=== PATIENT | male | born 1965 | race Caucasian/White ===

== ENCOUNTER 2020-01-29 10:53 | Inpatient (IN) ==
[2020-01-29] MEDS ORDERED: ACETAMINOPHEN 500 MG TAB PO STA (11:14)
[2020-01-29] MEDS ORDERED: SODIUM CHLORIDE 0.9% 1000ML 1,000 ML IV SCH (11:15)
--- NOTE | 2020-01-29 12:04 | XRay Report ---
XR chest 1V portable CLINICAL HISTORY: SEPSIS COMPARISON STUDY: 12/09/2019 FINDINGS: The heart remains enlarged. There is a left-sided PICC catheter. The tip terminates near th e atriocaval junction.[There are persistent bilateral pulmonary airspace opacities, most pronounced w ithin the right upper lung zone, right medial lung base, left perihilar region. The right upper lung zone lesion appears cavitary measuring 6 cm. This appears slightly larger than on the prior study. Th ere are no large pleural effusions. IMPRESSION: 1. Persistent bilateral pulmonary airspace opacities 2. Slight increase in the size of a 6 cm right upper lung zone cavitary lesion 3. Interval placement of a left-sided PICC catheter ACT 112: Negative or not required by law. Electronically signed by: Leroy Faust M.D. 01/29/2020 12:03 PM
[2020-01-29 12:34] LABS: Basophils # (auto) 0.01 K/uL (0-0.2); Basophils % (auto) 0.2 %; Eosinophils # (auto) 0.02 K/uL (0-0.5); Eosinophils % (auto) 0.3 %; Hematocrit (blood only) 27.5 % (42-52); Immature Granulocytes # (auto) 0.05 K/uL (0.00-0.02); Immature Granulocytes % (auto) 0.9 %; Lymphocytes # (auto) 0.16 K/uL (1.2-3.4); Lymphocytes % (auto) 2.8 %; Mean Corpuscular Hemoglobin 28.9 pg (25-34); Mean Corpuscular Hgb Conc 32.7 g/dL (32-36); Mean Corpuscular Volume 88.4 fL (80-100); Mean Platelet Volume 8.3 fL (7.4-10.4); Monocytes # (auto) 0.26 K/uL (0.11-0.59); Monocytes % (auto) 4.5 %; Neutrophils # (auto) 5.29 K/uL (1.4-6.5); Neutrophils % (auto) 91.3 %; Platelet Count 190 K/uL (130-400); RDW Coefficient of Variation 16.9 % (11.5-14.5); RDW Standard Deviation 53.9 fL (36.4-46.3); Red Blood Count 3.11 M/uL (4.7-6.1); White Blood Count 5.79 K/uL (4.8-10.8)
[2020-01-29 12:44] LABS: INR 1.2 (0.9-1.1); Partial Thromboplastin Ratio 1.1; Partial Thromboplastin Time 30.6 Seconds (21.0-31.0); Prothrombin Time 12.6 Seconds (9.0-12.0)
[2020-01-29 12:54] LABS: Alanine Aminotransferase 13 U/L (12-78); Albumin Level 2.3 gm/dl (3.4-5.0); Aspartate Aminotransferase 13 U/L (15-37); BUN Creatinine Ratio 24.8 (10-20); Blood Urea Nitrogen 16 mg/dl (7-18); Calcium 8.4 mg/dl (8.5-10.1); Carbon Dioxide 28 mmol/L (21-32); Chloride 100 mmol/L (98-107); Est GFR (African American) 130.4; Est GFR (Non-African American) 112.5; Glucose 104 mg/dl (70-99); Magnesium 1.8 mg/dl (1.8-2.4); Potassium 4.1 mmol/L (3.5-5.1); Sodium 136 mmol/L (136-145)
[2020-01-29 12:59] LABS: Albumin Globulin Ratio 0.5 (0.9-2); Alkaline Phosphatase 74 U/L (45-117); Bilirubin,Total 0.3 mg/dl (0.2-1); Globulin 4.6 gm/dl (2.5-4.0); Total Protein 6.9 gm/dl (6.4-8.2); Troponin I < 0.015 ng/ml (0-0.045)
[2020-01-29] MEDS ORDERED: CEFEPIME 2,000 MG/20 ML VIAL IV STA (13:45)
--- NOTE | 2020-01-29 14:39 | History & Physical Report ---
Date of Service January 29, 2020 Assessment & Plan (1) Fever: Recurrent fevers for a long time, though given his starting chemotherapy, will treat empirically for now. CXR on 01/28 showed increased size of cavitary lesion. Procalcitonin was 0.5. Pulmonary process seems most likely culprit, t dejuan whether it is new bacterial pneumonia, worsening aspergillosis, or simply advancing squamous cell is unclear. - Blood culture from PICC line done in oncology office (timed at 11:00am) - Peripheral blood cultures done in ED (timed 12:16pm) - Urinalysis pending - CT chest pending - MRSA swab ordered - Empiric vanc/cefepime/azithromycin (2) Aspergillosis: Diagnosed in 08/2019 on bronch. Was on voriconazole until ~12/28/2019, then switched to micafungin for presumed treatment failure. - Micafungin is non-formulary, so discussed it with pharmacy, and he will be started on caspofungin. Reviewing data; it's not entirely clear to me that this is equivalent, but will start for now and ask pulmonary. - Consulted pulmonary (3) Squamous cell carcinoma of lung: Follows with Dr. Kulkarni. Treated on 01/25/2020 with carboplatin/paclitaxel. - Discussed with Dr. Kulkarni who agrees with plan. - Monitor counts (4) COPD with emphysema: Reports some mild shortness of breath at present, but no wheezing and essentially at his baseline. - Continue home umeclidinium inhaler - DuoNebs PRN (5) Anxiety: Slightly anxious affect on interview. - Continue home sertraline (6) DVT prophylaxis: Lovenox 40 mg SQ daily History of Present Illness Primary Care Provider: Walter Roberts 54yo M w/ hx of squamous cell cancer of the right-upper lung who presents with fevers. He was originally diagnosed in 08/2019. He underwent bronch at that time which showed the cancer as well as pulmonary aspergillosis. He reports that he has had fevers for about a year. They will come and go at times. He chalks it up to the aspergillus infection in his lungs. He reports that the last episode began about 3 days ago. He reports he gets a fever and feels chills then sweats. This one began last night and continued through the day. He reports that he has had some nausea since he started chemo, but no emesis today. He has a chronic cough which is stable at its baseline. Otherwise ROS is negative. Allergies Allergy/AdvReac Type Severity Reaction Status Date / Time No Known Allergies Allergy Verified 01/29/20 13:00 Home Medications Home Medications Medication Instructions Recorded Confirmed Type omeprazole 20 mg capsule,delayed 20 mg PO DAILY 07/30/19 01/29/20 History release albuterol sulfate 90 mcg/actuation 2 puff INH Q6H PRN #18 gm 09/21/19 01/29/20 Rx aerosol inhaler ipratropium 0.5 mg-albuterol 3 mg 3 ml INH Q8H PRN #180 ml 09/21/19 01/29/20 Rx (2.5 mg base)/3 mL nebulization soln nebulizers #1 ea 09/21/19 01/25/20 Rx umeclidinium 62.5 mcg-vilanterol 1 puffs INH DAILY #60 ea 10/12/19 01/29/20 Rx 25 mcg/actuation powdr for inhalation sertraline [Zoloft] 50 mg PO HS 12/08/19 01/29/20 History dexamethasone 4 mg PO UD 01/29/20 01/29/20 History oxycodone 20 mg PO Q4H PRN 01/29/20 01/29/20 History polyethylene glycol 3350 [Miralax] 17 g PO DAILY PRN 01/29/20 01/29/20 History prochlorperazine maleate 10 mg PO Q6H PRN 01/29/20 01/29/20 History Past Med/Surg History Medical History Anxiety Arthritis Aspergillus pneumonia s/p treatment, following closely with pulmonary Chronic obstructive pulmonary disease COPD with emphysema Eye disease Best disease- genetic condition affecting vision GERD (gastroesophageal reflux disease) Macular degeneration Restless leg syndrome Scoliosis Seasonal allergies SOB (shortness of breath) on exertion Squamous cell carcinoma lung Surgical History History of bronchoscopy History of colonoscopy History of esophagogastroduodenoscopy (EGD) History of tonsillectomy History of tooth extraction Hx of vasectomy Family History Mother Macular degeneration Lung disease Father , 60yo Myocardial infarction Pancreatitis Sister No problems noted. Sister No problems noted. Son No problems noted. Son No problems noted. Daughter No problems noted. 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 Feels Safe at Home: Yes Diet Comment: Near keto diet caffeine: Yes (1 cup/day) during the past year weight has: decreased > 10 lbs Assistive Devices: Denture - Lower, Glasses and Nebulizer Review of Systems Review of Systems: All systems reviewed & are unremarkable except as noted in HPI & below Physical Exam Constitutional: WD/WN, vitals as above + acute distress and + cachectic Eyes: EOM intact bilaterally; no conjunctival abnormality ENMT: external ear and nose normal, oropharynx normal Neck: trachea midline, no thyromegaly normal visual inspection Respiratory: normal respiratory effort, lungs clear to auscultation no respiratory distress Cardiovascular: Rate/Rhythm: regular rhythm and + tachycardic Heart Sounds: normal S1 and normal S2 Vessels: no JVD Extremities: no edema Gastrointestinal (Abdomen): Inspection/Auscultation: abdomen normal to inspection; abdomen not distended Musculoskeletal: no cyanosis or clubbing, extremities motor strength 5/5 Skin: no rashes, warm and dry Neurologic: moves all extremities and awake Psychiatric: Orientation: alert, oriented to person and cooperative Results & Data Results & Data ([facility]) Vital Signs (Past 12 Hours) Vital Signs Temp Pulse Resp BP Pulse Ox 01/29/20 13:19 37.8 C H 01/29/20 12:32 97 H 19 90 01/29/20 12:21 84 18 93 01/29/20 12:00 83 17 101/59 L 94 01/29/20 11:01 38.8 C H 90 20 114/67 95 Code Status & VTE Plan VTE Prophylaxis Plan VTE Prophylaxis will be ordered: Yes PG Care Time/CCT Total # of Minutes Spent Total Time Spent with Patient: Total time spent is greater than 50% in coordination of care (as documented) at patient's floor/unit and/or counseling patient: Coding Level of Care Code 86348 Initial Inpt Care Lvl 3 Diagnoses Fever R50.9 Aspergillosis B44.9 Squamous cell carcinoma of lung C34.90 COPD with emphysema J43.9 Anxiety F41.9 DVT prophylaxis Z29.9
[2020-01-29] MEDS ORDERED: PROCHLORPERAZINE MALEATE 10 MG TAB PO PRN (16:25)
[2020-01-29] MEDS ORDERED: ALBUT/IPRATROP 3MG/0.5MG NEB 3 ML VIAL INH PRN (16:25)
[2020-01-29] MEDS ORDERED: VANCOMYCIN CONSULT ACTIVE PRN (16:25)
[2020-01-29] MEDS ORDERED: PATIENT'S HEIGHT AND/OR WEIGHT NEEDED SCH (16:30)
[2020-01-29] MEDS ORDERED: AZITHROMYCIN 250 MG TAB PO ONE (16:45)
[2020-01-29] MEDS ORDERED: CASPOFUNGIN 70 MG in SODIUM CHLORIDE 0.9% 250 ML IV ONE (17:00)
[2020-01-29] MEDS ORDERED: VANCOMYCIN HCL 1,500 MG in SODIUM CHLORIDE 0.9% 500 ML IV SCH (17:30)
[2020-01-29] MEDS: oxyCODONE HCL IR 5 MG TAB (IMMEDIATE RELEASE) PO PRN ×2 (17:53→23:30)
[2020-01-29] MEDS: ENOXAPARIN INJ 40 MG/0.4 ML SYR SQ SCH (18:12)
--- NOTE | 2020-01-29 18:20 | Electrocardiogram Report ---
Test Reason : Blood Pressure : / mmHG Vent. Rate : 084 BPM Atrial Rate : 084 BPM P-R Int : 110 ms QRS Dur : 076 ms QT Int : 360 ms P-R-T Axes : 048 001 026 degrees QTc Int : 425 ms Sinus rhythm No previous ECGs available Confirmed by Niraj Bernal ([id number]) on 01/29/2020 6:19:45 PM Referred By: Confirmed By:Andrea Bernal
[2020-01-29 18:21] LABS: Appearance Urine Clear (Clear); Bacteria Urine Automated Negative (Negative); Bilirubin Urine Negative (Negative); Blood Urine Negative (Negative); Cast Urine Automated 0 /lpf (0-5); Color Urine Dark Yellow; Epithelial Cell Urine Auto 0-5 /lpf (0-5); Glucose Urine UA Negative (Negative); Ketones Urine Trace (Negative); Leukocyte Esterase Urine Negative (Negative); Nitrite Urine Negative (Negative); Protein Urine Trace (Negative); RBC Urine Automated 0-4 /hpf (0-4); Specific Gravity Urine 1.033 (1.000-1.030); Urobilinogen Urine Negative (Negative); pH Urine 5.5 (4.5-7.5)
--- NOTE | 2020-01-29 19:17 | Emergency Department Note ---
History of Present Illness General Chief complaint: Fever Stated complaint: FEVER Time Seen by Provider: 01/29/20 11:09 History of Present Illness Provider complaint: Fever Onset (ago): day(s) 1 Maximum Pain Intensity: 5 Associated symptoms: + cough, + fever/chills, + nausea/vomiting and + shortness of breath 54-year-old male presents emergency department for fever. Patient does have a history of lung cancer and is on chemotherapy and radiation therapy. Patient also has a history of aspergillosis. Patient reports loss of taste and smell. He also reports cough. He also reports nausea. He also reports diarrhea. He also reports shortness of breath. Home Medications Home Medications Medication Instructions Recorded Confirmed Type omeprazole 20 mg capsule,delayed 20 mg PO DAILY 07/30/19 01/29/20 History release albuterol sulfate 90 mcg/actuation 2 puff INH Q6H PRN #18 gm 09/21/19 01/29/20 Rx aerosol inhaler ipratropium 0.5 mg-albuterol 3 mg 3 ml INH Q8H PRN #180 ml 09/21/19 01/29/20 Rx (2.5 mg base)/3 mL nebulization soln nebulizers #1 ea 09/21/19 01/25/20 Rx umeclidinium 62.5 mcg-vilanterol 1 puffs INH DAILY #60 ea 10/12/19 01/29/20 Rx 25 mcg/actuation powdr for inhalation sertraline [Zoloft] 50 mg PO HS 12/08/19 01/29/20 History dexamethasone 4 mg PO UD 01/29/20 01/29/20 History oxycodone 20 mg PO Q4H PRN 01/29/20 01/29/20 History polyethylene glycol 3350 [Miralax] 17 g PO DAILY PRN 01/29/20 01/29/20 History prochlorperazine maleate 10 mg PO Q6H PRN 01/29/20 01/29/20 History Allergies Allergy/AdvReac Type Severity Reaction Status Date / Time No Known Allergies Allergy Verified 01/29/20 13:00 Past Med/Surg History Medical History Anxiety Arthritis Aspergillus pneumonia s/p treatment, following closely with pulmonary Chronic obstructive pulmonary disease COPD with emphysema Eye disease Best disease- genetic condition affecting vision GERD (gastroesophageal reflux disease) Macular degeneration Restless leg syndrome Scoliosis Seasonal allergies SOB (shortness of breath) on exertion Squamous cell carcinoma lung Surgical History History of bronchoscopy History of colonoscopy History of esophagogastroduodenoscopy (EGD) History of tonsillectomy History of tooth extraction Hx of vasectomy Family History Mother Macular degeneration Lung disease Father , 60yo Myocardial infarction Pancreatitis Sister No problems noted. Sister No problems noted. Son No problems noted. Son No problems noted. Daughter No problems noted. 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 -[employer] Feels Safe at Home: Yes Diet Comment: Near keto diet caffeine: Yes (1 cup/day) during the past year weight has: decreased > 10 lbs Assistive Devices: Denture - Upper and Glasses Review of Systems A total of 10 systems reviewed and were otherwise negative Physical Exam Vital Signs Vital Signs - 24 hr 01/29/20 11:01 01/29/20 11:10 01/29/20 12:00 Temperature 38.8 C H Temperature Source Oral Pulse Rate 90 83 Pulse Rate from SpO2 Sensor 85 Respiratory Rate 20 17 Blood Pressure 114/67 101/59 L Blood Pressure Mean 82 68 Pulse Oximetry 95 94 Oxygen Delivery Method Room Air Room Air Room Air Sepsis Recent Fever Within 48 Hours Yes Sepsis New/Unexplained Change in Mental Status No Sepsis Action Taken by Nursing No Action Required 01/29/20 12:21 01/29/20 12:32 01/29/20 12:54 Temperature Temperature Source Pulse Rate 84 97 H 85 Pulse Rate from SpO2 Sensor 84 101 H 89 Respiratory Rate 18 19 23 Blood Pressure 119/72 Blood Pressure Mean 39 101 Pulse Oximetry 93 90 94 Oxygen Delivery Method Room Air Room Air Room Air Sepsis Recent Fever Within 48 Hours Sepsis New/Unexplained Change in Mental Status Sepsis Action Taken by Nursing 01/29/20 13:19 01/29/20 13:30 01/29/20 14:00 Temperature 37.8 C H Temperature Source Oral Pulse Rate 94 H 89 80 Pulse Rate from SpO2 Sensor 92 H 87 81 Respiratory Rate 19 20 16 Blood Pressure 116/64 109/68 102/69 Blood Pressure Mean 73 76 77 Pulse Oximetry 94 94 94 Oxygen Delivery Method Room Air Room Air Room Air Sepsis Recent Fever Within 48 Hours Sepsis New/Unexplained Change in Mental Status Sepsis Action Taken by Nursing Physical Exam GENERAL: He is oriented to person, place, and time. He appears well-developed and well-nourished. He does not appear distressed. HENT: Exam performed. - Head: Normocephalic and atraumatic. - Right Ear: External ear normal. No mastoid tenderness. - Left Ear: External ear normal. No mastoid tenderness. - Mouth/Throat: The oropharynx is clear and moist. No trismus in the jaw. No dental abscesses or uvula swelling. No oropharyngeal exudate or tonsillar abscesses. EYES: Conjunctivae and EOM are normal. Pupils are equal, round, and reactive to light. Right eye exhibits no discharge. Left eye exhibits no discharge. No scleral icterus. NECK: Normal range of motion. Neck supple. No JVD present. No spinous process tenderness present. No carotid bruit present. No rigidity. No tracheal deviation and normal range of motion present. No Brudzinski's sign and no Kernig's sign noted. CV: Normal rate, regular rhythm, normal heart sounds and intact distal pulses. There is no peripheral edema. Palpable radial pulses bue. PULM/CHEST: Effort normal and breath sounds normal. No respiratory distress. No stridor. He has no wheezes. He has no rales. - Chest Wall: He exhibits no tenderness. ABD: The abdomen is soft. Bowel sounds are normal. He has no distension. No mass is present. There is no tenderness. There is no rebound, no guarding, no Gonzalez's sign and no tenderness at McBurney's point. Rovsig negative. MUSC/SKEL: Normal range of motion. There is no peripheral edema, tenderness or deformity. LYMPH: No cervical adenopathy. NEURO: He is alert and oriented to person, place, and time. He has normal strength. No cranial nerve deficit or sensory deficit. Coordination and gait normal. GCS eye subscore is 4. GCS verbal subscore is 5. GCS motor subscore is 6. Cerebellar tests wnl. SKIN: Skin is warm and dry. He is not diaphoretic. PSYCH: He has a normal mood and affect. Behavior is normal. Judgment and thought content normal. Course Course 1109: The patient was evaluated in room B4. A complete history and physical exam was performed. Patient was seen in full airborne precautions. Cardiac monitoring: An order was placed for continuous cardiac monitoring. The monitor shows a rate of 80 with NS rhythm 1350: Vital signs stable. Labs at baseline. Imaging shows persistent pulmonary airspace opacities and slight increase in size of the lung cavitary lesion. Covid swab negative and urinalysis negative. I did discuss the findings with the patient's oncologist Dr. Kulkarni. Dr. Kulkarni states he sent the patient to the emergency department today. He states he recommends starting the patient on gram-negative coverage. Cefepime was ordered for the patient IV piggyback in the emergency department. He also recommends continuing the patient's antifungal treatment for aspergillosis and to admit to the hospitalist service. Discussed with Dr. Adam [facility] hospitalist who agreed to admit the patient. Administered Medications Enoxaparin Sodium (Enoxaparin Inj 40 Mg/0.4 Ml Syr) 40 mg SQ Q24H [facility] Stop: 02/28/20 17:59 Last Admin: 01/29/20 18:12 Dose: 40 mg Documented by: [id number] Vancomycin HCl 1,500 mg/ (Sodium Chloride) 530 mls @ 200 mls/hr IV TODAY@1730 PAMELA Stop: 01/29/20 20:08 Last Admin: 01/29/20 18:12 Dose: 200 mls/hr Documented by: [id number] Oxycodone HCl (Oxycodone Hcl Ir 5 Mg Tab (Immediate Release)) 20 mg PO Q4H PRN PRN Reason: Pain Stop: 02/12/20 16:24 Last Admin: 01/29/20 17:53 Dose: 20 mg Documented by: [id number] Discontinued Medications Acetaminophen (Acetaminophen 500 Mg Tab) 1,000 mg PO NOW STA Stop: 01/29/20 11:15 Last Admin: 01/29/20 11:32 Dose: 1,000 mg Documented by: [id number] Azithromycin (Azithromycin 250 Mg Tab) 500 mg PO NOW ONE Stop: 01/29/20 16:46 Last Admin: 01/29/20 18:13 Dose: 500 mg Documented by: [id number] Sodium Chloride (Nss 1000ml) 1,000 mls @ 125 mls/hr IV .Q8H PAMELA Stop: 02/28/20 11:14 Last Admin: 01/29/20 11:37 Dose: 125 mls/hr Documented by: [id number] Cefepime HCl (Maxipime) 2,000 mg in 20 mls @ 5 mls/min IV NOW STA; Protocol Stop: 01/29/20 13:48 Last Admin: 01/29/20 14:39 Dose: 5 mls/min Documented by: [id number] Caspofungin 70 mg/ Sodium (Chloride) 260 mls @ 250 mls/hr IV NOW ONE Stop: 01/29/20 18:02 Last Infusion: 01/29/20 18:52 Dose: 0 mls/hr Documented by: [id number] Admin: 01/29/20 17:41 Dose: 250 mls/hr Documented by: [id number] Miscellaneous (Patient's Height And/Or Weight Needed) 1 ea N/A Q1H PAMELA Stop: 02/28/20 16:29 Last Admin: 01/29/20 18:53 Dose: 1 ea Documented by: [id number] Medical Decision Making Laboratory Data Result diagrams: 01/29/20 12:16 01/29/20 12:16 Lab Results 01/29/20 01/29/20 01/29/20 Range/Units 11:35 11:35 12:16 WBC 5.79 (4.8-10.8) K/uL RBC 3.11 L (4.7-6.1) M/uL Hgb 9.0 L (14.0-18.0) g/dL Hct 27.5 L (42-52) % MCV 88.4 (80-100) fL MCH 28.9 (25-34) pg MCHC 32.7 (32-36) g/dL RDW Std Deviation 53.9 H (36.4-46.3) fL RDW Coeff of [place] 16.9 H (11.5-14.5) % Plt Count 190 (130-400) K/uL MPV 8.3 (7.4-10.4) fL Immature Gran % (Auto) 0.9 % Neut % (Auto) 91.3 % Lymph % (Auto) 2.8 % [place] % (Auto) 4.5 % Eos % (Auto) 0.3 % Baso % (Auto) 0.2 % Neut # (Auto) 5.29 (1.4-6.5) K/uL Lymph # (Auto) 0.16 L (1.2-3.4) K/uL [place] # (Auto) 0.26 (0.11-0.59) K/uL Eos # (Auto) 0.02 (0-0.5) K/uL Baso # (Auto) 0.01 (0-0.2) K/uL Immature Gran # (Auto) 0.05 H (0.00-0.02) K/uL PT (9.0-12.0) Seconds INR (0.9-1.1) APTT (21.0-31.0) Seconds PTT Ratio Sodium (136-145) mmol/L Potassium (3.5-5.1) mmol/L Chloride (98-107) mmol/L Carbon Dioxide (21-32) mmol/L Anion Gap (3-11) BUN (7-18) mg/dl Creatinine (0.6-1.4) mg/dl Est Cr Clr Drug Dosing Est GFR ( Amer) Est GFR (Non-Af Amer) BUN/Creatinine Ratio (10-20) Glucose (70-99) mg/dl Lactate (0.4-2.0) mmol/L Calcium (8.5-10.1) mg/dl Magnesium (1.8-2.4) mg/dl Total Bilirubin (0.2-1) mg/dl AST (15-37) U/L ALT (12-78) U/L Alkaline Phosphatase (45-117) U/L Troponin I (0-0.045) ng/ml Total Protein (6.4-8.2) gm/dl Albumin (3.4-5.0) gm/dl Globulin (2.5-4.0) gm/dl Albumin/Globulin Ratio (0.9-2) Procalcitonin (0-0.5) ng/ml COVID-19 Eval Order Covid19 Done at [facility] COVID-19 PCR NEGATIVE (Negative) 01/29/20 01/29/20 01/29/20 Range/Units 12:16 12:16 12:16 WBC (4.8-10.8) K/uL RBC (4.7-6.1) M/uL Hgb (14.0-18.0) g/dL Hct (42-52) % MCV (80-100) fL MCH (25-34) pg MCHC (32-36) g/dL RDW Std Deviation (36.4-46.3) fL RDW Coeff of [place] (11.5-14.5) % Plt Count (130-400) K/uL MPV (7.4-10.4) fL Immature Gran % (Auto) % Neut % (Auto) % Lymph % (Auto) % [place] % (Auto) % Eos % (Auto) % Baso % (Auto) % Neut # (Auto) (1.4-6.5) K/uL Lymph # (Auto) (1.2-3.4) K/uL [place] # (Auto) (0.11-0.59) K/uL Eos # (Auto) (0-0.5) K/uL Baso # (Auto) (0-0.2) K/uL Immature Gran # (Auto) (0.00-0.02) K/uL PT 12.6 H (9.0-12.0) Seconds INR 1.2 H (0.9-1.1) APTT 30.6 (21.0-31.0) Seconds PTT Ratio 1.1 Sodium 136 (136-145) mmol/L Potassium 4.1 (3.5-5.1) mmol/L Chloride 100 (98-107) mmol/L Carbon Dioxide 28 (21-32) mmol/L Anion Gap 8.0 (3-11) BUN 16 (7-18) mg/dl Creatinine 0.63 (0.6-1.4) mg/dl Est Cr Clr Drug Dosing Not Reportable Est GFR ( Amer) 130.4 Est GFR (Non-Af Amer) 112.5 BUN/Creatinine Ratio 24.8 H (10-20) Glucose 104 H (70-99) mg/dl Lactate 0.7 (0.4-2.0) mmol/L Calcium 8.4 L (8.5-10.1) mg/dl Magnesium 1.8 (1.8-2.4) mg/dl Total Bilirubin 0.3 (0.2-1) mg/dl AST 13 L (15-37) U/L ALT 13 (12-78) U/L Alkaline Phosphatase 74 (45-117) U/L Troponin I < 0.015 (0-0.045) ng/ml Total Protein 6.9 (6.4-8.2) gm/dl Albumin 2.3 L (3.4-5.0) gm/dl Globulin 4.6 H (2.5-4.0) gm/dl Albumin/Globulin Ratio 0.5 L (0.9-2) Procalcitonin (0-0.5) ng/ml COVID-19 Eval Order COVID-19 PCR (Negative) 01/29/20 Range/Units 12:16 WBC (4.8-10.8) K/uL RBC (4.7-6.1) M/uL Hgb (14.0-18.0) g/dL Hct (42-52) % MCV (80-100) fL MCH (25-34) pg MCHC (32-36) g/dL RDW Std Deviation (36.4-46.3) fL RDW Coeff of [place] (11.5-14.5) % Plt Count (130-400) K/uL MPV (7.4-10.4) fL Immature Gran % (Auto) % Neut % (Auto) % Lymph % (Auto) % [place] % (Auto) % Eos % (Auto) % Baso % (Auto) % Neut # (Auto) (1.4-6.5) K/uL Lymph # (Auto) (1.2-3.4) K/uL [place] # (Auto) (0.11-0.59) K/uL Eos # (Auto) (0-0.5) K/uL Baso # (Auto) (0-0.2) K/uL Immature Gran # (Auto) (0.00-0.02) K/uL PT (9.0-12.0) Seconds INR (0.9-1.1) APTT (21.0-31.0) Seconds PTT Ratio Sodium (136-145) mmol/L Potassium (3.5-5.1) mmol/L Chloride (98-107) mmol/L Carbon Dioxide (21-32) mmol/L Anion Gap (3-11) BUN (7-18) mg/dl Creatinine (0.6-1.4) mg/dl Est Cr Clr Drug Dosing Est GFR ( Amer) Est GFR (Non-Af Amer) BUN/Creatinine Ratio (10-20) Glucose (70-99) mg/dl Lactate (0.4-2.0) mmol/L Calcium (8.5-10.1) mg/dl Magnesium (1.8-2.4) mg/dl Total Bilirubin (0.2-1) mg/dl AST (15-37) U/L ALT (12-78) U/L Alkaline Phosphatase (45-117) U/L Troponin I (0-0.045) ng/ml Total Protein (6.4-8.2) gm/dl Albumin (3.4-5.0) gm/dl Globulin (2.5-4.0) gm/dl Albumin/Globulin Ratio (0.9-2) Procalcitonin 0.50 (0-0.5) ng/ml COVID-19 Eval Order COVID-19 PCR (Negative) Imaging Data Radiologist's Impression: XR chest 1V portable CLINICAL HISTORY: SEPSIS COMPARISON STUDY: 12/09/2019 FINDINGS: The heart remains enlarged. There is a left-sided PICC catheter. The tip terminates near the atriocaval junction.[There are persistent bilateral pulmonary airspace opacities, most pronounced within the right upper lung zone, right medial lung base, left perihilar region. The right upper lung zone lesion appears cavitary measuring 6 cm. This appears slightly larger than on the prior study. There are no large pleural effusions. IMPRESSION: 1. Persistent bilateral pulmonary airspace opacities 2. Slight increase in the size of a 6 cm right upper lung zone cavitary lesion 3. Interval placement of a left-sided PICC catheter ACT 112: Negative or not required by law. Electronically signed by: Leroy Faust M.D. 01/29/2020 12:03 PM Dictated: 01/29/20 1200Transcribed: 01/29/20 1200 ECG Data Indication: + SOB/dyspnea Rate (beats per minute): 84 Rhythm: + normal sinus ECG Intervals/blocks: + Normal OH and + Normal QT-c ECG ST segments: + Normal ST segments Additional Comments: QRS interval 76. No delta waves. [facility] Narrative 1109: The patient was evaluated in room B4. A complete history and physical exam was performed. Patient was seen in full airborne precautions. Cardiac monitoring: An order was placed for continuous cardiac monitoring. The monitor shows a rate of 80 with NS rhythm 1350: Vital signs stable. Labs at baseline. Imaging shows persistent pulmonary airspace opacities and slight increase in size of the lung cavitary lesion. Covid swab negative and urinalysis negative. I did discuss the findings with the patient's oncologist Dr. Kulkarni. Dr. Kulkarni states he sent the patient to the emergency department today. He states he recommends starting the patient on gram-negative coverage. Cefepime was ordered for the patient IV piggyback in the emergency department. He also recommends continuing the patient's antifungal treatment for aspergillosis and to admit to the hospitalist service. Discussed with Dr. Adam [facility] hospitalist who agreed to admit the patient. Impression & Plan Aspergillosis, Squamous cell carcinoma of lung Discharge Plan Visit Data Chief Complaint: Fever Stated Complaint: FEVER ED Provider: zUiel Lopez Discharge Problem: Aspergillosis, Squamous cell carcinoma of lung Patient Disposition: Still a Patient Discharge Instructions Interventions: ED Discharge Assessment Last Done: 01/29/20 16:08 Discharge Problem: Squamous cell carcinoma of lung Qualifiers: Laterality: unspecified laterality Qualified Code(s): C34.90 - Malignant neoplasm of unspecified part of unspecified bronchus or lung
--- NOTE | 2020-01-29 20:07 | CT Scan Report ---
CT OF THE CHEST WITHOUT IV CONTRAST CLINICAL HISTORY: Concern for infection. Squamous cell carcinoma of the lung. COMPARISON STUDY: Chest CT October 26, 2019. PET/CT December 02, 2019. Chest radiograph January 28. Treatment planning CT January 05, 2020. CT DOSE: 291.13 mGy.cm TECHNIQUE: Axial images of the chest were obtained without IV contrast. Images were reviewed in the axial, sagittal, and coronal planes. IV contrast was not administered for this examination. Automat ed exposure control was utilized for the study. A dose lowering technique was utilized adhering to t he principles of ALARA. FINDINGS: A left sided PICC is in place. Evaluation for thoracic lymphadenopathy is significantly co mpromised given lack of IV contrast. Note is again made of a cavitary right upper lobe mass. This mas s measures 7.1 x 6.1 cm which is similar to treatment planning CT of January 05, 2020. However, the t hickness of the wall has slightly decreased. This lesion contains a 3.8 x 2.2 cm soft tissue density which is similar to prior treatment planning CT. Posterior erosion of the right first, second and thi rd ribs is noted with a pathologic fracture of the right third rib. Multifocal left lung opacities hernandez ve improved since exam of January 05, 2020. Right lower lobe multifocal airspace opacities have progr essed. Right upper lobe airspace opacity is also increased. There are severe emphysema. No pneumothor ax is present. There are trace bilateral pleural effusions. Size the heart is normal. There is no per icardial effusion. Moderate coronary artery calcification is noted. Old left-sided rib fractures are noted. IMPRESSION: 1. Increase in multifocal right lung airspace opacities since treatment planning CT of January 04. This favors an infectious process however treatment related lung disease could appear similar. In terval improvement in multifocal left lung airspace opacity since prior exam. 2. No significant change in size of the 7.1 x 6.1 cm cavitary right upper lobe mass which represents the primary malignancy. Wall thickness of this lesion has slightly decreased since prior exam. 3. Severe emphysema. 4. Trace right pleural effusion. 5. Suboptimal evaluation for thoracic lymphadenopathy on this unenhanced exam. ACT 112: Negative or not required by law. Electronically signed by: Macario Hannon M.D. 01/29/2020 8:05 PM
[2020-01-29] MEDS ORDERED: COUGH DROP (SUGAR FREE) LOZ 24 LOZ/1 BOX BUCCAL STA (20:15)
[2020-01-29] MEDS: DOCUSATE SODIUM 100 MG CAP PO PRN (20:47)
[2020-01-29] MEDS: MELATONIN 3 MG TAB PO PRN (20:47)
[2020-01-29] MEDS: BENZONATATE 100 MG CAPSULE PO PRN (20:47)
[2020-01-29] MEDS: SERTRALINE HCL 50 MG TABLET PO SCH (20:47)
[2020-01-29] MEDS: fentaNYL 12 MCG/HR TDSY TD SCH (23:28)
[2020-01-29] MEDS: SODIUM CHLORIDE 0.9% 1000ML 1,000 ML IV SCH (23:28)
[2020-01-29] MEDS: CEFEPIME 2,000 MG in SYRINGE 0 ML IV SCH (23:29)
[2020-01-30] MEDS: CHECK fentaNYL PATCH PLACEMENT SCH ×3 (00:19→15:38)
[2020-01-30] MEDS: VANCOMYCIN HCL 1,000 MG in SODIUM CHLORIDE 0.9% 250 ML IV SCH ×2 (01:54→09:30)
[2020-01-30] MEDS: oxyCODONE HCL IR 5 MG TAB (IMMEDIATE RELEASE) PO PRN ×5 (04:11→21:23)
[2020-01-30] MEDS: CEFEPIME 2,000 MG in SYRINGE 0 ML IV SCH ×3 (06:47→22:37)
[2020-01-30] MEDS: ONDANSETRON INJ 2 MG/ML 2 ML VIAL IV PRN ×2 (06:52→12:48)
[2020-01-30 07:56] LABS: Basophils # (auto) 0.02 K/uL (0-0.2); Basophils % (auto) 0.4 %; Eosinophils # (auto) 0.05 K/uL (0-0.5); Eosinophils % (auto) 0.9 %; Hematocrit (blood only) 27.6 % (42-52); Hemoglobin 8.9 g/dL (14.0-18.0); Immature Granulocytes # (auto) 0.06 K/uL (0.00-0.02); Immature Granulocytes % (auto) 1.1 %; Lymphocytes # (auto) 0.27 K/uL (1.2-3.4); Mean Corpuscular Hemoglobin 28.8 pg (25-34); Mean Corpuscular Hgb Conc 32.2 g/dL (32-36); Mean Corpuscular Volume 89.3 fL (80-100); Mean Platelet Volume 8.6 fL (7.4-10.4); Monocytes # (auto) 0.41 K/uL (0.11-0.59); Monocytes % (auto) 7.6 %; Neutrophils # (auto) 4.57 K/uL (1.4-6.5); Platelet Count 202 K/uL (130-400); RDW Coefficient of Variation 17.1 % (11.5-14.5); RDW Standard Deviation 55.4 fL (36.4-46.3); Red Blood Count 3.09 M/uL (4.7-6.1); White Blood Count 5.38 K/uL (4.8-10.8)
[2020-01-30] MEDS: PANTOprazole 40 MG TAB PO SCH (07:56)
[2020-01-30] MEDS: UMECLIDINIUM/VILANTEROL 62.5/25MCG 7 PUFFS/INHALER INH SCH (08:18)
--- NOTE | 2020-01-30 08:28 | Hospitalist Progress Note ---
Date of Service January 30, 2020 Assessment & Plan (1) Fever: Patient is a fever while being treated with chemotherapy and radiation therapy for squamous cell carcinoma also concurrently being treated for an aspergillosis cavitary lung lesion Patient is cultured he is on antibiotics and continues on antifungal treatment. Blood culture showed gram-negative bacilli, is on cefepime to provide pseudomonas coverage (2) Aspergillosis: Diagnosed in 08/2019 on bronch. Was on voriconazole until ~12/28/2019, then switched to micafungin for presumed treatment failure. - Micafungin is non-formulary, so discussed it with pharmacy, and he will be started on caspofungin. Reviewing data; it's not entirely clear to me that this is equivalent, but will start for now and ask pulmonary. - Consulted pulmonary CT chest 01/29/20 IMPRESSION: 1. Increase in multifocal right lung airspace opacities since treatment planning CT of January 05, 2020. This favors an infectious process however treatment related lung disease could appear similar. Interval improvement in multifocal left lung airspace opacity since prior exam. 2. No significant change in size of the 7.1 x 6.1 cm cavitary right upper lobe mass which represents the primary malignancy. Wall thickness of this lesion has slightly decreased since prior exam. 3. Severe emphysema. 4. Trace right pleural effusion. 5. Suboptimal evaluation for thoracic lymphadenopathy on this unenhanced exam. (3) Squamous cell carcinoma of lung: Follows with Dr. Kulkarni. Treated on 01/25/2020 with carboplatin/paclitaxel. - Discussed with Dr. Kulkarni who agrees with plan. - Monitor counts (4) COPD with emphysema: Reports some mild shortness of breath at present, but no wheezing and essentially at his baseline. - Continue home umeclidinium inhaler - DuoNebs PRN (5) Anxiety: Slightly anxious affect on interview. - Continue home sertraline (6) DVT prophylaxis: Lovenox 40 mg SQ daily Admission and Anticipated Discharge Date Admission Date: January 29, 2020 Subjective This patient is feels that much significantly worse. He was seen by pulmonary critical care with recommendations to discontinue vancomycin remains on cefepime and azithromycin plus caspofungin for his known aspergillosis infection. He is receiving chemotherapy as an outpatient with his next scheduled treatment due on the and receiving radiation therapy which will be scheduled to be through next week Review of Systems Review of Systems: Mild distress and fatigue no headache, blurry or double vision no speech or swallowing issues no chest pain, pressure or palpitations Baseline shortness of breath breathlessness and nonproductive coughing with occasional scant expiratory wheezes no abdominal pain, nausea or vomiting, diarrhea or constipation no dysuria, hematuria or frequency no focal joint pain or swelling no back pain, CVA tenderness or radicular pain no bruising, bleeding or rashes no focal signs of weakness or numbness or altered sensation no complaints of anxiety or depression. Physical Exam Physical Exam: The patient appeared chronically ill he appears older than his stated age Vital signs as documented. Continues with fevers here Head exam is normocephalic atraumatic no scleral icterus Neck is without JVD, thyromegaly, or carotid bruits. Lungs are coarse rhonchi in all lung kovacs Cardiac exam, Rhythm is regular.. No murmurs, rubs or gallops. Abdominal exam reveals normal bowel sounds, soft non tender, no masses Extremities are nonedematous and both pedal pulses are present Neurologic exam is alert and oriented, no focal loss of strength or sensation Skin is without bruises or rashes Psychologically is without concerns for anxiety or depression. Results & Data Results & Data ([facility]) Vital Signs (Past 12 Hours) Vital Signs Temp Pulse Resp BP Pulse Ox 01/30/20 08:17 99.7 F H 63 18 133/78 95 01/29/20 23:47 99.1 F 01/29/20 23:44 100.4 F H 76 16 114/64 93 PG Care Time/CCT Total # of Minutes Spent Total Time Spent with Patient: Total time spent is greater than 50% in coordination of care (as documented) at patient's floor/unit and/or counseling patient: Coding Level of Care Code 98010 Subseq Hosp Care Lvl 3 Diagnoses Fever R50.9 Aspergillosis B44.9 Squamous cell carcinoma of lung C34.90 Laterality: unspecified laterality COPD with emphysema J43.9 Anxiety F41.9 DVT prophylaxis Z29.9 (1) Squamous cell carcinoma of lung Laterality: unspecified laterality Qualified Code(s): C34.90 - Malignant neoplasm of unspecified part of unspecified bronchus or lung
[2020-01-30 08:29] LABS: BUN Creatinine Ratio 19.5 (10-20); Calcium 8.3 mg/dl (8.5-10.1); Creatinine Clr Calc Pharmacy 125.7 ml/min; Est GFR (Non-African American) 115.6; Magnesium 1.7 mg/dl (1.8-2.4); Potassium 3.8 mmol/L (3.5-5.1)
[2020-01-30 08:30] LABS: Phosphorus 2.5 mg/dl (2.5-4.9)
[2020-01-30] MEDS: SODIUM CHLORIDE 0.9% 1000ML 1,000 ML IV SCH ×2 (09:32→21:36)
--- NOTE | 2020-01-30 12:15 | Pulmonary Consultation ---
Date of Consultation January 30, 2020 Assessment & Plan (1) COPD with emphysema: CT chest 01/29/2020 personally reviewed: Right upper lobe cavitary lesion with endocavitary lesion. The left upper lobe consolidative process has improved. But there is new consolidative process appreciated in the right lower lobe. --Right lower lobe pneumonia Patient does have history of aspergillus fumigatus in the bron x2 and is being treated as Invasive aspergillosis as outpatient He has been on voriconazole in the past Currently on micafungin as an outpatient Patient follows up with Dr. Lopez Would continue with caspofungin in the hospital. Nasal MRSA is negative. COVID-19 negative, procalcitonin 0.5 AG QTC is 425. Continue with cefepime. Vancomycin I think could be discontinued. Continue with the azithromycin for 5 days for atypical coverage Mucinex and flutter valve to help patient bring up the phlegm. --Squamous cell carcinoma of the lung Patient has been started on chemotherapy and radiation therapy carboplatin/paclitaxel. --COPD with emphysema Not in exacerbation Continue with inhalers Plan: Can DC vancomycin given nasal MRSA is negative Continue with cefepime and azithromycin. Mucinex and flutter valve added to the regimen. Follow-up sputum culture Please note the above document was generated using voice recognition software. It may contain grammatical, syntax or spelling errors.Any formal questions or concerns about the content, text or information contained within the body of this dictation should be directly addressed to the provider for clarification. (2) Malignant neoplasm of right upper lobe of lung: (3) Abnormal finding on lung imaging: History of Present Illness Attending Physician: Chris Conde MD History of Present Illness 54-year-old with no significant past medical history except for active smoking and is following up with pulmonary for right upper lobe cavitary lesion which was found to be squamous cell carcinoma Patient was last seen by me 10/19/2019 Patient had bronchoscopy on 09/09/2019 which was positive for squamous cell cancer of the lung. Patient underwent EBUS with TBNA station 4R, 10 R, 7, 4L which were all negative for malignancy. Patient also had cytology brush in the lingular portion of the left upper lobe which was negative for malignancy Patient had MRI of the brain done on 09/18/2019 which was negative for any metastasis. Patient also had CBC with differential which did not show any eosinophilia. Gold QuantiFERON which was negative, Covid-19 PCR which was also negative Patient also had Gallactomannan positive in the BAL. Patient has been following with Dr Kulkarni, Dr Rascon and Dr Lopez. He was recently started on chemo and had 1 session of radiation done as well. Since the last couple of days he has been spiking fever. Coughing up phlegm no hemoptysis. Patient has on and off fever for very long time. He was seen by Dr. Kulkarni who said because this should be ruled out with Covid. And he was admitted to the hospital. Denies any recent travel history. No dysuria, no diarrhea. Social history: Greater than 65-vbsw-desr active smoker, has cut down to half a pack a day, used to be heavy drinker but quit 8 years ago, does occasional marijuana. 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 Pets: None Allergies Allergy/AdvReac Type Severity Reaction Status Date / Time No Known Allergies Allergy Verified 01/29/20 13:00 Home Medications Home Medications Medication Instructions Recorded Confirmed Type omeprazole 20 mg capsule,delayed 20 mg PO DAILY 07/30/19 01/29/20 History release albuterol sulfate 90 mcg/actuation 2 puff INH Q6H PRN #18 gm 09/21/19 01/29/20 Rx aerosol inhaler ipratropium 0.5 mg-albuterol 3 mg 3 ml INH Q8H PRN #180 ml 09/21/19 01/29/20 Rx (2.5 mg base)/3 mL nebulization soln nebulizers #1 ea 09/21/19 01/25/20 Rx umeclidinium 62.5 mcg-vilanterol 1 puffs INH DAILY #60 ea 10/12/19 01/29/20 Rx 25 mcg/actuation powdr for inhalation sertraline [Zoloft] 50 mg PO HS 12/08/19 01/29/20 History dexamethasone 4 mg PO UD 01/29/20 01/29/20 History fentanyl 1 patch TRANSDERMAL Q72H 01/29/20 01/29/20 History oxycodone 20 mg PO Q4H PRN 01/29/20 01/29/20 History polyethylene glycol 3350 [Miralax] 17 g PO DAILY PRN 01/29/20 01/29/20 History prochlorperazine maleate 10 mg PO Q6H PRN 01/29/20 01/29/20 History Patient History Medical History Anxiety Arthritis Aspergillus pneumonia s/p treatment, following closely with pulmonary Chronic obstructive pulmonary disease COPD with emphysema Eye disease Best disease- genetic condition affecting vision GERD (gastroesophageal reflux disease) Macular degeneration Restless leg syndrome Scoliosis Seasonal allergies SOB (shortness of breath) on exertion Squamous cell carcinoma lung Surgical History History of bronchoscopy History of colonoscopy History of esophagogastroduodenoscopy (EGD) History of tonsillectomy History of tooth extraction Hx of vasectomy Family History Mother Macular degeneration Lung disease Father , 60yo Myocardial infarction Pancreatitis Sister No problems noted. Sister No problems noted. Son No problems noted. Son No problems noted. Daughter No problems noted. 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 Feels Safe at Home: Yes Diet Comment: Near keto diet caffeine: Yes (1 cup/day) during the past year weight has: decreased > 10 lbs Assistive Devices: Denture - Upper and Glasses Review of Systems Review of Systems: All systems reviewed & are unremarkable except as noted in HPI & below Physical Exam Physical Exam: Constitutional: No acute distress HEENT: EOMI, PERRLA Respiratory system: Decreased air entry bilaterally, positive crackles right low er lobe, no wheeze, no rhonchi CVS: S1-S2 positive, no murmurs or gallops Abdomen: Soft, nontender, nondistended, positive bowel sounds x4 Extremities: +2 pulses bilaterally radialis/ dorsalis pedis, no cyanosis, no edema Neuro: Awake alert oriented x3 Psych: Normal mood and affect G/U: No Kaur Skin: no rashes, warm and dry Lymphatic: no cervical or axillary lymphadenopathy Results & Data Results & Data ([facility]) Vital Signs (Past 12 Hours) Vital Signs Temp Pulse Resp BP Pulse Ox 01/30/20 08:17 37.6 C H 63 18 133/78 95 01/30/20 07:23 01/30/20 07:23 PG Care Time/CCT Total # of Minutes Spent Total Time Spent with Patient: Total time spent is greater than 50% in coordination of care (as documented) at patient's floor/unit and/or counseling patient: Coding Level of Care Code 55822 Initial Inpt Care Lvl 3 Diagnoses COPD with emphysema J43.9 Malignant neoplasm of right upper lobe of lung C34.11 Abnormal finding on lung imaging R91.8
[2020-01-30 13:48] LABS: Influenza A virus by PCR Negative (Negative); Influenza B virus by PCR Negative (Negative)
[2020-01-30] MEDS: CASPOFUNGIN 50 MG in SODIUM CHLORIDE 0.9% 250 ML IV SCH (15:38)
[2020-01-30] MEDS: DOCUSATE SODIUM 100 MG CAP PO PRN (15:38)
[2020-01-30] MEDS: AZITHROMYCIN 250 MG TAB PO SCH (15:38)
[2020-01-30] MEDS: ENOXAPARIN INJ 40 MG/0.4 ML SYR SQ SCH (17:11)
[2020-01-30] MEDS: BENZONATATE 100 MG CAPSULE PO PRN (18:27)
[2020-01-30] MEDS: guaiFENesin 600 MG TABCR PO SCH (20:10)
[2020-01-30] MEDS: SERTRALINE HCL 50 MG TABLET PO SCH (20:11)
[2020-01-31] MEDS: CHECK fentaNYL PATCH PLACEMENT SCH ×4 (01:11→23:20)
[2020-01-31] MEDS: oxyCODONE HCL IR 5 MG TAB (IMMEDIATE RELEASE) PO PRN ×6 (02:09→22:21)
[2020-01-31] MEDS: ONDANSETRON INJ 2 MG/ML 2 ML VIAL IV PRN ×2 (06:07→15:35)
[2020-01-31] MEDS: BENZONATATE 100 MG CAPSULE PO PRN ×2 (06:07→22:21)
[2020-01-31] MEDS: SODIUM CHLORIDE 0.9% 1000ML 1,000 ML IV SCH ×3 (07:01→22:12)
[2020-01-31] MEDS: CEFEPIME 2,000 MG in SYRINGE 0 ML IV SCH ×3 (07:10→22:06)
[2020-01-31] MEDS: guaiFENesin 600 MG TABCR PO SCH ×2 (07:11→20:26)
[2020-01-31] MEDS: UMECLIDINIUM/VILANTEROL 62.5/25MCG 7 PUFFS/INHALER INH SCH (07:11)
[2020-01-31] MEDS: PANTOprazole 40 MG TAB PO SCH (07:11)
--- NOTE | 2020-01-31 09:00 | Hospitalist Progress Note ---
Date of Service January 31, 2020 Assessment & Plan (1) Fever: Patient is a fever while being treated with chemotherapy and radiation therapy for squamous cell carcinoma also concurrently being treated for an aspergillosis cavitary lung lesion Patient is cultured he is on antibiotics and continues on antifungal treatment. Blood culture from 10 AM January 28 on 1 collection showed gram-negative bacilli, is on cefepime to provide pseudomonas coverage (2) Aspergillosis: Diagnosed in 08/2019 on bronch. Was on voriconazole until ~12/28/2019, then switched to micafungin for presumed treatment failure. - Micafungin is non-formulary, so discussed it with pharmacy, and he will be started on caspofungin. Reviewing data; it's not entirely clear to me that this is equivalent, but will start for now and ask pulmonary. - Consulted pulmonary CT chest 01/29/20 IMPRESSION: 1. Increase in multifocal right lung airspace opacities since treatment planning CT of January 05, 2020. This favors an infectious process however treatment related lung disease could appear similar. Interval improvement in multifocal left lung airspace opacity since prior exam. 2. No significant change in size of the 7.1 x 6.1 cm cavitary right upper lobe mass which represents the primary malignancy. Wall thickness of this lesion has slightly decreased since prior exam. 3. Severe emphysema. 4. Trace right pleural effusion. 5. Suboptimal evaluation for thoracic lymphadenopathy on this unenhanced exam. (3) Squamous cell carcinoma of lung: Follows with Dr. Kulkarni. Treated on 01/25/2020 with carboplatin/paclitaxel. - Discussed with Dr. Kulkarni who states we will postpone chemotherapy scheduled for the until after his bacteremia is treated - Monitor counts (4) COPD with emphysema: Reports some mild shortness of breath at present, but no wheezing and essentially at his baseline. - Continue home umeclidinium inhaler - DuoNebs PRN (5) Anxiety: Slightly anxious affect on interview. - Continue home sertraline (6) DVT prophylaxis: Lovenox 40 mg SQ daily Admission and Anticipated Discharge Date Admission Date: January 29, 2020 Subjective This patient is feels that much significantly worse. He was seen by pulmonary critical care with recommendations to discontinue vancomycin remains on cefepime and azithromycin plus caspofungin for his known aspergillosis infection. He is receiving chemotherapy as an outpatient with his next scheduled treatment due on the and receiving radiation therapy which will be scheduled to be through next week. There is a blood culture positive for gram-negative bacteremia prior to his admission from 28 January at 10 AM. I spoke with Dr. Kulkarni who says the patient will not have systemic chemotherapy due to the bacteremia. Patient may continue with radiation therapy. And will course be followed by pulmonary for his aspergillosis lung infection Review of Systems Review of Systems: Mild distress and fatigue no headache, blurry or double vision no speech or swallowing issues no chest pain, pressure or palpitations Baseline shortness of breath breathlessness and nonproductive coughing with occasional scant expiratory wheezes no abdominal pain, nausea or vomiting, diarrhea or constipation no dysuria, hematuria or frequency no focal joint pain or swelling no back pain, CVA tenderness or radicular pain no bruising, bleeding or rashes no focal signs of weakness or numbness or altered sensation no complaints of anxiety or depression. Physical Exam Physical Exam: The patient appeared chronically ill he appears older than his stated age Vital signs as documented. Continues with fevers here Head exam is normocephalic atraumatic no scleral icterus Neck is without JVD, thyromegaly, or carotid bruits. Lungs are coarse rhonchi in all lung kovacs Cardiac exam, Rhythm is regular.. No murmurs, rubs or gallops. Abdominal exam reveals normal bowel sounds, soft non tender, no masses Extremities are nonedematous and both pedal pulses are present Neurologic exam is alert and oriented, no focal loss of strength or sensation Skin is without bruises or rashes Psychologically is without concerns for anxiety or depression. Results & Data Results & Data ([facility]) Vital Signs (Past 12 Hours) Vital Signs Temp Pulse Resp BP Pulse Ox 01/31/20 07:07 98.2 F 61 16 133/77 95 01/30/20 22:42 99.0 F 71 16 112/58 L 92 PG Care Time/CCT Total # of Minutes Spent Total Time Spent with Patient: Total time spent is greater than 50% in coordination of care (as documented) at patient's floor/unit and/or counseling patient: Coding Level of Care Code 47127 Subseq Hosp Care Lvl 3 Diagnoses Fever R50.9 Aspergillosis B44.9 Squamous cell carcinoma of lung C34.90 Laterality: unspecified laterality COPD with emphysema J43.9 Anxiety F41.9 DVT prophylaxis Z29.9 (1) Squamous cell carcinoma of lung Laterality: unspecified laterality Qualified Code(s): C34.90 - Malignant [place] plasm of unspecified part of unspecified bronchus or lung
[2020-01-31] MEDS: ACETAMINOPHEN 325 MG TAB PO PRN ×2 (12:48→17:30)
--- NOTE | 2020-01-31 13:03 | Pulmonology Progress Note ---
Date of Service January 31, 2020 Assessment & Plan (1) COPD with emphysema: CT chest 01/29/2020 personally reviewed: Right upper lobe cavitary lesion with endocavitary lesion. The left upper lobe consolidative process has improved. But there is new consolidative process appreciated in the right lower lobe. --Right lower lobe pneumonia Patient does have history of aspergillus fumigatus in the [facility] x2 and is being treated as Invasive aspergillosis as outpatient He has been on voriconazole in the past and has been stopped as per ID rec ommendation since started on Micafungin Currently on micafungin as an outpatient Patient follows up with Dr. Lopez Would continue with caspofungin in the hospital. Nasal MRSA is negative. COVID-19 negative, procalcitonin 0.5 AG QTC is 425. Continue with cefepime. Continue with the azithromycin for 5 days for atypical coverage Mucinex and flutter valve to help patient bring up the phlegm. --Squamous cell carcinoma of the lung Patient has been started on chemotherapy and radiation therapy carboplatin/paclitaxel. --COPD with emphysema Not in exacerbation Continue with inhalers Plan: Continue with antibiotic and antifungal Mucinex and flutter valve added to the regimen. Follow-up sputum culture Please note the above document was generated using voice recognition software. It may contain grammatical, syntax or spelling errors.Any formal questions or concerns about the content, text or information contained within the body of this dictation should be directly addressed to the provider for clarification. (2) Malignant neoplasm of right upper lobe of lung: (3) Abnormal finding on lung imaging: Admission and Anticipated Discharge Date Admission Date: January 29, 2020 Subjective Patient seen and examined at bedside. No acute distress, no adverse events overnight. He states he feels better compared to coming to the hospital. Still bringing up phlegm. Denies any chest pain, no headache, no vomiting. Fair appetite. Does complain of mild nausea. Review of Systems Review of Systems: All systems reviewed & are unremarkable except as noted in Subjective Physical Exam Physical Exam: Constitutional: No acute distress HEENT: EOMI, PERRLA Respiratory system: Decreased air entry bilaterally, positive crackles right lower lobe, no wheeze, no rhonchi CVS: S1-S2 positive, no murmurs or gallops Abdomen: Soft, nontender, nondistended, positive bowel sounds x4 Extremities: +2 pulses bilaterally radialis/ dorsalis pedis, no cyanosis, no edema Neuro: Awake alert oriented x3 Psych: Normal mood and affect G/U: No Kaur Skin: no rashes, warm and dry Lymphatic: no cervical or axillary lymphadenopathy Results & Data Results & Data ([facility]) Vital Signs (Past 12 Hours) Vital Signs Temp Pulse Resp BP Pulse Ox 01/31/20 07:07 36.8 C 61 16 133/77 95 01/30/20 07:23 01/30/20 07:23 PG Care Time/CCT Total # of Minutes Spent Total Time Spent with Patient: Total time spent is greater than 50% in coordination of care (as documented) at patient's floor/unit and/or counseling patient: Coding Level of Care Code 84696 Subseq Hosp Care Lvl 3 Diagnoses COPD with emphysema J43.9 Malignant neoplasm of right upper lobe of lung C34.11 Abnormal finding on lung imaging R91.8
[2020-01-31] MEDS: CASPOFUNGIN 50 MG in SODIUM CHLORIDE 0.9% 250 ML IV SCH (14:16)
[2020-01-31] MEDS: AZITHROMYCIN 250 MG TAB PO SCH (14:33)
[2020-01-31] MEDS: ENOXAPARIN INJ 40 MG/0.4 ML SYR SQ SCH (17:25)
[2020-01-31] MEDS: DOCUSATE SODIUM 100 MG CAP PO PRN (17:31)
[2020-01-31] MEDS: SERTRALINE HCL 50 MG TABLET PO SCH (20:26)
[2020-02-01] MEDS: oxyCODONE HCL IR 5 MG TAB (IMMEDIATE RELEASE) PO PRN ×5 (03:14→19:39)
[2020-02-01] MEDS: ONDANSETRON INJ 2 MG/ML 2 ML VIAL IV PRN (05:51)
[2020-02-01] MEDS: ACETAMINOPHEN 325 MG TAB PO PRN ×4 (05:51→18:33)
[2020-02-01] MEDS: DOCUSATE SODIUM 100 MG CAP PO PRN (05:51)
[2020-02-01] MEDS: CEFEPIME 2,000 MG in SYRINGE 0 ML IV SCH ×3 (07:16→22:10)
[2020-02-01] MEDS: CHECK fentaNYL PATCH PLACEMENT SCH ×2 (07:16→15:22)
[2020-02-01] MEDS: guaiFENesin 600 MG TABCR PO SCH ×2 (07:17→21:30)
[2020-02-01] MEDS: PANTOprazole 40 MG TAB PO SCH (07:17)
[2020-02-01] MEDS: UMECLIDINIUM/VILANTEROL 62.5/25MCG 7 PUFFS/INHALER INH SCH (07:17)
--- NOTE | 2020-02-01 07:31 | XRay Report ---
XR chest 1V portable CLINICAL HISTORY: Sepsis. Abnormal chest x-ray. COMPARISON STUDY: 01/29/2020 FINDINGS: A left-sided PICC catheter is again visualized. The heart is borderline enlarged. There are persistent bilateral pulmonary airspace opacities most pronounced within the right upper lung zone. There is a 6 cm right upper lobe cavitary lesion. Airspace opacities are also present within the left midlung zone and right medial lung base.[ IMPRESSION: 1. No significant change from the prior study 2. Persistent bilateral pulmonary airspace opacities including a 6 cm right upper lung zone cavitary lesion ACT 112: Negative or not required by law. Electronically signed by: Leroy Faust M.D. 02/01/2020 7:30 AM
[2020-02-01] MEDS: SODIUM CHLORIDE 0.9% 1000ML 1,000 ML IV SCH ×2 (09:50→21:29)
[2020-02-01 10:47] LABS: Hematocrit (blood only) 26.5 % (42-52); Hemoglobin 8.6 g/dL (14.0-18.0); Mean Corpuscular Hemoglobin 28.9 pg (25-34); Mean Corpuscular Hgb Conc 32.5 g/dL (32-36); Mean Corpuscular Volume 88.9 fL (80-100); Mean Platelet Volume 8.2 fL (7.4-10.4); Platelet Count 188 K/uL (130-400); RDW Coefficient of Variation 17.1 % (11.5-14.5); Red Blood Count 2.98 M/uL (4.7-6.1)
[2020-02-01 11:08] LABS: Calcium 8.2 mg/dl (8.5-10.1); Creatinine Clr Calc Pharmacy 157.8 ml/min; Est GFR (African American) 147.1; Est GFR (Non-African American) 126.9; Magnesium 1.7 mg/dl (1.8-2.4); Potassium 4.1 mmol/L (3.5-5.1)
[2020-02-01 11:11] LABS: Albumin Globulin Ratio 0.4 (0.9-2); Bilirubin,Total 0.3 mg/dl (0.2-1); Globulin 4.6 gm/dl (2.5-4.0); Total Protein 6.6 gm/dl (6.4-8.2)
--- NOTE | 2020-02-01 13:17 | Hospitalist Progress Note ---
Date of Service February 01, 2020 Assessment & Plan (1) Aspergillosis: Diagnosed in 08/2019 on bronch. Was on voriconazole until ~12/28/2019, then switched to micafungin for presumed treatment failure. CT chest 01/29/20 showed increase in multifocal right lung airspace opacities since treatment planning CT of January 05, 2020. Interval improvement in multifocal left lung airspace opacity since prior exam. No significant change in size of the 7.1 x 6.1 cm cavitary right upper lobe mass which represents the primary malignancy. Wall thickness of this lesion has slightly decreased since prior exam. - Micafungin is non-formulary - changed to caspofungin inpatient - Consulted pulmonary - they recommend continuing with azithromycin for 5 days and cefepime, caspo while inpatient (2) Gram-negative bacteremia: In one bottle, awaiting speciation and then sensitivities. Continue cefepime for now. Patient has PICC line if IV abx are necessary at discharge (3) Squamous cell carcinoma of lung: Follows with Dr. Kulkarni. Treated on 01/25/2020 with carboplatin/paclitaxel. - Discussed with Dr. Kulkarni - postpone chemo until after his bacteremia is treated - Monitor counts (4) COPD with emphysema: Reports some mild shortness of breath at present, but no wheezing and essentially at his baseline. - Continue home umeclidinium inhaler - DuoNebs PRN (5) Anxiety: - Continue home sertraline (6) DVT prophylaxis: Lovenox 40 mg SQ daily Admission and Anticipated Discharge Date Admission Date: January 29, 2020 Subjective Mr. Lam is feeling much better today than yesterday. He is hoping to go home soon. Some cough, no sob. ROS Constitutional: no chills, aches, sweats or fever Respiratory: see HPI Cardiac: no chest pain, palpitations, edema, orthopnea or lightheadedness GI: no abdominal pain, nausea, vomiting, diarrhea or constipation : no dysuria or hesitancy Extremities: no joint pain or weakness Skin: no rash All other systems reviewed and negative Physical Exam Physical Exam: General: no distress Eyes: normal inspection, PERLL Respiratory: chest non tender, clear to auscultation, normal breath sounds, no respiratory distress, no accessory muscle use Cardiac: regular rate and rhythm, no rub or gallop, no murmur, no edema, no jvd GI/: active bowel sounds, no abd pain or tenderness, soft, non distended Extremities: normal range of motion, normal strength, non tender Neuro/Psych: alert and oriented x 3, normal mood and affect Skin: normal color, dry Results & Data Results & Data ([facility]) Vital Signs (Past 12 Hours) Vital Signs Temp Pulse Resp BP Pulse Ox 02/01/20 06:55 37.2 C 64 20 124/70 94 PG Care Time/CCT Total # of Minutes Spent Total Time Spent with Patient: Total time spent is greater than 50% in coordination of care (as documented) at patient's floor/unit and/or counseling patient: Coding Level of Care Code 41940 Subseq Hosp Care Lvl 2 Diagnoses Aspergillosis B44.9 Gram-negative bacteremia R78.81 Squamous cell carcinoma of lung C34.90 Laterality: unspecified laterality COPD with emphysema J43.9 Anxiety F41.9 DVT prophylaxis Z29.9 (1) Squamous cell carcinoma of lung Laterality: unspecified laterality Qualified Code(s): C34.90 - Malignant neoplasm of unspecified part of unspecified bronchus or lung
[2020-02-01] MEDS: POLYETHYLENE (MIRALAX) 17 GM PACK PO PRN (13:55)
[2020-02-01] MEDS: AZITHROMYCIN 250 MG TAB PO SCH (14:19)
[2020-02-01] MEDS: MAGNESIUM OXIDE 400 MG TAB PO SCH (14:19)
[2020-02-01] MEDS: CASPOFUNGIN 50 MG in SODIUM CHLORIDE 0.9% 250 ML IV SCH (14:20)
--- NOTE | 2020-02-01 15:53 | Pulmonology Progress Note ---
Date of Service February 01, 2020 Assessment & Plan (1) COPD with emphysema: CT chest 01/29/2020 personally reviewed: Right upper lobe cavitary lesion with endocavitary lesion. The left upper lobe consolidative process has improved. But there is new consolidative process appreciated in the right lower lobe. --Right lower lobe pneumonia Patient does have history of aspergillus fumigatus in the [facility] x2 and is being treated as Invasive aspergillosis as outpatient He has been on voriconazole in the past and has been stopped as per ID recommendation since started on Micafungin AG QTC is 425. Continue with cefepime. Continue with the azithromycin for 5 days for atypical coverage Mucinex and flutter valve to help patient bring up the phlegm. --Squamous cell carcinoma of the lung Patient has been started on chemotherapy and radiation therapy carboplatin/paclitaxel. --COPD with emphysema Not in exacerbation Continue with inhalers Plan: He is growing gram-negative rods from his blood culture. It would probably be worthwhile to obtain a follow-up blood culture to make sure there is clearance. He is also growing gram-negative rods from the sputum culture. Agree with continuing cefepime. Would recommend consultation with infectious disease. He is currently on micafungin for history of aspergillosis. ID may be beneficial with regards to his aspergillosis as well. He does have some mild swelling of his left arm compared to his right. Would consider getting a left upper extremity ultrasound to evaluate for DVT or infected thrombus. He does not have any pain in his left arm. Pulses are intact. With regards to the fleeting infiltrates noted on his CT chest, it is hard to say how much of this is chronic infection and/or pulmonary toxicity/pneumonitis from radiation. I am reluctant to start him on prednisone at this time given his chronic fungal infection. Certainly, if he has significant decompensation, we will have to consider the use of prednisone. I personally discussed the case with the hospitalist nurse practitioner, Sandie Garvin. Please note the above document was generated using voice recognition software. It may contain grammatical, syntax or spelling errors.Any formal questions or concerns about the content, text or information contained within the body of this dictation should be directly addressed to the provider for clarification. (2) Malignant neoplasm of right upper lobe of lung: (3) Abnormal finding on lung imaging: (4) Gram-negative bacteremia: (5) Invasive aspergillosis: (6) Cavitary lung disease: Admission and Anticipated Discharge Date Admission Date: January 29, 2020 Subjective Patient feels better today. His cough has improved. His energy level is improved as well. He notes a good appetite and likes to eat cookies. He is concerned about eating things that contain sugar has he does not want to "feed the cancer". He notes that he is frustrated with everything that is going on and he seems to be taking a step backwards in general. Review of Systems Review of Systems: All systems reviewed & are unremarkable except as noted in HPI & below Physical Exam 2 Physical Exam: Constitutional: No acute distress HEENT: EOMI, PERRLA Respiratory system: Decreased air entry bilaterally, positive crackles right lower lobe, no wheeze, no rhonchi CVS: S1-S2 positive, no murmurs or gallops Abdomen: Soft, nontender, nondistended, positive bowel sounds x4 Extremities: +2 pulses bilaterally radialis/ dorsalis pedis, no cyanosis, no edema Neuro: Awake alert oriented x3 Psych: Normal mood and affect G/U: No Kaur Musculoskeletal: Left arm looks a bit swollen as compared to the right Skin: no rashes, warm and dry Lymphatic: no cervical or axillary lymphadenopathy Results & Data Results & Data ([facility]) Vital Signs (Past 12 Hours) Vital Signs Temp Pulse Resp BP Pulse Ox 02/01/20 15:12 98.8 F 64 16 133/77 94 02/01/20 06:55 99.0 F 64 20 124/70 94 I reviewed the vital signs, labs and imaging PG Care Time/CCT Total # of Minutes Spent Total Time Spent with Patient: Total time spent is greater than 50% in coordination of care (as documented) at patient's floor/unit and/or counseling patient: Coding Level of Care Code 18026 Subseq Hosp Care Lvl 3 Diagnoses COPD with emphysema J43.9 Malignant neoplasm of right upper lobe of lung C34.11 Abnormal finding on lung imaging R91.8 Gram-negative bacteremia R78.81 Invasive aspergillosis B44.9 Cavitary lung disease J98.4
[2020-02-01] MEDS: ENOXAPARIN INJ 40 MG/0.4 ML SYR SQ SCH ×2 (18:30→21:32)
--- NOTE | 2020-02-01 19:47 | Ultrasound Report ---
ULTRASOUND LEFT UPPER EXTREMITY VENOUS CLINICAL HISTORY: Upper extremity pain and swelling. COMPARISON STUDY: No priors. TECHNIQUE: Real-time, grayscale, and color Doppler sonography of the deep veins of the left upper ext remity is performed. Compression and augmentation were utilized. FINDINGS: Occlusive deep venous thrombosis is seen within the left subclavian vein and the left axill rick vein around the PICC line. There is superficial venous thrombus identified around the PICC line w ithin the basilic vein. The left internal jugular is patent and normally compressible. The majority o f the left brachial vein is not visualized. The cephalic vein is clear as imaged. The visualized radi al and ulnar veins are patent. IMPRESSION: 1. Occlusive deep venous thrombosis is seen within the left subclavian and axillary veins around the PICC line. 2. Superficial venous thrombus is seen within the basilic vein around the PICC line. ACT 112: Negative or not required by law. Electronically signed by: Ethan Larkin M.D. 02/01/2020 7:46 PM
[2020-02-01] MEDS ORDERED: ENOXAPARIN INJ 30 MG/0.3 ML SYR SQ ONE (21:00)
[2020-02-01] MEDS: ENOXAPARIN INJ 60 MG/0.6 ML SYR SQ SCH (21:29)
[2020-02-01] MEDS: SERTRALINE HCL 50 MG TABLET PO SCH (21:30)
[2020-02-01] MEDS: fentaNYL 12 MCG/HR TDSY TD SCH (21:36)
[2020-02-01] MEDS ORDERED: COUGH DROP (SUGAR FREE) LOZ 24 LOZ/1 BOX BUCCAL PRN (22:09)
[2020-02-01] MEDS ORDERED: Nursing to Pharmacy Communication SCH (22:15)
[2020-02-02] MEDS: CHECK fentaNYL PATCH PLACEMENT SCH ×5 (00:36→23:13)
[2020-02-02] MEDS: BENZONATATE 100 MG CAPSULE PO PRN ×2 (01:26→23:19)
[2020-02-02] MEDS: DOCUSATE SODIUM 100 MG CAP PO PRN ×3 (01:26→23:19)
[2020-02-02] MEDS: oxyCODONE HCL IR 5 MG TAB (IMMEDIATE RELEASE) PO PRN ×6 (01:26→21:50)
[2020-02-02] MEDS: ACETAMINOPHEN 325 MG TAB PO PRN ×4 (03:11→23:18)
--- NOTE | 2020-02-02 06:09 | Communication Note ---
Date of Service: February 02, 2020 LUE US shows occlusive deep venous thrombosis within the left subclavian and axillary veins around the PICC line, superficial venous thrombus is seen within the basilic vein around the PICC line. Line remains patent NSS disconnected, alternative IV sites obtained 1mpk BID Lovenox initiated. PICC removal deferred overnight, discussed with attending provider and will followup with primary team at signout.
[2020-02-02] MEDS: CEFEPIME 2,000 MG in SYRINGE 0 ML IV SCH ×2 (06:27→14:33)
[2020-02-02] MEDS: PANTOprazole 40 MG TAB PO SCH (07:49)
[2020-02-02] MEDS ORDERED: ENOXAPARIN INJ 60 MG/0.6 ML SYR SQ SCH (08:00)
[2020-02-02] MEDS ORDERED: Nursing to Pharmacy Communication SCH (08:15)
[2020-02-02] MEDS: SODIUM CHLORIDE 0.9% 1000ML 1,000 ML IV SCH (08:26)
--- NOTE | 2020-02-02 08:51 | Radiation Oncology Progress Nt ---
Date of Service February 02, 2020 Assessment & Plan (1) Squamous cell carcinoma of lung: We have spoken with the primary team. We will continue radiation therapy as an inpatient. Please call us with any further questions or concerns. Admission and Anticipated Discharge Date Admission Date: January 29, 2020 (1) Squamous cell carcinoma of lung Laterality: unspecified laterality Qualified Code(s): C34.90 - Malignant neoplasm of unspecified part of unspecified bronchus or lung
[2020-02-02] MEDS: ENOXAPARIN INJ 60 MG/0.6 ML SYR SQ SCH ×2 (08:58→20:02)
[2020-02-02] MEDS: POLYETHYLENE (MIRALAX) 17 GM PACK PO PRN (08:58)
[2020-02-02] MEDS: UMECLIDINIUM/VILANTEROL 62.5/25MCG 7 PUFFS/INHALER INH SCH (08:58)
[2020-02-02] MEDS: guaiFENesin 600 MG TABCR PO SCH ×2 (08:59→20:02)
[2020-02-02] MEDS: MAGNESIUM OXIDE 400 MG TAB PO SCH (08:59)
--- NOTE | 2020-02-02 09:27 | Pulmonology Progress Note ---
Date of Service February 02, 2020 Assessment & Plan (1) COPD with emphysema: He is growing Alcaligenes faecalis from the PICC line which appears to be pansensitive. He is currently on cefepime. He is also growing gram-negative kimberly from the sputum. I requested that we consult infectious disease for their input. He may need the PICC line removed. Follow-up culture should be obtained for clearance. I requested that he underwent a left upper extremity ultrasound yesterday to evaluate for clot given the swelling in his arm. He does in fact have an occlusive deep venous thrombosis within his left subclavian and axillary veins around the PICC line. Superficial venous thrombosis seen within the basilic vein around the PICC line. Given that he has a DVT and now a bloodstream infection at the site of the PICC line, I would be in favor of removing the catheter and giving him a PICC line holiday. Again, I will defer to infectious disease. Continue anticoagulation as you are doing. He is set to undergo radiation therapy today. His CT chest does have new fleeting infiltrates which may be related to pulmonary toxicity/radiation pneumonitis and/or infection. Continue cefepime and antifungal therapy. Infectious disease consult would be beneficial. No need for prednisone at this time. I personally discussed the case with the hospitalist nurse practitioner, Sandie Garvin. Please note the above document was generated using voice recognition software. It may contain grammatical, syntax or spelling errors.Any formal questions or concerns about the content, text or information contained within the body of this dictation should be directly addressed to the provider for clarification. (2) Malignant neoplasm of right upper lobe of lung: (3) Abnormal finding on lung imaging: (4) Gram-negative bacteremia: (5) Invasive aspergillosis: (6) Cavitary lung disease: Admission and Anticipated Discharge Date Admission Date: January 29, 2020 Subjective Patient is sitting up in a chair and also ambulating around the room without any difficulty. He denies any shortness of breath today. No chest pain. No fevers or chills. He did have a left upper extremity ultrasound yesterday which demonstrated extensive DVT. Review of Systems Review of Systems: All systems reviewed & are unremarkable except as noted in HPI & below Physical Exam Physical Exam: Constitutional: No acute distress HEENT: EOMI, PERRLA Respiratory system: Crackles in the right upper lobe. Otherwise clear. CVS: S1-S2 positive, no murmurs or gallops Abdomen: Soft, nontender, nondistended, positive bowel sounds x4 Extremities: +2 pulses bilaterally radialis/ dorsalis pedis, no cyanosis, no edema Neuro: Awake alert oriented x3 Psych: Normal mood and affect G/U: No Kaur Musculoskeletal: Left arm looks a bit swollen as compared to the right Skin: no rashes, warm and dry Lymphatic: no cervical or axillary lymphadenopathy Results & Data Results & Data ([facility]) Vital Signs (Past 12 Hours) Vital Signs Temp Pulse Resp BP Pulse Ox 02/02/20 07:34 98.4 F 65 18 146/83 H 95 02/01/20 23:15 98.4 F 70 18 111/67 94 I reviewed vital signs labs and imaging PG Care Time/CCT Total # of Minutes Spent Total Time Spent with Patient: Total time spent is greater than 50% in coordination of care (as documented) at patient's floor/unit and/or counseling patient: Coding Level of Care Code 07676 Subseq Hosp Care Lvl 3 Diagnoses COPD with emphysema J43.9 Malignant neoplasm of right upper lobe of lung C34.11 Abnormal finding on lung imaging R91.8 Gram-negative bacteremia R78.81 Invasive aspergillosis B44.9 Cavitary lung disease J98.4
[2020-02-02] MEDS: ONDANSETRON INJ 2 MG/ML 2 ML VIAL IV PRN ×2 (10:36→23:19)
[2020-02-02 11:42] LABS: Basophils # (auto) 0.02 K/uL (0-0.2); Basophils % (auto) 0.3 %; Eosinophils # (auto) 0.03 K/uL (0-0.5); Eosinophils % (auto) 0.5 %; Hematocrit (blood only) 26.9 % (42-52); Hemoglobin 8.7 g/dL (14.0-18.0); Immature Granulocytes # (auto) 0.05 K/uL (0.00-0.02); Immature Granulocytes % (auto) 0.8 %; Lymphocytes # (auto) 0.28 K/uL (1.2-3.4); Lymphocytes % (auto) 4.4 %; Mean Corpuscular Hemoglobin 28.8 pg (25-34); Mean Corpuscular Hgb Conc 32.3 g/dL (32-36); Mean Corpuscular Volume 89.1 fL (80-100); Mean Platelet Volume 8.3 fL (7.4-10.4); Monocytes % (auto) 7.9 %; Neutrophils # (auto) 5.43 K/uL (1.4-6.5); Neutrophils % (auto) 86.1 %; Platelet Count 212 K/uL (130-400); RDW Coefficient of Variation 17.4 % (11.5-14.5); Red Blood Count 3.02 M/uL (4.7-6.1); White Blood Count 6.31 K/uL (4.8-10.8)
[2020-02-02 12:07] LABS: BUN Creatinine Ratio 17.4 (10-20); Calcium 8.7 mg/dl (8.5-10.1); Creatinine Clr Calc Pharmacy 130.1 ml/min; Est GFR (African American) 135.9; Est GFR (Non-African American) 117.2; Potassium 3.7 mmol/L (3.5-5.1)
[2020-02-02] MEDS: AZITHROMYCIN 250 MG TAB PO SCH (14:33)
[2020-02-02] MEDS: fentaNYL 25 MCG/HR TDSY TD SCH ×2 (14:33→15:58)
[2020-02-02] MEDS: CASPOFUNGIN 50 MG in SODIUM CHLORIDE 0.9% 250 ML IV SCH (15:56)
--- NOTE | 2020-02-02 17:51 | Hospitalist Progress Note ---
Date of Service February 02, 2020 Assessment & Plan (1) Aspergillosis: Diagnosed in 08/2019 on bronch. Was on voriconazole until ~12/28/2019, then switched to micafungin for presumed treatment failure. CT chest 01/29/20 showed increase in multifocal right lung airspace opacities since treatment planning CT of January 05, 2020. Interval improvement in multifocal left lung airspace opacity since prior exam. No significant change in size of the 7.1 x 6.1 cm cavitary right upper lobe mass which represents the primary malignancy. Wall thickness of this lesion has slightly decreased since prior exam. - Consulted pulmonary - will discontinue azithromycin as it has been five days Consulted ID - recommends returning to voriconazole 200 mg bid with levels drawn to monitor. Discontinue caspofungin Voriconazole is a CYP inhibitor - may cause increase in opioid levels so will place patient on continuous pulse ox for now as transdermal fentanyl was increased earlier today. Will also order daily ekgs for the next few days to monitor for QT prolonging with combination of voriconazole and cipro. Monitor liver function (2) Gram-negative bacteremia: Alcaligenes faecalis in one bottle. Discontinue cefepime and start cipro 500 mg bid for 14 days per ID rec and sensitivities Remove PICC as this is potential source. Repeat BC pending (3) Squamous cell carcinoma of lung: Follows with Dr. Kulkarni. Treated on 01/25/2020 with carboplatin/paclitaxel. - Discussed with Dr. Kulkarni - postpone chemo until after his bacteremia is treated - Monitor counts - radiation oncology received today (4) COPD with emphysema: Reports some mild shortness of breath at present, but no wheezing and essentially at his baseline. - Continue home umeclidinium inhaler - DuoNebs PRN (5) Anxiety: - Continue home sertraline (6) DVT (deep venous thrombosis): On US: Occlusive deep venous thrombosis is seen within the left subclavian and axillary veins around the PICC line. Superficial venous thrombus is seen within the basilic vein around the PICC line. DC PICC, avoid further picc placement Initiated on full dose enoxaparin Admission and Anticipated Discharge Date Admission Date: January 29, 2020 Subjective Mr. Lam is having increased pain in his right shoulder/chest at the site of his chronic pain. Reports that Dr. Kulkarni had increased him to two patches of 12 mcg fentanyl per day but he is only getting one here. ROS Constitutional: no chills, aches, sweats or fever Respiratory: see HPI Cardiac: no chest pain, palpitations, edema, orthopnea or lightheadedness GI: no abdominal pain, nausea, vomiting, diarrhea or constipation : no dysuria or hesitancy Extremities: no joint pain or weakness Skin: no rash All other systems reviewed and negative Physical Exam Physical Exam: General: no distress Eyes: normal inspection, PERLL Respiratory: chest non tender, clear to auscultation, normal breath sounds, no respiratory distress, no accessory muscle use Cardiac: regular rate and rhythm, no rub or gallop, no murmur, no edema, no jvd GI/: active bowel sounds, no abd pain or tenderness, soft, non distended Extremities: normal range of motion, normal strength, non tender Neuro/Psych: alert and oriented x 3, normal mood and affect Skin: normal color, dry Results & Data Results & Data ([facility]) Vital Signs (Past 12 Hours) Vital Signs Temp Pulse Resp BP Pulse Ox 02/02/20 16:22 36.7 C 65 18 127/68 96 02/02/20 07:34 36.9 C 65 18 146/83 H 95 PG Care Time/CCT Total # of Minutes Spent Total Time Spent with Patient: Total time spent is greater than 50% in coordination of care (as documented) at patient's floor/unit and/or counseling patient: Coding Level of Care Code 32174 Subseq Hosp Care Lvl 3 Diagnoses Aspergillosis B44.9 Gram-negative bacteremia R78.81 Squamous cell carcinoma of lung C34.90 Laterality: unspecified laterality COPD with emphysema J43.9 Anxiety F41.9 DVT (deep venous thrombosis) I82.409 (1) Squamous cell carcinoma of lung Laterality: unspecified laterality Qualified Code(s): C34.90 - Malignant neoplasm of unspecified part of unspecified bronchus or lung
[2020-02-02] MEDS: CIPROFLOXACIN 500 MG TAB PO SCH (20:00)
[2020-02-02] MEDS: SERTRALINE HCL 50 MG TABLET PO SCH (20:01)
[2020-02-03] MEDS: MELATONIN 3 MG TAB PO PRN (00:23)
[2020-02-03] MEDS: ONDANSETRON 4 MG OD TAB PO PRN ×2 (00:23→07:31)
[2020-02-03] MEDS: oxyCODONE HCL IR 5 MG TAB (IMMEDIATE RELEASE) PO PRN ×3 (01:53→12:18)
[2020-02-03] MEDS: ACETAMINOPHEN 325 MG TAB PO PRN (04:51)
[2020-02-03] MEDS: PANTOprazole 40 MG TAB PO SCH (04:53)
[2020-02-03] MEDS: DOCUSATE SODIUM 100 MG CAP PO PRN (04:55)
[2020-02-03 06:10] LABS: Basophils # (auto) 0.03 K/uL (0-0.2); Basophils % (auto) 0.6 %; Eosinophils # (auto) 0.06 K/uL (0-0.5); Eosinophils % (auto) 1.2 %; Hematocrit (blood only) 27.3 % (42-52); Hemoglobin 8.8 g/dL (14.0-18.0); Immature Granulocytes # (auto) 0.04 K/uL (0.00-0.02); Immature Granulocytes % (auto) 0.8 %; Lymphocytes # (auto) 0.36 K/uL (1.2-3.4); Lymphocytes % (auto) 7.2 %; Mean Corpuscular Hemoglobin 28.9 pg (25-34); Mean Corpuscular Hgb Conc 32.2 g/dL (32-36); Mean Corpuscular Volume 89.5 fL (80-100); Mean Platelet Volume 8.3 fL (7.4-10.4); Monocytes # (auto) 0.63 K/uL (0.11-0.59); Monocytes % (auto) 12.6 %; Neutrophils # (auto) 3.89 K/uL (1.4-6.5); Neutrophils % (auto) 77.6 %; Platelet Count 214 K/uL (130-400); RDW Coefficient of Variation 17.6 % (11.5-14.5); RDW Standard Deviation 57.3 fL (36.4-46.3); Red Blood Count 3.05 M/uL (4.7-6.1); White Blood Count 5.01 K/uL (4.8-10.8)
[2020-02-03 06:29] LABS: Albumin Level 2.1 gm/dl (3.4-5.0); BUN Creatinine Ratio 17.3 (10-20); Calcium 8.9 mg/dl (8.5-10.1); Creatinine Clr Calc Pharmacy 121.6 ml/min; Est GFR (African American) 132.1; Potassium 4.4 mmol/L (3.5-5.1)
[2020-02-03 06:33] LABS: Albumin Globulin Ratio 0.4 (0.9-2); Bilirubin,Total 0.2 mg/dl (0.2-1); Globulin 4.8 gm/dl (2.5-4.0); Total Protein 6.9 gm/dl (6.4-8.2)
[2020-02-03 07:00] VITALS: BP 130/78; TEMP 98.4; O2SAT 99
[2020-02-03] MEDS: CHECK fentaNYL PATCH PLACEMENT SCH (07:32)
[2020-02-03] MEDS: UMECLIDINIUM/VILANTEROL 62.5/25MCG 7 PUFFS/INHALER INH SCH (07:32)
[2020-02-03] MEDS: ENOXAPARIN INJ 60 MG/0.6 ML SYR SQ SCH (07:33)
[2020-02-03] MEDS: MAGNESIUM OXIDE 400 MG TAB PO SCH (07:33)
[2020-02-03] MEDS: guaiFENesin 600 MG TABCR PO SCH (07:33)
[2020-02-03] MEDS: CIPROFLOXACIN 500 MG TAB PO SCH (07:33)
[2020-02-03] MEDS ORDERED: levoFLOXacin 750 MG TAB PO ONE (13:00)
[2020-02-03] MEDS ORDERED: LOVENOX TEACHING KIT ONE (13:04)
[2020-02-03 13:06] VITALS: PULSE 71
--- NOTE | 2020-02-03 13:32 | Discharge Summary ---
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 He was originally diagnosed in 08/2019. He underwent bronch at that time which showed the cancer as well as pulmonary aspergillosis. He reports that he has had fevers for about a year. They will come and go at times. He chalks it up to the aspergillus infection in his lungs. He reports that the last episode began about 3 days ago. He reports he gets a fever and feels chills then sweats. This one began last night and continued through the day. He reports that he has had some nausea since he started chemo, but no emesis today. He has a chronic cough which is stable at its baseline. Otherwise ROS is negative. Principal Diagnosis Bacteremia, aspergillosis Discharge Exam Constitutional WD/WN, vitals as above Respiratory normal respiratory effort, lungs clear to auscultation Cardiovascular RRR, no murmur, no edema Gastrointestinal (Abdomen) normal bowel sounds, soft, nontender, no hepatosplenomegaly Musculoskeletal no cyanosis or clubbing, extremities motor strength 5/5 Skin no rashes, warm and dry Neurologic moves all extremities and awake Psychiatric A+Ox3, euthymic affect Discharge Data Allergies Allergy/AdvReac Type Severity Reaction Status Date / Time No Known Allergies Allergy Verified 01/29/20 13:00 Consultations 01/29/20 13:48 ED Decision to Admit Stat 01/29/20 16:25 Consult Pulmonology Routine 01/31/20 16:06 Consult Radiation Oncology Routine 02/01/20 15:56 Consult Infectious Diseases Routine Ordered Studies 01/29/20 16:25 CT chest wo con Routine 02/01/20 17:55 US venous doppler UE LT Routine Hospital Course (1) Aspergillosis: Diagnosed in 08/2019 on bronch. Was on voriconazole until ~12/28/2019, then switched to micafungin for presumed treatment failure. CT chest 01/29/20 showed increase in multifocal right lung airspace opacities since treatment planning CT of January 05, 2020. Interval improvement in multifocal left lung airspace opacity since prior exam. No significant change in size of the 7.1 x 6.1 cm cavitary right upper lobe mass which represents the primary malignancy. Wall thickness of this lesion has slightly decreased since prior exam. Received 5 days of azithromycin and 5 days of cefepime - Consulted pulmonary Consulted ID - recommends returning to voriconazole 200 mg bid with levels drawn to monitor. Discontinue caspofungin Voriconazole is a CYP inhibitor - may cause increase in opioid levels so patient placed on continuous pulse ox overnight and did well, no increased somnolence or confusion. EKG today was without QT prolongation. Recommend repeat EKG and liver function panel in a week. (2) Gram-negative bacteremia: Alcaligenes faecalis in one bottle, now with the same in sputum except that sputum is resistant to cefepime and blood culture is not. Discussed the new sputum finding today with ID. Recommend changing patient to oral levafloxacin from cipro for the two week treatment. Repeat blood culture ngtd after 24 hours Removed PICC as this is potential source. (3) Squamous cell carcinoma of lung: Follows with Dr. Kulkarni. Treated on 01/25/2020 with carboplatin/paclitaxel. - Discussed with Dr. Kulkarni - postpone chemo until after his bacteremia is treated - Monitor counts - radiation oncology received today (4) COPD with emphysema: Essentially at his baseline. - Continue home umeclidinium inhaler - DuoNebs PRN (5) Anxiety: - Continue home sertraline (6) DVT (deep venous thrombosis): On US: Occlusive deep venous thrombosis is seen within the left subclavian and axillary veins around the PICC line. Superficial venous thrombus is seen within the basilic vein around the PICC line. Nursing to give Lovenox teaching DC PICC, avoid further PICC placement Initiated on full dose enoxaparin 60 mg bid. Will need to follow with Dr. Kulkarni for duration of treatment, at least 3 months. Total Time Total Time Spent Total Time Spent (In Minutes): greater than 30 minutes Discharge Plan Discharge Items Patient Disposition: Home - Home Health Services Reason For Visit: CONCERN FOR PNEUMONIA VS OTHER INFECTION Discharge Diagnosis: Pneumonia, bacteremia Activity: Resume your previous activity Activity Comment: gradually as tolerated Non-emergency contact: Primary Care Provider Call non-emergency contact if: you have any medication questions Follow-up/Referrals: Walter Kulkarni DO [Physician] - 02/08/20 9:10 am (Follow up two weeks BLOOD DRAW 02/05/20 @ 1:45 [facility] Walter Roberts [Primary Care Provider] - 02/05/20 3:00 pm (follow up one week ) John Prater DO [Physician] - 02/10/20 10:30 am (Follow up 1 week) Diet: Regular Addtl Attending Provider Instructions: (1) Aspergillosis: You will continue with voriconazole. Please follow up with Dr. Prater in one week and have her draw a voriconazole blood level. Please see your primary care provider in a week. A rare interaction between voriconazole and levofloxacin is something called QT prolongation which can cause dysrhythmia in your heart. Your EKG today did not show any QT prolongation. You will need to have your primary care provider check an EKG again in a week. Please also have your primary care provider or infectious disease draw your liver function in a week. (2) Gram-negative bacteremia: You will need to complete 14 days total of levofloxacin for this infection. (3) Squamous cell carcinoma of lung: You will postpone chemo until after the bacteremia is treated Please follow up with Dr. Kulkarni and radiation oncology Your 25 mcg fentanyl patch was administered 02/01. (6) DVT (deep venous thrombosis): You should void further PICC line placement You will need to continue enoxaparin twice a day for at least 3 months but possibly longer, please discuss with Dr. Kulkarni to determine length of treatment Your fentanyl patch prescription is at the [place] pharmacy, the rest will be at [facility] in [place] Pending Studies at Discharge: No Stand-Alone Forms: My [facility], Opioid Pain Management, Smoking Cessation Medications and DC Order Prescriptions: New magnesium oxide 400 mg (241.3 mg magnesium) Tablet 400 mg PO QAM Qty: 30 RF: 0 docusate sodium 100 mg Capsule 100 mg PO BID Qty: 60 RF: 0 fentanyl 25 mcg/hr Patch 72 Hour 25 mcg transdermal Q3D@1430 Qty: 1 RF: 0 enoxaparin 60 mg/0.6 mL Syringe 60 mg subcut Q12H Qty: 60 RF: 2 voriconazole [Vfend] 200 mg Tablet 200 mg PO BID@0600,1800 Qty: 28 RF: 1 levofloxacin 750 mg tablet 750 mg PO DAILY 14 Days Qty: 14 RF: 0 Continued Anoro Ellipta 62.5-25 mcg/actuation blister with device 1 puffs INH DAILY Qty: 60 RF: 5 omeprazole 20 mg capsule,delayed release(DR/EC) 20 mg PO DAILY RF: 0 albuterol sulfate 90 mcg/actuation HFA aerosol inhaler 2 puff INH Q6H PRN (Reason: Shortness Of Breath Or Wheezing) Qty: 18 RF: 3 (DME) Aeroneb Go Nebulizer Misc See Rx Instructions .ROUTE .MEDSUPPLY Qty: 1 RF: 0 ipratropium-albuterol 0.5 mg-3 mg(2.5 mg base)/3 mL solution for nebulization 3 ml INH Q8H PRN (Reason: shortness of breath or wheezing) Qty: 180 RF: 3 sertraline [Zoloft] 50 mg Tablet 50 mg PO HS RF: 0 prochlorperazine maleate 10 mg tablet 10 mg PO Q6H PRN (Reason: Nausea) RF: 0 dexamethasone 4 mg tablet 4 mg PO UD RF: 0 oxycodone 20 mg tablet 20 mg PO Q4H PRN (Reason: Pain) RF: 0 polyethylene glycol 3350 [Miralax] 17 gram/dose Powder 17 g PO DAILY PRN (Reason: Constipation) RF: 0 Discontinued fentanyl 12 mcg/hr patch 72 hour 1 patch transdermal Q72H RF: 0 Discharge Orders: Discharge Order (Routine); Ordered 02/03/20 Ordered By: Sandie Conner/Other Patient Handouts: What Is Pneumonia?, DVT Dc, Enoxaparin injection Admission Data Admit Date/Time: 01/29/20 14:11 Attending Provider: Cortez Perez Admit Provider: Chay Adam Primary Care Provider: Walter Roberts Other Providers: Chay Adam ; Leroy Horne ; Cesar Carney ; Jaret Jaime ; Tiesha Leigh ; Wilder Hurd I. ; Aleksander Kraus II ; Irais Flores ; Rodrick Grady Other Interventions: Discharge Summary Assessment (RN) Last Done: 02/03/20 13:05 Supervising Physician Co-Signing Physician Notes Patient reviewed and I agree with the discharge summary by Sandie DINERO. I have reviewed the chart including labs, imaging and plans for discharge. patient doing better, ready to go home - Aspergillosis: complete course of Variconazole follow up for EKG in a week to follow QT interval - Gram negative bacteremia: PICC as potential source, line was pulled, complete course of levaquin - Lung cancer: follow up with Dr. Kulkarni and radiation therapy Coding Level of Care Code D/C Day Management >30 mins Diagnoses Aspergillosis B44.9 Gram-negative bacteremia R78.81 Squamous cell carcinoma of lung C34.90 Laterality: unspecified laterality COPD with emphysema J43.9 Anxiety F41.9 DVT (deep venous thrombosis) I82.409
[2020-02-03] MEDS: BENZONATATE 100 MG CAPSULE PO PRN (13:44)
[2020-02-03] MEDS ORDERED: VORICONAZOLE 200 MG TABLET PO SCH (18:00)
--- NOTE | 2020-02-04 10:21 | Electrocardiogram Report ---
Test Reason : Blood Pressure : / mmHG Vent. Rate : 073 BPM Atrial Rate : 073 BPM P-R Int : 114 ms QRS Dur : 082 ms QT Int : 414 ms P-R-T Axes : 058 043 057 degrees QTc Int : 456 ms Normal sinus rhythm Normal ECG When compared with ECG of 29-JAN-2020 11:38, No significant change was found Confirmed by Sanjeev Keith ([id number]) on 02/04/2020 10:21:35 AM Referred By: Walter Kulkarni Confirmed By:Sanjeev Keith
--- NOTE | 2020-02-17 13:29 | Coding Query ---
CODING QUERY To promote full compliance with coding requirements relating to patient care, provider participation is requested in all cases of configuration management architect uncertainty. Please assist us with the question(s) below: Coding Question(s): The Aspergillosis is documented by Pulmonary on Progress Notes as Invasive Aspergillosis and documentation on the ID Consultation regarding Pulmonary Aspergillosis is, "Of note, there is growth of aspergillus in the lung, but there is no evidence of allergic reaction and there is no documented invasion on biopsy. It is hard to argue that there is invasive infection here, with negative path and light growth. Persistence of superficial growth is not very diagnostic". Please clarify below, in your clinical opinion, regarding Aspergillosis. ( ) Likely Aspergillosis of lung Invasive (x ) Likely Aspergillosis of lung, Not Invasive - Unspecified ( ) Aspergillosis of the lung, Other: Please Specify Physician's Response(s): Thank you Melani Russell Principal Diagnosis: "that condition established after study, to be chiefly responsible for occasioning the admission of the patient to the hospital for care." Co-Existing Principal Diagnosis: "when two or more diagnoses equally meet the criteria for principal diagnosis as determined by the circumstances of admission, diagnostic work up, and/or therapy provided, and the Alphabetic Index, Tabular List, or another coding guideline does not provide sequencing direction, any one of the diagnoses may be sequenced first." "When the physician has documented what appears to be a current diagnosis in the body of the record, but has not included the diagnosis in the final diagnostic statement, the physician should be asked whether the diagnosis should be added." (Source [facility]oding [facility] 2 QTR90. p3-4) FLAVIO
--- NOTE | 2020-02-17 13:32 | Coding Query ---
PRESENT ON ADMISSION QUERY To promote full compliance with coding requirements relating to pateint care, physician participation is requested in all cases of racing secretary uncertainty. Please assist us with the question(s) below: Please place an X within the parenthesis (x). The following diagnosis listed in this patient's medical record require physician assistance to determine if they were present on admission (POA) or not. Please advise for each diagnosis whether it was present on admission, not present on admission, or if it was clinically undetermined. 1. DVT Left side veins around the PICC Line (documentation begins on 02/02/20). (x ) Present On Admission ( ) Not Present On Admission ( ) Clinically Undetermined Thank you Melani Russell *Definition of the present on admission (POA)-Present on admission is defined as present at the time the order for inpatient admission occurs. Conditions that develop during an outpatient encounter prior to a written order for inpatient admission (including emergency department, observation, or outpatient surgery) are considered present on admission. FLAVIO
== END 2020-02-03 14:39 | disposition home health service (06) | DRG 868 ==
LOC: ED 10:53 → 3W 14:11 → SUATTDRO 14:11 → 3W 16:08

== ENCOUNTER 2020-02-10 10:08 | Inpatient (IN) ==
[2020-02-10] MEDS ORDERED: levoFLOXacin/D5W 750 MG/150 ML BAG IV STA (11:42)
[2020-02-10] MEDS ORDERED: SODIUM CHLORIDE 0.9% 1000ML 1,000 ML IV SCH (11:45)
--- NOTE | 2020-02-10 11:59 | XRay Report ---
XR chest 1V portable CLINICAL HISTORY: Shortness of breath., So carcinoma of the lung. COMPARISON STUDY: Chest CT January 29, 2020. Chest radiograph February 01, 2020. FINDINGS: There is emphysema. Cavitary right upper lobe mass is again noted. Bilateral airspace persi st. Left PICC has been removed. There is no pneumothorax or pleural effusion. Old bilateral rib fract ures are noted. Cardiomediastinal silhouette is stable IMPRESSION: No significant change in appearance of the chest. Cavitary right upper lobe mass and mul tifocal bilateral airspace opacities which favor an infectious process. ACT 112: Negative or not required by law. Electronically signed by: Macario Hannon M.D. 02/10/2020 11:58 AM
[2020-02-10 12:24] LABS: Hematocrit (blood only) 27.5 % (42-52); Hemoglobin 8.8 g/dL (14.0-18.0); Immature Granulocytes # (auto) 0.04 K/uL (0.00-0.02); Immature Granulocytes % (auto) 0.4 %; Lymphocytes # (auto) 0.52 K/uL (1.2-3.4); Lymphocytes % (auto) 5.8 %; Mean Corpuscular Hemoglobin 28.5 pg (25-34); Mean Platelet Volume 8.6 fL (7.4-10.4); Monocytes # (auto) 0.25 K/uL (0.11-0.59); Monocytes % (auto) 2.8 %; Neutrophils # (auto) 8.15 K/uL (1.4-6.5); Platelet Count 184 K/uL (130-400); RDW Coefficient of Variation 18.2 % (11.5-14.5); RDW Standard Deviation 58.7 fL (36.4-46.3); Red Blood Count 3.09 M/uL (4.7-6.1); White Blood Count 8.96 K/uL (4.8-10.8)
[2020-02-10 12:35] LABS: INR 1.2 (0.9-1.1); Partial Thromboplastin Time 28.8 Seconds (21.0-31.0); Prothrombin Time 12.4 Seconds (9.0-12.0)
[2020-02-10 12:48] LABS: Alanine Aminotransferase 15 U/L (12-78); Albumin Level 2.3 gm/dl (3.4-5.0); Aspartate Aminotransferase 9 U/L (15-37); BUN Creatinine Ratio 31.9 (10-20); Blood Urea Nitrogen 15 mg/dl (7-18); Calcium 8.5 mg/dl (8.5-10.1); Carbon Dioxide 30 mmol/L (21-32); Chloride 103 mmol/L (98-107); Creatinine Clr Calc Pharmacy 175.9 ml/min; Est GFR (African American) 147.1; Est GFR (Non-African American) 126.9; Glucose 98 mg/dl (70-99); Magnesium 2.1 mg/dl (1.8-2.4); Potassium 3.4 mmol/L (3.5-5.1); Sodium 137 mmol/L (136-145)
[2020-02-10 12:53] LABS: Albumin Globulin Ratio 0.5 (0.9-2); Alkaline Phosphatase 95 U/L (45-117); Bilirubin,Total 0.3 mg/dl (0.2-1); Total Protein 7.3 gm/dl (6.4-8.2); Troponin I < 0.015 ng/ml (0-0.045)
[2020-02-10] MEDS ORDERED: ONDANSETRON INJ 2 MG/ML 2 ML VIAL IV STA ×2 (13:21→14:57)
[2020-02-10] MEDS ORDERED: PROCHLORPERAZINE 2 ML IV ONE (13:37)
--- NOTE | 2020-02-10 13:43 | Emergency Department Note ---
History of Present Illness General Chief complaint: Illness Stated complaint: CONFUSION, FEVER, CHILLS, WEAKNESS Time Seen by Provider: 02/10/20 10:41 Source: patient Mode of arrival: ambulatory Limitations: no limitations History of Present Illness Provider complaint: Nausea Maximum Pain Intensity: 0 This is a 54-year-old male who presents to the ED with a chief complaint of nausea and a little confusion. He may have had a fever. He has had the symptoms for days. The patient was discharged a week ago from here after having pneumonia. He states that he had chemotherapy yesterday. He states that he has been nauseated all day and having some vomiting. He began vomiting in the [facility] department. He has a history of squamous cell carcinoma of the lung. He also has history of aspergillosis pneumonia. He has been treated for this during his last admission. Home Medications Medication Instructions Recorded Confirmed Type omeprazole 20 mg capsule,delayed 20 mg PO DAILY 07/30/19 02/10/20 History release albuterol sulfate 90 mcg/actuation 2 puff INH Q6H PRN #18 gm 09/21/19 02/10/20 Rx aerosol inhaler ipratropium 0.5 mg-albuterol 3 mg 3 ml INH Q8H PRN #180 ml 09/21/19 02/10/20 Rx (2.5 mg base)/3 mL nebulization soln nebulizers #1 ea 09/21/19 01/25/20 Rx umeclidinium 62.5 mcg-vilanterol 1 puffs INH DAILY #60 ea 10/12/19 02/10/20 Rx 25 mcg/actuation powdr for inhalation sertraline [Zoloft] 50 mg PO HS 12/08/19 02/10/20 History dexamethasone 4 mg PO UD 01/29/20 02/10/20 History oxycodone 20 mg PO Q4H PRN 01/29/20 02/10/20 History polyethylene glycol 3350 [Miralax] 17 g PO DAILY PRN 01/29/20 02/10/20 History prochlorperazine maleate 10 mg PO Q6H PRN 01/29/20 02/10/20 History docusate sodium 100 mg PO BID #60 cap 02/03/20 02/10/20 Rx enoxaparin 60 mg SUBCUT Q12H #60 ml 02/03/20 02/10/20 Rx fentanyl 25 mcg TRANSDERMAL Q3D@1430 #1 ea 02/03/20 02/10/20 Rx levofloxacin 750 mg PO DAILY 14 Days #14 tab 02/03/20 02/10/20 Rx magnesium oxide 400 mg PO QAM #30 tab 02/03/20 02/10/20 Rx voriconazole [Vfend] 200 mg PO BID@0600,1800 #28 tab 02/03/20 02/10/20 Rx Allergies Allergy/AdvReac Type Severity Reaction Status Date / Time No Known Allergies Allergy Verified 02/10/20 12:57 Past Med/Surg History Medical History Anxiety Arthritis Aspergillus pneumonia s/p treatment, following closely with pulmonary Cavitary lung disease Chronic obstructive pulmonary disease COPD with emphysema Eye disease Best disease- genetic condition affecting vision GERD (gastroesophageal reflux disease) Invasive aspergillosis Macular degeneration Restless leg syndrome Scoliosis Seasonal allergies SOB (shortness of breath) on exertion Squamous cell carcinoma lung Surgical History History of bronchoscopy History of colonoscopy History of esophagogastroduodenoscopy (EGD) History of tonsillectomy History of tooth extraction Hx of vasectomy Family History Mother Macular degeneration Lung disease Father , 60yo Myocardial infarction Pancreatitis Sister No problems noted. Sister No problems noted. Son No problems noted. Son No problems noted. Daughter No problems noted. Other No significant family history Social History Smoking Status: Former smoker Tobacco Type: Smokeless Tobacco (Dip or Chew) Cigarettes Per Day: 30-40 cig/day x 40 yrs;; Second Hand Exposure: No; Hx Alcohol Use: No Hx Substance Use: Yes (prescription by MD) Last Used Substance Other:: LAST USED MARIJAUAN 3 MONTHS AGO Preferred Language: [place] Communication Ability: Effective Visual Impairment: No Limitations Hearing Ability: Normal Director Engineering Required: No Beliefs That Will Affect Care: None marital status: Current Living Situation: Family current occupational status: employed 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 Feels Safe at Home: Yes Diet Comment: Near keto diet caffeine: Yes (1 cup/day) during the past year weight has: decreased > 10 lbs Assistive Devices: None Review of Systems A total of 10 systems reviewed and were otherwise negative Physical Exam Vital Signs Vital Signs - 24 hr 02/10/20 10:13 02/10/20 12:09 02/10/20 12:12 Temperature 36.9 C Temperature Source Oral Pulse Rate 96 H 70 Pulse Rate [Apical] 60 Pulse Rate from SpO2 Sensor Respiratory Rate 20 20 16 Respiratory Effort / Characteristics Non-Labored Spontaneous Respiratory Depth Normal Respiratory Pattern Regular Blood Pressure 122/72 Blood Pressure [Right Arm] 161/85 H Blood Pressure Mean 88 Blood Pressure Mean [Right Arm] 110 Pulse Oximetry 97 100 Oxygen Delivery Method Room Air Room Air Sepsis Recent Fever Within 48 Hours No Sepsis New/Unexplained Change in Mental Status N/A Sepsis Action Taken by Nursing No Action Required 02/10/20 12:30 02/10/20 12:44 02/10/20 13:17 Temperature Temperature Source Pulse Rate 65 Pulse Rate [Apical] Pulse Rate from SpO2 Sensor 60 Respiratory Rate 27 H Respiratory Effort / Characteristics Respiratory Depth Respiratory Pattern Blood Pressure 161/85 H Blood Pressure [Right Arm] Blood Pressure Mean 107 Blood Pressure Mean [Right Arm] Pulse Oximetry 100 Oxygen Delivery Method Room Air Sepsis Recent Fever Within 48 Hours Sepsis New/Unexplained Change in Mental Status Sepsis Action Taken by Nursing 02/10/20 13:18 02/10/20 13:30 02/10/20 13:31 Temperature Temperature Source Pulse Rate 60 77 68 Pulse Rate [Apical] Pulse Rate from SpO2 Sensor 60 70 68 Respiratory Rate 28 H 23 Respiratory Effort / Characteristics Respiratory Depth Respiratory Pattern Blood Pressure 172/89 H Blood Pressure [Right Arm] Blood Pressure Mean 118 Blood Pressure Mean [Right Arm] Pulse Oximetry 100 100 100 Oxygen Delivery Method Sepsis Recent Fever Within 48 Hours Sepsis New/Unexplained Change in Mental Status Sepsis Action Taken by Nursing 02/10/20 14:00 02/10/20 14:01 Temperature Temperature Source Pulse Rate 57 L 59 L Pulse Rate [Apical] Pulse Rate from SpO2 Sensor Respiratory Rate 23 25 H Respiratory Effort / Characteristics Respiratory Depth Respiratory Pattern Blood Pressure 173/90 H Blood Pressure [Right Arm] Blood Pressure Mean 113 Blood Pressure Mean [Right Arm] Pulse Oximetry Oxygen Delivery Method Sepsis Recent Fever Within 48 Hours Sepsis New/Unexplained Change in Mental Status Sepsis Action Taken by Nursing CONSTITUTIONAL/VITAL SIGNS: Reviewed / noted above. GENERAL: Non-toxic in appearance. INTEGUMENTARY: Warm, dry, and [place]. HEAD: Normocephalic. EYES: without scleral icterus or trauma. ENT/OROPHARYNX: clear and moist. LYMPHADENOPATHY/NECK: Is supple without lymphadenopathy or meningismus. RESPIRATORY: Lungs clear and equal. CARDIOVASCULAR: Regular rate and rhythm. GI/ABDOMEN: Soft and nontender. No organomegaly or pulsatile mass. No rebound or guarding. Normal bowel sounds. EXTREMITIES: Warm and well perfused. BACK: No CVA tenderness. NEUROLOGICAL: Intact without focal deficits. PSYCHIATRIC: normal affect. MUSCULOSKELETAL: Normally developed with good muscle tone. TRIAGE NURSING DOCUMENTATION REVIEWED. Course Administered Medications Discontinued Medications Sodium Chloride (Nss 1000ml) 1,000 mls @ 999 mls/hr IV .Q1H1M PAMELA Stop: 02/10/20 12:45 Last Infusion: 02/10/20 13:58 Dose: 0 mls/hr Documented by: [id number] Admin: 02/10/20 12:43 Dose: 999 mls/hr Documented by: [id number] Levofloxacin/Dextrose (Levaquin/D5w) 750 mg in 150 mls @ 100 mls/hr IV NOW STA Stop: 02/10/20 13:11 Last Infusion: 02/10/20 14:21 Dose: 0 mls/hr Documented by: [id number] Admin: 02/10/20 12:43 Dose: 100 mls/hr Documented by: [id number] Prochlorperazine (Compazine) 2 mls @ 1 mls/min IV ONE ONE Stop: 02/10/20 13:38 Last Admin: 02/10/20 13:45 Dose: 1 mls/min Documented by: [id number] Ondansetron HCl (Ondansetron Inj 2 Mg/Ml 2 Ml Vial) 4 mg IV NOW STA Stop: 02/10/20 13:22 Last Admin: 02/10/20 13:29 Dose: 4 mg Documented by: [id number] Medical Decision Making Differential Diagnosis Differential considered: pancreatitis, hepatitis, acute cholecystitis, AAA, UTI, pyelonephritis, kidney stones, appendicitis, diverticulitis, shingles, bowel obstruction, mesenteric ischemia, intussusception,hernia, testicular torsion,, post chemo nausea vomiting. Medical Records Attestation: I reviewed the patient's medical records. Home Medications Current Medication List: was personally reviewed by me Laboratory Data Attestation: I reviewed the patient's lab results. Result diagrams: 02/10/20 12:11 02/10/20 12:11 Lab Results 02/10/20 02/10/20 02/10/20 Range/Units 12:11 12:11 12:11 WBC 8.96 (4.8-10.8) K/uL RBC 3.09 L (4.7-6.1) M/uL Hgb 8.8 L (14.0-18.0) g/dL Hct 27.5 L (42-52) % MCV 89.0 (80-100) fL MCH 28.5 (25-34) pg MCHC 32.0 (32-36) g/dL RDW Std Deviation 58.7 H (36.4-46.3) fL RDW Coeff of [place] 18.2 H (11.5-14.5) % Plt Count 184 (130-400) K/uL MPV 8.6 (7.4-10.4) fL Immature Gran % (Auto) 0.4 % Neut % (Auto) 91.0 % Lymph % (Auto) 5.8 % [place] % (Auto) 2.8 % Eos % (Auto) 0.0 % Baso % (Auto) 0.0 % Neut # (Auto) 8.15 H (1.4-6.5) K/uL Lymph # (Auto) 0.52 L (1.2-3.4) K/uL [place] # (Auto) 0.25 (0.11-0.59) K/uL Eos # (Auto) 0.00 (0-0.5) K/uL Baso # (Auto) 0.00 (0-0.2) K/uL Immature Gran # (Auto) 0.04 H (0.00-0.02) K/uL PT 12.4 H (9.0-12.0) Seconds INR 1.2 H (0.9-1.1) APTT 28.8 (21.0-31.0) Seconds PTT Ratio 1.0 Sodium 137 (136-145) mmol/L Potassium 3.4 L (3.5-5.1) mmol/L Chloride 103 (98-107) mmol/L Carbon Dioxide 30 (21-32) mmol/L Anion Gap 4.0 (3-11) BUN 15 (7-18) mg/dl Creatinine 0.47 L (0.6-1.4) mg/dl Est Cr Clr Drug Dosing 175.9 ml/min Est GFR ( Amer) 147.1 Est GFR (Non-Af Amer) 126.9 BUN/Creatinine Ratio 31.9 H (10-20) Glucose 98 (70-99) mg/dl Lactate (0.4-2.0) mmol/L Calcium 8.5 (8.5-10.1) mg/dl Magnesium 2.1 (1.8-2.4) mg/dl Total Bilirubin 0.3 (0.2-1) mg/dl AST 9 L (15-37) U/L ALT 15 (12-78) U/L Alkaline Phosphatase 95 (45-117) U/L Troponin I < 0.015 (0-0.045) ng/ml Total Protein 7.3 (6.4-8.2) gm/dl Albumin 2.3 L (3.4-5.0) gm/dl Globulin 5.0 H (2.5-4.0) gm/dl Albumin/Globulin Ratio 0.5 L (0.9-2) COVID-19 Eval Order SARS-CoV-2, RNA, NAAT (NEGATIVE) 02/10/20 02/10/20 02/10/20 Range/Units 12:35 Unknown Unknown WBC (4.8-10.8) K/uL RBC (4.7-6.1) M/uL Hgb (14.0-18.0) g/dL Hct (42-52) % MCV (80-100) fL MCH (25-34) pg MCHC (32-36) g/dL RDW Std Deviation (36.4-46.3) fL RDW Coeff of [place] (11.5-14.5) % Plt Count (130-400) K/uL MPV (7.4-10.4) fL Immature Gran % (Auto) % Neut % (Auto) % Lymph % (Auto) % [place] % (Auto) % Eos % (Auto) % Baso % (Auto) % Neut # (Auto) (1.4-6.5) K/uL Lymph # (Auto) (1.2-3.4) K/uL [place] # (Auto) (0.11-0.59) K/uL Eos # (Auto) (0-0.5) K/uL Baso # (Auto) (0-0.2) K/uL Immature Gran # (Auto) (0.00-0.02) K/uL PT (9.0-12.0) Seconds INR (0.9-1.1) APTT (21.0-31.0) Seconds PTT Ratio Sodium (136-145) mmol/L Potassium (3.5-5.1) mmol/L Chloride (98-107) mmol/L Carbon Dioxide (21-32) mmol/L Anion Gap (3-11) BUN (7-18) mg/dl Creatinine (0.6-1.4) mg/dl Est Cr Clr Drug Dosing ml/min Est GFR ( Amer) Est GFR (Non-Af Amer) BUN/Creatinine Ratio (10-20) Glucose (70-99) mg/dl Lactate 1.7 (0.4-2.0) mmol/L Calcium (8.5-10.1) mg/dl Magnesium (1.8-2.4) mg/dl Total Bilirubin (0.2-1) mg/dl AST (15-37) U/L ALT (12-78) U/L Alkaline Phosphatase (45-117) U/L Troponin I (0-0.045) ng/ml Total Protein (6.4-8.2) gm/dl Albumin (3.4-5.0) gm/dl Globulin (2.5-4.0) gm/dl Albumin/Globulin Ratio (0.9-2) COVID-19 Eval Order Covid19 [facility] SARS-CoV-2, RNA, NAAT NEGATIVE (NEGATIVE) Imaging Data My Impression: XR chest 1V portable CLINICAL HISTORY: Shortness of breath., So carcinoma of the lung. COMPARISON STUDY: Chest CT January 29, 2020. Chest radiograph February 01, 2020. FINDINGS: There is emphysema. Cavitary right upper lobe mass is again noted. Bilateral airspace persist. Left PICC has been removed. There is no pneumothorax or pleural effusion. Old bilateral rib fractures are noted. Cardiomediastinal silhouette is stable IMPRESSION: No significant change in appearance of the chest. Cavitary right upper lobe mass and multifocal bilateral airspace opacities which favor an infectious process. Radiologist's Impression: ECG Data Attestation: I personally reviewed and interpreted this ECG as follows: Indication: + weakness Rate (beats per minute): 60 Rhythm: + normal sinus ECG Intervals/blocks: + Normal QT-c ECG ST segments: no ST elevation ECG Findings: no PVCs MDM Narrative This is a 54-year-old male who presents to the ED with a chief complaint of nausea most of the day today. He is also had some associated vomiting. He states that he had chemotherapy 2 days ago. He also reports getting radiation therapy daily. He has chemotherapy for his squamous cell carcinoma of the lung. The patient did have vomiting during his ED stay. He was not having any abdominal tenderness on exam. The patient's hemoglobin was 8.8. This is near baseline. Complete metabolic panel was unremarkable. Troponin is negative. Lactic acid level is normal. Covid test was negative. Chest x-ray was without significant change from the previous x-ray. There is a cavitary right upper lobe mass noted again as detailed above. The patient appears to have intractable vomiting. He states that his vomiting seems to occur when he closes his eyes. He has been treated with IV Zofran, IV Compazine as well as IV Phenergan. He is gotten some IV fluids. He will be seen by the hospitalist for further evaluation and care. The patient was treated with IV Zofran, IV Compazine, IV fluids and IV Levaquin. The Levaquin was prescribed empirically with the possibility of possible pneumonia. Impression & Plan Moderate nausea and vomiting Discharge Plan Visit Data Chief Complaint: Illness Stated Complaint: CONFUSION, FEVER, CHILLS, WEAKNESS ED Provider: Mandeep Pelayo Discharge Problem: Moderate nausea and vomiting Patient Disposition: Being Evaluated by Hospitalist Forms Stand Alone Forms: My [facility] [employer] Prescriptions Prescriptions: No Action Anoro Ellipta 62.5-25 mcg/actuation blister with device 1 puffs INH DAILY Qty: 60 RF: 5 omeprazole 20 mg capsule,delayed release(DR/EC) 20 mg PO DAILY RF: 0 albuterol sulfate 90 mcg/actuation HFA aerosol inhaler 2 puff INH Q6H PRN (Reason: Shortness Of Breath Or Wheezing) Qty: 18 RF: 3 (DME) Aeroneb Go Nebulizer Misc See Rx Instructions .ROUTE .MEDSUPPLY Qty: 1 RF: 0 ipratropium-albuterol 0.5 mg-3 mg(2.5 mg base)/3 mL solution for nebulization 3 ml INH Q8H PRN (Reason: shortness of breath or wheezing) Qty: 180 RF: 3 sertraline [Zoloft] 50 mg Tablet 50 mg PO HS RF: 0 prochlorperazine maleate 10 mg tablet 10 mg PO Q6H PRN (Reason: Nausea) RF: 0 dexamethasone 4 mg tablet 4 mg PO UD RF: 0 oxycodone 20 mg tablet 20 mg PO Q4H PRN (Reason: Pain) RF: 0 polyethylene glycol 3350 [Miralax] 17 gram/dose Powder 17 g PO DAILY PRN (Reason: Constipation) RF: 0 magnesium oxide 400 mg (241.3 mg magnesium) Tablet 400 mg PO QAM Qty: 30 RF: 0 docusate sodium 100 mg Capsule 100 mg PO BID Qty: 60 RF: 0 fentanyl 25 mcg/hr Patch 72 Hour 25 mcg transdermal Q3D@1430 Qty: 1 RF: 0 enoxaparin 60 mg/0.6 mL Syringe 60 mg subcut Q12H Qty: 60 RF: 2 voriconazole [Vfend] 200 mg Tablet 200 mg PO BID@0600,1800 Qty: 28 RF: 1 levofloxacin 750 mg tablet 750 mg PO DAILY 14 Days Qty: 14 RF: 0 Referrals Referrals: Walter Roberts [Primary Care Provider] -
[2020-02-10] MEDS ORDERED: PROMETHAZINE 25 MG/51 ML BAG IV STA (14:27)
[2020-02-10] MEDS ORDERED: LORazepam 1 MG/2 ML VIAL IV STA (14:57)
[2020-02-10] MEDS ORDERED: LORazepam 2 MG/4 ML VIAL IV PRN (15:16)
[2020-02-10] MEDS ORDERED: SODIUM CHLORIDE 0.9% IV ONE (15:30)
[2020-02-10] MEDS ORDERED: VORICONAZOLE IV ONE (15:30)
--- NOTE | 2020-02-10 15:37 | Electrocardiogram Report ---
Test Reason : Blood Pressure : / mmHG Vent. Rate : 061 BPM Atrial Rate : 061 BPM P-R Int : 106 ms QRS Dur : 086 ms QT Int : 438 ms P-R-T Axes : 063 031 038 degrees QTc Int : 440 ms Sinus rhythm with short IA Otherwise normal ECG When compared with ECG of 03-FEB-2020 10:37, No significant change was found Confirmed by Jaguar Narayanan ([id number]) on 02/10/2020 3:36:25 PM Referred By: REFERRED SELF Confirmed By:Jaguar Narayanan
--- NOTE | 2020-02-10 16:55 | History & Physical Report ---
Date of Service February 10, 2020 Assessment & Plan (1) Invasive aspergillosis: Change voriconazole from 200 mg p.o. twice daily to adjusted dose IV Present on Admission?: Yes (2) Cavitary lung disease: Secondary to underlying lung cancer, been receiving radiation therapy daily and chemo approximately weekly Present on Admission?: Yes (3) DVT (deep venous thrombosis): Continue Lovenox 60 mg subcu every 12 hours Present on Admission?: Yes (4) Moderate nausea and vomiting: Patient received Zofran IV, Phenergan IV with little relief, but then did get significant relief with lorazepam IV. Likely secondary to chemotherapy Present on Admission?: Yes (5) Gram-negative bacteremia: Change levofloxacin from p.o. 750 mg IV daily This infection was PICC line associated, and PICC line is continue to be removed Present on Admission?: Yes (6) COPD with emphysema: DuoNebs as needed Present on Admission?: Yes History of Present Illness Chief Complaint: The patient presents to the emergency department with confusion, fever, chills, generalized weakness and severe nausea with vertigo Primary Care Provider: Walter Roberts The patient is a 54-year-old male with a past medical history including DVT, cavitary lung disease, invasive aspergillosis, gram-negative bacteremia, fever, anxiety, COPD with emphysema, malignant neoplasm of right upper lobe of lung, mediastinal lymphadenopathy, squamous cell carcinoma of lung. He was most recently admitted to [facility] from 01/28-02/02 where he was treated for Aspergillus pneumonia and gram-negative bacteremia. He was discharged on voriconazole and levofloxacin. He reports he had a chemotherapy yesterday, and since that time has felt nauseous all day long with some vomiting. Allergies Allergy/AdvReac Type Severity Reaction Status Date / Time No Known Allergies Allergy Verified 02/10/20 12:57 Home Medications Medication Instructions Recorded Confirmed Type omeprazole 20 mg capsule,delayed 20 mg PO DAILY 07/30/19 02/10/20 History release albuterol sulfate 90 mcg/actuation 2 puff INH Q6H PRN #18 gm 09/21/19 02/10/20 Rx aerosol inhaler ipratropium 0.5 mg-albuterol 3 mg 3 ml INH Q8H PRN #180 ml 09/21/19 02/10/20 Rx (2.5 mg base)/3 mL nebulization soln nebulizers #1 ea 09/21/19 01/25/20 Rx umeclidinium 62.5 mcg-vilanterol 1 puffs INH DAILY #60 ea 10/12/19 02/10/20 Rx 25 mcg/actuation powdr for inhalation sertraline [Zoloft] 50 mg PO HS 12/08/19 02/10/20 History dexamethasone 4 mg PO UD 01/29/20 02/10/20 History oxycodone 20 mg PO Q4H PRN 01/29/20 02/10/20 History polyethylene glycol 3350 [Miralax] 17 g PO DAILY PRN 01/29/20 02/10/20 History prochlorperazine maleate 10 mg PO Q6H PRN 01/29/20 02/10/20 History docusate sodium 100 mg PO BID #60 cap 02/03/20 02/10/20 Rx enoxaparin 60 mg SUBCUT Q12H #60 ml 02/03/20 02/10/20 Rx fentanyl 25 mcg TRANSDERMAL Q3D@1430 #1 ea 02/03/20 02/10/20 Rx levofloxacin 750 mg PO DAILY 14 Days #14 tab 02/03/20 02/10/20 Rx magnesium oxide 400 mg PO QAM #30 tab 02/03/20 02/10/20 Rx voriconazole [Vfend] 200 mg PO BID@0600,1800 #28 tab 02/03/20 02/10/20 Rx Past Med/Surg History Medical History Anxiety Arthritis Aspergillus pneumonia s/p treatment, following closely with pulmonary Cavitary lung disease Chronic obstructive pulmonary disease COPD with emphysema Eye disease Best disease- genetic condition affecting vision GERD (gastroesophageal reflux disease) Invasive aspergillosis Macular degeneration Restless leg syndrome Scoliosis Seasonal allergies SOB (shortness of breath) on exertion Squamous cell carcinoma lung Surgical History History of bronchoscopy History of colonoscopy History of esophagogastroduodenoscopy (EGD) History of tonsillectomy History of tooth extraction Hx of vasectomy Family History Mother Macular degeneration Lung disease Father , 60yo Myocardial infarction Pancreatitis Sister No problems noted. Sister No problems noted. Son No problems noted. Son No problems noted. Daughter No problems noted. Other No significant family history Social History Smoking Status: Former smoker Tobacco Type: Smokeless Tobacco (Dip or Chew) Cigarettes Per Day: 30-40 cig/day x 40 yrs;; Second Hand Exposure: No; Do You Dip or Chew Tobacco: Yes; Tobacco Cessation Education Requested by Patient: No Hx Alcohol Use: No Hx Substance Use: No Preferred Language: Romansh Communication Ability: Effective Visual Impairment: No Limitations Hearing Ability: Normal Embroidery Designer Required: No Beliefs That Will Affect Care: None marital status: Current Living Situation: Family current occupational status: employed 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 -[employer] Other Information That Helps Us Care for You: No Feels Safe at Home: Yes Safety Concerns: Feels Safe At This Time Diet Comment: Near keto diet caffeine: Yes (1 cup/day) during the past year weight has: decreased > 10 lbs Assistive Devices: Denture - Lower and Glasses Review of Systems Review of Systems: The patient denies palpitations, lower extremity swelling, sore throat, chills, sweats, diarrhea , constipation, abdominal pain, pelvic pain, blood in urine or stool, dysuria, urinary frequency or urgency, memory loss, loss of consciousness, rash, abnormal bruising or bleeding, imbalance, focal or generalized weakness, numbness or tingling in arms or legs, generalized arthralgias or myalgias, back or neck pain, or night sweats. The review of systems is otherwise negative other than for that already noted above, and at least 10 systems have been reviewed. Physical Exam Physical Exam: The patient is awake, alert and oriented 3, normocephalic and atraumatic, lying in bed and in moderate distress secondary to active vomiting HEENT--PERRL, EOMI, mucous membranes and oropharynx dry. Neck--supple. No JVD. No bruits. Thyroid normal, trachea midline, no adenopathy. Heart--normal S1 and S2. No murmurs, rubs or gallops. Lungs--clear bilaterally, no respiratory distress, no accessory muscle use. Abdomen--normal bowel sounds and soft. Nontender. Nondistended. Extremities--no cyanosis or clubbing. No edema. Dermatologic--normal skin turgor, normal color, no abnormal lymph nodes, no rash. Neurologic--cranial nerves II through XII grossly intact. Rheumatologic--normal range of motion. Psychiatric--normal affect. Results & Data Results & Data ([facility]) Vital Signs (Past 12 Hours) Vital Signs Temp Pulse Pulse Resp BP BP Pulse Ox 02/10/20 14:02 59 L 22 02/10/20 14:01 59 L 25 H 173/90 H 02/10/20 14:00 57 L 59 L 22 173/90 H 100 02/10/20 13:31 68 100 02/10/20 13:30 77 23 172/89 H 100 02/10/20 13:18 60 28 H 100 02/10/20 13:17 161/85 H 100 02/10/20 12:30 65 27 H 02/10/20 12:12 70 16 02/10/20 12:09 60 20 161/85 H 100 02/10/20 10:13 98.4 F 96 H 20 122/72 97 Laboratory Results Laboratory Results WBC 8.96 K/uL (4.8-10.8) 02/10/20 12:11 RBC 3.09 M/uL (4.7-6.1) L 02/10/20 12:11 Hgb 8.8 g/dL (14.0-18.0) L 02/10/20 12:11 Hct 27.5 % (42-52) L 02/10/20 12:11 MCV 89.0 fL (80-100) 02/10/20 12:11 MCH 28.5 pg (25-34) 02/10/20 12:11 MCHC 32.0 g/dL (32-36) 02/10/20 12:11 RDW Std Deviation 58.7 fL (36.4-46.3) H 02/10/20 12:11 RDW Coeff of [place] 18.2 % (11.5-14.5) H 02/10/20 12:11 Plt Count 184 K/uL (130-400) 02/10/20 12:11 MPV 8.6 fL (7.4-10.4) 02/10/20 12:11 Immature Gran % (Auto) 0.4 % 02/10/20 12:11 Neut % (Auto) 91.0 % 02/10/20 12:11 Lymph % (Auto) 5.8 % 02/10/20 12:11 [place] % (Auto) 2.8 % 02/10/20 12:11 Eos % (Auto) 0.0 % 02/10/20 12:11 Baso % (Auto) 0.0 % 02/10/20 12:11 Neut # (Auto) 8.15 K/uL (1.4-6.5) H 02/10/20 12:11 Lymph # (Auto) 0.52 K/uL (1.2-3.4) L 02/10/20 12:11 [place] # (Auto) 0.25 K/uL (0.11-0.59) 02/10/20 12:11 Eos # (Auto) 0.00 K/uL (0-0.5) 02/10/20 12:11 Baso # (Auto) 0.00 K/uL (0-0.2) 02/10/20 12:11 Immature Gran # (Auto) 0.04 K/uL (0.00-0.02) H 02/10/20 12:11 PT 12.4 Seconds (9.0-12.0) H 02/10/20 12:11 INR 1.2 (0.9-1.1) H 02/10/20 12:11 APTT 28.8 Seconds (21.0-31.0) 02/10/20 12:11 PTT Ratio 1.0 02/10/20 12:11 Sodium 137 mmol/L (136-145) 02/10/20 12:11 Potassium 3.4 mmol/L (3.5-5.1) L 02/10/20 12:11 Chloride 103 mmol/L (98-107) 02/10/20 12:11 Carbon Dioxide 30 mmol/L (21-32) 02/10/20 12:11 Anion Gap 4.0 (3-11) 02/10/20 12:11 BUN 15 mg/dl (7-18) 02/10/20 12:11 Creatinine 0.47 mg/dl (0.6-1.4) L 02/10/20 12:11 Est Cr Clr Drug Dosing 175.9 ml/min 02/10/20 12:11 Est GFR ( Amer) 147.1 02/10/20 12:11 Est GFR (Non-Af Amer) 126.9 02/10/20 12:11 BUN/Creatinine Ratio 31.9 (10-20) H 02/10/20 12:11 Glucose 98 mg/dl (70-99) 02/10/20 12:11 Lactate 1.7 mmol/L (0.4-2.0) 02/10/20 12:35 Calcium 8.5 mg/dl (8.5-10.1) 02/10/20 12:11 Magnesium 2.1 mg/dl (1.8-2.4) 02/10/20 12:11 Total Bilirubin 0.3 mg/dl (0.2-1) 02/10/20 12:11 AST 9 U/L (15-37) L 02/10/20 12:11 ALT 15 U/L (12-78) 02/10/20 12:11 Alkaline Phosphatase 95 U/L (45-117) 02/10/20 12:11 Troponin I < 0.015 ng/ml (0-0.045) 02/10/20 12:11 Total Protein 7.3 gm/dl (6.4-8.2) 02/10/20 12:11 Albumin 2.3 gm/dl (3.4-5.0) L 02/10/20 12:11 Globulin 5.0 gm/dl (2.5-4.0) H 02/10/20 12:11 Albumin/Globulin Ratio 0.5 (0.9-2) L 02/10/20 12:11 Lipase 42 U/L (73-393) L 02/10/20 12:11 COVID-19 Eval Order Covid19 [facility]Now [facility] 02/10/20 Unknown Influ A Molecular Assay Negative (Negative) 02/10/20 Unknown Influ B Molecular Assay Negative (Negative) 02/10/20 Unknown SARS-CoV-2, RNA, NAAT NEGATIVE (NEGATIVE) 02/10/20 Unknown Diagnostic Findings [facility], [id number] XRay Report Patient: KRISTIN URRUTIA Date: 02/10/20MR#: [id number]: [id number] [facility]:[id number]: Date: 1965City Zip: [place] [id number]: 54Location: EDSex: MRoom/Bed:Att Phy:Diagnosis: CONFUSION, FEVER, CHILLS, WEAKNESSPri Phy: Walter Roberts-CService Date: 02/10/20Fam Phy:Interpreting Phy: Macario Hannon MDAdmit Phy: Ordering Phy: Alvaro Bailon MD cc: ~ XR chest 1V portable CLINICAL HISTORY: Shortness of breath., So carcinoma of the lung. COMPARISON STUDY: Chest CT January 29, 2020. Chest radiograph February 01, 2020. FINDINGS: There is emphysema. Cavitary right upper lobe mass is again noted. Bilateral airspace persist. Left PICC has been removed. There is no pneumothorax or pleural effusion. Old bilateral rib fractures are noted. Cardiomediastinal silhouette is stable IMPRESSION: No significant change in appearance of the chest. Cavitary right upper lobe mass and multifocal bilateral airspace opacities which favor an infectious process. ACT 112: Negative or not required by law. Electronically signed by: Macario Hannon M.D. 02/10/2020 11:58 AM Dictated: 02/10/20 1155Transcribed: 02/10/20 1155 Code Status & VTE Plan Code Status Full code VTE Prophylaxis Plan VTE Prophylaxis will be ordered: Yes PG Care Time/CCT Total # of Minutes Spent Total Time Spent with Patient: Total time spent is greater than 50% in coordination of care (as documented) at patient's floor/unit and/or counseling patient: Coding Level of Care Code 04152 Initial Inpt Care Lvl 3 Diagnoses Invasive aspergillosis B44.9 Cavitary lung disease J98.4 DVT (deep venous thrombosis) I82.409 Moderate nausea and vomiting R11.2 Gram-negative bacteremia R78.81 COPD with emphysema J43.9
[2020-02-10 17:12] LABS: Influenza A virus by PCR Negative (Negative); Influenza B virus by PCR Negative (Negative)
[2020-02-10] MEDS ORDERED: dexAMETHasone 4 MG TAB PO SCH (18:25)
[2020-02-10] MEDS ORDERED: ONDANSETRON INJ 2 MG/ML 2 ML VIAL IV PRN (18:25)
[2020-02-10] MEDS ORDERED: ALBUT/IPRATROP 3MG/0.5MG NEB 3 ML VIAL INH PRN (18:25)
[2020-02-10] MEDS ORDERED: diphenhydrAMINE 50 MG/ML VIAL IV PRN (18:25)
[2020-02-10] MEDS: NSS + 20MEQ KCL 20 MEQ/1,000 ML BAG IV SCH (19:59)
[2020-02-10] MEDS: CHECK fentaNYL PATCH PLACEMENT SCH (21:14)
[2020-02-10] MEDS: ENOXAPARIN INJ 60 MG/0.6 ML SYR SQ SCH (21:27)
[2020-02-10] MEDS ORDERED: fentaNYL 25 MCG/HR TDSY TD SCH (21:30)
[2020-02-11] MEDS: CHECK fentaNYL PATCH PLACEMENT SCH ×4 (00:01→23:33)
[2020-02-11] MEDS: SODIUM CHLORIDE 0.9% IV SCH ×2 (03:32→16:44)
[2020-02-11] MEDS: VORICONAZOLE IV SCH ×2 (03:32→16:44)
[2020-02-11] MEDS: NSS + 20MEQ KCL 20 MEQ/1,000 ML BAG IV SCH ×2 (05:38→20:00)
[2020-02-11 06:21] LABS: Appearance Urine Clear (Clear); Bacteria Urine Automated Negative (Negative); Bilirubin Urine Negative (Negative); Blood Urine Negative (Negative); Color Urine Yellow; Epithelial Cell Urine Auto >30 /lpf (0-5); Glucose Urine UA Negative (Negative); Ketones Urine Negative (Negative); Leukocyte Esterase Urine Negative (Negative); Nitrite Urine Negative (Negative); Protein Urine Trace (Negative); RBC Urine Automated 0-4 /hpf (0-4); Specific Gravity Urine 1.025 (1.000-1.030); Urobilinogen Urine Negative (Negative)
[2020-02-11 07:33] LABS: Basophils # (auto) 0.01 K/uL (0-0.2); Basophils % (auto) 0.1 %; Immature Granulocytes # (auto) 0.03 K/uL (0.00-0.02); Immature Granulocytes % (auto) 0.4 %; Lymphocytes # (auto) 0.32 K/uL (1.2-3.4); Mean Corpuscular Hemoglobin 28.6 pg (25-34); Mean Corpuscular Hgb Conc 32.1 g/dL (32-36); Mean Corpuscular Volume 88.9 fL (80-100); Monocytes # (auto) 0.47 K/uL (0.11-0.59); Monocytes % (auto) 5.8 %; Neutrophils # (auto) 7.23 K/uL (1.4-6.5); Neutrophils % (auto) 89.7 %; Platelet Count 196 K/uL (130-400); RDW Coefficient of Variation 18.4 % (11.5-14.5); RDW Standard Deviation 59.4 fL (36.4-46.3); Red Blood Count 3.15 M/uL (4.7-6.1); White Blood Count 8.06 K/uL (4.8-10.8)
[2020-02-11 07:41] LABS: INR 1.2 (0.9-1.1); Partial Thromboplastin Ratio 1.1; Partial Thromboplastin Time 29.3 Seconds (21.0-31.0); Prothrombin Time 12.4 Seconds (9.0-12.0)
[2020-02-11 08:03] LABS: Albumin Level 2.1 gm/dl (3.4-5.0); BUN Creatinine Ratio 27.9 (10-20); Calcium 8.7 mg/dl (8.5-10.1); Creatinine Clr Calc Pharmacy 155.7 ml/min; Est GFR (African American) 149.7; Est GFR (Non-African American) 129.2; Magnesium 1.8 mg/dl (1.8-2.4); Potassium 3.7 mmol/L (3.5-5.1)
[2020-02-11 08:06] LABS: Albumin Globulin Ratio 0.5 (0.9-2); Bilirubin,Total 0.3 mg/dl (0.2-1); Globulin 4.7 gm/dl (2.5-4.0); Total Protein 6.8 gm/dl (6.4-8.2)
[2020-02-11] MEDS: ENOXAPARIN INJ 60 MG/0.6 ML SYR SQ SCH ×2 (08:07→20:05)
--- NOTE | 2020-02-11 09:03 | Consultation Report ---
DATE OF CONSULTATION: 02/11/2020 REASON FOR CONSULTATION: Intractable nausea and vomiting, a 54-year-old gentleman, in the midst of chemoradiation for nonsmall cell lung cancer. HISTORY OF PRESENT ILLNESS: The patient is a pleasant 54-year-old gentleman, looks much older than his stated age, admitted to [facility] on 02/10/2020 with intractable nausea and vomiting. This gentleman was recently admitted to [facility] from 01/29/2020 through 02/03/2020, treated for chronic aspergillosis pneumonia and gram-negative bacteremia. He was subsequently discharged on voriconazole and levofloxacin. More recently the patient was diagnosed with locally advanced non-small cell lung cancer and embarked on chemoradiation utilizing carboplatin and paclitaxel as radiosensitizers. He has also had considerable chronic pain issues and compliance has been an issue with the patient since the start of initiation of opioids. That said, his last dose of chemotherapy was administered on 01/25/2020 and the last two weekly doses have been held because of poor tolerance. For pain, he is now on a Fentanyl patch 25 mcg topically q. 72 hours and was utilizing oxycodone 20 mg every 4-6 hours; however, was getting premature calls for refills on the oxycodone and suspect he was taking much higher doses than prescribed. He has been counseled on several occasions in this regard. He relates after receiving radiation on the day of admission, he had been nauseated with some vomiting. Clearly, I do not think his nausea is chemotherapy related and suspect again he may be overusing his opioids, which certainly can lead to nausea and vomiting. He looks well at bedside today. We will discuss further with managing hospitalist. PAST MEDICAL HISTORY: Aspergillosis pneumonia currently managed by the Pulmonary service. A nonsmall cell lung cancer, COPD with emphysema, macular degeneration, restless legs syndrome, chronic pain syndrome, osteoarthritis, anxiety. PAST SURGICAL HISTORY: Status post vasectomy, tooth extraction, tonsillectomy, EGD, colonoscopy and bronchoscopy. MEDICATIONS: Omeprazole 20 mg p.o. daily, albuterol inhaler 2 puffs p.o. q. 6 hours p.r.n., ipratropium/albuterol 3 mL via nebulizer q. 8 hours p.r.n., sertraline 50 mg p.o. at bedtime, dexamethasone 4 mg p.o. UD, oxycodone 20 mg p.o. q. 4 hours p.r.n., polyethylene glycol 17 grams p.o. p.r.n., Compazine 10 mg p.o. q. 6 hours p.r.n., docusate sodium 100 mg p.o. b.i.d., enoxaparin 60 mg subQ q.12 hours, fentanyl 25 mcg q. 72 hours, levofloxacin 750 mg p.o. daily, magnesium oxide 400 mg p.o. daily, voriconazole 200 mg p.o. b.i.d. FAMILY HISTORY: Mother suffered from pulmonary disease, macular degeneration. Father from myocardial infarction, pancreatitis. Siblings have no significant medical problems. SOCIAL HISTORY: The patient lives with his spouse. 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 He chews tobacco. He had a [id number] smoking history. Negative for alcohol or substance abuse. REVIEW OF SYSTEMS: GENERAL: Mainly intractable nausea and vomiting. No fevers, chills or sweats. He seems to be maintaining his weight. HEENT: Denies headaches, lightheadedness or dizziness. No visual or hearing deficits. No sinus symptoms, sore throat or dysphagia. LYMPH: No history of lymphoproliferative disease. CARDIAC: No angina or palpitations. PULMONARY: As per HPI. GASTROINTESTINAL: Positive for nausea and vomiting. No abdominal pain, no diarrhea or constipation. GENITOURINARY: No hematuria, dysuria, urinary incontinence. PSYCHIATRIC: Positive for anxiety. ENDOCRINE: Negative for diabetes or thyroid disease. NEUROLOGIC: Negative for seizure, stroke, or migraine headache. MUSCULOSKELETAL: Chronic musculoskeletal pain mostly involving his chest wall. HEMATOLOGIC: Positive for anemia. PHYSICAL EXAMINATION: GENERAL: Very pleasant 54-year-old, again appears much older than his stated age in no acute distress. VITAL SIGNS: Temperature 36.5, pulse 62, respiratory rate 16, blood pressure 138/72. SKIN: Warm, dry, noncyanotic without petechia, rash or ecchymosis. HEENT: Head is atraumatic, normocephalic. Eyes: PERRLA, EOMI. Sclerae nonicteric. NECK: Supple without JVD or thyromegaly. HEART: Regular rate and rhythm. LUNGS: Clear to auscultation bilaterally. ABDOMEN: Soft, nontender, nondistended, without palpable hepatosplenomegaly. EXTREMITIES: No clubbing, cyanosis or edema. NEUROLOGICAL: Grossly intact. LABORATORY DATA: WBC count 8060, hemoglobin 9, platelet count 196,000. RADIOGRAPHIC DATA: Chest x-ray done on admission, no significant change in appearance of the chest cavitary right upper lobe mass and multi bilateral airspace opacities, which favor an infectious process (aspergillosis). IMPRESSION: 1. Invasive aspergillosis. 2. Intractable nausea and vomiting. 3. Locally advanced non-small cell lung cancer. 4. Deep venous thrombosis. 5. Gram-negative bacteria. 6. Chronic obstructive pulmonary disease. PLAN: In summary, the patient is a very pleasant, quite interesting 54-year-old gentleman currently under my care with locally advanced non-small cell lung cancer (squamous cell). He recently started combined chemoradiation utilizing paclitaxel and carboplatin, which was last administered on 01/25/2020. Apparently, he told the admitting physician, he had just received chemotherapy, which clearly by Rudy is not true. This gentleman has been on copious opioids and compliance was certainly an issue early on and I was receiving premature refill request by the patient. He was counseled by our chemotherapy nurses on more than 1 occasion regarding the use of these drugs. Therefore, I would conclude that nausea is not chemotherapy related, perhaps a component from radiation itself, but he has not been exposed to chemotherapy since early January and relatively small dose I will add. Obviously, he has had a history of bacteremia and continues to kenny with pulmonary aspergillosis. Reculturing is not unreasonable, but clearly I do not believe his current illness is related to his active cancer treatment. We will discuss further directly with the hospitalist. We will continue to follow the patient periodically during his stay. Thank you very much for allowing me to participate in his care.
[2020-02-11] MEDS ORDERED: levoFLOXacin/D5W 750 MG/150 ML BAG IV SCH (12:00)
[2020-02-11] MEDS ORDERED: oxyCODONE HCL IR 5 MG TAB (IMMEDIATE RELEASE) PO PRN (14:16)
[2020-02-11] MEDS: oxyCODONE HCL IR 5 MG TAB (IMMEDIATE RELEASE) PO PRN ×2 (19:37→23:30)
[2020-02-11] MEDS ORDERED: MELATONIN 3 MG TAB PO PRN (20:24)
--- NOTE | 2020-02-11 23:15 | Hospitalist Progress Note ---
Date of Service February 11, 2020 Assessment & Plan (1) Invasive aspergillosis: Change voriconazole from 200 mg p.o. twice daily to adjusted dose IV (2) Cavitary lung disease: Secondary to underlying lung cancer, been receiving radiation therapy sandra y and chemo approximately weekly (3) DVT (deep venous thrombosis): Continue Lovenox 60 mg subcu every 12 hours (4) Moderate nausea and vomiting: Patient received Zofran IV, Phenergan IV with little relief, but then did get significant relief with lorazepam IV. Likely secondary to opiates. advanced diet. (5) Gram-negative bacteremia: Change levofloxacin from p.o. 750 mg IV daily This infection was PICC line associated, and PICC line is continue to be removed (6) COPD with emphysema: DuoNebs as needed (7) Opiate abuse, continuous: will consult pain medicine. concern that patient may abuse patches. will await input from pain management. Admission and Anticipated Discharge Date Admission Date: February 10, 2020 Subjective Patient reports he is doing well. He states he does not tolerate fentanyl and becomes confused. He reports Dr. Kulkarni tried to tansition him from oxycodone to fentanyl but that he did not tolerate this. His reports that he has been abusing his narcotics, and she states she would feel more comfortable if she manages and administers his pain medicine once he is discharged. Review of Systems Review of Systems: All systems reviewed & are unremarkable except as noted in HPI & below Physical Exam Physical Exam: The patient is awake, alert and oriented 3, normocephalic and atraumatic, lying in bed and in moderate distress secondary to active vomiting HEENT--PERRL, EOMI, mucous membranes and oropharynx dry. Neck--supple. No JVD. No bruits. Thyroid normal, trachea midline, no adenopathy. Heart--normal S1 and S2. No murmurs, rubs or gallops. Lungs--clear bilaterally, no respiratory distress, no accessory muscle use. Abdomen--normal bowel sounds and soft. Nontender. Nondistended. Extremities--no cyanosis or clubbing. No edema. Dermatologic--normal skin turgor, normal color, no abnormal lymph nodes, no rash. Neurologic--cranial nerves II through XII grossly intact. Rheumatologic--normal range of motion. Psychiatric--normal affect. Results & Data Results & Data ([facility]) Vital Signs (Past 12 Hours) Vital Signs Temp Pulse Resp BP Pulse Ox 02/11/20 23:05 37.2 C 65 22 138/79 98 02/11/20 16:03 36.3 C L 58 L 20 147/80 H 100 PG Care Time/CCT Total # of Minutes Spent Total Time Spent with Patient: Total time spent is greater than 50% in coordination of care (as documented) at patient's floor/unit and/or counseling patient: Coding Level of Care Code 34607 Subseq Hosp Care Lvl 3 Diagnoses Invasive aspergillosis B44.9 Cavitary lung disease J98.4 DVT (deep venous thrombosis) I82.409 Moderate nausea and vomiting R11.2 Gram-negative bacteremia R78.81 COPD with emphysema J43.9 Opiate abuse, continuous F11.10 Time Spent (min) 35
[2020-02-11] MEDS ORDERED: COUGH DROP (SUGAR FREE) LOZ 24 LOZ/1 BOX BUCCAL PRN (23:24)
[2020-02-11] MEDS ORDERED: ACETAMINOPHEN 325 MG TAB PO PRN (23:25)
[2020-02-11] MEDS ORDERED: COUGH DROP (SUGAR FREE) LOZ 24 LOZ/1 BOX BUCCAL ONE (23:26)
[2020-02-12] MEDS: NSS + 20MEQ KCL 20 MEQ/1,000 ML BAG IV SCH ×2 (00:01→04:26)
[2020-02-12] MEDS: oxyCODONE HCL IR 5 MG TAB (IMMEDIATE RELEASE) PO PRN ×3 (03:42→12:52)
[2020-02-12] MEDS: SODIUM CHLORIDE 0.9% IV SCH (04:26)
[2020-02-12] MEDS: VORICONAZOLE IV SCH (04:26)
[2020-02-12 07:21] VITALS: BP 131/71; PULSE 66; TEMP 99.5; O2SAT 93
[2020-02-12 07:30] LABS: Basophils # (auto) 0.01 K/uL (0-0.2); Basophils % (auto) 0.1 %; Eosinophils # (auto) 0.05 K/uL (0-0.5); Eosinophils % (auto) 0.7 %; Hematocrit (blood only) 27.5 % (42-52); Hemoglobin 8.9 g/dL (14.0-18.0); Immature Granulocytes # (auto) 0.05 K/uL (0.00-0.02); Immature Granulocytes % (auto) 0.7 %; Lymphocytes # (auto) 0.44 K/uL (1.2-3.4); Lymphocytes % (auto) 6.2 %; Mean Corpuscular Hemoglobin 28.4 pg (25-34); Mean Corpuscular Hgb Conc 32.4 g/dL (32-36); Mean Corpuscular Volume 87.9 fL (80-100); Mean Platelet Volume 8.9 fL (7.4-10.4); Monocytes % (auto) 7.1 %; Neutrophils # (auto) 6.01 K/uL (1.4-6.5); Neutrophils % (auto) 85.2 %; Platelet Count 168 K/uL (130-400); RDW Coefficient of Variation 18.4 % (11.5-14.5); Red Blood Count 3.13 M/uL (4.7-6.1); White Blood Count 7.06 K/uL (4.8-10.8)
[2020-02-12 07:44] LABS: INR 1.2 (0.9-1.1); Partial Thromboplastin Ratio 1.1; Partial Thromboplastin Time 31.6 Seconds (21.0-31.0); Prothrombin Time 12.4 Seconds (9.0-12.0)
[2020-02-12 08:02] LABS: Albumin Level 1.8 gm/dl (3.4-5.0); BUN Creatinine Ratio 19.6 (10-20); Calcium 8.3 mg/dl (8.5-10.1); Creatinine Clr Calc Pharmacy 134.8 ml/min; Est GFR (African American) 141.1; Est GFR (Non-African American) 121.7; Magnesium 1.7 mg/dl (1.8-2.4)
[2020-02-12 08:04] LABS: Albumin Globulin Ratio 0.4 (0.9-2); Bilirubin,Total 0.2 mg/dl (0.2-1); Globulin 4.5 gm/dl (2.5-4.0); Total Protein 6.3 gm/dl (6.4-8.2)
[2020-02-12] MEDS: CHECK fentaNYL PATCH PLACEMENT SCH (08:21)
[2020-02-12] MEDS: ENOXAPARIN INJ 60 MG/0.6 ML SYR SQ SCH (08:22)
--- NOTE | 2020-02-12 09:07 | Pain Management Consultation ---
Date of Consultation February 12, 2020 Assessment & Plan (1) Opiate abuse, continuous: (2) Cavitary lung disease: (3) Invasive aspergillosis: (4) Malignant neoplasm of right upper lobe of lung: * Discontinue Fentanyl patches. * Continue Oxycodone 20mg x 4 hours PRN pain. * His will be in charge of the patient's opioids. Patient does admit to taking more than prescribed in hopes that it may help further diminish his pain. He understands that he is not allowed to take more than prescribed and is agreeable to his taking care of the medications. He will remain consistent with refill dates, pharmacy, and prescriber. * I would recommend discharge with a prescription for Narcan in case of accidental opioid overdose. History of Present Illness Attending Physician: Alejo Peters History of Present Illness Mr. Lam is a 54 year old male with a significant history of non-small cell lung cancer of the right upper lobe, invasive aspergillosis, and COPD. He has been seeing Dr. Kulkarni and receiving chemotherapy and radiation treatments. His pain i s located along the right axilla, scapula, and anterior chest. He describes an aching and intermittent sharp pain. The pain is aggravated with right arm flexion. No radiation of pain. He has been working with Dr. Bautista on pain control. He has not found Fentanyl patches to be effective. Oxycodone 20mg x 4 hours has been providing moderate pain relief. When taking Fentanyl patches and oral Oxycodone together he started to develop lethargy and some confusion. He has admittedly taken the oral Oxycodone more than he is prescribed and has asked for early refills. Case discussed with Dr. Pebbles Whittington Pain Assessment Full Body Front + Back: 1. 2. Allergies Allergy/AdvReac Type Severity Reaction Status Date / Time No Known Allergies Allergy Verified 02/10/20 12:57 Home Medications Medication Instructions Recorded Confirmed Type omeprazole 20 mg capsule,delayed 20 mg PO DAILY 07/30/19 02/10/20 History release albuterol sulfate 90 mcg/actuation 2 puff INH Q6H PRN #18 gm 09/21/19 02/10/20 Rx aerosol inhaler ipratropium 0.5 mg-albuterol 3 mg 3 ml INH Q8H PRN #180 ml 09/21/19 02/10/20 Rx (2.5 mg base)/3 mL nebulization soln nebulizers #1 ea 09/21/19 01/25/20 Rx umeclidinium 62.5 mcg-vilanterol 1 puffs INH DAILY #60 ea 10/12/19 02/10/20 Rx 25 mcg/actuation powdr for inhalation sertraline [Zoloft] 50 mg PO HS 12/08/19 02/10/20 History dexamethasone 4 mg PO UD 01/29/20 02/10/20 History polyethylene glycol 3350 [Miralax] 17 g PO DAILY PRN 01/29/20 02/10/20 History prochlorperazine maleate 10 mg PO Q6H PRN 01/29/20 02/10/20 History docusate sodium 100 mg PO BID #60 cap 02/03/20 02/10/20 Rx enoxaparin 60 mg SUBCUT Q12H #60 ml 02/03/20 02/10/20 Rx levofloxacin 750 mg PO DAILY 14 Days #14 tab 02/03/20 02/10/20 Rx magnesium oxide 400 mg PO QAM #30 tab 02/03/20 02/10/20 Rx voriconazole [Vfend] 200 mg PO BID@0600,1800 #28 tab 02/03/20 02/10/20 Rx naloxone [Narcan] 1 spray INTRANASAL Q3M PRN #2 ea 02/12/20 Rx oxycodone 20 mg PO Q4H PRN #50 tab 02/12/20 Rx Patient History Medical History Anxiety Arthritis Aspergillus pneumonia s/p treatment, following closely with pulmonary Cavitary lung disease Chronic obstructive pulmonary disease COPD with emphysema Eye disease Best disease- genetic condition affecting vision GERD (gastroesophageal reflux disease) Invasive aspergillosis Macular degeneration Restless leg syndrome Scoliosis Seasonal allergies SOB (shortness of breath) on exertion Squamous cell carcinoma lung Surgical History History of bronchoscopy History of colonoscopy History of esophagogastroduodenoscopy (EGD) History of tonsillectomy History of tooth extraction Hx of vasectomy Family History Mother Macular degeneration Lung disease Father , 60yo Myocardial infarction Pancreatitis Sister No problems noted. Sister No problems noted. Son No problems noted. Son No problems noted. Daughter No problems noted. 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 Does not appear in acute distress. HEAD/FACE: Normocephalic and atraumatic. EYES: No drainage or conjunctival injection. NECK: Full ROM without apparent pain. No swelling or masses noted. Mild tenderness of the right axillary musculature. RESPIRATORY: Patient with unlabored breathing. No signs of respiratory distress. CHEST/AXILLA: Chest movement symmetrical. No deformities noted. BACK: Moves without difficulty SKIN: [place], warm and dry. No rash noted. MS/EXTREMITY: There is full ROM and strength of the right shoulder. NEURO: Alert and appears oriented. Speech is fluent. Cranial Nerves are grossly intact. PSYCH: Alert, pleasant, affect is calm
[2020-02-12] MEDS ORDERED: BACLOFEN 10 MG TAB PO SCH (09:30)
[2020-02-12] MEDS ORDERED: MAGNESIUM OXIDE 400 MG TAB PO SCH (12:30)
[2020-02-13] MEDS ORDERED: fentaNYL 25 MCG/HR TDSY TD SCH (14:30)
--- NOTE | 2020-02-21 22:48 | Discharge Summary ---
Date of Service February 12, 2020 Admission HPI Per Admitting Provider The patient is a 54-year-old male with a past medical history including DVT, cavitary lung disease, invasive aspergillosis, gram-negative bacteremia, fever, anxiety, COPD with emphysema, malignant neoplasm of right upper lobe of lung, mediastinal lymphadenopathy, squamous cell carcinoma of lung. He was most recently admitted to [facility] from 01/28-02/02 where he was treated for Aspergillus pneumonia and gram-negative bacteremia. He was discharged on voriconazole and levofloxacin. He reports he had a chemotherapy yesterday, and since that time has felt nauseous all day long with some vomiting. Principal Diagnosis nausea secondary to narcotics Discharge Exam The patient is awake, alert and oriented 3, normocephalic and atraumatic, lying in bed and in moderate distress secondary to active vomiting HEENT--PERRL, EOMI, mucous membranes and oropharynx dry. Neck--supple. No JVD. No bruits. Thyroid normal, trachea midline, no adenopathy. Heart--normal S1 and S2. No murmurs, rubs or gallops. Lungs--clear bilaterally, no respiratory distress, no accessory muscle use. Abdomen--normal bowel sounds and soft. Nontender. Nondistended. Extremities--no cyanosis or clubbing. No edema. Dermatologic--normal skin turgor, normal color, no abnormal lymph nodes, no rash. Neurologic--cranial nerves II through XII grossly intact. Rheumatologic--normal range of motion. Psychiatric--normal affect. Discharge Data Allergies Allergy/AdvReac Type Severity Reaction Status Date / Time No Known Allergies Allergy Verified 02/10/20 12:57 Consultations 02/10/20 14:39 ED Decision to Admit Stat 02/10/20 18:25 Consult Case Management - Discharge Planning Routine Consult Hematology Routine 02/11/20 17:10 Consult Pain Management Routine Hospital Course (1) Invasive aspergillosis: Change voriconazole from 200 mg p.o. twice daily to adjusted dose IV. Resumed PO at discharge. (2) Cavitary lung disease: Secondary to underlying lung cancer, been receiving radiation therapy daily and chemo approximately weekly (3) DVT (deep venous thrombosis): Continue Lovenox 60 mg subcu every 12 hours (4) Moderate nausea and vomiting: Patient received Zofran IV, Phenergan IV with little relief, but then did get significant relief with lorazepam IV. Likely secondary to opiates. advanced diet. after consulting pain management, will have manage his pain medicine. (5) Gram-negative bacteremia: Change levofloxacin from p.o. 750 mg IV daily This infection was PICC line associated, and PICC line is continue to be removed (6) COPD with emphysema: DuoNebs as needed (7) Opiate abuse, continuous: will consult pain medicine. concern that patient may abuse patches. Total Time Total Time Spent Total Time Spent (In Minutes): 32 Total Time Includes: Examination of the Patient, Discharge Planning and Medication Reconciliation Discharge Plan Discharge Items Patient Disposition: Home - Home Health Services Reason For Visit: INTRACTBLE NAUSEA AND VOMITING Discharge Diagnosis: intractable nausea and vomiting Activity: Resume your previous activity Non-emergency contact: Primary Care Provider Call non-emergency contact if: you have any medication questions Follow-up/Referrals: Walter Roberts [Primary Care Provider] - 02/25/20 1:00 pm Diet: Regular Addtl Attending Provider Instructions: It appears you were taking too much pain medicine. We strongly recommend to let your help control these medications while you are home. Nausea was likely secondary to your pain medicine. Pending Studies at Discharge: No Stand-Alone Forms: My [facility] [employer], Smoking Cessation Medications and DC Order Prescriptions: New Narcan 4 mg/actuation spray,non-aerosol 1 spray intranasal Q3M PRN (Reason: opioid overdose) Qty: 2 RF: 0 baclofen 10 mg tablet 10 mg PO BID Qty: 60 RF: 0 Continued Anoro Ellipta 62.5-25 mcg/actuation blister with device 1 puffs INH DAILY Qty: 60 RF: 5 omeprazole 20 mg capsule,delayed release(DR/EC) 20 mg PO DAILY RF: 0 (DME) Aeroneb Go Nebulizer Misc See Rx Instructions .ROUTE .MEDSUPPLY Qty: 1 RF: 0 ipratropium-albuterol 0.5 mg-3 mg(2.5 mg base)/3 mL solution for nebulization 3 ml INH Q8H PRN (Reason: shortness of breath or wheezing) Qty: 180 RF: 3 sertraline [Zoloft] 50 mg Tablet 50 mg PO HS RF: 0 prochlorperazine maleate 10 mg tablet 10 mg PO Q6H PRN (Reason: Nausea) RF: 0 dexamethasone 4 mg tablet 4 mg PO UD RF: 0 polyethylene glycol 3350 [Miralax] 17 gram/dose Powder 17 g PO DAILY PRN (Reason: Constipation) RF: 0 magnesium oxide 400 mg (241.3 mg magnesium) Tablet 400 mg PO QAM Qty: 30 RF: 0 docusate sodium 100 mg Capsule 100 mg PO BID Qty: 60 RF: 0 enoxaparin 60 mg/0.6 mL Syringe 60 mg subcut Q12H Qty: 60 RF: 2 voriconazole [Vfend] 200 mg Tablet 200 mg PO BID@0600,1800 Qty: 28 RF: 1 oxycodone 20 mg tablet 20 mg PO Q4H PRN (Reason: Pain) Qty: 50 RF: 0 Discontinued fentanyl 25 mcg/hr Patch 72 Hour 25 mcg transdermal Q3D@1430 Qty: 1 RF: 0 No Action albuterol sulfate 90 mcg/actuation HFA aerosol inhaler 2 puff INH Q6H PRN (Reason: Shortness Of Breath Or Wheezing) Qty: 18 RF: 3 Discharge Orders: Discharge Order (Routine); Ordered 02/12/20 Ordered By: Alejo Conner/Other Patient Handouts: Taking Opioid Medicines, Opioid Use Risks, Naloxone Nasal [place] Steps, Naloxone nasal spray Admission Data Admit Date/Time: 02/10/20 15:14 Attending Provider: Alejo Peters Admit Provider: Aguilar Trpip Primary Care Provider: Walter Roberts Other Providers: Aguilar Tripp ; Walter Kulkarni V. ; John Duong Other Interventions: Discharge Summary Assessment (RN) Last Done: 02/12/20 12:05 Coding Level of Care Code D/C Day Management >30 mins Diagnoses Invasive aspergillosis B44.9 Cavitary lung disease J98.4 DVT (deep venous thrombosis) I82.409 Moderate nausea and vomiting R11.2 Gram-negative bacteremia R78.81 COPD with emphysema J43.9 Opiate abuse, continuous F11.10
== END 2020-02-12 14:57 | disposition home health service (06) | DRG 392 ==
LOC: ED 10:08 → SUATTDRO 15:14 → 2W 15:14 → 3W 02-11 07:07

== ENCOUNTER 2020-03-05 15:27 | Inpatient (IN) ==
[2020-03-05] MEDS ORDERED: SODIUM CHLORIDE 0.9% 500 ML IV SCH (15:45)
[2020-03-05] MEDS ORDERED: ONDANSETRON INJ 2 MG/ML 2 ML VIAL IV STA (15:59)
[2020-03-05] MEDS ORDERED: HYDROmorphone INJ 0.5 MG/0.5 ML SYR IV PRN (15:59)
[2020-03-05] MEDS: SODIUM CHLORIDE 0.9% 1000ML 1,000 ML IV SCH ×2 (16:18→20:42)
[2020-03-05 16:23] LABS: Basophils # (auto) 0.02 K/uL (0-0.2); Basophils % (auto) 0.3 %; Hematocrit (blood only) 31.3 % (42-52); Hemoglobin 10.6 g/dL (14.0-18.0); Immature Granulocytes # (auto) 0.07 K/uL (0.00-0.02); Immature Granulocytes % (auto) 1.1 %; Lymphocytes # (auto) 0.46 K/uL (1.2-3.4); Lymphocytes % (auto) 7.1 %; Mean Corpuscular Hemoglobin 29.9 pg (25-34); Mean Corpuscular Hgb Conc 33.9 g/dL (32-36); Mean Corpuscular Volume 88.2 fL (80-100); Mean Platelet Volume 8.6 fL (7.4-10.4); Monocytes # (auto) 0.16 K/uL (0.11-0.59); Monocytes % (auto) 2.5 %; Neutrophils # (auto) 5.78 K/uL (1.4-6.5); Platelet Count 276 K/uL (130-400); RDW Coefficient of Variation 16.3 % (11.5-14.5); RDW Standard Deviation 52.9 fL (36.4-46.3); Red Blood Count 3.55 M/uL (4.7-6.1); White Blood Count 6.49 K/uL (4.8-10.8)
--- NOTE | 2020-03-05 16:32 | XRay Report ---
SINGLE VIEW CHEST CLINICAL HISTORY: Generalized weakness. FINDINGS: An AP, portable, upright chest radiograph is compared to study dated 02/10/2020 and correla lisa with chest CT dated 01/29/2020. The cardiomediastinal silhouette is unremarkable. Fibrotic change with debris-containing cavitation is again seen at the right apex. Chronic fibrotic changes again not ed in the left midlung. There is no evidence of superimposed airspace consolidation. Mild elevation o f the right hemidiaphragm is unchanged. No large pleural effusion is identified. No pneumothorax is s een. There are healed left-sided rib fractures. IMPRESSION: 1. Chronic fibrotic change throughout both lungs with cavitation and debris at the right apex is brian lar to recent prior examination. 2. No new foci of superimposed airspace consolidation are identified and there is no large pleural ef fusion. ACT 112: Negative or not required by law. Electronically signed by: Ethan Larkin M.D. 03/05/2020 4:31 PM
[2020-03-05 16:41] LABS: Alanine Aminotransferase 13 U/L (12-78); Albumin Level 2.1 gm/dl (3.4-5.0); Aspartate Aminotransferase 13 U/L (15-37); BUN Creatinine Ratio 15.1 (10-20); Blood Urea Nitrogen 9 mg/dl (7-18); Calcium 8.3 mg/dl (8.5-10.1); Carbon Dioxide 29 mmol/L (21-32); Chloride 91 mmol/L (98-107); Creatinine Clr Calc Pharmacy 116.2 ml/min; Est GFR (Non-African American) 114.8; Glucose 111 mg/dl (70-99); Magnesium 1.8 mg/dl (1.8-2.4); Potassium 3.4 mmol/L (3.5-5.1); Sodium 126 mmol/L (136-145)
[2020-03-05] MEDS ORDERED: SODIUM CHLORIDE 0.9% 1000ML 1,000 ML IV ONE (16:48)
[2020-03-05] MEDS ORDERED: VANCOMYCIN CONSULT ACTIVE PRN (16:49)
[2020-03-05] MEDS ORDERED: CEFEPIME 2,000 MG/20 ML VIAL IV STA (16:49)
[2020-03-05 16:52] LABS: Albumin Globulin Ratio 0.4 (0.9-2); Alkaline Phosphatase 93 U/L (45-117); Bilirubin,Total 0.5 mg/dl (0.2-1); Globulin 5.1 gm/dl (2.5-4.0); Total Protein 7.2 gm/dl (6.4-8.2); Troponin I < 0.015 ng/ml (0-0.045)
[2020-03-05] MEDS: VANCOMYCIN HCL 1,250 MG in SODIUM CHLORIDE 0.9% 500 ML IV ONE ×3 (16:52→20:23)
--- NOTE | 2020-03-05 17:00 | Emergency Department Note ---
Impression & Plan Acute hyponatremia, SOB (shortness of breath), Squamous cell carcinoma of lung, Cavitary lung disease, Acidosis, lactic ED Provider Note INFORMANT: Patient ED PROVIDER(S): Miguel Gomes MD CHIEF COMPLAINT: Shortness of breath PLAN: Disposition: Admitted Condition: Good MEDICAL DECISION MAKING: Patient presented with shortness of breath and productive cough. He was tested for Covid and this was negative. Blood work was obtained and his CBC was unremarkable however his chemistry panel revealed new hyponatremia. The patient also had a lactic acidosis. He was also noted to be mildly hypothermic. Given his recent chemotherapy and his symptoms this is concerning for an infectious issue. He was given broad-spectrum antibiotics. The patient had a chest x-ray performed and he still has the cavitary lesion in the right upper lung. The patient had complained of pain in his right upper extremity which she states is from his cancer. He was given Dilaudid for this. His nausea was treated with Zofran. He was hydrated. The patient had a consultation placed with the [facility]. Dr. Logan. Patient was evaluated in the ER and admitted. Triage Nursing notes reviewed and agree them. Additional history obtained from patient's Vital Signs: reviewed and remarkable for no significant abnormalities Differential diagnosis: Reactive airway disease, pneumonia, pneumothorax, COPD, CHF, infections, cardiac ischemia, pulmonary embolism, musculoskeletal, gastrointestinal, as well as other pathologies. Diagnostics interpreted by me: ECG: Twelve-lead ECG reveals sinus rhythm with a short FL at 74 bpm. There is a prolonged QT interval. Normal axis and QRS. No ST elevation or depression. No PACs or PVCs. Cardiac Monitoring: Cardiac monitoring ordered by me: The patient was placed on continuous cardiac monitoring and observed. It revealed a normal sinus rhythm at 80 beats per minute without ectopy or evidence of dysrhythmia. Imaging studies: Chest x-ray reveals a right upper lobe cavitary lesion similar to prior. I refer to the EMR for further details. Consultation(s): Dr. Logan, [facility] HPI: The patient is a 54 year old male who presents to the Emergency Room with complaints of shortness of breath. This started a few days ago and is worsened. The patient also notes the following associated symptoms, productive cough, nausea and vomiting, diarrhea, fever. Patient also notes chronic right arm pain. He states this is from his cancer. His cancer is located in the apex of the right lung. The patient has found no relieving factors. Current pain is rated as 6-8/10. Patient received chemotherapy and radiation this week pt denies LOC, headache, chills, diaphoresis, visual changes, neck pain, chest pain, abdominal pain, back pain, melena, hematochezia, urinary symptoms, numbness, weakness, lymphadenopathy, rash, or other complaints. ROS: See above HPI for pertinent positives & negatives. A total of 10 systems reviewed and were otherwise negative. PAST MEDICAL HISTORY:See Below, lung lung cancer PAST SURGICAL HISTORY:See Below, FAMILY HISTORY:See Below SOCIAL HISTORY:See Below, HOME MEDICATIONS:See Below ALLERGIES:See Below VITALS:See Below PHYSICAL EXAMINATION: GENERAL: Awake, alert, uncomfortable-appearing, in no distress HENT: Normocephalic, atraumatic. Oropharynx unremarkable. EYES: Normal conjunctiva. Sclera non-icteric. NECK: Inspection normal. Non-tender. Supple. No nuchal rigidity. FROM. No masses. RESPIRATORY: Scattered rhonchi in the right upper kovacs. No wheezes. No rales. Increased respiratory effort. Heavy wet cough present. CARDIAC: Normal rate. Normal rhythm. No murmurs. No rubs. Extremities warm and well perfused. Pulses equal. No JVD. GI: Soft, non-distended. No tenderness to palpation. No rebound or guarding. No masses. RECTAL: Deferred. MUSCULOSKELETAL: Atraumatic. Chest examination reveals no tenderness. The back is symmetrical on inspection without obvious abnormality. There is no CVA tenderness to palpation. No joint edema. LOWER EXTREMITIES: Calves are equal size bilaterally and non-tender. No edema. No discoloration. NEURO: Normal sensorium. No sensory or motor deficits noted. SKIN: No rash or jaundice noted. iMguel Gomes MD Past Med/Surg History Medical History Anxiety Arthritis Aspergillus pneumonia s/p treatment, following closely with pulmonary Cavitary lung disease Chronic obstructive pulmonary disease COPD with emphysema Eye disease Best disease- genetic condition affecting vision GERD (gastroesophageal reflux disease) Invasive aspergillosis Macular degeneration Restless leg syndrome Scoliosis Seasonal allergies SOB (shortness of breath) on exertion Squamous cell carcinoma lung Surgical History History of bronchoscopy History of colonoscopy History of esophagogastroduodenoscopy (EGD) History of tonsillectomy History of tooth extraction Hx of vasectomy Family History Mother Macular degeneration Lung disease Father , 60yo Myocardial infarction Pancreatitis Sister No problems noted. Sister No problems noted. Son No problems noted. Son No problems noted. Daughter No problems noted. 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 -[employer] Other Information That Helps Us Care for You: No Feels Safe at Home: Yes Safety Concerns: Feels Safe At This Time Diet Comment: Near keto diet caffeine: Yes (1 cup/day) during the past year weight has: decreased > 10 lbs Assistive Devices: Denture - Upper and Glasses Allergies Allergies Allergy/AdvReac Type Severity Reaction Status Date / Time No Known Allergies Allergy Verified 02/29/20 09:25 Home Meds Home Medications Medication Instructions Recorded Confirmed omeprazole 20 mg capsule,delayed 20 mg PO DAILY 07/30/19 03/05/20 release sertraline [Zoloft] 50 mg PO HS 12/08/19 03/05/20 polyethylene glycol 3350 [Miralax] 17 g PO DAILY PRN 01/29/20 03/05/20 prochlorperazine maleate 10 mg PO Q6H PRN 01/29/20 03/05/20 enoxaparin 60 mg/0.6 mL 60 mg SUBCUT Q12H ml 02/29/20 03/05/20 subcutaneous syringe Anoro Ellipta 1 inh INH DAILY 03/05/20 03/05/20 ipratropium-albuterol 3 ml INH Q8H PRN 03/05/20 03/05/20 naloxone [Narcan] 1 spray INTRANASAL Q3M PRN 03/05/20 03/05/20 ondansetron HCl 8 mg PO Q8H PRN 03/05/20 03/05/20 Previous Rx's Medication Instructions Recorded docusate sodium 100 mg PO BID #60 cap 02/03/20 magnesium oxide 400 mg PO QAM #30 tab 02/03/20 voriconazole [Vfend] 200 mg PO BID@0600,1800 #28 tab 02/03/20 baclofen 10 mg PO BID #60 tab 02/12/20 oxycodone 20 mg PO Q4H PRN #50 tab 02/12/20 albuterol sulfate 90 mcg/actuation 2 puff INH Q6H PRN #18 gm 02/16/20 aerosol inhaler Results & Data (ED) Vital Signs Vital Signs - 24 hr 03/05/20 15:28 03/05/20 16:00 03/05/20 16:02 Temperature 35.6 C L Temperature Source Oral Pulse Rate 71 75 70 Pulse Rate from SpO2 Sensor 69 70 Respiratory Rate 20 27 H 29 H Respiratory Effort / Characteristics Non-Labored Respiratory Depth Normal Blood Pressure 150/88 H 166/99 H Blood Pressure Mean 108 108 Pulse Oximetry 98 100 100 Oxygen Delivery Method Room Air Sepsis Recent Fever Within 48 Hours No Sepsis New/Unexplained Change in Mental Status No Sepsis Action Taken by Nursing No Action Required 03/05/20 16:30 03/05/20 16:31 03/05/20 17:00 Temperature Temperature Source Pulse Rate 67 66 63 Pulse Rate from SpO2 Sensor 67 66 63 Respiratory Rate 32 H 32 H 29 H Respiratory Effort / Characteristics Respiratory Depth Blood Pressure 145/94 H 148/86 H Blood Pressure Mean 107 104 Pulse Oximetry 100 100 98 Oxygen Delivery Method Sepsis Recent Fever Within 48 Hours Sepsis New/Unexplained Change in Mental Status Sepsis Action Taken by Nursing 03/05/20 17:01 03/05/20 17:30 03/05/20 17:31 Temperature Temperature Source Pulse Rate 63 64 76 Pulse Rate from SpO2 Sensor 63 63 69 Respiratory Rate 26 H 24 25 H Respiratory Effort / Characteristics Respiratory Depth Blood Pressure 147/97 H Blood Pressure Mean 117 Pulse Oximetry 100 100 100 Oxygen Delivery Method Sepsis Recent Fever Within 48 Hours Sepsis New/Unexplained Change in Mental Status Sepsis Action Taken by Nursing Laboratory Data Result diagrams: 03/05/20 16:08 03/05/20 16:08 Lab Results 03/05/20 03/05/20 03/05/20 Range/Units 16:08 16:08 16:08 WBC 6.49 (4.8-10.8) K/uL RBC 3.55 L (4.7-6.1) M/uL Hgb 10.6 L (14.0-18.0) g/dL Hct 31.3 L (42-52) % MCV 88.2 (80-100) fL MCH 29.9 (25-34) pg MCHC 33.9 (32-36) g/dL RDW Std Deviation 52.9 H (36.4-46.3) fL RDW Coeff of [place] 16.3 H (11.5-14.5) % Plt Count 276 (130-400) K/uL MPV 8.6 (7.4-10.4) fL Immature Gran % (Auto) 1.1 % Neut % (Auto) 89.0 % Lymph % (Auto) 7.1 % [place] % (Auto) 2.5 % Eos % (Auto) 0.0 % Baso % (Auto) 0.3 % Neut # (Auto) 5.78 (1.4-6.5) K/uL Lymph # (Auto) 0.46 L (1.2-3.4) K/uL [place] # (Auto) 0.16 (0.11-0.59) K/uL Eos # (Auto) 0.00 (0-0.5) K/uL Baso # (Auto) 0.02 (0-0.2) K/uL Immature Gran # (Auto) 0.07 H (0.00-0.02) K/uL Sodium 126 L (136-145) mmol/L Potassium 3.4 L (3.5-5.1) mmol/L Chloride 91 L (98-107) mmol/L Carbon Dioxide 29 (21-32) mmol/L Anion Gap 6.0 (3-11) BUN 9 (7-18) mg/dl Creatinine 0.60 (0.6-1.4) mg/dl Est Cr Clr Drug Dosing 116.2 ml/min Est GFR ( Amer) 133.0 Est GFR (Non-Af Amer) 114.8 BUN/Creatinine Ratio 15.1 (10-20) Glucose 111 H (70-99) mg/dl Lactate 3.0 H* (0.4-2.0) mmol/L Calcium 8.3 L (8.5-10.1) mg/dl Magnesium 1.8 (1.8-2.4) mg/dl Total Bilirubin 0.5 (0.2-1) mg/dl AST 13 L (15-37) U/L ALT 13 (12-78) U/L Alkaline Phosphatase 93 (45-117) U/L Troponin I < 0.015 (0-0.045) ng/ml Total Protein 7.2 (6.4-8.2) gm/dl Albumin 2.1 L (3.4-5.0) gm/dl Globulin 5.1 H (2.5-4.0) gm/dl Albumin/Globulin Ratio 0.4 L (0.9-2) Procalcitonin (0-0.5) ng/ml TSH 1.590 (0.300-4.500) uIu/ml 03/05/20 Range/Units 16:10 WBC (4.8-10.8) K/uL RBC (4.7-6.1) M/uL Hgb (14.0-18.0) g/dL Hct (42-52) % MCV (80-100) fL MCH (25-34) pg MCHC (32-36) g/dL RDW Std Deviation (36.4-46.3) fL RDW Coeff of [place] (11.5-14.5) % Plt Count (130-400) K/uL MPV (7.4-10.4) fL Immature Gran % (Auto) % Neut % (Auto) % Lymph % (Auto) % [place] % (Auto) % Eos % (Auto) % Baso % (Auto) % Neut # (Auto) (1.4-6.5) K/uL Lymph # (Auto) (1.2-3.4) K/uL [place] # (Auto) (0.11-0.59) K/uL Eos # (Auto) (0-0.5) K/uL Baso # (Auto) (0-0.2) K/uL Immature Gran # (Auto) (0.00-0.02) K/uL Sodium (136-145) mmol/L Potassium (3.5-5.1) mmol/L Chloride (98-107) mmol/L Carbon Dioxide (21-32) mmol/L Anion Gap (3-11) BUN (7-18) mg/dl Creatinine (0.6-1.4) mg/dl Est Cr Clr Drug Dosing ml/min Est GFR ( Amer) Est GFR (Non-Af Amer) BUN/Creatinine Ratio (10-20) Glucose (70-99) mg/dl Lactate (0.4-2.0) mmol/L Calcium (8.5-10.1) mg/dl Magnesium (1.8-2.4) mg/dl Total Bilirubin (0.2-1) mg/dl AST (15-37) U/L ALT (12-78) U/L Alkaline Phosphatase (45-117) U/L Troponin I (0-0.045) ng/ml Total Protein (6.4-8.2) gm/dl Albumin (3.4-5.0) gm/dl Globulin (2.5-4.0) gm/dl Albumin/Globulin Ratio (0.9-2) Procalcitonin 0.06 (0-0.5) ng/ml TSH (0.300-4.500) uIu/ml Administered Medications Albuterol (Albut/Ipratrop 3mg/0.5mg Neb 3 Ml Vial) 3 ml NEB QIDR PAMELA Stop: 04/04/20 20:00 Last Admin: 03/05/20 20:48 Dose: 3 ml Documented by: [id number] Baclofen (Baclofen 10 Mg Tab) 10 mg PO BID PAMELA Stop: 04/04/20 20:59 Last Admin: 03/05/20 21:09 Dose: 10 mg Documented by: [id number] Docusate Sodium (Docusate Sodium 100 Mg Cap) 100 mg PO BID PAMELA Stop: 04/04/20 20:59 Last Admin: 03/05/20 21:09 Dose: 100 mg Documented by: [id number] Enoxaparin Sodium (Enoxaparin Inj 60 Mg/0.6 Ml Syr) 60 mg SQ BID PAMELA Stop: 04/04/20 20:59 Last Admin: 03/05/20 21:10 Dose: 60 mg Documented by: [id number] Hydromorphone HCl (Hydromorphone Inj 0.5 Mg/0.5 Ml Syr) 0.5 mg IV Q4H PRN PRN Reason: Pain Stop: 03/19/20 15:58 Last Admin: 03/05/20 20:32 Dose: 0.5 mg Documented by: [id number] Sodium Chloride (Nss 1000ml) 1,000 mls @ 125 mls/hr IV .Q8H PAMELA Stop: 03/05/20 23:44 Last Admin: 03/05/20 20:42 Dose: 125 mls/hr Documented by: [id number] Doxycycline Hyclate 100 mg/ (Dextrose) 110 mls @ 50 mls/hr IV Q12H PAMELA Stop: 03/07/20 21:59 Last Admin: 03/05/20 22:06 Dose: 50 mls/hr Documented by: [id number] Sertraline HCl (Sertraline Hcl 50 Mg Tablet) 50 mg PO HS PAMELA Stop: 04/04/20 20:59 Last Admin: 03/05/20 21:09 Dose: 50 mg Documented by: [id number] Voriconazole (Voriconazole 200 Mg Tablet) 200 mg PO BID@0600,1800 PAMELA Stop: 04/04/20 20:59 Last Admin: 03/05/20 21:09 Dose: 200 mg Documented by: [id number] Discontinued Medications Hydromorphone HCl (Hydromorphone Inj 0.5 Mg/0.5 Ml Syr) 0.5 mg IV Q15M PRN PRN Reason: Pain Stop: 03/19/20 15:58 Last Admin: 03/05/20 16:19 Dose: 0.5 mg Documented by: [id number] Sodium Chloride (Nss) 500 mls @ 999 mls/hr IV .Q31M PAMELA Stop: 03/05/20 16:15 Last Infusion: 03/05/20 16:50 Dose: 0 mls/hr Documented by: [id number] Admin: 03/05/20 16:18 Dose: 999 mls/hr Documented by: [id number] Sodium Chloride (Nss 1000ml) 1,000 mls @ 999 mls/hr IV .Q1H1M ONE Stop: 03/05/20 17:48 Last Infusion: 03/05/20 18:04 Dose: 0 mls/hr Documented by: [id number] Admin: 03/05/20 17:00 Dose: 999 mls/hr Documented by: [id number] Cefepime HCl (Maxipime) 2,000 mg in 20 mls @ 5 mls/min IV NOW STA; Protocol Stop: 03/05/20 16:52 Last Admin: 03/05/20 17:24 Dose: 5 mls/min Documented by: [id number] Vancomycin HCl 1,250 mg/ (Sodium Chloride) 525 mls @ 200 mls/hr IV NOW ONE Stop: 03/05/20 19:26 Last Admin: 03/05/20 20:23 Dose: Not Given Documented by: [id number] Vancomycin HCl 1,250 mg/ (Sodium Chloride) 275 mls @ 125 mls/hr IV NOW ONE Stop: 03/05/20 20:56 Last Infusion: 03/05/20 21:39 Dose: 0 mls/hr Documented by: [id number] Admin: 03/05/20 18:49 Dose: 125 mls/hr Documented by: [id number] Ondansetron HCl (Ondansetron Inj 2 Mg/Ml 2 Ml Vial) 4 mg IV NOW STA Stop: 03/05/20 16:00 Last Admin: 03/05/20 16:18 Dose: 4 mg Documented by: [id number] Discharge Plan Visit Data Chief Complaint: Vomiting Stated Complaint: VOMITING ED Provider: Miguel Gomes Discharge Problem: Acute hyponatremia, SOB (shortness of breath), Squamous cell carcinoma of lung, Cavitary lung disease, Acidosis, lactic Patient Disposition: Admitted As Inpatient
--- NOTE | 2020-03-05 17:32 | History & Physical Report ---
Date of Service March 05, 2020 Assessment & Plan (1) Hypothermia: Suspected infective etiology PNA (increased productive cough) vs. UTI (UA pending), consider CT A/P if no definitive infective etiology found Prior PICC line infection with Alcaligenes faecalis although cleared this on most recent blood culture and PICC line removed it was resistant to cefepime therefore will change antibiotics to Zosyn. Empirically treat with broad spectrum antibiotics - based on prior cultures will switch cefepime to Zosyn with Vancomycin and doxycycline for atypical PNA coverage Will defer antifungal IV treatment at current time based on prior ID notes unlikely invasive aspergillosis Follow up blood, urine, stool cultures Consider pulmonology +/- ID consults (2) Nausea and vomiting: ?Secondary to infective etiology vs. chemotherapy Ondansetron IV PRN 1st line Compazine 5mg IV PRN 2nd line Clear liquid diet (3) Acidosis, lactic: IV fluids as above, repeat lactic acid pending (4) Hyponatremia: Hypovolemic hyponatremia Should improve with IV NSS (5) Diarrhea: C. diff and stool culture pending (6) Cavitary lung disease: High risk of pneumonia despite negative procalcitonin (7) Aspergillosis: Unlikely to be invasive as per prior ID note. Continue PO variconazole 200mg PO BID (8) Squamous cell carcinoma of lung: Finished first round of chemotherapy (5 days previously) and radiation (3 days ago) (9) Deep vein thrombosis: Diagnosed on prior admission secondary to PICC line. Avoid further PICC lines. Continue outpatient treatment with Lovenox 60mg SQ BID Admission and Anticipated Discharge Date Admission Date: 03/05/2020 History of Present Illness Chief Complaint: Shortness of breath, cough, diarrhea, nausea and vomiting Primary Care Provider: Walter Roberts Esdras Lam is a 54-year-old male with squamous cell carcinoma right upper lobe cavitary lesion who presents to the ER with cough, shortness of breath, diarrhea, nausea, vomiting and low-grade fevers. Last chemotherapy was on 5 days ago, last radiation 3 days ago. Difficult to ascertain his acute versus chronic symptoms. He has a chronic cough and chest pain which he reports is no worse than usual. He does note chills but is unable to tell me how long these been going on for. He reports having a fever of over 100 F today. He is short of breath but cannot tell me whether this is acute or chronic. He reports having yellow diarrhea but unknown duration. He denies any loss of taste or smell but has a very poor appetite and has not been eating or drinking. On previous hospitalization he was taking excess opiates however he is unable to tell me when the last time he took a pain medication was. Discussed with his . She reports 2 days of worsening symptoms most notably confusion. He has actually been getting less opaites as he hasn't been asking for any. Yesterday he began vomiting and she called home nursing agency but they never called back. Called his PCP office and recommended coming to the ER if his vomiting continued to today. His temperature today was low with associated chills, continued vomiting and his usual cough has been more productive of yellow phlegm. Last chemotherarpy was 5 days ago but she reports he doesn't usually have this reaction to chemotherapy and his anti-nausea medication just wasn't working for him. In the ER vital signs and history concerning for infective etiology therefore was started on broad spectrum antibiotics with vancomycin and cefepime. Chest x- ray concerning for chronic fibrotic change with right apex cavitation, however similar to previous chest x-ray 1 month previously and procalcitonin negative. SARS-COV-2 PCR negative. He was referred to medicine for admission and ongoing management. Allergies Allergy/AdvReac Type Severity Reaction Status Date / Time No Known Allergies Allergy Verified 02/29/20 09:25 Home Medications Medication Instructions Recorded Confirmed Type omeprazole 20 mg capsule,delayed 20 mg PO DAILY 07/30/19 03/05/20 History release sertraline [Zoloft] 50 mg PO HS 12/08/19 03/05/20 History polyethylene glycol 3350 [Miralax] 17 g PO DAILY PRN 01/29/20 03/05/20 History prochlorperazine maleate 10 mg PO Q6H PRN 01/29/20 03/05/20 History docusate sodium 100 mg PO BID #60 cap 02/03/20 03/05/20 Rx magnesium oxide 400 mg PO QAM #30 tab 02/03/20 03/05/20 Rx voriconazole [Vfend] 200 mg PO BID@0600,1800 #28 tab 02/03/20 03/05/20 Rx baclofen 10 mg PO BID #60 tab 02/12/20 03/05/20 Rx oxycodone 20 mg PO Q4H PRN #50 tab 02/12/20 03/05/20 Rx albuterol sulfate 90 mcg/actuation 2 puff INH Q6H PRN #18 gm 02/16/20 03/05/20 Rx aerosol inhaler enoxaparin 60 mg/0.6 mL 60 mg SUBCUT Q12H ml 02/29/20 03/05/20 History subcutaneous syringe Anoro Ellipta 1 inh INH DAILY 03/05/20 03/05/20 History ipratropium-albuterol 3 ml INH Q8H PRN 03/05/20 03/05/20 History naloxone [Narcan] 1 spray INTRANASAL Q3M PRN 03/05/20 03/05/20 History ondansetron HCl 8 mg PO Q8H PRN 03/05/20 03/05/20 History Past Med/Surg History Medical History Anxiety Arthritis Aspergillus pneumonia s/p treatment, following closely with pulmonary Cavitary lung disease Chronic obstructive pulmonary disease COPD with emphysema Eye disease Best disease- genetic condition affecting vision GERD (gastroesophageal reflux disease) Invasive aspergillosis Macular degeneration Restless leg syndrome Scoliosis Seasonal allergies SOB (shortness of breath) on exertion Squamous cell carcinoma lung Surgical History History of bronchoscopy History of colonoscopy History of esophagogastroduodenoscopy (EGD) History of tonsillectomy History of tooth extraction Hx of vasectomy Family History Mother Macular degeneration Lung disease Father , 60yo Myocardial infarction Pancreatitis Sister No problems noted. Sister No problems noted. Son No problems noted. Son No problems noted. Daughter No problems noted. 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 Other Information That Helps Us Care for You: No Feels Safe at Home: Yes Safety Concerns: Feels Safe At This Time Diet Comment: Near keto diet caffeine: Yes (1 cup/day) during the past year weight has: decreased > 10 lbs Assistive Devices: Denture - Upper and Glasses Review of Systems Review of Systems: All systems reviewed & are unremarkable except as noted in HPI & below Constitutional: + chills, + body aches, + fatigue and + weakness Gastrointestinal: no abdominal pain and no heartburn Physical Exam Constitutional: well developed, + ill appearing and + frail appearing; + not well nourished and no acute distress Eyes: PERRL, conjunctivae normal, anicteric sclerae ENMT: Ears: no external ear abnormality Nose: no external nose abnormality Mouth: + dry oral mucous membranes Respiratory: normal respiratory effort; no respiratory distress Auscultation: + rales (Throughtout right lung loudest at apex); no wheezes Cardiovascular: Rate/Rhythm: regular rate and regular rhythm Heart Sounds: no murmur Extremities: normal capillary refill and + pedal edema (Trace ankle equal bilaterally); no calf tenderness Gastrointestinal (Abdomen): normal bowel sounds, soft, nontender, no hepatosplenomegaly Musculoskeletal: no cyanosis or clubbing, extremities motor strength 5/5 Skin: no rashes, warm and dry (No areas of cellulitis) Neurologic: moves all extremities and awake; no focal motor deficits (no lateralizing deficit) and not confused Psychiatric: Orientation: alert, oriented to person and oriented to place; + not oriented to time Genitourinary: no CVA tenderness Results & Data Results & Data ([facility]) Vital Signs (Past 12 Hours) Vital Signs Temp Pulse Resp BP Pulse Ox 03/05/20 15:28 35.6 C L 71 20 150/88 H 98 Diagnostic Findings SINGLE VIEW CHEST IMPRESSION: 1. Chronic fibrotic change throughout both lungs with cavitation and debris at the right apex is similar to recent prior examination. 2. No new foci of superimposed airspace consolidation are identified and there is no large pleural effusion. Medications Administered ER medications given: Ondansetron 4 mg IV Dilaudid 0.5 mg IV Cefepime 2 g IV NSS 1L bolus ECG Indication: SOB/dyspnea Rate (beats per minute): 74 Rhythm: normal sinus Comparison ECG Date: from (February 10, 2020) Change: no significant change Code Status & VTE Plan Code Status Full as discussed with the patient VTE Prophylaxis Plan VTE Prophylaxis will be ordered: Yes PG Care Time/CCT Total # of Minutes Spent Total Time Spent with Patient: Total time spent is greater than 50% in coordination of care (as documented) at patient's floor/unit and/or counseling patient: Coding Level of Care Code 26402 Initial Inpt Care Lvl 3 Diagnoses Hypothermia T68.XXXA Nausea and vomiting R11.2 Acidosis, lactic E87.2 Hyponatremia E87.1 Diarrhea R19.7 Cavitary lung disease J98.4 Aspergillosis B44.9 Squamous cell carcinoma of lung C34.90 Deep vein thrombosis I82.409
[2020-03-05] MEDS ORDERED: VANCOMYCIN HCL 1,250 MG in SODIUM CHLORIDE 0.9% 250 ML IV ONE (18:45)
[2020-03-05] MEDS ORDERED: ALUMINUM/MAGNESIUM SUSP 30 ML UDC PO PRN (20:01)
[2020-03-05] MEDS ORDERED: PROCHLORPERAZINE 5 MG in SYRINGE 4 ML IV PRN (20:01)
[2020-03-05] MEDS ORDERED: ONDANSETRON INJ 2 MG/ML 2 ML VIAL IV PRN (20:01)
[2020-03-05] MEDS ORDERED: ACETAMINOPHEN 325 MG TAB PO PRN (20:01)
[2020-03-05] MEDS ORDERED: POLYETHYLENE (MIRALAX) 17 GM PACK PO PRN (20:01)
--- NOTE | 2020-03-05 20:16 | Pharmacy Report ---
Pharmacy Abx Dose Short Note - Date of Service March 05, 2020 - Assessment & Plan Assessment 54 year old M receiving vancomycin for empiric treatment Day # 1 of antimicrobial therapy. Plan Vancomycin Patient meets criteria for vancomycin AUC dosing nomogram AUC/ARYA is the preferred PK/PD target for vancomycin * Target AUC/ARYA = 400-600 * AUC guided dosing is effective and associated with decreased risk of nephrotoxicity Pharmacy will continue to follow and will adjust dose/frequency as necessary. Thank you.
[2020-03-05] MEDS: HYDROmorphone INJ 0.5 MG/0.5 ML SYR IV PRN (20:32)
[2020-03-05] MEDS: ALBUT/IPRATROP 3MG/0.5MG NEB 3 ML VIAL NEB SCH (20:48)
[2020-03-05] MEDS: SERTRALINE HCL 50 MG TABLET PO SCH (21:09)
[2020-03-05] MEDS: DOCUSATE SODIUM 100 MG CAP PO SCH (21:09)
[2020-03-05] MEDS: VORICONAZOLE 200 MG TABLET PO SCH (21:09)
[2020-03-05] MEDS: BACLOFEN 10 MG TAB PO SCH (21:09)
[2020-03-05] MEDS: ENOXAPARIN INJ 60 MG/0.6 ML SYR SQ SCH (21:10)
[2020-03-05] MEDS: DOXYCYCLINE HYCLATE 100 MG in DEXTROSE 5% 100 ML IV SCH (22:06)
[2020-03-05 22:25] LABS: Appearance Urine Clear (Clear); Bilirubin Urine Negative (Negative); Blood Urine Negative (Negative); Color Urine Yellow; Glucose Urine UA Negative (Negative); Ketones Urine Negative (Negative); Leukocyte Esterase Urine Negative (Negative); Nitrite Urine Negative (Negative); Protein Urine Negative (Negative); Specific Gravity Urine 1.018 (1.000-1.030); Urobilinogen Urine Negative (Negative); pH Urine 7.5 (4.5-7.5)
[2020-03-05] MEDS: oxyCODONE HCL IR 5 MG TAB (IMMEDIATE RELEASE) PO PRN (22:43)
[2020-03-06] MEDS: HYDROmorphone INJ 0.5 MG/0.5 ML SYR IV PRN ×6 (00:35→22:08)
[2020-03-06] MEDS: VANCOMYCIN HCL 1,000 MG in SODIUM CHLORIDE 0.9% 250 ML IV SCH ×2 (01:38→09:50)
[2020-03-06] MEDS ORDERED: PIPERACILL/TAZOBAC CONSULT ACTIVE PRN (01:39)
[2020-03-06] MEDS ORDERED: PIPERACILLIN/TAZOBACTAM 3.375 GM in DEXTROSE 5% 100 ML IV ONE (02:00)
[2020-03-06] MEDS: NSS + 20MEQ KCL 20 MEQ/1,000 ML BAG IV SCH ×3 (02:08→22:05)
[2020-03-06 02:57] LABS: Basophils # (auto) 0.01 K/uL (0-0.2); Basophils % (auto) 0.2 %; Hematocrit (blood only) 25.5 % (42-52); Hemoglobin 8.6 g/dL (14.0-18.0); Immature Granulocytes # (auto) 0.04 K/uL (0.00-0.02); Lymphocytes % (auto) 9.9 %; Mean Corpuscular Hemoglobin 29.8 pg (25-34); Mean Corpuscular Hgb Conc 33.7 g/dL (32-36); Mean Corpuscular Volume 88.2 fL (80-100); Mean Platelet Volume 8.7 fL (7.4-10.4); Monocytes # (auto) 0.03 K/uL (0.11-0.59); Monocytes % (auto) 0.7 %; Neutrophils # (auto) 3.58 K/uL (1.4-6.5); Neutrophils % (auto) 88.2 %; Platelet Count 227 K/uL (130-400); RDW Coefficient of Variation 16.9 % (11.5-14.5); RDW Standard Deviation 54.7 fL (36.4-46.3); Red Blood Count 2.89 M/uL (4.7-6.1); White Blood Count 4.06 K/uL (4.8-10.8)
[2020-03-06 03:30] LABS: Alanine Aminotransferase 11 U/L (12-78); Albumin Level 1.7 gm/dl (3.4-5.0); Aspartate Aminotransferase 13 U/L (15-37); BUN Creatinine Ratio 17.6 (10-20); Blood Urea Nitrogen 7 mg/dl (7-18); Calcium 7.7 mg/dl (8.5-10.1); Carbon Dioxide 24 mmol/L (21-32); Chloride 100 mmol/L (98-107); Creatinine Clr Calc Pharmacy 173.9 ml/min; Est GFR (African American) > 150.0; Est GFR (Non-African American) 134.2; Glucose 91 mg/dl (70-99); Magnesium 1.6 mg/dl (1.8-2.4); Potassium 3.6 mmol/L (3.5-5.1); Sodium 131 mmol/L (136-145)
[2020-03-06] MEDS: oxyCODONE HCL IR 5 MG TAB (IMMEDIATE RELEASE) PO PRN ×5 (03:31→20:38)
[2020-03-06 03:35] LABS: Albumin Globulin Ratio 0.4 (0.9-2); Alkaline Phosphatase 74 U/L (45-117); Bilirubin,Total 0.4 mg/dl (0.2-1); Globulin 4.3 gm/dl (2.5-4.0)
[2020-03-06] MEDS: PIPERACILLIN/TAZOBACTAM 3.375 GM in DEXTROSE 5% 100 ML IV SCH ×2 (06:09→12:20)
[2020-03-06] MEDS: VORICONAZOLE 200 MG TABLET PO SCH ×2 (06:09→17:41)
[2020-03-06] MEDS: ALBUT/IPRATROP 3MG/0.5MG NEB 3 ML VIAL NEB SCH ×4 (07:16→20:17)
[2020-03-06] MEDS: DOCUSATE SODIUM 100 MG CAP PO SCH ×2 (08:31→20:39)
[2020-03-06] MEDS: MAGNESIUM OXIDE 400 MG TAB PO SCH (08:32)
[2020-03-06] MEDS: BACLOFEN 10 MG TAB PO SCH ×2 (08:32→20:39)
[2020-03-06] MEDS: ENOXAPARIN INJ 60 MG/0.6 ML SYR SQ SCH ×2 (08:32→20:39)
[2020-03-06] MEDS: PANTOprazole 40 MG TAB PO SCH (08:33)
[2020-03-06] MEDS: UMECLIDINIUM/VILANTEROL 62.5/25MCG 7 PUFFS/INHALER INH SCH (08:33)
[2020-03-06] MEDS ORDERED: COUGH DROP (SUGAR FREE) LOZ 24 LOZ/1 BOX BUCCAL ONE (08:45)
[2020-03-06] MEDS: DOXYCYCLINE HYCLATE 100 MG in DEXTROSE 5% 100 ML IV SCH (09:59)
--- NOTE | 2020-03-06 10:15 | Hospitalist Progress Note ---
Date of Service March 06, 2020 Assessment & Plan (1) Squamous cell carcinoma of lun yo M with hx Squamous cell carcinoma of R lung completing treatment with chemotherapy and radiation, DVT in L upper extremity, COPD with emphysema, Aspergillosis, Chronic hyponatremia, anxiety who was admitted to the hospital for concern of infection causing lactic acidosis and nausea + vomiting. Dehydration - secondary to nausea + vomiting due to receiving final chemotherapy treatment - symptomatically improved with fluid resuscitation - brief lactic acidosis which cleared with fluids (3 ->2) Concern for Infection - afebrile, WBC stable low, procal 0.06, blood cultures negative at 24h - sputum culture growing moderate gram positive cocci and bacilli, many polys; likely normal mario - will de-escalate zosyn, vanc, doxycyline that was initiated in ED at this time - watching overnight to monitor symptom progression given tenuous nature of cancer patients and inability to mount full immune response - close follow up and indications to return if infectious symptoms return DVT of LUE - therapeutic lovenox at 60 m g BID Cavitary lesion of Right lung/hx invasive aspergillosis - continue voriconazole from home regimen DVT ppx: therapeutic lovenox 60 mg BID FEN/GI ppx: NS +K @ 100ml/hr, PPI daily 40 mg Code status: full code dispo: home tomorrow pending continued improvement overnight and afebrile status (2) Malignant neoplasm of right upper lobe of lung: (3) Deep vein thrombosis: (4) Chronic hyponatremia: (5) Diarrhea: (6) Nausea and vomiting: (7) Acidosis, lactic: (8) COPD with emphysema: (9) Cavitary lung disease: Admission and Anticipated Discharge Date Admission Date: March 05, 2020 Supervising Physician Co-Signing Physician Notes I personally examined the patient and verified all marsh points of history and exam, discussed case, and agree with decision making with Dr Sotomayor. feeling better. no new cough or sob. no f/c/s today. eating well and no vomiting/diarrhea since yesterday. no rashes. no urinary sx. vitals noted nad heent nc at mmm lungs faint upper lobe adventitious sounds (scattered rale like) R sided no wheeze good effort abd soft nd nt (+) bs no guarding/rebound no masses or organomegaly ext no c/c/e skin no rashes no pallor or icterus neuro no focal deficits malaise/fever at home/low temp in ER/nausea/vomiting/diarrhea - suspect all related to chemo and overall deconditioning/malnutrition (acutely severe protein calorie given albumin and ~20lb weight loss in last 3 months) - but after further review nothing appearing c/w acute infection. stop abx (continue voriconazole for lung infection) and follow into tomorrow. if still feeling well and nothing has evolved on serial exams off abx - safe for home. ask contract accountant for input on malnutrition. otherwise as above, on anticoagulation for prior dvt Subjective 54 yo M with hx recently diagnosed with Squamous Cell Carcinoma in RUL of lung in august 2019. Has finished chemotherapy treatments as of 5 days ago at last chemo appt. Last radiation treatment 3 days ago, still has 2 to go. Brought to ED due to worsening vomiting, diarrhea, generalized weakness and decreased appetite. Noted fever max of 100.5 F at home. This morning feeling much better after hydration and medications. No nausea,vomiting, no bowel movement today. Notes that appetite has returned. Cough is chronic and has not changed from usual. No fever/chills/sweats today. Review of Systems Constitutional: no fever, no chills, no body aches and no fatigue Respiratory: + cough; no dyspnea Cardiovascular: no chest pain, no dyspnea and no edema Gastrointestinal: no abdominal pain, no nausea, no vomiting, no constipation and no diarrhea/loose stools Physical Exam Constitutional: + thin and cooperative; no acute distress Neck: normal visual inspection Respiratory: normal respiratory effort and able to speak in complete sentences; no respiratory distress, no labored breathing, no retractions, no cough and no audible wheezes Auscultation: lungs clear to auscultation bilaterally; no crackles, no rales, no rhonchi and no wheezes Cardiovascular: Rate/Rhythm: regular rate and regular rhythm Heart Sounds: normal S1 and normal S2; no gallop, no murmur and no cardiac rub Vessels: posterior tibial pulses present Extremities: no pedal edema and no edema Gastrointestinal (Abdomen): Inspection/Auscultation: abdomen normal to inspection and normal bowel sounds; abdomen not distended Percussion/Palpation: abdomen soft; abdomen nontender, no guarding, abdomen not rigid and no abdominal mass Musculoskeletal: thin extremities with global muscle loss Results & Data Results & Data ([facility]) Vital Signs (Past 12 Hours) Vital Signs Temp Pulse Pulse Resp BP Pulse Ox 03/06/20 08:15 36.8 C 61 18 111/49 L 96 03/06/20 07:18 60 18 96 03/06/20 00:41 67 03/05/20 22:58 36.8 C 67 18 116/65 99 Laboratory Results WBC 4.06 K/uL (4.8-10.8) L 03/06/20 02:26 RBC 2.89 M/uL (4.7-6.1) L 03/06/20 02:26 Hgb 8.6 g/dL (14.0-18.0) L 03/06/20 02:26 Hct 25.5 % (42-52) L 03/06/20 02:26 MCV 88.2 fL (80-100) 03/06/20 02:26 MCH 29.8 pg (25-34) 03/06/20 02:26 MCHC 33.7 g/dL (32-36) 03/06/20 02:26 RDW Std Deviation 54.7 fL (36.4-46.3) H 03/06/20 02:26 RDW Coeff of [place] 16.9 % (11.5-14.5) H 03/06/20 02:26 Plt Count 227 K/uL (130-400) 03/06/20 02:26 MPV 8.7 fL (7.4-10.4) 03/06/20 02:26 Immature Gran % (Auto) 1.0 % 03/06/20 02:26 Neut % (Auto) 88.2 % 03/06/20 02:26 Lymph % (Auto) 9.9 % 03/06/20 02:26 [place] % (Auto) 0.7 % 03/06/20 02:26 Eos % (Auto) 0.0 % 03/06/20 02:26 Baso % (Auto) 0.2 % 03/06/20 02:26 Neut # (Auto) 3.58 K/uL (1.4-6.5) 03/06/20 02:26 Lymph # (Auto) 0.40 K/uL (1.2-3.4) L 03/06/20 02:26 [place] # (Auto) 0.03 K/uL (0.11-0.59) L 03/06/20 02:26 Eos # (Auto) 0.00 K/uL (0-0.5) 03/06/20 02:26 Baso # (Auto) 0.01 K/uL (0-0.2) 03/06/20 02:26 Immature Gran # (Auto) 0.04 K/uL (0.00-0.02) H 03/06/20 02:26 Sodium 131 mmol/L (136-145) L 03/06/20 02:26 Potassium 3.6 mmol/L (3.5-5.1) 03/06/20 02:26 Chloride 100 mmol/L (98-107) 03/06/20 02:26 Carbon Dioxide 24 mmol/L (21-32) 03/06/20 02:26 Anion Gap 7.0 (3-11) 03/06/20 02:26 BUN 7 mg/dl (7-18) 03/06/20 02:26 Creatinine 0.41 mg/dl (0.6-1.4) L 03/06/20 02:26 Est Cr Clr Drug Dosing 173.9 ml/min 03/06/20 02:26 Est GFR ( Amer) > 150.0 03/06/20 02:26 Est GFR (Non-Af Amer) 134.2 03/06/20 02:26 BUN/Creatinine Ratio 17.6 (10-20) 03/06/20 02:26 Glucose 91 mg/dl (70-99) 03/06/20 02:26 Lactate 2.0 mmol/L (0.4-2.0) 03/06/20 11:22 Calcium 7.7 mg/dl (8.5-10.1) L 03/06/20 02:26 Magnesium 1.6 mg/dl (1.8-2.4) L 03/06/20 02:26 Total Bilirubin 0.4 mg/dl (0.2-1) 03/06/20 02:26 AST 13 U/L (15-37) L 03/06/20 02:26 ALT 11 U/L (12-78) L 03/06/20 02:26 Alkaline Phosphatase 74 U/L (45-117) 03/06/20 02:26 Troponin I < 0.015 ng/ml (0-0.045) 03/05/20 16:08 Total Protein 6.0 gm/dl (6.4-8.2) L 03/06/20 02:26 Albumin 1.7 gm/dl (3.4-5.0) L 03/06/20 02:26 Globulin 4.3 gm/dl (2.5-4.0) H 03/06/20 02:26 Albumin/Globulin Ratio 0.4 (0.9-2) L 03/06/20 02:26 Procalcitonin 0.06 ng/ml (0-0.5) 03/05/20 16:10 TSH 1.590 uIu/ml (0.300-4.500) 03/05/20 16:08 Urine Color Yellow 03/05/20 22:09 Urine Appearance Clear (Clear) 03/05/20 22:09 Urine pH 7.5 (4.5-7.5) 03/05/20 22:09 Ur Specific [place] 1.018 (1.000-1.030) 03/05/20 22:09 Urine Protein Negative (Negative) 03/05/20 22:09 Urine Glucose (UA) Negative (Negative) 03/05/20 22:09 Urine Ketones Negative (Negative) 03/05/20 22:09 Urine Blood Negative (Negative) 03/05/20 22:09 Urine Nitrite Negative (Negative) 03/05/20 22:09 Urine Bilirubin Negative (Negative) 03/05/20 22:09 Urine Urobilinogen Negative (Negative) 03/05/20 22:09 Ur Leukocyte Esterase Negative (Negative) 03/05/20 22:09 Nasal Screen MRSA (PCR) Negative (Negative) 03/05/20 Unknown COVID-19 Eval Order Covid19 IDNow [facility] 03/05/20 Unknown SARS-CoV-2, RNA, NAAT NEGATIVE (NEGATIVE) 03/05/20 Unknown Resident Activity Tracking Resident Involvement: Resident Care Provided Care Provided: Adult Hospital Medicine (1) Deep vein thrombosis DVT location: upper extremity Laterality: left (2) Squamous cell carcinoma of lung Laterality: right Qualified Code(s): C34.91 - Malignant neoplasm of unspecified part of right bronchus or lung (3) Nausea and vomiting Vomiting type: unspecified
--- NOTE | 2020-03-06 17:58 | Billing Data ---
Date of Service March 06, 2020 Coding Level of Care Code 72579 Subseq Hosp Care Lvl 3
[2020-03-06] MEDS: SERTRALINE HCL 50 MG TABLET PO SCH (20:39)
[2020-03-07] MEDS: VORICONAZOLE 200 MG TABLET PO SCH (05:59)
--- NOTE | 2020-03-07 06:30 | Electrocardiogram Report ---
Test Reason : Blood Pressure : / mmHG Vent. Rate : 074 BPM Atrial Rate : 074 BPM P-R Int : 098 ms QRS Dur : 084 ms QT Int : 442 ms P-R-T Axes : 065 016 038 degrees QTc Int : 490 ms Sinus rhythm with short IA Prolonged QT Abnormal ECG When compared with ECG of 10-FEB-2020 11:57, QT has lengthened Confirmed by Sanjeev Keith ([id number]) on 03/07/2020 6:30:23 AM Referred By: REFERRED SELF Confirmed By:Sanjeev Keith
[2020-03-07] MEDS: HYDROmorphone INJ 0.5 MG/0.5 ML SYR IV PRN ×2 (06:42→11:18)
--- NOTE | 2020-03-07 06:54 | Hospitalist Progress Note ---
Date of Service March 07, 2020 Assessment & Plan Admission and Anticipated Discharge Date Admission Date: March 05, 2020 Results & Data Results & Data ([facility]) Vital Signs (Past 12 Hours) Vital Signs Temp Pulse Pulse Resp BP Pulse Ox 03/07/20 04:00 36.7 C 73 18 149/74 H 92 03/06/20 23:39 36.7 C 77 18 123/66 97 03/06/20 22:54 78 03/06/20 20:22 82 20 100 03/06/20 19:24 36.9 C 70 19 141/69 H 98
[2020-03-07 07:44] LABS: Basophils # (auto) 0.03 K/uL (0-0.2); Basophils % (auto) 0.7 %; Eosinophils # (auto) 0.01 K/uL (0-0.5); Eosinophils % (auto) 0.2 %; Hematocrit (blood only) 28.4 % (42-52); Hemoglobin 9.2 g/dL (14.0-18.0); Immature Granulocytes # (auto) 0.04 K/uL (0.00-0.02); Immature Granulocytes % (auto) 0.9 %; Lymphocytes % (auto) 4.5 %; Mean Corpuscular Hemoglobin 29.4 pg (25-34); Mean Corpuscular Hgb Conc 32.4 g/dL (32-36); Mean Corpuscular Volume 90.7 fL (80-100); Mean Platelet Volume 8.6 fL (7.4-10.4); Monocytes # (auto) 0.38 K/uL (0.11-0.59); Monocytes % (auto) 8.5 %; Neutrophils # (auto) 3.83 K/uL (1.4-6.5); Neutrophils % (auto) 85.2 %; Platelet Count 206 K/uL (130-400); RDW Coefficient of Variation 17.1 % (11.5-14.5); RDW Standard Deviation 56.4 fL (36.4-46.3); Red Blood Count 3.13 M/uL (4.7-6.1); White Blood Count 4.49 K/uL (4.8-10.8)
[2020-03-07] MEDS: ALBUT/IPRATROP 3MG/0.5MG NEB 3 ML VIAL NEB SCH ×3 (07:46→15:44)
[2020-03-07] MEDS: UMECLIDINIUM/VILANTEROL 62.5/25MCG 7 PUFFS/INHALER INH SCH (08:01)
[2020-03-07] MEDS: MAGNESIUM OXIDE 400 MG TAB PO SCH (08:02)
[2020-03-07] MEDS: PANTOprazole 40 MG TAB PO SCH (08:02)
[2020-03-07] MEDS: ENOXAPARIN INJ 60 MG/0.6 ML SYR SQ SCH (08:02)
[2020-03-07] MEDS: DOCUSATE SODIUM 100 MG CAP PO SCH (08:02)
[2020-03-07] MEDS: BACLOFEN 10 MG TAB PO SCH (08:03)
[2020-03-07] MEDS: oxyCODONE HCL IR 5 MG TAB (IMMEDIATE RELEASE) PO PRN ×2 (08:07→13:24)
[2020-03-07] MEDS: NSS + 20MEQ KCL 20 MEQ/1,000 ML BAG IV SCH (08:09)
[2020-03-07 08:17] LABS: Calcium 8.4 mg/dl (8.5-10.1); Creatinine Clr Calc Pharmacy 147.5 ml/min; Est GFR (African American) 145.8; Est GFR (Non-African American) 125.8; Potassium 3.9 mmol/L (3.5-5.1)
[2020-03-07] MEDS ORDERED: NICOTINE 21 MG/24 HR TDSY TD SCH (09:30)
[2020-03-07 11:10] VITALS: BP 113/66; TEMP 98.1
[2020-03-07 11:29] VITALS: O2SAT 96
--- NOTE | 2020-03-07 14:16 | Discharge Summary ---
Date of Service March 07, 2020 Admission HPI Per Admitting Provider Esdras Lam is a 54-year-old male with squamous cell carcinoma right upper lobe cavitary lesion who presents to the ER with cough, shortness of breath, diarrhea, nausea, vomiting and low-grade fevers. Last chemotherapy was on 5 days ago, last radiation 3 days ago. Difficult to ascertain his acute versus chronic symptoms. He has a chronic cough and chest pain which he reports is no worse than usual. He does note chills but is unable to tell me how long these been going on for. He reports having a fever of over 100 F today. He is short of breath but cannot tell me whether this is acute or chronic. He reports having yellow diarrhea but unknown duration. He denies any loss of taste or smell but has a very poor appetite and has not been eating or drinking. On previous hospitalization he was taking excess opiates however he is unable to tell me when the last time he took a pain medication was. Discussed with his . She reports 2 days of worsening symptoms most notably confusion. He has actually been getting less opaites as he hasn't been asking for any. Yesterday he began vomiting and she called home nursing agency but they never called back. Called his PCP office and recommended coming to the ER if his vomiting continued to today. His temperature today was low with associated chills, continued vomiting and his usual cough has been more productive of yellow phlegm. Last chemotherarpy was 5 days ago but she reports he doesn't usually have this reaction to chemotherapy and his anti-nausea medication just wasn't working for him. In the ER vital signs and history concerning for infective etiology therefore was started on broad spectrum antibiotics with vancomycin and cefepime. Chest x- ray concerning for chronic fibrotic change with right apex cavitation, however similar to previous chest x-ray 1 month previously and procalcitonin negative. SARS-COV-2 PCR negative. He was referred to medicine for admission and ongoing management. Admission Exam Per Admitting Provider Constitutional: well developed, + ill appearing and + frail appearing; + not well nourished and no acute distress Eyes: PERRL, conjunctivae normal, anicteric sclerae ENMT: Ears: no external ear abnormality Nose: no external nose abnormality Mouth: + dry oral mucous membranes Respiratory: normal respiratory effort; no respiratory distress Auscultation: + rales (Throughtout right lung loudest at apex); no wheezes Cardiovascular: Rate/Rhythm: regular rate and regular rhythm Heart Sounds: no murmur Extremities: normal capillary refill and + pedal edema (Trace ankle equal bilaterally); no calf tenderness Gastrointestinal (Abdomen): normal bowel sounds, soft, nontender, no hepatosplenomegaly Musculoskeletal: no cyanosis or clubbing, extremities motor strength 5/5 Skin: no rashes, warm and dry (No areas of cellulitis) Neurologic: moves all extremities and awake; no focal motor deficits (no lateralizing deficit) and not confused Psychiatric: Orientation: alert, oriented to person and oriented to place; + not oriented to time Genitourinary: no CVA tenderness Principal Diagnosis Acute Dehydration secondary to nausea and vomiting Discharge Exam Constitutional well developed; no acute distress Eyes PERRL, conjunctivae normal, anicteric sclerae Neck trachea midline, no thyromegaly Respiratory normal respiratory effort and + cough; no respiratory distress Auscultation: + wheezes Cardiovascular Rate/Rhythm: regular rate and regular rhythm Heart Sounds: no murmur Gastrointestinal (Abdomen) normal bowel sounds, soft, nontender, no hepatosplenomegaly Discharge Data Allergies Allergy/AdvReac Type Severity Reaction Status Date / Time No Known Allergies Allergy Verified 03/08/20 10:11 Consultations 03/05/20 17:35 ED Decision to Admit Stat Hospital Course (1) Nausea and vomitin yo M with hx Squamous cell carcinoma of R lung completing treatment with chemotherapy and radiation, DVT in L upper extremity, COPD with emphysema, Aspergillosis, Chronic hyponatremia, anxiety who was admitted to the hospital for concern of infection causing lactic acidosis and nausea + vomiting. Acute Dehydration secondary to Nausea and Vomiting -Likely due to recent chemotherapy treatment -Had brief lactic acidosis of 3 on admission, cleared with IVF -Symptomatically improved with IVF -Patient was given IV PPI's and Zofran while inpatient -Discharged with oral Zofran Concern for Infection - afebrile, WBC stable low, procalcitonin 0.06, blood cultures negative at 48 hours. - sputum culture grew moderate gram positive cocci and bacilli, many polys; likely normal mario - Antibiotics started in the ED, Zosyn, Vancomycin, Doxycycline, discontinued on day 2 of stay - Low suspicion for infection and appropriate for discharge without further antibiotic therapy Cavitary lesion of Right lung/hx invasive aspergillosis - continued voriconazole from home regimen - Recommend attending follow up with Dr. Horne on 03/08/20 Malnutrition -Dietary consult placed due to ~20lb weight loss in 3 months -Recommend continuing to use protein and caloric supplements at home COPD -Continued home Anoro-Ellipta DVT of LUE - Continued therapeutic lovenox at 60 mg BID (2) Squamous cell carcinoma of lung: (3) Malignant neoplasm of right upper lobe of lung: (4) Deep vein thrombosis: (5) Chronic hyponatremia: (6) Diarrhea: (7) Acidosis, lactic: (8) COPD with emphysema: (9) Cavitary lung disease: Total Time Total Time Spent Total Time Spent (In Minutes): see attending attestation Discharge Plan Discharge Items Patient Disposition: Home - Self-Care Reason For Visit: HYPONATREMIA, NAUSEA, VOMITING Discharge Diagnosis: Acute Dehydration secondary to Nausea and Vomiting Activity: Resume your previous activity Non-emergency contact: Primary Care Provider, Oncologist and Real Estate Leasing Manager Call non-emergency contact if: you have any medication questions and your symptoms worsen Follow-up/Referrals: Walter Roberts [Primary Care Provider] - Diet: Regular Addtl Attending Provider Instructions: Mr. Lma, It was our pleasure caring for you at [facility] from 03/05 - 03/07/20 for your acute dehydration secondary to nausea, vomiting, and diarrhea. Please see below for a summary of your care and future instructions. Acute Dehydration secondary to Nausea and Vomiting -We believe that your nausea and vomiting were secondary to your most recent chemotherapy treatment. -You were given IV fluids and medications to help control your nausea. -Your nausea was well controlled and you were able to take in oral intake without nausea and vomiting. -You were also given a prescription for nausea medication, Zofran, to use as needed once discharged. This was sent to your pharmacy. Concern for Infection -On your arrival there were initial concerns that an infection was the underlying cause of your symptoms. -You were given IV antibiotics, all of which were discontinued prior to your discharge. -We do not feel that you require further antibiotics at this time on your discharge. Deep Venous Thrombosis (Left upper extremity) -Please continue your Lovenox 60mg twice a day for your DVT Squamous Cell Carcinoma of Lung -Please continue your follow up with Dr. Horne and Dr. Kulkarni -Continue your home Variconazole -Continue your home pain medications as prescribed Malnutrition -You were evaluated by our Dietitians after you had noted a 20lb weight loss in the past 3 months. -Please continue to increase your protein and caloric intake with shakes and supplements. COPD -Please continue your Anoro-Ellipta as prescribed. If your symptoms worsen or return, please return to the ED for reevaluation. Pending Studies at Discharge: No Stand-Alone Forms: My [facility], Smoking Cessation Medications and DC Order Prescriptions: Continued enoxaparin 60 mg/0.6 mL syringe 60 mg subcut Q12H RF: 0 omeprazole 20 mg capsule,delayed release(DR/EC) 20 mg PO DAILY RF: 0 sertraline [Zoloft] 50 mg Tablet 50 mg PO HS RF: 0 Narcan 4 mg/actuation spray,non-aerosol 1 spray intranasal Q3M PRN (Reason: Opioid Overdose) RF: 0 ondansetron HCl 8 mg tablet 8 mg PO Q8H PRN (Reason: Nausea) 30 Days Qty: 30 RF: 0 prochlorperazine maleate 10 mg tablet 10 mg PO Q6H PRN (Reason: Nausea) RF: 0 polyethylene glycol 3350 [Miralax] 17 gram/dose Powder 17 g PO DAILY PRN (Reason: Constipation) RF: 0 magnesium oxide 400 mg (241.3 mg magnesium) Tablet 400 mg PO QAM Qty: 30 RF: 0 docusate sodium 100 mg Capsule 100 mg PO BID Qty: 60 RF: 0 voriconazole [Vfend] 200 mg Tablet 200 mg PO BID@0600,1800 Qty: 28 RF: 1 oxycodone 20 mg tablet 20 mg PO Q4H PRN (Reason: Pain) Qty: 50 RF: 0 Discontinued baclofen 10 mg tablet 10 mg PO BID Qty: 60 RF: 0 No Action albuterol sulfate 90 mcg/actuation HFA aerosol inhaler 2 puff INH Q6H PRN (Reason: Shortness Of Breath Or Wheezing) Qty: 18 RF: 3 ipratropium-albuterol 0.5 mg-3 mg(2.5 mg base)/3 mL solution for nebulization 3 ml INH Q8H PRN (Reason: Shortness Of Breath Or Wheezing) Qty: 180 RF: 5 Anoro Ellipta 62.5-25 mcg/actuation blister with device 1 inh INH DAILY Qty: 60 RF: 2 Mucinex DM 30-600 mg tablet extended release 12 hr 1 tab PO Q12H PRN (Reason: cough) Qty: 60 RF: 1 Discharge Orders: Discharge Order (Routine); Ordered 03/07/20 Ordered By: Chris Giraldo Admission Data Admit Date/Time: 03/05/20 17:48 Attending Provider: Carolina Vazquez Admit Provider: Bonilla Logan Primary Care Provider: Walter Roberts Other Providers: Bonilla Logan ; Lucrecia Sotomayor ; Jose Troncoso Other Interventions: Discharge Summary Assessment (RN) Last Done: 03/07/20 15:01 Supervising Physician Co-Signing Physician Notes Resident Physician Supervision Note: I independently interviewed and examined the patient and verified the marsh history and physical, reviewed labs and image studies, discussed the case with the resident Dr. Giraldo and agree with the findings and care plan. Resident Activity Tracking Resident Involvement: Resident Care Provided Care Provided: Adult Hospital Medicine
[2020-03-07 16:40] VITALS: PULSE 73
== END 2020-03-07 17:04 | disposition home or self-care (01) | DRG 640 ==
LOC: ED 15:27 → 2N 17:48 → SUATTDRO 17:48 → 2N 19:45

== ENCOUNTER 2020-04-14 12:07 | Inpatient (IN) ==
--- NOTE | 2020-04-14 12:50 | Emergency Department Note ---
Impression & Plan COPD with emphysema, Squamous cell carcinoma of lung, SOB (shortness of breath), Hypoxic ED Provider Note NAME: KRISTIN URRUTIA AGE: 54 SEX: M : 1965 ARRIVES VIA: Walk-In INFORMANT: Patient ED PROVIDER(S): Jose Rahman DO CHIEF COMPLAINT: Shortness of breath HPI: Patient is a 54-year-old male who presents to the ER for shortness of breath. This has been getting worse for the past 3 to 4 weeks. Patient admits to cough and congestion but this has been unchanged. No headache or neck pain. No chest pain but some shortness of breath. He has a history of squamous cell lung cancer. Denies any belly pain, nausea, vomiting or diarrhea. Admits to DVTs but currently taking Lovenox. Pulse ox at home has been dropping into the 80s. ROS: See above HPI for pertinent positives & negatives. A total of 10 systems reviewed and were otherwise negative. PAST MEDICAL HISTORY:See Below PAST SURGICAL HISTORY:See Below FAMILY HISTORY:See Below SOCIAL HISTORY:See Below HOME MEDICATIONS:See Below ALLERGIES:See Below VITALS:See Below PHYSICAL EXAMINATION: GENERAL: Sitting up in bed, alert, well appearing, well nourished, no distress, non-toxic EYE EXAM: normal conjunctiva. OROPHARYNX: no exudate, no erythema, lips, buccal mucosa, and tongue normal and mucous membranes are moist NECK: supple, no nuchal rigidity, no adenopathy, non-tender LUNGS: Clear to auscultation. Normal chest wall mechanics HEART: no murmurs, S1 normal and S2 normal ABDOMEN: abdomen soft, non-tender, normo-active bowel sounds, no masses, no rebound or guarding. UPPER EXTREMITIES: upper extremities are grossly normal. LOWER EXTREMITIES: No pitting edema. Calves are equal bilateral NEURO EXAM: Normal sensorium, cranial nerves II-XII grossly intact, normal speech, no gross weakness of arms, no gross weakness of legs. MEDICAL DECISION MAKING: Patient is a 54-year-old male who presents the ER for hypoxia. Is been getting more short of breath of the past 4 weeks. He has been taking his Lovenox. IV was established blood work was obtained. Labs show no significant leukocytosis and a fairly persistent anemia at 8.1. INR 1.2. BMP with mild hyponatremia at 133. LFTs bilirubin and troponin was unremarkable. Lipase was normal. Covid was negative. Chest x-ray with a worsening infiltrate. Patient was given IV fluids and IV antibiotics. He was updated bedside. He was hypoxic at 85% on 2 L. Remained on 2 L throughout the stay in the ER. Discussed with hospitalist admitted for further work-up. PE was not pursued any further as on Lovenox. EKG was nondiagnostic. Triage Nursing notes reviewed. Limited review of prior medical records performed Vital Signs: reviewed and remarkable for no significant abnormalities Differential diagnosis: Differential diagnoses includes but is not limited to pneumonia, bronchitis, COPD/Asthma exacerbation, pneumothorax, pulmonary embolism, congestive heart failure, acute coronary syndrome ER treatment provided: See below Diagnostics interpreted by me: ECG: Sinus rhythm rate of 76 Normal axis No PVCs QTC 420 Cardiac Monitoring: An order was placed for continuous cardiac monitoring. The monitor shows a rate of 88 with sinus rhythm. Laboratory studies: As stated above and show below. Imaging studies: Portable AP upright 1 view chest shows 2 infiltrates Consultation(s): Discussed with the hospitalist for further evaluation Procedures: none Critical Care: I have personally spent 32 minutes of critical care time in the direct management of this patient. This includes bedside care, interpretation of diagnostic studies, and testing, discussion with consultants, patient, and family members, and other required patient management activities. This 32 minutes is in excess of all separately billable procedures. Past Med/Surg History Medical History Acute hyponatremia Anxiety Arthritis Aspergillus pneumonia s/p treatment, following closely with pulmonary Cavitary lung disease Chronic obstructive pulmonary disease COPD with emphysema Eye disease Best disease- genetic condition affecting vision GERD (gastroesophageal reflux disease) Gram-negative bacteremia Invasive aspergillosis Macular degeneration Moderate nausea and vomiting Opiate abuse, continuous Restless leg syndrome Scoliosis Seasonal allergies SOB (shortness of breath) on exertion Squamous cell carcinoma lung Surgical History History of bronchoscopy History of colonoscopy History of esophagogastroduodenoscopy (EGD) History of tonsillectomy History of tooth extraction Hx of vasectomy Family History Mother Macular degeneration Lung disease Father , 60yo Myocardial infarction Pancreatitis Sister No problems noted. Sister No problems noted. Son No problems noted. Son No problems noted. Daughter No problems noted. 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 -[employer] Feels Safe at Home: Yes Diet Comment: Near keto diet caffeine: Yes (1 cup/day) during the past year weight has: decreased > 10 lbs Assistive Devices: Denture - Upper and Glasses Allergies Allergies Allergy/AdvReac Type Severity Reaction Status Date / Time No Known Allergies Allergy Verified 04/14/20 14:58 Home Meds Home Medications Medication Instructions Recorded Confirmed omeprazole 20 mg capsule,delayed 20 mg PO QAM 07/30/19 04/14/20 release sertraline [Zoloft] 50 mg PO HS 12/08/19 04/14/20 polyethylene glycol 3350 [Miralax] 17 g PO DAILY PRN 01/29/20 04/14/20 prochlorperazine maleate 10 mg PO Q6H PRN 01/29/20 04/14/20 enoxaparin 60 mg/0.6 mL 60 mg SUBCUT Q12H ml 02/29/20 04/14/20 subcutaneous syringe Narcan 1 spray INTRANASAL Q3M PRN 03/05/20 04/14/20 umeclidinium-vilanterol [Anoro 1 inh INH QAM 04/14/20 04/14/20 Ellipta] Previous Rx's Medication Instructions Recorded docusate sodium 100 mg PO BID #60 cap 02/03/20 magnesium oxide 400 mg PO QAM #30 tab 02/03/20 voriconazole [Vfend] 200 mg PO BID@0600,1800 #28 tab 02/03/20 oxycodone 20 mg PO Q4H PRN #50 tab 02/12/20 ondansetron HCl 8 mg PO Q8H PRN 30 Days #30 tab 03/07/20 albuterol sulfate 90 mcg/actuation 2 puff INH Q6H PRN #18 gm 03/08/20 aerosol inhaler ipratropium 0.5 mg-albuterol 3 mg 3 ml INH Q8H PRN #180 ml 03/08/20 (2.5 mg base)/3 mL nebulization soln Results & Data (ED) Vital Signs Vital Signs - 24 hr 04/14/20 12:14 04/14/20 12:42 04/14/20 12:47 Temperature 36.6 C Temperature Source Oral Pulse Rate 88 83 Pulse Rate [Right Finger] Pulse Rate from SpO2 Sensor 83 Respiratory Rate 18 16 Respiratory Effort / Characteristics Respiratory Depth Blood Pressure 107/70 Blood Pressure [Right Arm] Blood Pressure Mean 82 Blood Pressure Mean [Right Arm] Pulse Oximetry 91 95 92 Oxygen Delivery Method Room Air Room Air Oxygen Flow Rate Sepsis Recent Fever Within 48 Hours No Sepsis New/Unexplained Change in Mental Status N/A Sepsis Action Taken by Nursing No Action Required Oxygen Flow Rate - Titration Pulse Oximetry Post Tiitration 04/14/20 13:30 04/14/20 14:00 04/14/20 14:19 Temperature Temperature Source Pulse Rate 80 80 81 Pulse Rate [Right Finger] Pulse Rate from SpO2 Sensor 79 Respiratory Rate 18 21 22 Respiratory Effort / Characteristics Respiratory Depth Blood Pressure Blood Pressure [Right Arm] Blood Pressure Mean Blood Pressure Mean [Right Arm] Pulse Oximetry 90 Oxygen Delivery Method Room Air Oxygen Flow Rate Sepsis Recent Fever Within 48 Hours Sepsis New/Unexplained Change in Mental Status Sepsis Action Taken by Nursing Oxygen Flow Rate - Titration Pulse Oximetry Post Tiitration 04/14/20 14:22 04/14/20 14:30 04/14/20 15:00 Temperature Temperature Source Pulse Rate 83 77 72 Pulse Rate [Right Finger] Pulse Rate from SpO2 Sensor 82 77 71 Respiratory Rate 19 17 24 Respiratory Effort / Characteristics Respiratory Depth Blood Pressure 103/59 L Blood Pressure [Right Arm] Blood Pressure Mean 73 Blood Pressure Mean [Right Arm] Pulse Oximetry 87 L 98 99 Oxygen Delivery Method Room Air Nasal Cannula Nasal Cannula Oxygen Flow Rate 2 2 Sepsis Recent Fever Within 48 Hours Sepsis New/Unexplained Change in Mental Status Sepsis Action Taken by Nursing Oxygen Flow Rate - Titration 2 Pulse Oximetry Post Tiitration 99 04/14/20 15:30 04/14/20 15:39 04/14/20 15:51 Temperature Temperature Source Pulse Rate 68 69 69 Pulse Rate [Right Finger] 72 Pulse Rate from SpO2 Sensor 68 69 69 Respiratory Rate 16 23 22 Respiratory Effort / Characteristics Non-Labored Respiratory Depth Normal Blood Pressure 99/71 L 108/70 Blood Pressure [Right Arm] 108/70 Blood Pressure Mean 80 82 Blood Pressure Mean [Right Arm] 82 Pulse Oximetry 100 99 97 Oxygen Delivery Method Nasal Cannula Nasal Cannula Nasal Cannula Oxygen Flow Rate 2 2 2 Sepsis Recent Fever Within 48 Hours Sepsis New/Unexplained Change in Mental Status Sepsis Action Taken by Nursing Oxygen Flow Rate - Titration Pulse Oximetry Post Tiitration 04/14/20 16:00 04/14/20 16:30 04/14/20 17:00 Temperature Temperature Source Pulse Rate 67 67 72 Pulse Rate [Right Finger] Pulse Rate from SpO2 Sensor 67 68 71 Respiratory Rate 20 22 19 Respiratory Effort / Characteristics Respiratory Depth Blood Pressure 98/68 L 103/68 Blood Pressure [Right Arm] Blood Pressure Mean 78 79 Blood Pressure Mean [Right Arm] Pulse Oximetry 97 97 91 Oxygen Delivery Method Nasal Cannula Nasal Cannula Nasal Cannula Oxygen Flow Rate 2 2 2 Sepsis Recent Fever Within 48 Hours Sepsis New/Unexplained Change in Mental Status Sepsis Action Taken by Nursing Oxygen Flow Rate - Titration Pulse Oximetry Post Tiitration 04/14/20 17:30 Temperature Temperature Source Pulse Rate 72 Pulse Rate [Right Finger] Pulse Rate from SpO2 Sensor 72 Respiratory Rate 15 Respiratory Effort / Characteristics Respiratory Depth Blood Pressure Blood Pressure [Right Arm] Blood Pressure Mean Blood Pressure Mean [Right Arm] Pulse Oximetry 97 Oxygen Delivery Method Nasal Cannula Oxygen Flow Rate 2 Sepsis Recent Fever Within 48 Hours Sepsis New/Unexplained Change in Mental Status Sepsis Action Taken by Nursing Oxygen Flow Rate - Titration Pulse Oximetry Post Tiitration Laboratory Data Result diagrams: 04/14/20 14:30 04/14/20 14:30 Lab Results 04/14/20 04/14/20 04/14/20 Range/Units 14:30 14:30 14:30 WBC 6.87 (4.8-10.8) K/uL RBC 2.57 L (4.7-6.1) M/uL Hgb 8.1 L (14.0-18.0) g/dL Hct 25.2 L (42-52) % MCV 98.1 (80-100) fL MCH 31.5 (25-34) pg MCHC 32.1 (32-36) g/dL RDW Std Deviation 71.4 H (36.4-46.3) fL RDW Coeff of [place] 19.9 H (11.5-14.5) % Plt Count 251 (130-400) K/uL MPV 8.1 (7.4-10.4) fL Immature Gran % (Auto) 0.4 % Neut % (Auto) 86.2 % Lymph % (Auto) 10.5 % [place] % (Auto) 2.3 % Eos % (Auto) 0.3 % Baso % (Auto) 0.3 % Neut # (Auto) 5.92 (1.4-6.5) K/uL Lymph # (Auto) 0.72 L (1.2-3.4) K/uL [place] # (Auto) 0.16 (0.11-0.59) K/uL Eos # (Auto) 0.02 (0-0.5) K/uL Baso # (Auto) 0.02 (0-0.2) K/uL Immature Gran # (Auto) 0.03 H (0.00-0.02) K/uL PT 12.5 H (9.0-12.0) Seconds INR 1.2 H (0.9-1.1) APTT 29.3 (21.0-31.0) Seconds PTT Ratio 1.1 Sodium 133 L (136-145) mmol/L Potassium 4.1 (3.5-5.1) mmol/L Chloride 98 (98-107) mmol/L Carbon Dioxide 31 (21-32) mmol/L Anion Gap 4.0 (3-11) BUN 11 (7-18) mg/dl Creatinine 0.69 (0.6-1.4) mg/dl Est Cr Clr Drug Dosing 103.7 ml/min Est GFR ( Amer) 125.6 Est GFR (Non-Af Amer) 108.4 BUN/Creatinine Ratio 15.6 (10-20) Glucose 86 (70-99) mg/dl Calcium 8.9 (8.5-10.1) mg/dl Total Bilirubin 0.4 (0.2-1) mg/dl AST 9 L (15-37) U/L ALT 15 (12-78) U/L Alkaline Phosphatase 99 (45-117) U/L Troponin I < 0.015 (0-0.045) ng/ml Total Protein 8.1 (6.4-8.2) gm/dl Albumin 2.1 L (3.4-5.0) gm/dl Globulin 6.0 H (2.5-4.0) gm/dl Albumin/Globulin Ratio 0.4 L (0.9-2) Lipase 26 L (73-393) U/L COVID-19 Eval Order SARS-CoV-2, RNA, NAAT (NEGATIVE) 04/14/20 04/14/20 Range/Units 15:50 15:50 WBC (4.8-10.8) K/uL RBC (4.7-6.1) M/uL Hgb (14.0-18.0) g/dL Hct (42-52) % MCV (80-100) fL MCH (25-34) pg MCHC (32-36) g/dL RDW Std Deviation (36.4-46.3) fL RDW Coeff of [place] (11.5-14.5) % Plt Count (130-400) K/uL MPV (7.4-10.4) fL Immature Gran % (Auto) % Neut % (Auto) % Lymph % (Auto) % [place] % (Auto) % Eos % (Auto) % Baso % (Auto) % Neut # (Auto) (1.4-6.5) K/uL Lymph # (Auto) (1.2-3.4) K/uL [place] # (Auto) (0.11-0.59) K/uL Eos # (Auto) (0-0.5) K/uL Baso # (Auto) (0-0.2) K/uL Immature Gran # (Auto) (0.00-0.02) K/uL PT (9.0-12.0) Seconds INR (0.9-1.1) APTT (21.0-31.0) Seconds PTT Ratio Sodium (136-145) mmol/L Potassium (3.5-5.1) mmol/L Chloride (98-107) mmol/L Carbon Dioxide (21-32) mmol/L Anion Gap (3-11) BUN (7-18) mg/dl Creatinine (0.6-1.4) mg/dl Est Cr Clr Drug Dosing ml/min Est GFR ( Amer) Est GFR (Non-Af Amer) BUN/Creatinine Ratio (10-20) Glucose (70-99) mg/dl Calcium (8.5-10.1) mg/dl Total Bilirubin (0.2-1) mg/dl AST (15-37) U/L ALT (12-78) U/L Alkaline Phosphatase (45-117) U/L Troponin I (0-0.045) ng/ml Total Protein (6.4-8.2) gm/dl Albumin (3.4-5.0) gm/dl Globulin (2.5-4.0) gm/dl Albumin/Globulin Ratio (0.9-2) Lipase (73-393) U/L COVID-19 Eval Order Covid19 [facility] at[facility] SARS-CoV-2, RNA, NAAT NEGATIVE (NEGATIVE) Administered Medications Discontinued Medications Azithromycin (Azithromycin 250 Mg Tab) 500 mg PO NOW ONE Stop: 04/14/20 15:31 Last Admin: 04/14/20 15:56 Dose: 500 mg Documented by: [id number] Ceftriaxone Sodium (Rocephin) 1,000 mg in 50 mls @ 100 mls/hr IV NOW STA Stop: 04/14/20 15:59 Last Infusion: 04/14/20 16:25 Dose: 0 mls/hr Documented by: [id number] Admin: 04/14/20 15:53 Dose: 100 mls/hr Documented by: [id number] Oxycodone HCl (Oxycodone Hcl Ir 5 Mg Tab (Immediate Release)) 5 mg PO NOW STA Stop: 04/14/20 17:51 Last Admin: 04/14/20 18:14 Dose: 5 mg Documented by: [id number] Discharge Plan Visit Data Chief Complaint: Shortness of Breath/Dyspnea Stated Complaint: SOB ED Provider: Jose Rahman Discharge Problem: COPD with emphysema, Squamous cell carcinoma of lung, SOB (shortness of breath), Hypoxic Forms Stand Alone Forms: My [facility] Prescriptions Prescriptions: No Action enoxaparin 60 mg/0.6 mL syringe 60 mg subcut Q12H RF: 0 omeprazole 20 mg capsule,delayed release(DR/EC) 20 mg PO QAM RF: 0 albuterol sulfate 90 mcg/actuation HFA aerosol inhaler 2 puff INH Q6H PRN (Reason: Shortness Of Breath Or Wheezing) Qty: 18 RF: 3 ipratropium-albuterol 0.5 mg-3 mg(2.5 mg base)/3 mL solution for nebulization 3 ml INH Q8H PRN (Reason: Shortness Of Breath Or Wheezing) Qty: 180 RF: 5 sertraline [Zoloft] 50 mg Tablet 50 mg PO HS RF: 0 Narcan 4 mg/actuation spray,non-aerosol 1 spray intranasal Q3M PRN (Reason: Opioid Overdose) RF: 0 ondansetron HCl 8 mg tablet 8 mg PO Q8H PRN (Reason: Nausea) 30 Days Qty: 30 RF: 0 prochlorperazine maleate 10 mg tablet 10 mg PO Q6H PRN (Reason: Nausea) RF: 0 polyethylene glycol 3350 [Miralax] 17 gram/dose Powder 17 g PO DAILY PRN (Reason: Constipation) RF: 0 magnesium oxide 400 mg (241.3 mg magnesium) Tablet 400 mg PO QAM Qty: 30 RF: 0 docusate sodium 100 mg Capsule 100 mg PO BID Qty: 60 RF: 0 voriconazole [Vfend] 200 mg Tablet 200 mg PO BID@0600,1800 Qty: 28 RF: 1 oxycodone 20 mg tablet 20 mg PO Q4H PRN (Reason: Pain) Qty: 50 RF: 0 Anoro Ellipta 62.5-25 mcg/actuation blister with device 1 inh INH QAM RF: 0 Discharge Problem: COPD with emphysema Qualifiers: Emphysema type: unspecified Qualified Code(s): J43.9 - Emphysema, unspecified Squamous cell carcinoma of lung Qualifiers: Laterality: unspecified laterality Qualified Code(s): C34.90 - Malignant neoplasm of unspecified part of unspecified bronchus or lung
--- NOTE | 2020-04-14 12:55 | XRay Report ---
XR chest 1V portable CLINICAL HISTORY: Atypical chest pain COMPARISON STUDY: 03/05/2020 FINDINGS: The cardiac and mediastinal contours remain stable. There are chronic fibrotic changes pres ent. There is a suspected right apical cavitary lesion. Since prior study the patient has developed p rogressive left mid lung zone airspace opacity suspicious for a pneumonia.[ IMPRESSION: 1. Persistent right apical cavitary mass 2. Progressive left mid lung zone airspace opacity suspicious for a pneumonia. Clinical and radiograp hic follow-up is recommended ACT 112: Negative or not required by law. Electronically signed by: Leroy Faust M.D. 04/14/2020 12:53 PM
[2020-04-14 14:45] LABS: Basophils # (auto) 0.02 K/uL (0-0.2); Basophils % (auto) 0.3 %; Eosinophils # (auto) 0.02 K/uL (0-0.5); Eosinophils % (auto) 0.3 %; Hematocrit (blood only) 25.2 % (42-52); Hemoglobin 8.1 g/dL (14.0-18.0); Immature Granulocytes # (auto) 0.03 K/uL (0.00-0.02); Immature Granulocytes % (auto) 0.4 %; Lymphocytes # (auto) 0.72 K/uL (1.2-3.4); Lymphocytes % (auto) 10.5 %; Mean Corpuscular Hemoglobin 31.5 pg (25-34); Mean Corpuscular Hgb Conc 32.1 g/dL (32-36); Mean Corpuscular Volume 98.1 fL (80-100); Mean Platelet Volume 8.1 fL (7.4-10.4); Monocytes # (auto) 0.16 K/uL (0.11-0.59); Monocytes % (auto) 2.3 %; Neutrophils # (auto) 5.92 K/uL (1.4-6.5); Neutrophils % (auto) 86.2 %; Platelet Count 251 K/uL (130-400); RDW Coefficient of Variation 19.9 % (11.5-14.5); RDW Standard Deviation 71.4 fL (36.4-46.3); Red Blood Count 2.57 M/uL (4.7-6.1); White Blood Count 6.87 K/uL (4.8-10.8)
[2020-04-14 15:00] LABS: INR 1.2 (0.9-1.1); Partial Thromboplastin Ratio 1.1; Partial Thromboplastin Time 29.3 Seconds (21.0-31.0); Prothrombin Time 12.5 Seconds (9.0-12.0)
[2020-04-14 15:01] LABS: Albumin Level 2.1 gm/dl (3.4-5.0); Aspartate Aminotransferase 9 U/L (15-37); BUN Creatinine Ratio 15.6 (10-20); Blood Urea Nitrogen 11 mg/dl (7-18); Calcium 8.9 mg/dl (8.5-10.1); Carbon Dioxide 31 mmol/L (21-32); Chloride 98 mmol/L (98-107); Creatinine Clr Calc Pharmacy 103.7 ml/min; Est GFR (African American) 125.6; Est GFR (Non-African American) 108.4; Glucose 86 mg/dl (70-99); Lipase 26 U/L (73-393); Potassium 4.1 mmol/L (3.5-5.1); Sodium 133 mmol/L (136-145)
[2020-04-14 15:06] LABS: Alanine Aminotransferase 15 U/L (12-78); Albumin Globulin Ratio 0.4 (0.9-2); Alkaline Phosphatase 99 U/L (45-117); Bilirubin,Total 0.4 mg/dl (0.2-1); Total Protein 8.1 gm/dl (6.4-8.2); Troponin I < 0.015 ng/ml (0-0.045)
[2020-04-14] MEDS ORDERED: AZITHROMYCIN 250 MG TAB PO ONE (15:30)
[2020-04-14] MEDS ORDERED: cefTRIAXone SODIUM 1,000 MG/50 ML BAG IV STA (15:30)
--- NOTE | 2020-04-14 16:47 | History & Physical Report ---
Date of Service April 14, 2020 Assessment & Plan (1) SOB (shortness of breath): Due to the patient's noted shortness of breath and reported hypoxia he will be admitted to the hospital and we will proceed as follows: The concern is that the patient has a pneumonia. My concern would be that he may have a postobstructive pneumonia due to his lung cancer. We will continue antibiotics in the form of Rocephin and Zithromax as initiated in the emergency department We will obtain blood cultures We will obtain a sputum culture We will continue bronchodilator therapy We will place him on guaifenesin We will continue supplemental oxygen. Prior to discharge home it may be beneficial to see if patient qualifies for home oxygen. We will consult his private investigator for additional recommendations As the patient has a history of left upper extremity DVT we will maintain him on his home dose of Lovenox. No additional DVT measures will be needed. I discussed CODE STATUS with this man in the event of worsening respiratory status or cardiopulmonary arrest he wishes to be a level 1 full code (2) Chronic bronchitis: (3) Hypoxic: (4) Bacterial pneumonia: (5) COPD with emphysema: (6) Squamous cell carcinoma of lung: (7) Hyponatremia: (8) Deep vein thrombosis: History of Present Illness Chief Complaint: I am more short of breath and my oxygen levels have been low Primary Care Provider: Walter Roberts This is a 54-year-old male with a history of stage III squamous cell lung cancer. Patient also has a history of pulmonary aspergillosis. Patient notes that due to his lung cancer he received 7 sessions of radiation therapy which concluded in February 2020. He was receiving chemotherapy under the direction of Dr. Kulkarni. It has been approximately 2 months since his most recent chemotherapy session. Patient notes that he is scheduled for a PET scan in early April of this year. Once his PET scan scan is completed his oncologist will make further treatment recommendations. Patient presented to the hospital today as he notes that his pulse ox has been in the 80s for approximate the past 3 days. Patient also notes that he is more short of breath particular with activity and he notes increased fatigue. He has not had any fevers or shakes but he has been experiencing some chills. He has not had any recent weight loss and feels as though he is maintaining a normal appetite. He denies any cough or hemoptysis. He denies any loss of his sensation of taste or smell. He does not report any back, muscle, or abdominal pain. In the emergency department the patient had a chest x-ray that showed a right apical cavitary mass which was appeared similar to previous x-rays. He did have a left mid zone airspace opacity that was suspicious for a progressive pneumonia. An EKG showed normal sinus rhythm without acute ischemic changes. A Covid test was performed which was negative. Labs were performed and a CBC showed a white blood cell count within the normal range along with a platelet count in the normal range. His hemoglobin and hematocrit were 8.1 and 25.2 which was near his baseline. His INR was noted to be 1.2. Sodium was 133 and potassium along with his BUN and creatinine were within the normal range. His calcium was noted to be within the normal range. The treating emergency room physician has administered Rocephin and Zithromax due to concern for pneumonia and we have been asked to see the patient for admission. At the time of my interview the patient was resting comfortably in bed. He noted with the administration of supplemental oxygen his breathing had markedly improved and he was no longer short of breath. It is noteworthy mention that the patient states that he currently is not utilizing home oxygen. In addition the patient notes that he has been abstaining from smoking cigarettes. This man follows with Dr. Raymundo ramos. Records were reviewed and the patient's most recent pulmonary visit was in February 2020. At that time as the patient had received approximately 6 months of antifungal treatment for his pulmonary aspergillosis this therapy was discontinued. Is also noted to mention that the patient did develop a left upper extremity DVT for which she was receiving Lovenox. During the DVT his PICC line has been discontinued. Is also noteworthy to mention that the patient did have a brain MRI in August 2019 that was negative for metastasis. And he also had a quant to Farren gold test which was negative in July 2019. Allergies Allergy/AdvReac Type Severity Reaction Status Date / Time No Known Allergies Allergy Verified 04/14/20 14:58 Home Medications Medication Instructions Recorded Confirmed Type omeprazole 20 mg capsule,delayed 20 mg PO QAM 07/30/19 04/14/20 History release sertraline [Zoloft] 50 mg PO HS 12/08/19 04/14/20 History polyethylene glycol 3350 [Miralax] 17 g PO DAILY PRN 01/29/20 04/14/20 History prochlorperazine maleate 10 mg PO Q6H PRN 01/29/20 04/14/20 History docusate sodium 100 mg PO BID #60 cap 02/03/20 04/14/20 Rx magnesium oxide 400 mg PO QAM #30 tab 02/03/20 04/14/20 Rx voriconazole [Vfend] 200 mg PO BID@0600,1800 #28 tab 02/03/20 04/14/20 Rx oxycodone 20 mg PO Q4H PRN #50 tab 02/12/20 04/14/20 Rx enoxaparin 60 mg/0.6 mL 60 mg SUBCUT Q12H ml 02/29/20 04/14/20 History subcutaneous syringe Narcan 1 spray INTRANASAL Q3M PRN 03/05/20 04/14/20 History ondansetron HCl 8 mg PO Q8H PRN 30 Days #30 tab 03/07/20 04/14/20 Rx albuterol sulfate 90 mcg/actuation 2 puff INH Q6H PRN #18 gm 03/08/20 04/14/20 Rx aerosol inhaler ipratropium 0.5 mg-albuterol 3 mg 3 ml INH Q8H PRN #180 ml 03/08/20 04/14/20 Rx (2.5 mg base)/3 mL nebulization soln umeclidinium-vilanterol [Anoro 1 inh INH QAM 04/14/20 04/14/20 History Ellipta] Past Med/Surg History Medical History Acute hyponatremia Anxiety Arthritis Aspergillus pneumonia s/p treatment, following closely with pulmonary Cavitary lung disease Chronic obstructive pulmonary disease COPD with emphysema Eye disease Best disease- genetic condition affecting vision GERD (gastroesophageal reflux disease) Gram-negative bacteremia Invasive aspergillosis Macular degeneration Moderate nausea and vomiting Opiate abuse, continuous Restless leg syndrome Scoliosis Seasonal allergies SOB (shortness of breath) on exertion Squamous cell carcinoma lung Surgical History History of bronchoscopy History of colonoscopy History of esophagogastroduodenoscopy (EGD) History of tonsillectomy History of tooth extraction Hx of vasectomy Family History Mother Macular degeneration Lung disease Father , 60yo Myocardial infarction Pancreatitis Sister No problems noted. Sister No problems noted. Son No problems noted. Son No problems noted. Daughter No problems noted. Other No significant family history Social History Smoking Status: Former smoker Tobacco Type: Smokeless Tobacco (Dip or Chew) Cigarettes Per Day: 30-40 cigarettes per day for 40 years; Smoking End Date: 07/2019; Second Hand Exposure: No; Do You Dip or Chew Tobacco: Yes; Hx Alcohol Use: No Hx Substance Use: Yes Last Used Substance: Hours (ago) Last Used Substance Other:: 5-6 times daily Substance Use Type Other:: oxycodone Preferred Language: Georgian Communication Ability: Effective Visual Impairment: No Limitations Hearing Ability: Normal Optical Sales Associate Required: No Beliefs That Will Affect Care: None marital status: Current Living Situation: Spouse and Family current occupational status: employed 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 -[employer] Other Information That Helps Us Care for You: No Feels Safe at Home: Yes Safety Concerns: Feels Safe At This Time Diet Comment: Near keto diet caffeine: Yes (1 cup/day) during the past year weight has: decreased > 10 lbs Assistive Devices: Denture - Upper, Glasses and Oxygen - Continuous Review of Systems Constitutional: + chills, + fatigue, + malaise and + weakness; no fever, no sweats and no body aches Eyes: no diplopia Ear, Nose, Mouth, Throat: no ear pain and no tinnitus Respiratory: + dyspnea and + dyspnea on exertion; no cough, no hemoptysis and no pain on inspiration Cardiovascular: no chest pain and no syncope Gastrointestinal: no abdominal pain, no early satiety, no nausea and no vomiting Genitourinary: no dysuria Musculoskeletal: no back pain Integumentary: no rash Neurologic: no localized weakness Physical Exam Constitutional: well developed and well nourished; no acute distress Eyes: no conjunctival abnormality Wears glasses ENMT: Ears: no hearing impairment Mucous membranes are moist Neck: trachea midline Respiratory: normal respiratory effort; no respiratory distress and no labored breathing Bilateral rhonchi noted which are worse on the left. Rhonchi improved with cough. Occasional expiratory wheezing noted right greater than left. No use of accessory muscles to aid in respiration. Cardiovascular: Rate/Rhythm: regular rate and regular rhythm Gastrointestinal (Abdomen): Percussion/Palpation: abdomen soft; abdomen nontender (Palpation did not cause pain) Musculoskeletal: No lower extremity swelling or calf tenderness Skin: no rashes, warm and dry Neurologic: CN's II-XI intact bilaterally and moves all extremities Psychiatric: A+Ox3, euthymic affect Results & Data Results & Data ([facility]) Vital Signs (Past 12 Hours) Vital Signs Temp Pulse Pulse Resp BP BP Pulse Ox 04/14/20 15:51 72 18 108/70 97 04/14/20 14:30 77 17 98 04/14/20 14:22 83 19 103/59 L 87 L 04/14/20 14:19 81 22 90 04/14/20 14:00 80 21 04/14/20 13:30 80 18 04/14/20 12:47 83 16 92 04/14/20 12:42 95 04/14/20 12:14 36.6 C 88 18 107/70 91 Supervising Physician Co-Signing Physician Notes I personally saw and examined the patient. I verified all marsh points and agree with JANET Osei with the following exceptions and/or additions: 54-year-old male with stage III squamous cell lung cancer and history of pulmonary aspergillosis. Progressive shortness of breath over the last month with increasing hypoxia over the last 3 days. Prior DVT related to PICC line in left upper extremity with patient compliant with Lovenox. O/E chronically ill-appearing but nonseptic appearing, appears older than stated age, coarse crackles with reduced air entry throughout left lung, better air entry on right side with fine crackles throughout, no wheezing. Abdomen soft nontender, bowel sounds normal. A/P Postobstructive versus community-acquired pneumonia - discussed high risk recurrence of pneumonia with the patient. Medically complex with squamous cell lung cancer and history of aspergillosis therefore will consult pulmonology for ongoing advice and possible benefit from bronchoscopy. Continue ceftriaxone and azithromycin. Follow-up blood and sputum cultures. Hypoxia -suspect secondary to pneumonia as above rather than progression of his lung cancer. Do not suspect pulmonary embolism due to compliance with Lovenox injections. Likely to need outpatient oxygen prior to discharge. No wheezing to suggest COPD exacerbation, however agree with duo nebs if patient finds this helpful and improved air flow and exchange. PG Care Time/CCT Total # of Minutes Spent Total Time Spent with Patient: Total time spent is greater than 50% in coordination of care (as documented) at patient's floor/unit and/or counseling patient: Coding Level of Care Code 06804 Initial Inpt Care Lvl 3 Diagnoses SOB (shortness of breath) R06.02 Chronic bronchitis J42 Hypoxic R09.02 Bacterial pneumonia J15.9 COPD with emphysema J43.9 Emphysema type: unspecified Squamous cell carcinoma of lung C34.90 Laterality: unspecified laterality Hyponatremia E87.1 Deep vein thrombosis I82.409 DVT location: upper extremity Laterality: left (1) COPD with emphysema Emphysema type: unspecified Qualified Code(s): J43.9 - Emphysema, unspecified (2) Squamous cell carcinoma of lung Laterality: unspecified laterality Qualified Code(s): C34.90 - Malignant neoplasm of unspecified part of unspecified bronchus or lung (3) Deep vein thrombosis DVT location: upper extremity Laterality: left
[2020-04-14] MEDS ORDERED: oxyCODONE HCL IR 5 MG TAB (IMMEDIATE RELEASE) PO STA (17:50)
[2020-04-14] MEDS ORDERED: ENOXAPARIN INJ 60 MG/0.6 ML SYR SQ SCH (20:41)
[2020-04-14] MEDS ORDERED: NALOXONE HCL 0.4 MG/1 ML VIAL/CARP IV PRN (22:00)
[2020-04-14] MEDS: COUGH DROP (SUGAR FREE) LOZ 24 LOZ/1 BOX BUCCAL PRN (22:09)
[2020-04-14] MEDS: ALBUT/IPRATROP 3MG/0.5MG NEB 3 ML VIAL NEB SCH ×2 (22:11→23:03)
[2020-04-14] MEDS: oxyCODONE HCL IR 5 MG TAB (IMMEDIATE RELEASE) PO PRN (22:15)
[2020-04-14] MEDS: ENOXAPARIN INJ 60 MG/0.6 ML SYR SQ SCH (22:16)
[2020-04-14] MEDS: SERTRALINE HCL 50 MG TABLET PO SCH (22:17)
[2020-04-14] MEDS: VORICONAZOLE 200 MG TABLET PO SCH (22:18)
[2020-04-14] MEDS: guaiFENesin 600 MG TABCR PO SCH (22:18)
[2020-04-14] MEDS: DOCUSATE SODIUM 100 MG CAP PO SCH (22:18)
[2020-04-15] MEDS: ALBUT/IPRATROP 3MG/0.5MG NEB 3 ML VIAL NEB SCH ×6 (03:16→23:28)
[2020-04-15] MEDS: oxyCODONE HCL IR 5 MG TAB (IMMEDIATE RELEASE) PO PRN ×4 (03:30→23:18)
--- NOTE | 2020-04-15 06:14 | Electrocardiogram Report ---
Test Reason : Blood Pressure : / mmHG Vent. Rate : 076 BPM Atrial Rate : 076 BPM P-R Int : 106 ms QRS Dur : 082 ms QT Int : 374 ms P-R-T Axes : 059 -02 064 degrees QTc Int : 420 ms Sinus rhythm with short W[place] Cannot rule out Anterior infarct , age undetermined Abnormal ECG When compared with ECG of 05-MAR-2020 15:57, QT has shortened Confirmed by Parvez Valdovinos ([id number]) on 04/15/2020 6:13:35 AM Referred By: ED Confirmed By:Parvez Valdovinos
[2020-04-15] MEDS: VORICONAZOLE 200 MG TABLET PO SCH (06:31)
[2020-04-15 06:55] LABS: Hematocrit (blood only) 23.9 % (42-52); Hemoglobin 7.5 g/dL (14.0-18.0); Mean Corpuscular Hemoglobin 30.9 pg (25-34); Mean Corpuscular Hgb Conc 31.4 g/dL (32-36); Mean Corpuscular Volume 98.4 fL (80-100); Mean Platelet Volume 8.7 fL (7.4-10.4); Platelet Count 259 K/uL (130-400); RDW Coefficient of Variation 19.7 % (11.5-14.5); RDW Standard Deviation 70.5 fL (36.4-46.3); Red Blood Count 2.43 M/uL (4.7-6.1); White Blood Count 5.82 K/uL (4.8-10.8)
[2020-04-15] MEDS: UMECLIDINIUM/VILANTEROL 62.5/25MCG 7 PUFFS/INHALER INH SCH (09:06)
[2020-04-15] MEDS: MAGNESIUM OXIDE 400 MG TAB PO SCH (09:07)
[2020-04-15] MEDS: ENOXAPARIN INJ 60 MG/0.6 ML SYR SQ SCH ×2 (09:07→20:07)
[2020-04-15] MEDS: PANTOprazole 40 MG TAB PO SCH (09:07)
[2020-04-15] MEDS: DOCUSATE SODIUM 100 MG CAP PO SCH ×2 (09:07→20:04)
[2020-04-15] MEDS: guaiFENesin 600 MG TABCR PO SCH ×2 (09:08→20:05)
[2020-04-15] MEDS: POLYETHYLENE (MIRALAX) 17 GM PACK PO PRN (11:47)
--- NOTE | 2020-04-15 13:41 | Pulmonary Consultation ---
Date of Consultation April 15, 2020 Assessment & Plan (1) Bacterial pneumonia: (2) Acute respiratory failure with hypoxia: CT chest 04/15/2020: Right upper cavitary lesion again appreciated with thick cavity and aspergilloma. There is dense consolidative process appreciated especially in the left upper and left lower lobe with air bronchograms. --Acute respiratory failure with hypoxia Likely secondary to multilobar pneumonia Continue with antibiotics O2 supplementation to keep O2 saturation greater than 88-90% Continue with atypical coverage. Pro troponin 0.06, COVID-19 PCR -ve 04/14/2020 Follow-up sputum culture. 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 I am going to discontinue it. Continue with antibiotics. Patient will need prolonged antibiotics because he has had multiple infections in the past. Would recommend at least for 14 days. Follow sputum culture. Continue with guaifenesin, flutter valve as well as incentive spirometry I will add Mucomyst nebulized Patient's hemoglobin is 7.5. This might be also playing a role in patient's shortness of breath. If there is decrease in hemoglobin on tomorrow's labs I think 1 unit of PRBC might be beneficial for the patient. Please note the above document was generated using voice recognition software. It may contain grammatical, syntax or spelling errors.Any formal questions or concerns about the content, text or information contained within the body of this dictation should be directly addressed to the provider for clarification. (3) COPD with emphysema: Emphysema type: unspecified Qualified Code(s): J43.9 - Emphysema, unspecified (4) Cavitary lung disease: History of Present Illness Attending Physician: Cortez Perez DO History of Present Illness 54-year-old with no significant past medical history except for active smoking and is following up with pulmonary for right upper lobe cavitary lesion which w as found to be squamous cell carcinoma Patient was last seen by me in the clinic on 03/08/2020 Patient had bronchoscopy on 09/09/2019 which was positive for squamous cell cancer of the lung. Patient underwent EBUS with TBNA station 4R, 10 R, 7, 4L which were all negative for malignancy. Patient also had cytology brush in the lingular portion of the left upper lobe which was negative for malignancy Patient had MRI of the brain done on 09/18/2019 which was negative for any metastasis. Patient also had CBC with differential which did not show any eosinophilia. Gold QuantiFERON which was negative, Covid-19 PCR which was also negative Patient also had Gallactomannan positive in the BAL. Patient has been off voriconazole since March 08. He states that he has been having coughing episodes since last 3 to 4 days and generalized lethargy. He has night sweats which has been going there for a long time. The phlegm is usually yellow in color. No blood in it. Denies any dysuria. Subjective chills. No fever. Denies any dysuria or diarrhea. No recent travel history. Patient's saturation was in the 80s at home as per him and his . Allergies Allergy/AdvReac Type Severity Reaction Status Date / Time No Known Allergies Allergy Verified 04/14/20 14:58 Home Medications Medication Instructions Recorded Confirmed Type omeprazole 20 mg capsule,delayed 20 mg PO QAM 07/30/19 04/14/20 History release sertraline [Zoloft] 50 mg PO HS 12/08/19 04/14/20 History polyethylene glycol 3350 [Miralax] 17 g PO DAILY PRN 01/29/20 04/14/20 History prochlorperazine maleate 10 mg PO Q6H PRN 01/29/20 04/14/20 History docusate sodium 100 mg PO BID #60 cap 02/03/20 04/14/20 Rx magnesium oxide 400 mg PO QAM #30 tab 02/03/20 04/14/20 Rx voriconazole [Vfend] 200 mg PO BID@0600,1800 #28 tab 02/03/20 04/14/20 Rx oxycodone 20 mg PO Q4H PRN #50 tab 02/12/20 04/14/20 Rx enoxaparin 60 mg/0.6 mL 60 mg SUBCUT Q12H ml 02/29/20 04/14/20 History subcutaneous syringe Narcan 1 spray INTRANASAL Q3M PRN 03/05/20 04/14/20 History ondansetron HCl 8 mg PO Q8H PRN 30 Days #30 tab 03/07/20 04/14/20 Rx albuterol sulfate 90 mcg/actuation 2 puff INH Q6H PRN #18 gm 03/08/20 04/14/20 Rx aerosol inhaler ipratropium 0.5 mg-albuterol 3 mg 3 ml INH Q8H PRN #180 ml 03/08/20 04/14/20 Rx (2.5 mg base)/3 mL nebulization soln umeclidinium-vilanterol [Anoro 1 inh INH QAM 04/14/20 04/14/20 History Ellipta] Patient History Medical History Acute hyponatremia Anxiety Arthritis Aspergillus pneumonia s/p treatment, following closely with pulmonary Cavitary lung disease Chronic obstructive pulmonary disease COPD with emphysema Eye disease Best disease- genetic condition affecting vision GERD (gastroesophageal reflux disease) Gram-negative bacteremia Invasive aspergillosis Macular degeneration Moderate nausea and vomiting Opiate abuse, continuous Restless leg syndrome Scoliosis Seasonal allergies SOB (shortness of breath) on exertion Squamous cell carcinoma lung Surgical History History of bronchoscopy History of colonoscopy History of esophagogastroduodenoscopy (EGD) History of tonsillectomy History of tooth extraction Hx of vasectomy Family History Mother Macular degeneration Lung disease Father , 60yo Myocardial infarction Pancreatitis Sister No problems noted. Sister No problems noted. Son No problems noted. Son No problems noted. Daughter No problems noted. Other No significant family history Social History Smoking Status: Former smoker Tobacco Type: Smokeless Tobacco (Dip or Chew) Cigarettes Per Day: 30-40 cigarettes per day for 40 years; Smoking End Date: 07/2019; Second Hand Exposure: No; Do You Dip or Chew Tobacco: Yes; Hx Alcohol Use: No Hx Substance Use: Yes Last Used Substance: Hours (ago) Last Used Substance Other:: 5-6 times daily Substance Use Type Other:: oxycodone Preferred Language: Portuguese Communication Ability: Effective Visual Impairment: No Limitations Hearing Ability: Normal Geographic Information System Surveyor Required: No Beliefs That Will Affect Care: None marital status: Current Living Situation: Spouse and Family current occupational status: employed 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 -[employer] Other Information That Helps Us Care for You: No Feels Safe at Home: Yes Safety Concerns: Feels Safe At This Time Diet Comment: Near keto diet caffeine: Yes (1 cup/day) during the past year weight has: decreased > 10 lbs Assistive Devices: Denture - Upper, Glasses and Oxygen - Continuous Review of Systems Review of Systems: All systems reviewed & are unremarkable except as noted in HPI & below Physical Exam Physical Exam: Constitutional: No acute distress HEENT: EOMI, PERRLA Respiratory system: Decreased air entry bilaterally, no wheeze, no rhonchi, positive diffuse crackles appreciated bilaterally upper and lower CVS: S1-S2 positive, no murmurs or gallops Abdomen: Soft, nontender, nondistended, positive bowel sounds x4 Extremities: +2 pulses bilaterally radialis/ dorsalis pedis, no cyanosis, no edema Neuro: Awake alert oriented x3 Psych: Normal mood and affect G/U: No Kaur Skin: no rashes, warm and dry Lymphatic: no cervical or axillary lymphadenopathy Results & Data Results & Data ([facility]) Vital Signs (Past 12 Hours) Vital Signs Temp Pulse Resp BP Pulse Ox 04/15/20 11:16 74 20 98 04/15/20 07:56 77 20 90 04/15/20 07:51 36.7 C 80 16 109/58 L 90 04/15/20 03:18 110 H 18 92 04/15/20 06:10 04/14/20 14:30 PG Care Time/CCT Total # of Minutes Spent Total Time Spent with Patient: Total time spent is greater than 50% in coordination of care (as documented) at patient's floor/unit and/or counseling patient: Coding Level of Care Code 41605 Initial Inpt Care Lvl 3 Diagnoses Bacterial pneumonia J15.9 Acute respiratory failure with hypoxia J96.01 COPD with emphysema J43.9 Emphysema type: unspecified Cavitary lung disease J98.4
--- NOTE | 2020-04-15 15:15 | CT Scan Report ---
CT chest diagnostic wo con CLINICAL HISTORY: Abnormal chest CT. Multifocal airspace opacities. COMPARISON STUDY: 01/29/2020, chest x-ray dated 04/14/2020 CT DOSE: 203.88 mGy.cm TECHNIQUE: CT of the thorax was performed from the thoracic inlet to the lung bases. Images are revi ewed in the axial, sagittal, and coronal planes. IV contrast was not administered for this examinatio n. A dose lowering technique was utilized adhering to the principles of ALARA. FINDINGS: Thyroid: Imaged portions of the thyroid gland are normal in appearance. Thoracic aorta: The thoracic aorta is normal in course and caliber, noting standard 3 vessel arch stanley nadeem. Heart: The heart is normal in size and configuration, without pericardial effusion. Lungs and pleural spaces: There is severe pulmonary emphysema. There is a 6 cm right upper lobe cavit rick mass containing a large mural nodule. There is persistent underlying rib destruction. There are p rogressive left lower lobe airspace opacities suspicious for pneumonia. There are new left upper lobe airspace opacities with air bronchograms suspicious for pneumonia. Mediastinum: There is mild mediastinal lymphadenopathy. Fang: There are borderline enlarged hilar nodes Axilla: There is no evidence of pathologic axillary lymphadenopathy Upper abdomen: Partially visualized upper abdominal viscera is within normal limits. Skeletal structures: Bony erosive/destructive changes are visualized adjacent to the cavitary right u pper lobe pulmonary mass IMPRESSION: 1. Persistent 6 cm cavitary right upper lobe pulmonary mass with evidence for underlying rib erosion/ destruction 2. Severe pulmonary emphysema 3. Worsening airspace opacities most pronounced in the left lower lobe and left upper lobe with air b ronchograms. A multifocal pneumonia is suspected. ACT 112: Negative or not required by law. Electronically signed by: Leroy Faust M.D. 04/15/2020 3:13 PM
[2020-04-15] MEDS: AZITHROMYCIN 500 MG in DEXTROSE 5% 250 ML IV SCH (15:30)
--- NOTE | 2020-04-15 16:34 | Hospitalist Progress Note ---
Date of Service April 15, 2020 Assessment & Plan (1) Bacterial pneumonia: (2) Acute respiratory failure with hypoxia: Likely secondary to multilobar pneumonia - CT with RU cavitary lesion again seen with thick cavity and aspergilloma. Dense consolidation left upper and left lower lobe with bronchograms Continue with Rocephin/Zithromax O2 supplementation to keep O2 saturation greater than 88-90% Guaifenisin, flutter valve, IS, mucomyst COVID-19 PCR -ve 04/14/2020 Follow-up sputum culture. Per pulm consult: Patient will need prolonged antibiotics because he has had multiple infections in the past. Recommends at least for 14 days. (3) COPD with emphysema: Continue Anoro (4) Malignant neoplasm of right upper lobe of lung: S/p chemo and radiation Follows up with oncology (5) Aspergillosis: Completed treatment with voriconazole (6) DVT prophylaxis: History of DVT upper extremity around previous PICC Continue enoxaparin 60 mg bid (7) Anemia: No s/s of bleeding. Recheck am, if decreased from today's 7.5 should receive transfusion. Admission and Anticipated Discharge Date Admission Date: April 14, 2020 Subjective Mr. Lam reports that he has a cough and chest pain at times. The chest pain feels like muscle spasm and happens randomly at rest or with exertion. He holds his breath and waits for it to pass. He is a bit short of breath, requiring 3L NC Review of Systems Constitutional: no fever, no chills and no body aches Respiratory: no cough and no dyspnea Cardiovascular: as per Subjective / HPI; no palpitations Gastrointestinal: no abdominal pain, no nausea and no vomiting Genitourinary: no dysuria and no urinary hesitancy Musculoskeletal: no back pain and no joint pain Integumentary: no rash Physical Exam Physical Exam: General: no distress Eyes: normal inspection, PERLL Respiratory: chest non tender, clear to auscultation, normal breath sounds, no respiratory distress, no accessory muscle use Cardiac: regular rate and rhythm, no rub or gallop, systolic murmur RUSB 2/6, no edema, no jvd GI/: active bowel sounds, no abd pain or tenderness, soft, non distended Extremities: normal range of motion, normal strength, non tender Neuro/Psych: alert and oriented x 3, normal mood and affect Skin: normal color, dry Results & Data Results & Data ([facility]) Vital Signs (Past 12 Hours) Vital Signs Temp Pulse Resp BP Pulse Ox 04/15/20 16:10 36.6 C 69 17 101/62 95 04/15/20 15:18 76 18 95 04/15/20 11:16 74 20 98 04/15/20 07:56 77 20 90 04/15/20 07:51 36.7 C 80 16 109/58 L 90 PG Care Time/CCT Total # of Minutes Spent Total Time Spent with Patient: Total time spent is greater than 50% in coordination of care (as documented) at patient's floor/unit and/or counseling patient: Coding Level of Care Code 21638 Subseq Hosp Care Lvl 3 Diagnoses Bacterial pneumonia J15.9 Acute respiratory failure with hypoxia J96.01 COPD with emphysema J43.9 Emphysema type: unspecified Malignant neoplasm of right upper lobe of lung C34.11 Aspergillosis B44.9 DVT prophylaxis Z29.9 Anemia D64.9 (1) COPD with emphysema Emphysema type: unspecified Qualified Code(s): J43.9 - Emphysema, unspecified
[2020-04-15] MEDS: cefTRIAXone SODIUM 2,000 MG in DEXTROSE 5% 50 ML IV SCH (17:53)
[2020-04-15] MEDS: ACETYLCYSTEINE 20% INHAL SOLN 4ML ***DISPENSED BY RESP. INH SCH (19:25)
[2020-04-15] MEDS: SERTRALINE HCL 50 MG TABLET PO SCH (20:06)
[2020-04-16] MEDS: ALBUT/IPRATROP 3MG/0.5MG NEB 3 ML VIAL NEB SCH ×6 (03:22→23:15)
[2020-04-16] MEDS: oxyCODONE HCL IR 5 MG TAB (IMMEDIATE RELEASE) PO PRN ×4 (06:40→20:01)
[2020-04-16] MEDS: ACETYLCYSTEINE 20% INHAL SOLN 4ML ***DISPENSED BY RESP. INH SCH ×2 (07:21→19:14)
--- NOTE | 2020-04-16 08:00 | Hospitalist Progress Note ---
Date of Service April 16, 2020 Assessment & Plan (1) Bacterial pneumonia: (2) Acute respiratory failure with hypoxia: Likely secondary to multilobar pneumonia - CT with RU cavitary lesion again seen with thick cavity and aspergilloma. Dense consolidation left upper and left lower lobe with bronchograms Continue with Rocephin/Zithromax O2 supplementation to keep O2 saturation greater than 88-90% Guaifenisin, flutter valve, IS, mucomyst COVID-19 PCR -ve 04/14/2020 Follow-up sputum culture, preliminary moderate normal mario present Blood cultures preliminary no growth in aerobic anaerobic bottle times 24 hours. Per pulm consult: Patient will need prolonged antibiotics because he has had multiple infections in the past. Recommends at least for 14 days. (3) COPD with emphysema: Continue Anoro (4) Malignant neoplasm of right upper lobe of lung: S/p chemo and radiation Follows up with oncology (5) Aspergillosis: Completed treatment with voriconazole (6) DVT prophylaxis: History of DVT upper extremity around previous PICC Continue enoxaparin 60 mg bid (7) Anemia: No s/s of bleeding. Recheck with hemoglobin 7.7 Patient describes no new symptoms, vital signs are stable Recheck CBC in the a.m. Admission and Anticipated Discharge Date Admission Date: April 14, 2020 Subjective No new complaints overnight. No new chest pain dyspnea cough or palpitations. Chronic cough and dyspnea ongoing helped with oxygen. No new fevers or chills Was able to tolerate his diet this morning. Notes no bowel movement for the last 4 days. Pain is controlled with current medications. Review of Systems Review of Systems: All systems reviewed & are unremarkable except as noted in Subjective Physical Exam Physical Exam: Constitutional: WD/WN, vitals as above Respiratory: Effort normal, decreased BS rt side CV: RRR, no murmur, no edema Abdomen: normal bowel sounds, soft, nontender, no hepatosplenomegaly Results & Data Results & Data ([facility]) Vital Signs (Past 12 Hours) Vital Signs Temp Pulse Resp BP Pulse Ox 04/16/20 07:41 36.9 C 83 16 101/55 L 93 04/16/20 07:22 90 18 93 04/16/20 04:00 37.0 C 85 14 127/69 93 04/16/20 03:22 76 18 92 04/15/20 23:28 83 14 93 04/15/20 23:08 36.9 C 83 14 118/65 93 Medications Administered Current Inpatient Medications Acetylcysteine (Acetylcysteine 20% Inhal Soln 4ml Dispensed By Resp.) 5 ml INH Q12R PAMELA Stop: 05/15/20 16:59 Last Admin: 04/16/20 07:21 Dose: 5 ml Documented by: Albuterol (Albut/Ipratrop 3mg/0.5mg Neb 3 Ml Vial) 3 ml NEB Q4R PAMELA Stop: 05/14/20 20:40 Last Admin: 04/16/20 07:21 Dose: 3 ml Documented by: Docusate Sodium (Docusate Sodium 100 Mg Cap) 100 mg PO BID COUNTS INCLUDE 234 BEDS AT THE [facility] Stop: 05/14/20 20:59 Last Admin: 04/15/20 20:04 Dose: 100 mg Documented by: Enoxaparin Sodium (Enoxaparin Inj 60 Mg/0.6 Ml Syr) 60 mg SQ BID COUNTS INCLUDE 234 BEDS AT THE [facility] Stop: 05/14/20 21:14 Last Admin: 04/15/20 20:07 Dose: 60 mg Documented by: Guaifenesin (Guaifenesin 600 Mg Tabcr) 1,200 mg PO Q12 COUNTS INCLUDE 234 BEDS AT THE [facility] Stop: 05/14/20 20:59 Last Admin: 04/15/20 20:05 Dose: 1,200 mg Documented by: Ceftriaxone Sodium 2,000 mg/ (Dextrose) 70 mls @ 100 mls/hr IV Q24H COUNTS INCLUDE 234 BEDS AT THE [facility]; Protocol Stop: 04/20/20 16:41 Last Infusion: 04/15/20 18:43 Dose: Infused Documented by: Azithromycin 500 mg/ Dextrose 255 mls @ 125 mls/hr IV Q24H COUNTS INCLUDE 234 BEDS AT THE [facility] Stop: 04/20/20 16:03 Last Infusion: 04/15/20 17:40 Dose: Infused Documented by: Magnesium Oxide (Magnesium Oxide 400 Mg Tab) 400 mg PO QAM COUNTS INCLUDE 234 BEDS AT THE [facility] Stop: 05/15/20 08:59 Last Admin: 04/15/20 09:07 Dose: 400 mg Documented by: Menthol (Cough Drop (Sugar Free) Uvaldo 24 Uvaldo/1 Box) 1 uvaldo BUCCAL PRN PRN PRN Reason: Cough Stop: 05/14/20 21:38 Last Admin: 04/14/20 22:09 Dose: 1 uvaldo Documented by: Naloxone HCl (Naloxone Hcl 0.4 Mg/1 Ml Vial/Carp) 0.4 mg IV Q5M PRN PRN Reason: Opioid Overdose Stop: 05/14/20 21:59 Ondansetron HCl (Ondansetron Inj 2 Mg/Ml 2 Ml Vial) 4 mg IV Q4H PRN PRN Reason: Nausea Stop: 05/15/20 06:30 Oxycodone HCl (Oxycodone Hcl Ir 5 Mg Tab (Immediate Release)) 20 mg PO Q4H PRN PRN Reason: Pain Stop: 04/28/20 20:40 Last Admin: 04/16/20 06:40 Dose: 20 mg Documented by: Pantoprazole Sodium (Pantoprazole 40 Mg Tab) 40 mg PO QAM COUNTS INCLUDE 234 BEDS AT THE [facility] Stop: 05/15/20 08:59 Last Admin: 04/15/20 09:07 Dose: 40 mg Documented by: Polyethylene Glycol (Polyethylene (Miralax) 17 Gm Pack) 17 gm PO DAILY PRN PRN Reason: Constipation Stop: 05/14/20 20:40 Last Admin: 04/15/20 11:47 Dose: 17 gm Documented by: Sertraline HCl (Sertraline Hcl 50 Mg Tablet) 50 mg PO HS COUNTS INCLUDE 234 BEDS AT THE [facility] Stop: 05/14/20 20:59 Last Admin: 04/15/20 20:06 Dose: 50 mg Documented by: Umeclidinium/Vilanterol (Umeclidinium/Vilanterol 62.5/25mcg 7 Puffs/Inhaler) 1 puffs INH QAM COUNTS INCLUDE 234 BEDS AT THE [facility] Stop: 05/15/20 08:59 Last Admin: 04/15/20 09:06 Dose: 1 puffs Documented by: PG Care Time/CCT Total # of Minutes Spent Total Time Spent with Patient: Total time spent is greater than 50% in coordination of care (as documented) at patient's floor/unit and/or counseling patient: Coding Level of Care Code 61997 Subseq Hosp Care Lvl 2 Diagnoses Bacterial pneumonia J15.9 Acute respiratory failure with hypoxia J96.01 COPD with emphysema J43.9 Emphysema type: unspecified Malignant neoplasm of right upper lobe of lung C34.11 Aspergillosis B44.9 DVT prophylaxis Z29.9 Anemia D64.9 (1) COPD with emphysema Emphysema type: unspecified Qualified Code(s): J43.9 - Emphysema, unspecified
[2020-04-16] MEDS: UMECLIDINIUM/VILANTEROL 62.5/25MCG 7 PUFFS/INHALER INH SCH (08:14)
[2020-04-16] MEDS: DOCUSATE SODIUM 100 MG CAP PO SCH ×2 (08:15→20:01)
[2020-04-16] MEDS: PANTOprazole 40 MG TAB PO SCH (08:15)
[2020-04-16] MEDS: ENOXAPARIN INJ 60 MG/0.6 ML SYR SQ SCH ×2 (08:15→20:02)
[2020-04-16] MEDS: guaiFENesin 600 MG TABCR PO SCH ×2 (08:15→20:02)
[2020-04-16] MEDS: POLYETHYLENE (MIRALAX) 17 GM PACK PO PRN (08:23)
[2020-04-16] MEDS: ONDANSETRON INJ 2 MG/ML 2 ML VIAL IV PRN ×2 (09:50→19:25)
[2020-04-16] MEDS: MAGNESIUM OXIDE 400 MG TAB PO SCH (10:14)
[2020-04-16 11:10] LABS: Hematocrit (blood only) 24.4 % (42-52); Hemoglobin 7.7 g/dL (14.0-18.0); Mean Corpuscular Hemoglobin 31.2 pg (25-34); Mean Corpuscular Hgb Conc 31.6 g/dL (32-36); Mean Corpuscular Volume 98.8 fL (80-100); Mean Platelet Volume 8.3 fL (7.4-10.4); Platelet Count 213 K/uL (130-400); RDW Coefficient of Variation 19.6 % (11.5-14.5); RDW Standard Deviation 70.7 fL (36.4-46.3); Red Blood Count 2.47 M/uL (4.7-6.1); White Blood Count 5.97 K/uL (4.8-10.8)
[2020-04-16 11:43] LABS: BUN Creatinine Ratio 12.6 (10-20); Calcium 8.7 mg/dl (8.5-10.1); Creatinine Clr Calc Pharmacy 105.7 ml/min; Est GFR (African American) 127.1; Est GFR (Non-African American) 109.7; Potassium 4.1 mmol/L (3.5-5.1)
[2020-04-16 11:46] LABS: Albumin Globulin Ratio 0.3 (0.9-2); Bilirubin,Total 0.3 mg/dl (0.2-1); Globulin 5.8 gm/dl (2.5-4.0); Total Protein 7.8 gm/dl (6.4-8.2)
[2020-04-16] MEDS: AZITHROMYCIN 500 MG in DEXTROSE 5% 250 ML IV SCH (14:13)
[2020-04-16] MEDS ORDERED: bisacodyL 5 MG TABEC PO PRN (14:31)
[2020-04-16] MEDS: cefTRIAXone SODIUM 2,000 MG in DEXTROSE 5% 50 ML IV SCH (16:28)
--- NOTE | 2020-04-16 17:13 | Pulmonology Progress Note ---
Date of Service April 16, 2020 Assessment & Plan (1) Bacterial pneumonia: (2) Acute respiratory failure with hypoxia: CT chest 04/15/2020: Right upper cavitary lesion again appreciated with thick cavity and aspergilloma. There is dense consolidative process appreciated especially in the left upper and left lower lobe with air bronchograms. --Acute respiratory failure with hypoxia Likely secondary to multilobar pneumonia Continue with antibiotics O2 supplementation to keep O2 saturation greater than 88-90% Continue with atypical coverage. Pro troponin 0.06, COVID-19 PCR -ve 04/14/2020 Follow-up sputum culture. 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 Patient will need prolonged antibiotics because he has had multiple infections in the past. Would recommend at least for 14 days. Follow sputum culture. Continue with guaifenesin, flutter valve as well as incentive spirometry Continue with Mucomyst Repeat chest x-ray in the morning. Please note the above document was generated using voice recognition software. It may contain grammatical, syntax or spelling errors.Any formal questions or concerns about the content, text or information contained within the body of this dictation should be directly addressed to the provider for clarification. (3) COPD with emphysema: Emphysema type: unspecified Qualified Code(s): J43.9 - Emphysema, unspecified (4) Cavitary lung disease: Admission and Anticipated Discharge Date Admission Date: April 14, 2020 Subjective Patient seen and examined at bedside. No acute distress, no adverse events overnight. Patient says that he is able to bring up phlegm easier than before. He feels better when it comes to his breathing. He did complain of some nausea today. No vomiting. Good appetite. Review of Systems Review of Systems: All systems reviewed & are unremarkable except as noted in Subjective Physical Exam Physical Exam: Constitutional: No acute distress HEENT: EOMI, PERRLA Respiratory system: Decreased air entry bilaterally, no wheeze, no rhonchi, positive diffuse crackles appreciated bilaterally upper and lower CVS: S1-S2 positive, no murmurs or gallops Abdomen: Soft, nontender, nondistended, positive bowel sounds x4 Extremities: +2 pulses bilaterally radialis/ dorsalis pedis, no cyanosis, no edema Neuro: Awake alert oriented x3 Psych: Normal mood and affect G/U: No Kaur Skin: no rashes, warm and dry Lymphatic: no cervical or axillary lymphadenopathy Results & Data Results & Data ([facility]) Vital Signs (Past 12 Hours) Vital Signs Temp Pulse Resp BP Pulse Ox 04/16/20 15:47 36.7 C 89 17 95/50 L 95 04/16/20 14:56 79 18 93 04/16/20 10:48 77 18 96 04/16/20 07:41 36.9 C 83 16 101/55 L 93 04/16/20 07:22 90 18 93 04/16/20 10:56 04/16/20 10:56 PG Care Time/CCT Total # of Minutes Spent Total Time Spent with Patient: Total time spent is greater than 50% in coordination of care (as documented) at patient's floor/unit and/or counseling patient: Coding Level of Care Code 29896 Subseq Hosp Care Lvl 3 Diagnoses Bacterial pneumonia J15.9 Acute respiratory failure with hypoxia J96.01 COPD with emphysema J43.9 Emphysema type: unspecified Cavitary lung disease J98.4
[2020-04-16] MEDS: SERTRALINE HCL 50 MG TABLET PO SCH (20:02)
[2020-04-17] MEDS: ALBUT/IPRATROP 3MG/0.5MG NEB 3 ML VIAL NEB SCH ×6 (03:03→23:44)
[2020-04-17] MEDS: oxyCODONE HCL IR 5 MG TAB (IMMEDIATE RELEASE) PO PRN ×5 (03:21→20:50)
[2020-04-17] MEDS: ACETYLCYSTEINE 20% INHAL SOLN 4ML ***DISPENSED BY RESP. INH SCH ×2 (07:12→19:26)
[2020-04-17] MEDS: POLYETHYLENE (MIRALAX) 17 GM PACK PO PRN (07:54)
--- NOTE | 2020-04-17 08:47 | Pulmonology Progress Note ---
Date of Service April 17, 2020 Assessment & Plan (1) Bacterial pneumonia: (2) Acute respiratory failure with hypoxia: CT chest 04/15/2020: Right upper cavitary lesion again appreciated with thick cavity and aspergilloma. There is dense consolidative process appreciated especially in the left upper and left lower lobe with air bronchograms. --Acute respiratory failure with hypoxia Likely secondary to multilobar pneumonia Continue with antibiotics O2 supplementation to keep O2 saturation greater than 88-90% Continue with atypical coverage. 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 Has not been on voriconazole since 03/08/2020 QTc 420 --COPD with severe emphysema and chronic bronchitis Continue with Anoro Plan: Continue with antibiotics. Patient will need prolonged antibiotics because he has had multiple infections in the past. Would recommend at least for 14 days. Follow sputum culture. Continue with guaifenesin, flutter valve as well as incentive spirometry Continue with Mucomyst Follow-up chest x-ray from today Please note the above document was generated using voice recognition software. It may contain grammatical, syntax or spelling errors.Any formal questions or concerns about the content, text or information contained within the body of this dictation should be directly addressed to the provider for clarification. (3) COPD with emphysema: Emphysema type: unspecified Qualified Code(s): J43.9 - Emphysema, unspecified (4) Cavitary lung disease: Admission and Anticipated Discharge Date Admission Date: April 14, 2020 Subjective Patient seen and examined at bedside. No acute distress. No adverse events overnight. States that he is feeling better since the time he came in but still the same as yesterday. Still bringing up copious phlegm. He says that he is bringing more phlegm after getting the Mucomyst treatment. Does complain of some chest pain on the right side which he has since the diagnosis of cancer. No hemoptysis. Review of Systems Review of Systems: All systems reviewed & are unremarkable except as noted in Subjective Physical Exam Physical Exam: Constitutional: No acute distress HEENT: EOMI, PERRLA Respiratory system: Decreased air entry bilaterally, no wheeze, no rhonchi, positive diffuse crackles appreciated bilaterally upper and lower CVS: S1-S2 positive, no murmurs or gallops Abdomen: Soft, nontender, nondistended, positive bowel sounds x4 Extremities: +2 pulses bilaterally radialis/ dorsalis pedis, no cyanosis, no edema Neuro: Awake alert oriented x3 Psych: Normal mood and affect G/U: No Kaur Skin: no rashes, warm and dry Lymphatic: no cervical or axillary lymphadenopathy Results & Data Results & Data ([facility]) Vital Signs (Past 12 Hours) Vital Signs Temp Pulse Resp BP BP Pulse Ox 04/17/20 07:39 37.1 C 74 17 94/56 L 92 04/17/20 07:13 68 18 91 04/17/20 03:20 36.6 C 76 20 110/64 93 04/17/20 03:06 78 16 94 04/16/20 23:45 37 C 95 H 20 120/72 96 04/16/20 23:20 78 16 97 04/16/20 10:56 04/16/20 10:56 PG Care Time/CCT Total # of Minutes Spent Total Time Spent with Patient: Total time spent is greater than 50% in coordination of care (as documented) at patient's floor/unit and/or counseling patient: Coding Level of Care Code 27764 Subseq Hosp Care Lvl 3 Diagnoses Bacterial pneumonia J15.9 Acute respiratory failure with hypoxia J96.01 COPD with emphysema J43.9 Emphysema type: unspecified Cavitary lung disease J98.4
[2020-04-17] MEDS: ENOXAPARIN INJ 60 MG/0.6 ML SYR SQ SCH ×2 (08:56→20:46)
[2020-04-17] MEDS: DOCUSATE SODIUM 100 MG CAP PO SCH ×2 (08:56→20:50)
[2020-04-17] MEDS: MAGNESIUM OXIDE 400 MG TAB PO SCH (08:56)
[2020-04-17] MEDS: UMECLIDINIUM/VILANTEROL 62.5/25MCG 7 PUFFS/INHALER INH SCH (08:57)
[2020-04-17] MEDS: guaiFENesin 600 MG TABCR PO SCH ×2 (08:57→20:46)
[2020-04-17] MEDS: PANTOprazole 40 MG TAB PO SCH (08:57)
--- NOTE | 2020-04-17 10:57 | XRay Report ---
SINGLE VIEW CHEST CLINICAL HISTORY: Follow-up airspace consolidation. FINDINGS: An AP, portable, upright chest radiograph is compared to study dated 04/15/2020 and correlat ed with chest CT dated 04/15/2020. The examination is degraded by portable technique and apical lordot ic positioning. The cardiomediastinal silhouette is unremarkable. Fibrotic change with debris-contain ing cavitation is again seen at the right apex. Chronic fibrotic changes again noted in the left midl victor m. Superimposed airspace consolidation in the right upper lobe and the left midlung is similar to p revious. Mild elevation of the right hemidiaphragm is unchanged. No large pleural effusion is identif ied. No pneumothorax is seen. There are healed left-sided rib fractures. IMPRESSION: 1. Chronic fibrotic change throughout both lungs with cavitation and debris at the right apex is brian lar to recent prior examinations. 2. Foci of superimposed airspace consolidation in the right upper lobe and in the left midlung are si milar to 04/15/2020. Correlate clinically for evidence of pneumonia. ACT 112: Negative or not required by law. Electronically signed by: Ethan Larkin M.D. 04/17/2020 10:55 AM
[2020-04-17] MEDS ORDERED: MAGNESIUM HYDROXIDE SUSP 30 ML UDC PO ONE (12:53)
--- NOTE | 2020-04-17 13:04 | Hospitalist Progress Note ---
Date of Service April 17, 2020 Assessment & Plan (1) Bacterial pneumonia: (2) Acute respiratory failure with hypoxia: Likely secondary to multilobar pneumonia - CT with RU cavitary lesion again seen with thick cavity and aspergilloma. Dense consolidation left upper and left lower lobe with bronchograms Continue with Rocephin/Zithromax as per pulm O2 supplementation to keep O2 saturation greater than 88-90% Guaifenisin, flutter valve, IS, mucomyst COVID neg on admission 04/14/2020 Follow-up sputum culture, preliminary moderate normal mario present Blood cultures preliminary no growth in aerobic anaerobic bottle times 24 hours. Per pulm consult: Patient will need prolonged antibiotics because he has had multiple infections in the past. Recommends at least for 14 days. Add probiotics (3) COPD with emphysema: Continue Anoro (4) Malignant neoplasm of right upper lobe of lung: S/p chemo and radiation Follows up with oncology (5) Aspergillosis: Completed treatment with voriconazole (6) DVT prophylaxis: History of DVT upper extremity around previous PICC Continue enoxaparin 60 mg bid (7) Anemia: No s/s of bleeding. Recheck with hemoglobin 7.7 Patient describes no new symptoms, vital signs are stable Recheck CBC in the a.m. (8) Constipation: Add cisco ARENAS Probiotics Admission and Anticipated Discharge Date Admission Date: April 14, 2020 Subjective Pt states his breathing is better than [employer], but about the same as yesterday. He states he had DELGADO with ambulating to and from the bathroom. No issues at rest. He does not wear O2 at home. Tolerating PO, but has ongoing nausea without emesis that he has had since chemo. He has chest pain as well that is felt to be related to his lung cancer and is stable. Pt denies fever, abd pain, LE pain or swelling. Pt states he has been using his IS regularly throughout the day. Pt states he has not had a bowel movement in 4-5days. No abd pain, but does feel constipated. Review of Systems Review of Systems: Pertinent positives and negatives reviewed in HPI--all others negative Physical Exam Constitutional: WD/WN, vitals as above Eyes: normal visual kovacs by confrontation and + anicteric sclerae Neck: normal visual inspection and trachea midline Respiratory: normal respiratory effort; no respiratory distress Auscultation: + diminished lung sounds and + crackles; no wheezes Cardiovascular: Rate/Rhythm: regular rate and regular rhythm Gastrointestinal (Abdomen): Inspection/Auscultation: abdomen not distended Percussion/Palpation: abdomen soft; abdomen nontender Musculoskeletal: Head/Neck/Chest: normocephalic and head atraumatic negative for edema, peripheral pulses intact Skin: no rashes, warm and dry Neurologic: awake; not confused Speech / Cognition: normal speech Psychiatric: A+Ox3, euthymic affect Results & Data Results & Data ([facility]) Vital Signs (Past 12 Hours) Vital Signs Temp Pulse Resp BP BP Pulse Ox 04/17/20 11:15 77 18 97 04/17/20 07:39 37.1 C 74 17 94/56 L 92 04/17/20 07:13 68 18 91 04/17/20 03:20 36.6 C 76 20 110/64 93 04/17/20 03:06 78 16 94 PG Care Time/CCT Total # of Minutes Spent Total Time Spent with Patient: Total time spent is greater than 50% in coordination of care (as documented) at patient's floor/unit and/or counseling patient: Coding Level of Care Code 52303 Subseq Hosp Care Lvl 3 Diagnoses Bacterial pneumonia J15.9 Acute respiratory failure with hypoxia J96.01 COPD with emphysema J43.9 Emphysema type: unspecified Malignant neoplasm of right upper lobe of lung C34.11 Aspergillosis B44.9 DVT prophylaxis Z29.9 Anemia D64.9 Constipation K59.00 (1) COPD with emphysema Emphysema type: unspecified Qualified Code(s): J43.9 - Emphysema, unspecified
[2020-04-17] MEDS: AZITHROMYCIN 500 MG in DEXTROSE 5% 250 ML IV SCH (13:20)
[2020-04-17] MEDS: SENNA 8.6 MG TAB PO SCH (14:20)
[2020-04-17] MEDS: cefTRIAXone SODIUM 2,000 MG in DEXTROSE 5% 50 ML IV SCH (15:36)
[2020-04-17] MEDS: LACTOBACILLUS ACIDOPHILUS 1 GM PACK PO SCH (17:11)
[2020-04-17] MEDS: SERTRALINE HCL 50 MG TABLET PO SCH (20:46)
[2020-04-18] MEDS: ALBUT/IPRATROP 3MG/0.5MG NEB 3 ML VIAL NEB SCH ×6 (03:41→23:04)
[2020-04-18] MEDS: oxyCODONE HCL IR 5 MG TAB (IMMEDIATE RELEASE) PO PRN ×5 (05:58→22:36)
[2020-04-18 06:22] LABS: Hematocrit (blood only) 26.4 % (42-52); Hemoglobin 8.4 g/dL (14.0-18.0); Mean Corpuscular Hemoglobin 31.2 pg (25-34); Mean Corpuscular Hgb Conc 31.8 g/dL (32-36); Mean Corpuscular Volume 98.1 fL (80-100); Mean Platelet Volume 8.5 fL (7.4-10.4); Platelet Count 302 K/uL (130-400); RDW Coefficient of Variation 19.4 % (11.5-14.5); RDW Standard Deviation 69.5 fL (36.4-46.3); Red Blood Count 2.69 M/uL (4.7-6.1); White Blood Count 6.39 K/uL (4.8-10.8)
[2020-04-18] MEDS: ACETYLCYSTEINE 20% INHAL SOLN 4ML ***DISPENSED BY RESP. INH SCH ×2 (07:37→19:38)
[2020-04-18] MEDS: UMECLIDINIUM/VILANTEROL 62.5/25MCG 7 PUFFS/INHALER INH SCH (09:20)
[2020-04-18] MEDS: guaiFENesin 600 MG TABCR PO SCH ×2 (09:21→20:46)
[2020-04-18] MEDS: MAGNESIUM OXIDE 400 MG TAB PO SCH (09:21)
[2020-04-18] MEDS: LACTOBACILLUS ACIDOPHILUS 1 GM PACK PO SCH ×3 (09:21→17:09)
[2020-04-18] MEDS: PANTOprazole 40 MG TAB PO SCH (09:21)
[2020-04-18] MEDS: ENOXAPARIN INJ 60 MG/0.6 ML SYR SQ SCH (09:22)
[2020-04-18] MEDS: DOCUSATE SODIUM 100 MG CAP PO SCH ×2 (09:24→20:50)
[2020-04-18] MEDS: SENNA 8.6 MG TAB PO SCH (09:26)
--- NOTE | 2020-04-18 12:29 | Pulmonology Progress Note ---
Date of Service April 18, 2020 Assessment & Plan (1) Bacterial pneumonia: (2) Acute respiratory failure with hypoxia: --Acute respiratory failure with hypoxia Covid PCR was negative. Sputum cultures negative to date. Currently on ceftriaxone and azithromycin. Previously treated for aspergillosis. Will perform bronchoscopy tomorrow with BAL to rule out infection. Will consider doing transbronchial biopsy to rule out lymphangitic carcinomatosis. If no sig ns of infection, will start on half milligram per kilogram of prednisone for presumptive chemoradiation pneumonitis. Previous bronchoscopy BAL fluid cytology noted "severe acute inflammation". 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 Has not been on voriconazole since 03/08/2020 QTc 420 --COPD with severe emphysema and chronic bronchitis Continue with Anoro N.p.o. after midnight. Hold anticoagulation day of procedure. He does have a history of recent PICC line DVT. We will hold Lovenox today and tomorrow. (3) COPD with emphysema: Emphysema type: unspecified Qualified Code(s): J43.9 - Emphysema, unspecified (4) Cavitary lung disease: (5) DVT prophylaxis: (6) Aspergillosis: Admission and Anticipated Discharge Date Admission Date: April 14, 2020 Subjective Patient is anxious to go home today. He is still feeling somewhat short of breath. He denies any chest pain. He does have a cough that is productive of yellowish sputum. This is improving. Review of Systems Review of Systems: All systems reviewed & are unremarkable except as noted in HPI & below Physical Exam Physical Exam: Constitutional: No acute distress HEENT: EOMI, PERRLA Respiratory system: Mild crackles in the upper lobes. Diminished lung sounds bilaterally. CVS: S1-S2 positive, no murmurs or gallops Abdomen: Soft, nontender, nondistended, positive bowel sounds x4 Extremities: +2 pulses bilaterally radialis/ dorsalis pedis, no cyanosis, no edema Neuro: Awake alert oriented x3 Psych: Normal mood and affect G/U: No Kaur Skin: no rashes, warm and dry Lymphatic: no cervical or axillary lymphadenopathy Results & Data Results & Data ([facility]) Vital Signs (Past 12 Hours) Vital Signs Temp Pulse Resp BP Pulse Ox 04/18/20 11:01 77 18 97 04/18/20 08:00 98.6 F 78 18 103/61 94 04/18/20 07:40 99 H 18 93 I reviewed the vital signs, labs and imaging. PG Care Time/CCT Total # of Minutes Spent Total Time Spent with Patient: Total time spent is greater than 50% in coordination of care (as documented) at patient's floor/unit and/or counseling patient: Coding Level of Care Code 24791 Subseq Hosp Care Lvl 3 Diagnoses Bacterial pneumonia J15.9 Acute respiratory failure with hypoxia J96.01 COPD with emphysema J43.9 Emphysema type: unspecified Cavitary lung disease J98.4 DVT prophylaxis Z29.9 Aspergillosis B44.9 Time Spent (min) 34
[2020-04-18] MEDS: AZITHROMYCIN 500 MG in DEXTROSE 5% 250 ML IV SCH (14:06)
[2020-04-18] MEDS: ONDANSETRON INJ 2 MG/ML 2 ML VIAL IV PRN (14:29)
--- NOTE | 2020-04-18 16:19 | Hospitalist Progress Note ---
Date of Service April 18, 2020 Assessment & Plan (1) Acute respiratory failure with hypoxia: Likely secondary to multilobar pneumonia - CT with RUL cavitary lesion again seen with thick cavity and aspergilloma. Dense consolidation left upper and left lower lobe with bronchograms Continue with abx as below O2 supplementation to keep O2 saturation greater than 88-90% Guaifenisin, flutter valve, IS, mucomyst COVID neg on admission 04/14/2020 Blood cultures preliminary no growth in aerobic anaerobic bottle times 24 hours. Per pulm consult: Patient will need prolonged antibiotics because he has had multiple infections in the past. Recommends at least for 14 days. Plan for bronch tomorrow, hold Lovenox continue probiotics (2) Bacterial pneumonia: Treating with ceftriaxone, azithro plan for bronch tomorrow as per Pulm Sputum cx here with mod normal mario Afebrile, withproductive sputum With h/o Aspergillosis and lung CA (3) COPD with emphysema: Severe Continue Anoro (4) Malignant neoplasm of right upper lobe of lung: S/p chemo and radiation Follows up with oncology (5) Aspergillosis: Completed treatment with voriconazole (6) Anemia: No s/s of bleeding. Is borderline macrocytic Had EGD/Colonoscopy at age 51 reportedly normal as per pt hgb slightly improved today at 8, ranges 7.7-10 in last 3-4 months, was on chemotherapy but not in 2 months -check Fe studies, B12, folate, CBC in AM (7) Constipation: secondary to opioids continue MOM, senna Probiotics (8) DVT prophylaxis: History of DVT upper extremity around previous PICC about 3 months ago Continue enoxaparin 60 mg bid indefinitely given underlying malignancy--defer to Heme/Onc Admission and Anticipated Discharge Date Admission Date: April 14, 2020 Subjective Feels his SOB has improved and is coughing up mucus. Has constant chronic chest pain for which he takes pain meds. Moved his bowels yesterday. Is ready to have a bronch tomorrow. No bleeding in stool ir urine now or ever. Had EGD/colonoscopy at age 51 and reports was told they were normal Review of Systems Review of Systems: All systems reviewed & are unremarkable except as noted in HPI & below Physical Exam Constitutional: well nourished and + thin; no acute distress Eyes: + anicteric sclerae Neck: trachea midline, no thyromegaly Respiratory: normal respiratory effort Auscultation: + crackles (bilat mid and lower lung kovacs); no wheezes Cardiovascular: RRR, no murmur, no edema Chest (Breasts): Chest: normal inspection of chest Gastrointestinal (Abdomen): normal bowel sounds, soft, nontender, no hepatosplenomegaly Musculoskeletal: Extremities: extremities normal to inspection; no cyanosis and no clubbing Skin: no rashes, warm and dry Neurologic: moves all extremities and awake; no focal motor deficits Psychiatric: A+Ox3, euthymic affect Lymphatic: no lymphedema Results & Data Results & Data ([place]) Vital Signs (Past 12 Hours) Vital Signs Temp Pulse Resp BP Pulse Ox 04/18/20 15:27 74 16 97 04/18/20 15:13 36.6 C 74 16 124/64 97 04/18/20 11:01 77 18 97 04/18/20 08:00 37 C 78 18 103/61 94 04/18/20 07:40 99 H 18 93 Laboratory Results 04/18/20 04/18/20 Range/Units 11:32 05:51 WBC 6.39 (4.8-10.8) K/uL RBC 2.69 L (4.7-6.1) M/uL Hgb 8.4 L (14.0-18.0) g/dL Hct 26.4 L (42-52) % MCV 98.1 (80-100) fL MCH 31.2 (25-34) pg MCHC 31.8 L (32-36) g/dL RDW Std Deviation 69.5 H (36.4-46.3) fL RDW Coeff of [place] 19.4 H (11.5-14.5) % Plt Count 302 (130-400) K/uL MPV 8.5 (7.4-10.4) fL Procalcitonin 0.06 (0-0.5) ng/ml PG Care Time/CCT Total # of Minutes Spent Total Time Spent with Patient: Total time spent is greater than 50% in coordination of care (as documented) at patient's floor/unit and/or counseling patient: Coding Level of Care Code 23717 Subseq Hosp Care Lvl 3 Diagnoses Acute respiratory failure with hypoxia J96.01 Bacterial pneumonia J15.9 COPD with emphysema J43.9 Emphysema type: unspecified Malignant neoplasm of right upper lobe of lung C34.11 Aspergillosis B44.9 Anemia D64.9 Constipation K59.00 DVT prophylaxis Z29.9 (1) COPD with emphysema Emphysema type: unspecified Qualified Code(s): J43.9 - Emphysema, unspecified
[2020-04-18] MEDS: cefTRIAXone SODIUM 2,000 MG in DEXTROSE 5% 50 ML IV SCH (16:27)
[2020-04-18] MEDS: SERTRALINE HCL 50 MG TABLET PO SCH (20:47)
[2020-04-18] MEDS: COUGH DROP (SUGAR FREE) LOZ 24 LOZ/1 BOX BUCCAL PRN (20:50)
[2020-04-19] MEDS: ALBUT/IPRATROP 3MG/0.5MG NEB 3 ML VIAL NEB SCH ×6 (02:36→22:55)
[2020-04-19] MEDS: oxyCODONE HCL IR 5 MG TAB (IMMEDIATE RELEASE) PO PRN ×5 (04:37→22:23)
[2020-04-19 05:55] LABS: Basophils # (auto) 0.01 K/uL (0-0.2); Basophils % (auto) 0.2 %; Eosinophils # (auto) 0.08 K/uL (0-0.5); Eosinophils % (auto) 1.2 %; Hematocrit (blood only) 26.1 % (42-52); Hemoglobin 8.3 g/dL (14.0-18.0); Immature Granulocytes # (auto) 0.03 K/uL (0.00-0.02); Immature Granulocytes % (auto) 0.5 %; Lymphocytes # (auto) 0.47 K/uL (1.2-3.4); Lymphocytes % (auto) 7.2 %; Mean Corpuscular Hemoglobin 30.9 pg (25-34); Mean Corpuscular Hgb Conc 31.8 g/dL (32-36); Mean Platelet Volume 8.5 fL (7.4-10.4); Monocytes # (auto) 0.22 K/uL (0.11-0.59); Monocytes % (auto) 3.4 %; Neutrophils % (auto) 87.5 %; Platelet Count 311 K/uL (130-400); RDW Standard Deviation 67.8 fL (36.4-46.3); Red Blood Count 2.69 M/uL (4.7-6.1); White Blood Count 6.51 K/uL (4.8-10.8)
[2020-04-19 06:20] LABS: BUN Creatinine Ratio 16.8 (10-20); Calcium 9.1 mg/dl (8.5-10.1); Creatinine Clr Calc Pharmacy 124.2 ml/min; Est GFR (African American) 135.9; Est GFR (Non-African American) 117.2; Potassium 3.9 mmol/L (3.5-5.1)
[2020-04-19 06:24] LABS: Albumin Globulin Ratio 0.3 (0.9-2); Bilirubin,Total 0.2 mg/dl (0.2-1); Ferritin 597.4 ng/ml (8-388)
[2020-04-19] MEDS: ACETYLCYSTEINE 20% INHAL SOLN 4ML ***DISPENSED BY RESP. INH SCH ×2 (07:11→19:23)
[2020-04-19 07:21] LABS: Folate (Folic Acid) 9.1 ng/ml (>5.38)
[2020-04-19] MEDS: UMECLIDINIUM/VILANTEROL 62.5/25MCG 7 PUFFS/INHALER INH SCH (08:40)
[2020-04-19] MEDS: PANTOprazole 40 MG TAB PO SCH (08:41)
[2020-04-19] MEDS ORDERED: MIDAZOLAM HCL 5 MG/ML 1 ML VIAL ONE (12:00)
[2020-04-19] MEDS ORDERED: fentaNYL citrate 100 MCG/2 ML VIAL ONE (12:00)
--- NOTE | 2020-04-19 12:17 | Pre Anesthesia Assessment ---
Date of Service April 19, 2020 Pre Sedation Assessment Vital Signs Temp Pulse Pulse Resp BP Pulse Ox 04/19/20 11:55 77 18 113/69 100 04/19/20 11:10 74 16 97 04/19/20 07:44 98.1 F 96 H 18 117/60 92 04/19/20 07:12 84 18 92 04/18/20 23:10 99.3 F 79 22 125/67 91 04/18/20 23:05 74 18 97 04/18/20 19:38 74 18 97 04/18/20 15:27 74 16 97 04/18/20 15:13 97.9 F 74 16 124/64 97 Pre-Sedation Airway Assessment Smoking Status: Former smoker Hx Sleep Apnea: No Short, Thick Neck: No Thyromental Distance: > or= 3.5 Finger Breadths Oral Cavity: + Dental Abnormalities Mallampati Class: II ASA: ASA3 NPO Status Date of Last Intake of Fluids: 04/19/20 Time of Last Intake of Fluids: 00:00 Last Oral Intake of Fluids Comment: sips with medication Date of Last Intake of Solid Food: 04/19/20 Time of Last Intake of Solid Foods: 00:00 Notes The planned sedation has been discussed with the patient. Informed Consent was obtained. I have identified the patient, determined the appropriateness of sedation and have assessed the patient immediately prior to the procedure. All medicine(s) and interventions are by my order.
--- NOTE | 2020-04-19 12:17 | History & Physical Bridge Note ---
Date of Service April 19, 2020 History & Physical Bridge Note I have examined the patient, reviewed the History & Physical and in the interval since the performance of the History & Physical I have noted the following changes of clinical significance: no changes noted
--- NOTE | 2020-04-19 12:53 | Post Anesthesia Assessment ---
Date of Service April 19, 2020 Post Sedation Assessment Vital Signs Temp Pulse Pulse Resp BP Pulse Ox 04/19/20 12:45 102 H 22 128/79 95 04/19/20 12:40 106 H 22 138/86 95 04/19/20 12:35 81 18 109/66 100 04/19/20 12:30 84 16 104/71 100 04/19/20 12:25 84 18 106/67 100 04/19/20 12:20 84 18 120/70 100 04/19/20 12:15 75 18 118/66 100 04/19/20 11:55 77 18 113/69 100 04/19/20 11:10 74 16 97 04/19/20 07:44 98.1 F 96 H 18 117/60 92 04/19/20 07:12 84 18 92 04/18/20 23:10 99.3 F 79 22 125/67 91 04/18/20 23:05 74 18 97 04/18/20 19:38 74 18 97 04/18/20 15:27 74 16 97 04/18/20 15:13 97.9 F 74 16 124/64 97 Recovery Score Activity: Moves 4 extremities Respiration: Deep Breath/Cough Circulation: +/-20% PreAnes Value Consciousness: Arouseable (by name) Oxygen Saturation: O2 needed for >90% Post Anesthesia Score: 8 Discharge Sedation Level of Care: Fast Track Phase II Post Sedation Plan On clinical assessment, the patient appears to have tolerated the sedation without complications. Patient is recovering as anticipated. Patient will continue to be monitored by nursing and may be discharged when sedation discharge criteria are met per below protocol. Upon Completions of procedure up to 15 minutes continue every 5 minute vital signs and the P.A.R. score; then discharge to a Phase I or Fast Track to Phase II per the following guidelines: * Discharge Patient to appropriate Phase II area if PAR is 8 or greater or return to pre- procedure baseline. The post - procedure orders will be as directed. * If PAR score is less than 8 or not return to pre-procedure baseline then patient will follow Phase I monitoring till PAR is reached for Phase II. The Phase I may be done in procedure room or may call to secure a Phase I area. * If naloxone or flumazenil are used for reversal, hold in Phase I for continued monitoring from when last reversal dose was given for a minimum of 60 minutes or longer pending the nurse and/or physician discretion of patient condition before discharge to Phase II. Please call the Sedation Physician to re-evaluate and complete post-note for discharge to Phase II area. Do NOT discharge from procedure sedation or Phase 1 until post- sedation evaluation note is complete by procedure /sedation MD Sedation Discharge Instructions to be given to the patient at discharge to home.
--- NOTE | 2020-04-19 12:55 | Procedure Note ---
Procedure Note Date of Service April 19, 2020 Note PREOPERATIVE DIAGNOSIS: Multifocal pneumonia with history of lung cancer status post chemoradiation POSTOPERATIVE DIAGNOSIS: Same as above PROCEDURE PERFORMED: Flexible fiberoptic bronchoscopy with bronchial alveolar lavage of the left upper lobe COMPLICATIONS: None. INDICATION: Rule out infection Procedural sedation began at 12:19 PM and ended at 12:45 PM PROCEDURE: After obtaining an informed consent, the patient was brought to the Bronchoscopy Suite. The patient had appropriate oxygen, blood pressure, heart rate, and respiratory rate monitoring applied and monitored continuously throughout the procedure. Supplemental oxygen via nasal cannula as per nursing records was applied to the nasopharynx with adequate saturations achieved. Topical anesthesia with nebulized 1% lidocaine was achieved. Subsequent to this, the patient was premedicated with 6 mg of midazolam and 125 mcg of fentanyl. The oropharynx and larynx were well visualized and showed mild erythema with evidence of oral candidiasis. There was normal vocal cord motion without masses or lesions. Additional topical anesthesia with 1% lidocaine was applied to the trachea and dinora. The trachea appeared normal with mild amount of posterior wall collapse with coughing.The bronchoscope was then advanced through the dinora, which was sharp. The scope was then advanced into the right main stem and each segment, subsegement in the right upper lobe, right middle lobe and right lower lobe was visualized. There was moderate amounts of thick, white mucopurulent secretions noted. There were no other findings including evidence of mass, hemorrhage. The bronchoscope was subsequently withdrawn and advanced into the left mainstem. Again, each segment and subsegment was well visualized. No specific masses or other lesions were identified throughout the tracheobronchial tree on the left. There was moderate amounts of thick white mucopurulent secretions noted. The bronchoscope was then wedged in the lingula and bronchoalveolar lavage samples were obtained. 120 ml of saline was instilled and 42 ml of cloudy white fluid was aspirated back.The bronchoscope was withdrawn and the area was suctioned clear. The bronchoscope was then withdrawn. The patient was coughing vigorously throughout the procedure. The patient tolerated the procedure well without evidence of desaturation or complications. Bronchoalveolar lavage samples were sent for cell count, Gram stain and bacterial culture, AFB culture and smear, fungal culture and smear and cytology. Recommendations: Nystatin swish and swallow started for the oral candidiasis. Thick mucopurulent secretions bilaterally were seen. These were sent for culture. If Gram stain is unremarkable, will start 0.5 mg/kg prednisone. Coding CPT Codes Pulmonary/Thoracic - Pulmonary and Thoracic: 15787 Dx bronchoscopy/BAL ([id number]) Sedation/Anesthesia - Sedation/Anesthesia: 11720 Mod Sedation by the same physician;Init15 Min Child Age 5 & Up ([id number]) [facility] Codes (Charges) Pulmonary/Thoracic Procedure 1: Pulmonary and Thoracic: 75957 Dx bronchoscopy/BAL Sedation/Anesthesia Procedure 1: Sedation/Anesthesia: 84856 Mod Sedation by the same physician;Init15 Min Child Age 5 & Up Total Sedation Time (minutes): 26
[2020-04-19] MEDS ORDERED: ALBUT/IPRATROP 3MG/0.5MG NEB 3 ML VIAL NEB ONE (12:56)
[2020-04-19] MEDS ORDERED: LIDOCAINE HCL 2% (LOCAL) INJ 50 ML VIAL ONE (13:00)
[2020-04-19] MEDS: LACTOBACILLUS ACIDOPHILUS 1 GM PACK PO SCH ×3 (14:20→16:53)
[2020-04-19] MEDS: guaiFENesin 600 MG TABCR PO SCH ×2 (14:27→19:56)
[2020-04-19] MEDS: NYSTATIN SUSP 500,000 U/5 ML UDC PO SCH ×2 (14:27→19:56)
[2020-04-19] MEDS: SENNA 8.6 MG TAB PO SCH (14:27)
[2020-04-19] MEDS: MAGNESIUM OXIDE 400 MG TAB PO SCH (14:27)
[2020-04-19] MEDS: AZITHROMYCIN 500 MG in DEXTROSE 5% 250 ML IV SCH (14:32)
[2020-04-19] MEDS: DOCUSATE SODIUM 100 MG CAP PO SCH ×2 (14:32→19:59)
--- NOTE | 2020-04-19 14:47 | Hospitalist Progress Note ---
Date of Service April 19, 2020 Assessment & Plan (1) Acute respiratory failure with hypoxia: Likely secondary to multilobar pneumonia - CT with RUL cavitary lesion again seen with thick cavity and aspergilloma. Dense consolidation left upper and left lower lobe with bronchograms Continue with abx as below O2 supplementation to keep O2 saturation greater than 88-90% Guaifenisin, flutter valve, IS, mucomyst COVID neg on admission 04/14/2020 Blood cultures preliminary no growth to date Per pulm consult: Patient will need prolonged antibiotics because he has had multiple infections in the past. Recommends at least for 14 days. Now s/p bronch on 04/19-->with copious mucopurulent secretions, awaiting studies, culture If Gram stain on BAL negative, then plan to start prednisone tomorrow for possible radiation-induced pneumonitis continue probiotics (2) Bacterial pneumonia: Treating with ceftriaxone, azithro s/p bronch as above Sputum cx here with mod normal mario Afebrile, with productive sputum With h/o Aspergillosis and lung CA (3) COPD with emphysema: Severe Continue Anoro (4) Malignant neoplasm of right upper lobe of lung: S/p chemo and radiation Follows up with oncology (5) Aspergillosis: Completed treatment with voriconazole (6) Anemia: No s/s of bleeding. Is borderline macrocytic Had EGD/Colonoscopy at age 51 reportedly normal as per pt hgb stable today at 8, ranges 7.7-10 in last 3-4 months, was on chemotherapy but not in 2 months Fe studies, B12, folate all normal except Fe studies indicate chronic disease follow CBC (7) Constipation: secondary to opioids continue MOM, senna Probiotics (8) Oral candidiasis: seen on bronch -start Nystatin s/s x 14 days-end date 05/03 (9) DVT prophylaxis: History of DVT left upper extremity around previous PICC in 01/2020 Continue enoxaparin 60 mg bid indefinitely given underlying malignancy--defer to Heme/Onc when to stop--> was on hold for bronch--> ok to restart now as per d/w PULM Admission and Anticipated Discharge Date Admission Date: April 14, 2020 Subjective Pt had a bronch today and just finished eating his first meal of the day when I saw him. Feels a little better but still coughing a lot. Hopes he feels better by tomorrow now s/p bronch. No other acute concerns I discussed his care with PULM Review of Systems Review of Systems: All systems reviewed & are unremarkable except as noted in HPI & below Physical Exam Constitutional: well nourished and + thin; no acute distress Eyes: + anicteric sclerae Neck: trachea midline, no thyromegaly Respiratory: normal respiratory effort Auscultation: + crackles (bilat mid and lower lung kovacs although less tody on left); no wheezes Cardiovascular: RRR, no murmur, no edema Chest (Breasts): Chest: normal inspection of chest Gastrointestinal (Abdomen): normal bowel sounds, soft, nontender, no hepatosplenomegaly Musculoskeletal: Extremities: extremities normal to inspection; no cyanosis and no clubbing Skin: no rashes, warm and dry Neurologic: moves all extremities and awake; no focal motor deficits Psychiatric: A+Ox3, euthymic affect Lymphatic: no lymphedema Results & Data Results & Data ([facility]) Vital Signs (Past 12 Hours) Vital Signs Temp Pulse Pulse Resp BP Pulse Ox 04/19/20 13:29 36.6 C 84 18 109/66 93 04/19/20 13:05 89 18 106/69 95 04/19/20 13:00 88 18 102/68 94 04/19/20 12:55 96 H 18 114/70 95 04/19/20 12:50 90 18 115/74 95 04/19/20 12:45 102 H 22 128/79 95 04/19/20 12:40 106 H 22 138/86 95 04/19/20 12:35 81 18 109/66 100 04/19/20 12:30 84 16 104/71 100 04/19/20 12:25 84 18 106/67 100 04/19/20 12:20 84 18 120/70 100 04/19/20 12:15 75 18 118/66 100 04/19/20 11:55 77 18 113/69 100 04/19/20 11:10 74 16 97 04/19/20 07:44 36.7 C 96 H 18 117/60 92 04/19/20 07:12 84 18 92 Laboratory Results 04/19/20 04/19/20 04/19/20 Range/Units Unknown 05:36 05:36 WBC (4.8-10.8) K/uL RBC (4.7-6.1) M/uL Hgb (14.0-18.0) g/dL Hct (42-52) % MCV (80-100) fL MCH (25-34) pg MCHC (32-36) g/dL RDW Std Deviation (36.4-46.3) fL RDW Coeff of [place] (11.5-14.5) % Plt Count (130-400) K/uL MPV (7.4-10.4) fL Immature Gran % (Auto) % Neut % (Auto) % Lymph % (Auto) % [place] % (Auto) % Eos % (Auto) % Baso % (Auto) % Neut # (Auto) (1.4-6.5) K/uL Lymph # (Auto) (1.2-3.4) K/uL [place] # (Auto) (0.11-0.59) K/uL Eos # (Auto) (0-0.5) K/uL Baso # (Auto) (0-0.2) K/uL Immature Gran # (Auto) (0.00-0.02) K/uL Sodium 134 L (136-145) mmol/L Potassium 3.9 (3.5-5.1) mmol/L Chloride 101 (98-107) mmol/L Carbon Dioxide 29 (21-32) mmol/L Anion Gap 5.0 (3-11) BUN 10 (7-18) mg/dl Creatinine 0.57 L (0.6-1.4) mg/dl Est Cr Clr Drug Dosing 124.2 ml/min Est GFR ( Amer) 135.9 Est GFR (Non-Af Amer) 117.2 BUN/Creatinine Ratio 16.8 (10-20) Glucose 100 H (70-99) mg/dl Calcium 9.1 (8.5-10.1) mg/dl Iron 50 (35-175) mcg/dl TIBC 194 L (250-450) mcg/dl Transferrin 172 L (200-360) mg/dl Transferrin % Sat 21 (20-50) % Ferritin 597.4 H (8-388) ng/ml Total Bilirubin 0.2 (0.2-1) mg/dl AST 7 L (15-37) U/L ALT 16 (12-78) U/L Alkaline Phosphatase 85 (45-117) U/L Total Protein 8.0 (6.4-8.2) gm/dl Albumin 2.0 L (3.4-5.0) gm/dl Globulin 6.0 H (2.5-4.0) gm/dl Albumin/Globulin Ratio 0.3 L (0.9-2) Vitamin B12 703 (193-986) pg/ml Folate 9.10 (>5.38) ng/ml Legionella Source Pending Legionella Culture Pending Resp Virus Cult Rapid Pending Viral Specimen Source Pending 04/19/20 Range/Units 05:36 WBC 6.51 (4.8-10.8) K/uL RBC 2.69 L (4.7-6.1) M/uL Hgb 8.3 L (14.0-18.0) g/dL Hct 26.1 L (42-52) % MCV 97.0 (80-100) fL MCH 30.9 (25-34) pg MCHC 31.8 L (32-36) g/dL RDW Std Deviation 67.8 H (36.4-46.3) fL RDW Coeff of [place] 19.0 H (11.5-14.5) % Plt Count 311 (130-400) K/uL MPV 8.5 (7.4-10.4) fL Immature Gran % (Auto) 0.5 % Neut % (Auto) 87.5 % Lymph % (Auto) 7.2 % [place] % (Auto) 3.4 % Eos % (Auto) 1.2 % Baso % (Auto) 0.2 % Neut # (Auto) 5.70 (1.4-6.5) K/uL Lymph # (Auto) 0.47 L (1.2-3.4) K/uL [place] # (Auto) 0.22 (0.11-0.59) K/uL Eos # (Auto) 0.08 (0-0.5) K/uL Baso # (Auto) 0.01 (0-0.2) K/uL Immature Gran # (Auto) 0.03 H (0.00-0.02) K/uL Sodium (136-145) mmol/L Potassium (3.5-5.1) mmol/L Chloride (98-107) mmol/L Carbon Dioxide (21-32) mmol/L Anion Gap (3-11) BUN (7-18) mg/dl Creatinine (0.6-1.4) mg/dl Est Cr Clr Drug Dosing ml/min Est GFR ( Amer) Est GFR (Non-Af Amer) BUN/Creatinine Ratio (10-20) Glucose (70-99) mg/dl Calcium (8.5-10.1) mg/dl Iron (35-175) mcg/dl TIBC (250-450) mcg/dl Transferrin (200-360) mg/dl Transferrin % Sat (20-50) % Ferritin (8-388) ng/ml Total Bilirubin (0.2-1) mg/dl AST (15-37) U/L ALT (12-78) U/L Alkaline Phosphatase (45-117) U/L Total Protein (6.4-8.2) gm/dl Albumin (3.4-5.0) gm/dl Globulin (2.5-4.0) gm/dl Albumin/Globulin Ratio (0.9-2) Vitamin B12 (193-986) pg/ml Folate (>5.38) ng/ml Legionella Source Legionella Culture Resp Virus Cult Rapid Viral Specimen Source PG Care Time/CCT Total # of Minutes Spent Total Time Spent with Patient: Total time spent is greater than 50% in coordination of care (as documented) at patient's floor/unit and/or counseling p atient: Coding Level of Care Code 36962 Subseq Hosp Care Lvl 3 Diagnoses Acute respiratory failure with hypoxia J96.01 Bacterial pneumonia J15.9 COPD with emphysema J43.9 Emphysema type: unspecified Malignant neoplasm of right upper lobe of lung C34.11 Aspergillosis B44.9 Anemia D64.9 Constipation K59.00 Oral candidiasis B37.0 DVT prophylaxis Z29.9 (1) COPD with emphysema Emphysema type: unspecified Qualified Code(s): J43.9 - Emphysema, unspecified
[2020-04-19 16:13] LABS: Fluid Mono/Macrophage 4 %; Lymphocyte Body Fluid Man 3 %; Neutrophil Body Fluid Man 93 %
[2020-04-19] MEDS: ENOXAPARIN INJ 60 MG/0.6 ML SYR SQ SCH (16:52)
[2020-04-19] MEDS: cefTRIAXone SODIUM 2,000 MG in DEXTROSE 5% 50 ML IV SCH (16:52)
[2020-04-19] MEDS: SERTRALINE HCL 50 MG TABLET PO SCH (19:57)
[2020-04-20] MEDS: ALBUT/IPRATROP 3MG/0.5MG NEB 3 ML VIAL NEB SCH ×3 (03:00→11:07)
[2020-04-20] MEDS: oxyCODONE HCL IR 5 MG TAB (IMMEDIATE RELEASE) PO PRN ×4 (03:14→15:19)
[2020-04-20] MEDS: ENOXAPARIN INJ 60 MG/0.6 ML SYR SQ SCH (06:05)
[2020-04-20 07:18] VITALS: TEMP 98.4
[2020-04-20] MEDS: ACETYLCYSTEINE 20% INHAL SOLN 4ML ***DISPENSED BY RESP. INH SCH (07:37)
[2020-04-20] MEDS: LACTOBACILLUS ACIDOPHILUS 1 GM PACK PO SCH ×2 (08:00→11:27)
[2020-04-20] MEDS: UMECLIDINIUM/VILANTEROL 62.5/25MCG 7 PUFFS/INHALER INH SCH (08:01)
[2020-04-20] MEDS: SENNA 8.6 MG TAB PO SCH (08:02)
[2020-04-20] MEDS: MAGNESIUM OXIDE 400 MG TAB PO SCH (08:02)
[2020-04-20] MEDS: guaiFENesin 600 MG TABCR PO SCH (08:03)
[2020-04-20] MEDS: PANTOprazole 40 MG TAB PO SCH (08:03)
[2020-04-20] MEDS: NYSTATIN SUSP 500,000 U/5 ML UDC PO SCH ×2 (08:04→13:14)
[2020-04-20] MEDS: DOCUSATE SODIUM 100 MG CAP PO SCH (09:00)
[2020-04-20 11:11] VITALS: O2SAT 95
[2020-04-20] MEDS ORDERED: predniSONE 10 MG TABLET PO SCH (11:30)
--- NOTE | 2020-04-20 11:33 | Pulmonology Progress Note ---
Date of Service April 20, 2020 Assessment & Plan (1) Bacterial pneumonia: (2) Acute respiratory failure with hypoxia: --Acute respiratory failure with hypoxia Gram stain from the bronchoscopy is negative thus far. BAL cell count suggest inflammatory state. Neutrophil count was elevated to 93%. Microscopy studies, cytology and Aspergillus collected and are pending. I have started the patient on 30 mg of prednisone. Recommend initiating Bactrim Saturday, Saturday and Saturday for prophylaxis while on a dose greater than 20 mg/day. He will need a slow taper over several weeks. I will have him follow-up with his outpatient plc programmer, Dr. Horne. We are treating possible chemoradiation pneumonitis. I think he is stable for discharge today. Continue Lovenox for his history of upper extremity DVT related to PICC line. 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 Has not been on voriconazole since 03/08/2020 --COPD with severe emphysema and chronic bronchitis Continue with Anoro (3) COPD with emphysema: Emphysema type: unspecified Qualified Code(s): J43.9 - Emphysema, unspecified (4) Cavitary lung disease: (5) DVT prophylaxis: (6) Aspergillosis: (7) Pneumonitis: Admission and Anticipated Discharge Date Admission Date: April 14, 2020 Subjective Patient is feeling better today. He is having a mildly productive cough. He feels that his breathing improved after the bronchoscopy. He had some mild epistaxis yesterday which has resolved. He denies any new onset chest pain. He does have chronic pain in this right upper chest wall which is chronic. No fevers overnight. Currently saturating 95% on room air. Review of Systems Review of Systems: All systems reviewed & are unremarkable except as noted in HPI & below Physical Exam Physical Exam: Constitutional: No acute distress HEENT: EOMI, PERRLA Respiratory system: Mild crackles in the upper lobes. Diminished lung sounds bilaterally. CVS: S1-S2 positive, no murmurs or gallops Abdomen: Soft, nontender, nondistended, positive bowel sounds x4 Extremities: +2 pulses bilaterally radialis/ dorsalis pedis, no cyanosis, no edema Neuro: Awake alert oriented x3 Psych: Normal mood and affect G/U: No Kaur Skin: no rashes, warm and dry Lymphatic: no cervical or axillary lymphadenopathy Results & Data Results & Data ([facility]) Vital Signs (Past 12 Hours) Vital Signs Temp Pulse Pulse Resp BP Pulse Ox 04/20/20 11:09 78 18 95 04/20/20 07:41 80 16 94 04/20/20 07:17 98.4 F 74 16 109/65 96 04/20/20 03:12 99.5 F 81 20 113/53 L 94 I reviewed the vital signs, labs and imaging PG Care Time/CCT Total # of Minutes Spent Total Time Spent with Patient: Total time spent is greater than 50% in coordination of care (as documented) at patient's floor/unit and/or counseling patient: Coding Level of Care Code 86049 Subseq Hosp Care Lvl 3 Diagnoses Bacterial pneumonia J15.9 Acute respiratory failure with hypoxia J96.01 COPD with emphysema J43.9 Emphysema type: unspecified Cavitary lung disease J98.4 DVT prophylaxis Z29.9 Aspergillosis B44.9 Pneumonitis J18.9
[2020-04-20] MEDS: AZITHROMYCIN 500 MG in DEXTROSE 5% 250 ML IV SCH (13:13)
--- NOTE | 2020-04-20 14:34 | Discharge Summary ---
Date of Service April 20, 2020 Admission HPI Per Admitting Provider Chief Complaint: I am more short of breath and my oxygen levels have been low Primary Care Provider: Walter Roberts This is a 54-year-old male with a history of stage III squamous cell lung cancer. Patient also has a history of pulmonary aspergillosis. Patient notes that due to his lung cancer he received 7 sessions of radiation therapy which concluded in February 2020. He was receiving chemotherapy under the direction of Dr. Kulkarni. It has been approximately 2 months since his most recent chemotherapy session. Patient notes that he is scheduled for a PET scan in early April of this year. Once his PET scan scan is completed his oncologist will make further treatment recommendations. Patient presented to the hospital today as he notes that his pulse ox has been in the 80s for approximate the past 3 days. Patient also notes that he is more short of breath particular with activity and he notes increased fatigue. He has not had any fevers or shakes but he has been experiencing some chills. He has not had any recent weight loss and feels as though he is maintaining a normal appetite. He denies any cough or hemoptysis. He denies any loss of his sensation of taste or smell. He does not report any back, muscle, or abdominal pain. In the emergency department the patient had a chest x-ray that showed a right apical cavitary mass which was appeared similar to previous x-rays. He did have a left mid zone airspace opacity that was suspicious for a progressive pneumonia. An EKG showed normal sinus rhythm without acute ischemic changes. A Covid test was performed which was negative. Labs were performed and a CBC showed a white blood cell count within the normal range along with a platelet count in the normal range. His hemoglobin and hematocrit were 8.1 and 25.2 which was near his baseline. His INR was noted to be 1.2. Sodium was 133 and potassium along with his BUN and creatinine were within the normal range. His calcium was noted to be within the normal range. The treating emergency room physician has administered Rocephin and Zithromax due to concern for pneumonia and we have been asked to see the patient for admission. At the time of my interview the patient was resting comfortably in bed. He noted with the administration of supplemental oxygen his breathing had markedly improved and he was no longer short of breath. It is noteworthy mention that the patient states that he currently is not utilizing home oxygen. In addition the patient notes that he has been abstaining from smoking cigarettes. This man follows with Dr. Raymundo ramos. Records were reviewed and the patient's most recent pulmonary visit was in February 2020. At that time as the patient had received approximately 6 months of antifungal treatment for his pulmonary aspergillosis this therapy was discontinued. Is also noted to mention that the patient did develop a left upper extremity DVT for which she was receiving Lovenox. During the DVT his PICC line has been discontinued. Is also noteworthy to mention that the patient did have a brain MRI in August 2019 that was negative for metastasis. And he also had a quant to Farren gold test which was negative in July 2019. Principal Diagnosis Pneumonia, Lung cancer, Acute respiratory failure with hypoxia, Suspected chemoradiation pneumonitis Discharge Exam Constitutional well nourished and + thin; no acute distress Eyes + anicteric sclerae Neck trachea midline, no thyromegaly Respiratory normal respiratory effort Auscultation: + crackles (bilat mid and lower lung kovacs although less tody on left); no wheezes Cardiovascular RRR, no murmur, no edema Chest (Breasts) Chest: normal inspection of chest Gastrointestinal (Abdomen) normal bowel sounds, soft, nontender, no hepatosplenomegaly Musculoskeletal Extremities: extremities normal to inspection; no cyanosis and no clubbing Skin no rashes, warm and dry Neurologic moves all extremities and awake; no focal motor deficits Psychiatric A+Ox3, euthymic affect Lymphatic no lymphedema Discharge Data Allergies Allergy/AdvReac Type Severity Reaction Status Date / Time No Known Allergies Allergy Verified 04/14/20 14:58 Consultations 04/14/20 15:30 ED Decision to Admit Stat 04/14/20 20:41 Consult Case Management - Discharge Planning Stat Consult Pulmonology Routine Procedures Performed Operation Date: 04/19/20 12:00 Actual Procedures p Bronchoscopy (Bilateral) - Thee Steele MD Ordered Studies 04/15/20 13:22 CT chest diagnostic wo con Routine CXR x 2 Hospital Course (1) Acute respiratory failure with hypoxia: Likely secondary to multilobar pneumonia - CT with RUL cavitary lesion again seen with thick cavity and aspergilloma. Dense consolidation left upper an d left lower lobe with bronchograms Received abx as below O2 supplementation to keep O2 saturation greater than 88-90% was given and he was weaned off this prior to discharge He was ambulating the halls and POx 90% on RA at worst Guaifenisin, flutter valve, IS, mucomyst all used COVID neg on admission 04/14/2020 Blood cultures preliminary no growth to date Per pulm consult: Patient will need prolonged antibiotics because he has had multiple infections in the past. Recommends at least for 14 days. WIll send out with Levaquin for 9 more days Now s/p bronch on 04/19-->with copious mucopurulent secretions, awaiting studies, culture but no organisms on gram stain--> ok to start prednisone for chemoradiation induced pneumonitis Prednisone 30mg daily and long slow taper as per PULM Start Bactrim DS MWF for PCP prophylaxis after done with Levaquin (2) Bacterial pneumonia: Treated with ceftriaxone, azithro x 5 days here, Levaquin on dc s/p bronch as above Sputum cx here with mod normal mario, BAL culture pending Afebrile, with productive sputum With h/o Aspergillosis and lung CA (3) COPD with emphysema: Severe Continue Anoro, albuterol (4) Malignant neoplasm of right upper lobe of lung: S/p chemo and radiation Follows up with oncology (5) Aspergillosis: Completed treatment with voriconazole (6) Anemia: No s/s of bleeding. Is borderline macrocytic Had EGD/Colonoscopy at age 51 reportedly normal as per pt hgb stable today at 8, ranges 7.7-10 in last 3-4 months, was on chemotherapy but not in 2 months Fe studies, B12, folate all normal except Fe studies indicate chronic disease follow CBC with Hematology/Oncology (7) Constipation: secondary to opioids continue MOM, senna, Miralax, is moving bowels daily now (8) Oral candidiasis: seen on bronch -start Nystatin s/s x 14 days-end date 05/03 (9) DVT prophylaxis: History of DVT left upper extremity around previous PICC in 01/2020 Continue enoxaparin 60 mg bid indefinitely given underlying malignancy--defer to Heme/Onc when to stop Stable for dc to home Total Time Total Time Spent Total Time Spent (In Minutes): 35 min Total Time Includes: Examination of the Patient, Discharge Planning, Medication Reconciliation and Communication With Other Providers (PULM) Discharge Plan Discharge Items Patient Disposition: Home - Self-Care Reason For Visit: PNEUMONIA Discharge Diagnosis: Pneumonia, Suspected Chemoradiation pneumonitis, Hypoxia Condition on Discharge: Good Activity: As commented below Bathing: No limitations Exercise/Sports: As tolerated Non-emergency contact: Primary Care Provider, Oncologist and Pig Machine Operator Helper Call non-emergency contact if: you have any medication questions, your symptoms worsen and you have a fever Follow-up/Referrals: Leroy Horne MD [Physician] - 04/28/20 1:00 pm (Follow up within 1-2 weeks) Walter Roberts [Primary Care Provider] - 04/26/20 2:20 pm (Follow up within 1-2 weeks Telehealth visit.office will call to help you set up) Diet: Regular Addtl Attending Provider Instructions: Please continue on prednisone 30mg daily for now to treat the inflammation in your lungs. Your Pig Machine Operator Helper will advise you on when to decrease the dose of this at your follow up appointment. You will also need to continue on the antibiotics for pneumonia for another 9 days with Levaquin once daily. After the Levaquin is completed, please start taking Bactrim 1 tablet on Saturday, Saturday, and Saturday while on the higher dose of prednisone (Prednisone 20mg daily or higher). Follow up with Dr. Horne and your PCP within 1-2 weeks. Pending Studies at Discharge: Yes Studies:: BAL Cultures, studies Stand-Alone Forms: My [facility] [employer], Smoking Cessation Medications and DC Order Prescriptions: New nystatin 100,000 unit/mL Suspension 10 ml PO TID 13 Days Qty: 390 RF: 0 sennosides [Senokot] 8.6 mg Tablet 8.6 mg PO QAM Qty: 30 RF: 0 prednisone 10 mg Tablet 30 mg PO DAILY Qty: 90 RF: 0 guaifenesin [Mucinex] 600 mg Tablet Extended Release 12hr 1,200 mg PO Q12 Qty: 30 RF: 0 sulfamethoxazole-trimethoprim [Bactrim DS] 800-160 mg tablet 1 tab PO 3XWK Qty: 12 RF: 0 levofloxacin 750 mg tablet 750 mg PO DAILY Qty: 9 RF: 0 Continued enoxaparin 60 mg/0.6 mL syringe 60 mg subcut Q12H RF: 0 omeprazole 20 mg capsule,delayed release(DR/EC) 20 mg PO QAM RF: 0 albuterol sulfate 90 mcg/actuation HFA aerosol inhaler 2 puff INH Q6H PRN (Reason: Shortness Of Breath Or Wheezing) Qty: 18 RF: 3 ipratropium-albuterol 0.5 mg-3 mg(2.5 mg base)/3 mL solution for nebulization 3 ml INH Q8H PRN (Reason: Shortness Of Breath Or Wheezing) Qty: 180 RF: 5 sertraline [Zoloft] 50 mg Tablet 50 mg PO HS RF: 0 Narcan 4 mg/actuation spray,non-aerosol 1 spray intranasal Q3M PRN (Reason: Opioid Overdose) RF: 0 ondansetron HCl 8 mg tablet 8 mg PO Q8H PRN (Reason: Nausea) 30 Days Qty: 30 RF: 0 prochlorperazine maleate 10 mg tablet 10 mg PO Q6H PRN (Reason: Nausea) RF: 0 magnesium oxide 400 mg (241.3 mg magnesium) Tablet 400 mg PO QAM Qty: 30 RF: 0 docusate sodium 100 mg Capsule 100 mg PO BID Qty: 60 RF: 0 oxycodone 20 mg tablet 20 mg PO Q4H PRN (Reason: Pain) Qty: 50 RF: 0 Anoro Ellipta 62.5-25 mcg/actuation blister with device 1 inh INH QAM RF: 0 Changed polyethylene glycol 3350 [Miralax] 17 gram/dose Powder 17 g PO DAILY Qty: 0 RF: 0 Discontinued voriconazole [Vfend] 200 mg Tablet 200 mg PO BID@0600,1800 Qty: 28 RF: 1 Discharge Orders: Discharge Order (Routine); Ordered 04/20/20 Ordered By: Krysta Conner/Other Patient Handouts: Preventing Pneumonia Admission Data Admit Date/Time: 04/14/20 16:51 Attending Provider: Krysta Gonzalez Admit Provider: Bonilla Logan Primary Care Provider: Walter Roberts Other Providers: Leroy Horne ; Patrick Mark Coding Level of Care Code D/C Day Management >30 mins Diagnoses Acute respiratory failure with hypoxia J96.01 Bacterial pneumonia J15.9 COPD with emphysema J43.9 Emphysema type: unspecified Malignant neoplasm of right upper lobe of lung C34.11 Aspergillosis B44.9 Anemia D64.9 Constipation K59.00 Oral candidiasis B37.0 DVT prophylaxis Z29.9
[2020-04-20 14:35] VITALS: BP 110/64; PULSE 74
[2020-04-22 15:52] LABS: Aspergillus Ag, BAL Not Detected (Not Detected)
[2020-04-30 23:37] LABS: Legionella Culture Source LEFT UPPER LOBE; Source LEFT UPPER LOBE
== END 2020-04-20 15:26 | disposition home or self-care (01) | DRG 193 ==
LOC: ED 12:07 → SUATTDRO 16:51 → 3N 16:51

== ENCOUNTER 2020-06-24 13:21 | Observation (INO) ==
[2020-06-24] MEDS ORDERED: ONDANSETRON INJ 2 MG/ML 2 ML VIAL IV STA ×2 (13:27→14:46)
--- NOTE | 2020-06-24 13:37 | Emergency Department Note ---
Impression & Plan Pneumonia, Nausea & vomiting, Lung mass ED Provider Note NAME: KRISTIN URRUTIA AGE: 54 SEX: M : 1965 ARRIVES VIA: Ambulance INFORMANT: Patient, prehospital personnel ED PROVIDER(S): Jaguar Thrasher DO CHIEF COMPLAINT: Overdose HPI: The patient is a 54-year-old male who presented to the emergency department by ambulance for a possible overdose. The patient is on oral Dilaudid for pain because of lung cancer. He is prescribed 1 tablet every 4 hours for pain but remembers taking 3 tablets because of severe pain. He denies having any nausea vomiting at the time but after taking the Narcan he has had dry heaves and significant nausea and vomiting. He said no hematemesis. He states the pain was in his chest where he has had cancer pain in the past. He denies having any lower extremity swelling. He had no fevers. He was in his normal state of health until this morning. He did give himself Narcan 1 tube at home prior to calling 911. Otherwise he states he has been compliant with all of his outpatient medications. He is currently receiving chemotherapy and had his last dose yesterday. He notices that now he has to have a bowel movement. He denies having any abdominal pain. He denies having any dysuria or frequency. ROS: See above HPI for pertinent positives & negatives. A total of 10 systems reviewed and were otherwise negative. PAST MEDICAL HISTORY: See Below PAST SURGICAL HISTORY: See Below FAMILY HISTORY: See Below SOCIAL HISTORY: See Below HOME MEDICATIONS: See Below ALLERGIES: See Below VITALS: See Below PHYSICAL EXAMINATION: GENERAL: The patient is awake and alert. He is somewhat anxious appearing. EYES: The conjunctivae are clear. The pupils are round and reactive. EARS, NOSE, MOUTH AND THROAT: The nose is without any evidence of any deformity. Rhinorrhea was noted. NECK: The neck is nontender and supple. RESPIRATORY: Diminished breath sounds are noted at both bases. There was no significant tachypnea or conversational dyspnea. There were no significant rales throughout. CARDIOVASCULAR: Regular rate and rhythm noted there no murmurs rubs or gallops normal S1 normal S2. GASTROINTESTINAL: The abdomen is soft. Abdomen is nontender. MUSCULOSKELETAL/EXTREMITIES: There is no evidence of gross deformity full range of motion is noted in the hips and shoulders. SKIN: Skin was warm and dry. There is no significant pedal edema. NEUROLOGIC: Patient is awake alert and oriented x3. MEDICAL DECISION MAKING: The patient is a 54-year-old male who presented to the emergency department by ambulance after taking an accidental overdose of his pain medication. The patient is on chronic pain medication for lung cancer. He was having intractable vomiting as well as cough. I discussed the patient's laboratory and radiographic studies with him. He appears to have worsening infiltrate on chest x-ray. Blood cultures were drawn and the patient was given a dose of antibiotics. I discussed the patient's condition with the on-call [facility]ist group. They will evaluate the patient in the emergency department for further management and disposition. He was treated with IV antiemetics but continues to have significant nausea. It is possible this is secondary to the Narcan he took. He does not appear to be in pulmonary edema. Triage Nursing notes reviewed. Prior medical records reviewed Vital Signs: reviewed and remarkable for no significant abnormalities Differential diagnosis: Overdose, toxicologic, infection, hypoglycemia, electrolyte abnormalities, cardiac sources, intracerebral event, neurologic, trauma, as well as other pathologies. ER treatment provided: See below Diagnostics interpreted by me: ECG: EKG was obtained in the emergency department. My interpretation is normal sinus rhythm at 74 bpm. There was no ectopy. There is no acute ST segment abnormalities noted. This was compared to a tracing from April 142020. No significant changes were noted. Cardiac Monitoring: An order was placed for continuous cardiac monitoring. The monitor shows a rate of 89 beats per with sinus rhythm. Laboratory studies: As stated above and show below. Imaging studies: See below Consultation(s): 1520: I discussed this case with Ethan White who is on for the [facility] hospitalist group. He will evaluate the patient in the emergency department for further management and disposition. Past Med/Surg History Medical History Acute hyponatremia Anxiety Arthritis Aspergillus pneumonia s/p treatment, following closely with pulmonary Cavitary lung disease Chronic obstructive pulmonary disease COPD with emphysema Eye disease Best disease- genetic condition affecting vision GERD (gastroesophageal reflux disease) Gram-negative bacteremia Invasive aspergillosis Macular degeneration Moderate nausea and vomiting Opiate abuse, continuous Pneumonitis Restless leg syndrome Scoliosis Seasonal allergies SOB (shortness of breath) on exertion Squamous cell carcinoma lung Surgical History History of bronchoscopy History of colonoscopy History of esophagogastroduodenoscopy (EGD) History of tonsillectomy History of tooth extraction Hx of vasectomy Family History Mother Macular degeneration Lung disease Father , 60yo Myocardial infarction Pancreatitis Sister No problems noted. Sister No problems noted. Son No problems noted. Son No problems noted. Daughter No problems noted. Other No significant family history Social History Smoking Status: Former smoker Tobacco Type: Smokeless Tobacco (Dip or Chew) Cigarettes Per Day: 30-40 cigarettes per day for 40 years; Second Hand Exposure: No; Hx Alcohol Use: No Hx Substance Use: Yes Last Used Substance: Hours (ago) Last Used Substance Other:: 5-6 times daily Substance Use Type Other:: oxycodone Preferred Language: Yoruba Communication Ability: Effective Visual Impairment: No Limitations Hearing Ability: Normal Set Up [employer] Required: No Beliefs That Will Affect Care: None marital status: Current Living Situation: Spouse and Family current occupational status: employed 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 Feels Safe at Home: Yes Diet Comment: Near keto diet caffeine: Yes (1 cup/day) during the past year weight has: decreased > 10 lbs Assistive Devices: None Allergies Allergies Allergy/AdvReac Type Severity Reaction Status Date / Time No Known Allergies Allergy Verified 05/23/20 10:32 Home Meds Home Medications Medication Instructions Recorded Confirmed omeprazole 20 mg capsule,delayed 20 mg PO QAM 07/30/19 05/11/20 release sertraline [Zoloft] 50 mg PO HS 12/08/19 05/11/20 prochlorperazine maleate 10 mg PO Q6H PRN 01/29/20 05/11/20 enoxaparin 60 mg/0.6 mL 60 mg SUBCUT Q12H ml 02/29/20 05/11/20 subcutaneous syringe Narcan 1 spray INTRANASAL Q3M PRN 03/05/20 05/11/20 acetaminophen 500 mg tablet 500 mg PO QID PRN 05/23/20 05/23/20 Previous Rx's Medication Instructions Recorded docusate sodium 100 mg PO BID #60 cap 02/03/20 magnesium oxide 400 mg PO QAM #30 tab 02/03/20 ondansetron HCl 8 mg PO Q8H PRN 30 Days #30 tab 03/07/20 albuterol sulfate 90 mcg/actuation 2 puff INH Q6H PRN #18 gm 03/08/20 aerosol inhaler ipratropium 0.5 mg-albuterol 3 mg 3 ml INH Q8H PRN #180 ml 03/08/20 (2.5 mg base)/3 mL nebulization soln polyethylene glycol 3350 [Miralax] 17 g PO DAILY #0 g 04/20/20 sennosides [Senokot] 8.6 mg PO QAM #30 tab 04/20/20 umeclidinium 62.5 mcg-vilanterol 1 inh INH QAM #60 ea 04/28/20 25 mcg/actuation powdr for inhalation dextromethorphan-guaifenesin 30 1 tab PO Q12H PRN #60 tab 06/01/20 mg-600 mg tablet extended [id number] hr prednisone 10 mg tablet 10 mg PO DAILY #90 tab 06/01/20 Results & Data (ED) Vital Signs Vital Signs - 24 hr 06/24/20 13:39 06/24/20 14:13 Temperature 36.6 C Temperature Source Oral Pulse Rate 62 Respiratory Rate 14 Blood Pressure 137/70 Blood Pressure Mean 92 Pulse Oximetry 96 96 Oxygen Delivery Method Room Air Room Air Sepsis Recent Fever Within 48 Hours No Sepsis New/Unexplained Change in Mental Status N/A Sepsis Action Taken by Nursing No Action Required Home Medications Current Medication List: was personally reviewed by me Laboratory Data Attestation: I reviewed the patient's lab results. Result diagrams: 06/24/20 13:45 06/24/20 13:45 Lab Results 06/24/20 06/24/20 06/24/20 Range/Units 13:45 13:45 13:45 WBC 7.88 (4.8-10.8) K/uL RBC 3.03 L (4.7-6.1) M/uL Hgb 9.2 L (14.0-18.0) g/dL Hct 28.4 L (42-52) % MCV 93.7 (80-100) fL MCH 30.4 (25-34) pg MCHC 32.4 (32-36) g/dL RDW Std Deviation 54.4 H (36.4-46.3) fL RDW Coeff of [place] 16.0 H (11.5-14.5) % Plt Count 191 (130-400) K/uL MPV 9.8 (7.4-10.4) fL Immature Gran % (Auto) 0.3 % Neut % (Auto) 95.4 % Lymph % (Auto) 2.0 % Power % (Auto) 2.2 % Eos % (Auto) 0.0 % Baso % (Auto) 0.1 % Neut # (Auto) 7.52 H (1.4-6.5) K/uL Lymph # (Auto) 0.16 L (1.2-3.4) K/uL Power # (Auto) 0.17 (0.11-0.59) K/uL Eos # (Auto) 0.00 (0-0.5) K/uL Baso # (Auto) 0.01 (0-0.2) K/uL Immature Gran # (Auto) 0.02 (0.00-0.02) K/uL PT 13.2 H (9.0-12.0) Seconds INR 1.3 H (0.9-1.1) APTT 25.1 (21.0-31.0) Seconds PTT Ratio 1.0 VBG pH (7.36-7.41) VBG pCO2 (38-50) mmHg VBG pO2 mmHg VBG HCO3 mmol/L VBG O2 Saturation % VBG Base Excess mEq/L Barometric Pressure mm/Hg Sodium 135 L (136-145) mmol/L Potassium 3.3 L (3.5-5.1) mmol/L Chloride 100 (98-107) mmol/L Carbon Dioxide 28 (21-32) mmol/L Anion Gap 7.0 (3-11) BUN 14 (7-18) mg/dl Creatinine 0.52 L (0.6-1.4) mg/dl Est Cr Clr Drug Dosing 132.0 ml/min Est GFR ( Amer) 141.1 Est GFR (Non-Af Amer) 121.7 BUN/Creatinine Ratio 26.3 H (10-20) Glucose 114 H (70-99) mg/dl Calcium 8.6 (8.5-10.1) mg/dl Magnesium 2.1 (1.8-2.4) mg/dl Total Bilirubin 0.4 (0.2-1) mg/dl AST 19 (15-37) U/L ALT 19 (12-78) U/L Alkaline Phosphatase 87 (45-117) U/L Troponin I < 0.015 (0-0.045) ng/ml Total Protein 7.5 (6.4-8.2) gm/dl Albumin 2.1 L (3.4-5.0) gm/dl Globulin 5.4 H (2.5-4.0) gm/dl Albumin/Globulin Ratio 0.4 L (0.9-2) Urine Color Urine Appearance (Clear) Urine pH (4.5-7.5) Ur Specific [place] (1.000-1.030) Urine Protein (Negative) Urine Glucose (UA) (Negative) Urine Ketones (Negative) Urine Blood (Negative) Urine Nitrite (Negative) Urine Bilirubin (Negative) Urine Urobilinogen (Negative) Ur Leukocyte Esterase (Negative) Urine Opiates Screen (Neg) Ur Methadone, Qual (Neg) Urine Barbiturates (Neg) Ur Phencyclidine (PCP) (Neg) U Amphetamin/Meth Scrn (Neg) MDMA (Ecstasy) Screen (Neg) U Benzodiazepines Scrn (Neg) Ur Cocaine Metabolite (Neg) U Marijuana (THC) Screen (Neg) 06/24/20 06/24/20 06/24/20 Range/Units 13:45 13:45 14:06 WBC (4.8-10.8) K/uL RBC (4.7-6.1) M/uL Hgb (14.0-18.0) g/dL Hct (42-52) % MCV (80-100) fL MCH (25-34) pg MCHC (32-36) g/dL RDW Std Deviation (36.4-46.3) fL RDW Coeff of [place] (11.5-14.5) % Plt Count (130-400) K/uL MPV (7.4-10.4) fL Immature Gran % (Auto) % Neut % (Auto) % Lymph % (Auto) % Power % (Auto) % Eos % (Auto) % Baso % (Auto) % Neut # (Auto) (1.4-6.5) K/uL Lymph # (Auto) (1.2-3.4) K/uL Power # (Auto) (0.11-0.59) K/uL Eos # (Auto) (0-0.5) K/uL Baso # (Auto) (0-0.2) K/uL Immature Gran # (Auto) (0.00-0.02) K/uL PT (9.0-12.0) Seconds INR (0.9-1.1) APTT (21.0-31.0) Seconds PTT Ratio VBG pH 7.38 (7.36-7.41) VBG pCO2 54 H (38-50) mmHg VBG pO2 18 mmHg VBG HCO3 31 mmol/L VBG O2 Saturation < 60.0 % VBG Base Excess 5.0 mEq/L Barometric Pressure 738.3 mm/Hg Sodium (136-145) mmol/L Potassium (3.5-5.1) mmol/L Chloride (98-107) mmol/L Carbon Dioxide (21-32) mmol/L Anion Gap (3-11) BUN (7-18) mg/dl Creatinine (0.6-1.4) mg/dl Est Cr Clr Drug Dosing ml/min Est GFR ( Amer) Est GFR (Non-Af Amer) BUN/Creatinine Ratio (10-20) Glucose (70-99) mg/dl Calcium (8.5-10.1) mg/dl Magnesium (1.8-2.4) mg/dl Total Bilirubin (0.2-1) mg/dl AST (15-37) U/L ALT (12-78) U/L Alkaline Phosphatase (45-117) U/L Troponin I (0-0.045) ng/ml Total Protein (6.4-8.2) gm/dl Albumin (3.4-5.0) gm/dl Globulin (2.5-4.0) gm/dl Albumin/Globulin Ratio (0.9-2) Urine Color Yellow Urine Appearance Clear (Clear) Urine pH >= 9.0 H (4.5-7.5) Ur Specific [place] 1.017 (1.000-1.030) Urine Protein Negative (Negative) Urine Glucose (UA) Negative (Negative) Urine Ketones Negative (Negative) Urine Blood Negative (Negative) Urine Nitrite Negative (Negative) Urine Bilirubin Negative (Negative) Urine Urobilinogen Negative (Negative) Ur Leukocyte Esterase Negative (Negative) Urine Opiates Screen Pos H (Neg) Ur Methadone, Qual Neg (Neg) Urine Barbiturates Neg (Neg) Ur Phencyclidine (PCP) Neg (Neg) U Amphetamin/Meth Scrn Neg (Neg) MDMA (Ecstasy) Screen Neg (Neg) U Benzodiazepines Scrn Neg (Neg) Ur Cocaine Metabolite Neg (Neg) U Marijuana (THC) Screen Pos H (Neg) Administered Medications Discontinued Medications Ondansetron HCl (Ondansetron Inj 2 Mg/Ml 2 Ml Vial) 4 mg IV NOW STA Stop: 06/24/20 13:28 Last Admin: 06/24/20 14:13 Dose: 4 mg Documented by: [id number] Ondansetron HCl (Ondansetron Inj 2 Mg/Ml 2 Ml Vial) 4 mg IV NOW STA Stop: 06/24/20 14:47 Last Admin: 06/24/20 15:02 Dose: 4 mg Documented by: [id number] Imaging Data Radiologist's Impression: Chest X-Ray 06/24/20 13:27 XR chest 1V portable CLINICAL HISTORY: Dyspnea. Squamous cell carcinoma of the lung COMPARISON STUDY: Chest CT April 15, 2020. Chest radiograph March 28, 2020. FINDINGS: Cavitary right upper lobe mass is again noted. Right suprahilar opacity has slightly increased. Upper lobe retraction is again noted. Left suprahilar opacity is unchanged. Left midlung opacity is increased. There is no pneumothorax or pleural effusion. There is no evidence for pulmonary edema. Cardiomediastinal silhouette is stable. IMPRESSION: 1. Increase in left midlung and right suprahilar opacities which favor pn eumonia. Radiographic follow-up is recommended. 2. Redemonstration of the cavitary right upper lobe mass. ACT 112: Negative or not required by law. Electronically signed by: Macario Hannon M.D. 06/24/2020 2:33 PM Discharge Plan Visit Data Chief Complaint: Illness ED Provider: Jaguar Thrasher Discharge Problem: Pneumonia, Nausea & vomiting, Lung mass Patient Disposition: Being Evaluated by Hospitalist Condition: Good Forms Stand Alone Forms: My [employer] Prescriptions Prescriptions: No Action enoxaparin 60 mg/0.6 mL syringe 60 mg subcut Q12H RF: 0 acetaminophen 500 mg tablet 500 mg PO QID PRNRF: 0 Mucinex DM 30-600 mg tablet extended release 12 hr 1 tab PO Q12H PRN (Reason: cough) Qty: 60 RF: 2 prednisone 10 mg tablet 10 mg PO DAILY Qty: 90 RF: 0 Anoro Ellipta 62.5-25 mcg/actuation blister with device 1 inh INH QAM Qty: 60 RF: 3 omeprazole 20 mg capsule,delayed release(DR/EC) 20 mg PO QAM RF: 0 albuterol sulfate 90 mcg/actuation HFA aerosol inhaler 2 puff INH Q6H PRN (Reason: Shortness Of Breath Or Wheezing) Qty: 18 RF: 3 ipratropium-albuterol 0.5 mg-3 mg(2.5 mg base)/3 mL solution for nebulization 3 ml INH Q8H PRN (Reason: Shortness Of Breath Or Wheezing) Qty: 180 RF: 5 sertraline [Zoloft] 50 mg Tablet 50 mg PO HS RF: 0 Narcan 4 mg/actuation spray,non-aerosol 1 spray intranasal Q3M PRN (Reason: Opioid Overdose) RF: 0 ondansetron HCl 8 mg tablet 8 mg PO Q8H PRN (Reason: Nausea) 30 Days Qty: 30 RF: 0 prochlorperazine maleate 10 mg tablet 10 mg PO Q6H PRN (Reason: Nausea) RF: 0 magnesium oxide 400 mg (241.3 mg magnesium) Tablet 400 mg PO QAM Qty: 30 RF: 0 docusate sodium 100 mg Capsule 100 mg PO BID Qty: 60 RF: 0 sennosides [Senokot] 8.6 mg Tablet 8.6 mg PO QAM Qty: 30 RF: 0 polyethylene glycol 3350 [Miralax] 17 gram/dose Powder 17 g PO DAILY Qty: 0 RF: 0 Referrals Referrals: Walter Roberts [Primary Care Provider] - Discharge Problem: Pneumonia Qualifiers: Pneumonia type: due to unspecified organism Laterality: right Lung location: unspecified part of lung Qualified Code(s): J18.9 - Pneumonia, unspecified organism Nausea & vomiting Qualifiers: Vomiting type: unspecified Vomiting Intractability: non-intractable Qualified Code(s): R11.2 - Nausea with vomiting, unspecified
[2020-06-24 14:07] LABS: Basophils # (auto) 0.01 K/uL (0-0.2); Basophils % (auto) 0.1 %; Hematocrit (blood only) 28.4 % (42-52); Hemoglobin 9.2 g/dL (14.0-18.0); Immature Granulocytes # (auto) 0.02 K/uL (0.00-0.02); Immature Granulocytes % (auto) 0.3 %; Lymphocytes # (auto) 0.16 K/uL (1.2-3.4); Mean Corpuscular Hemoglobin 30.4 pg (25-34); Mean Corpuscular Hgb Conc 32.4 g/dL (32-36); Mean Corpuscular Volume 93.7 fL (80-100); Mean Platelet Volume 9.8 fL (7.4-10.4); Monocytes # (auto) 0.17 K/uL (0.11-0.59); Monocytes % (auto) 2.2 %; Neutrophils # (auto) 7.52 K/uL (1.4-6.5); Neutrophils % (auto) 95.4 %; Platelet Count 191 K/uL (130-400); RDW Standard Deviation 54.4 fL (36.4-46.3); Red Blood Count 3.03 M/uL (4.7-6.1); White Blood Count 7.88 K/uL (4.8-10.8)
[2020-06-24 14:21] LABS: INR 1.3 (0.9-1.1); Partial Thromboplastin Time 25.1 Seconds (21.0-31.0); Prothrombin Time 13.2 Seconds (9.0-12.0)
[2020-06-24 14:23] LABS: HCO3 VBG 31 mmol/L; Oxygen Saturation VBG < 60.0 %; PCO2 VBG 54 mmHg (38-50); PO2 VBG 18 mmHg; pH VBG 7.38 (7.36-7.41)
--- NOTE | 2020-06-24 14:35 | XRay Report ---
XR chest 1V portable CLINICAL HISTORY: Dyspnea. Squamous cell carcinoma of the lung COMPARISON STUDY: Chest CT April 15, 2020. Chest radiograph March 28, 2020. FINDINGS: Cavitary right upper lobe mass is again noted. Right suprahilar opacity has slightly increa sed. Upper lobe retraction is again noted. Left suprahilar opacity is unchanged. Left midlung opacity is increased. There is no pneumothorax or pleural effusion. There is no evidence for pulmonary edema . Cardiomediastinal silhouette is stable. IMPRESSION: 1. Increase in left midlung and right suprahilar opacities which favor pneumonia. Radiographic follow -up is recommended. 2. Redemonstration of the cavitary right upper lobe mass. ACT 112: Negative or not required by law. Electronically signed by: Macario Hannon M.D. 06/24/2020 2:33 PM
[2020-06-24 14:39] LABS: Alanine Aminotransferase 19 U/L (12-78); Albumin Globulin Ratio 0.4 (0.9-2); Albumin Level 2.1 gm/dl (3.4-5.0); Alkaline Phosphatase 87 U/L (45-117); Aspartate Aminotransferase 19 U/L (15-37); BUN Creatinine Ratio 26.3 (10-20); Bilirubin,Total 0.4 mg/dl (0.2-1); Blood Urea Nitrogen 14 mg/dl (7-18); Calcium 8.6 mg/dl (8.5-10.1); Carbon Dioxide 28 mmol/L (21-32); Chloride 100 mmol/L (98-107); Est GFR (African American) 141.1; Est GFR (Non-African American) 121.7; Globulin 5.4 gm/dl (2.5-4.0); Glucose 114 mg/dl (70-99); Magnesium 2.1 mg/dl (1.8-2.4); Potassium 3.3 mmol/L (3.5-5.1); Sodium 135 mmol/L (136-145); Total Protein 7.5 gm/dl (6.4-8.2); Troponin I < 0.015 ng/ml (0-0.045)
[2020-06-24 14:42] LABS: Amphetamines+Metham, Urine Neg (Neg); Barbiturates, Urine Neg (Neg); Benzodiazepine, Urine Neg (Neg); Cocaine, Urine Neg (Neg); MDMA (Ecstacy), Urine Neg (Neg); Methadone, Urine Neg (Neg); Opiate, Urine Pos (Neg); Phencyclidine, Urine Neg (Neg)
[2020-06-24 14:43] LABS: Appearance Urine Clear (Clear); Bilirubin Urine Negative (Negative); Blood Urine Negative (Negative); Color Urine Yellow; Glucose Urine UA Negative (Negative); Ketones Urine Negative (Negative); Leukocyte Esterase Urine Negative (Negative); Nitrite Urine Negative (Negative); Protein Urine Negative (Negative); Specific Gravity Urine 1.017 (1.000-1.030); Urobilinogen Urine Negative (Negative); pH Urine >= 9.0 (4.5-7.5)
[2020-06-24] MEDS ORDERED: PIPERACILL/TAZOBAC CONSULT ACTIVE PRN (14:59)
[2020-06-24] MEDS ORDERED: PIPERACILLIN/TAZOBACTAM 4.5 GM/120 ML BAG IV ONE (14:59)
[2020-06-24] MEDS ORDERED: LORazepam 1 MG/2 ML VIAL IV STA (15:19)
--- NOTE | 2020-06-24 15:59 | History & Physical Report ---
Date of Service June 24, 2020 Assessment & Plan (1) Pneumonia: Chest x-ray shows possibility pneumonia Review probably suggest pneumonitis without bacterial cause Check a procalcitonin Patient got initial dose of IV antibiotics in the emergency department. We will hold on further antibiotics until procalcitonin returns No leukocytosis. No fever. No sputum production. No hemoptysis. Most likely radiation pneumonitis versus sequela from known squamous cell carcinoma (2) Nausea & vomiting: Patient took 12 mg of Dilaudid this morning (4 mg x 3 tablets) This was followed by Narcan Nausea was worse after the Narcan Suspect possible Narcan reaction Continue with antiemetics Monitor on telemetry (3) Squamous cell carcinoma of lung: Last chemotherapy received yesterday Patient also received external beam radiation therapy Further management per Dr. Kulkarni (4) Oral candidiasis: This appears to be resolved on examination No outpatient nystatin is ordered at this time Continue to follow with physical exam daily Nystatin swish and swallow should this develop Patient does typically have dentures but does not have them in now and will not be bringing them to the hospital (5) COPD with emphysema: Follows with Dr. Horne in the outpatient clinic At this point patient is oxygenating well on room air Supplemental oxygen as needed to maintain SaO2 between 88 and 92% Continue Anoro scheduled and albuterol as needed for shortness of breath or wheezes (6) Deep vein thrombosis: Patient currently receiving Lovenox twice daily for left upper extremity DVT secondary to PICC line Review of the chart with most recent note from 04/28/2020 states that Lovenox should be continued for 3 months At this point patient says that he is not taking Lovenox. Pharmacy reviewed and patient had an order placed 06/06/2020 We will continue Lovenox twice daily during his inpatient stay Clarify Lovenox with discharge instructions (7) Anemia: Patient with anemia of chronic disease Currently patient's hemoglobin is 9.7 No acute blood loss Check repeat CBC in the morning Transfuse for hemoglobin less than 8 as patient is currently receiving chemotherapy for his lung cancer (8) DVT prophylaxis: Left upper extremity DVT secondary to PICC line Most recent Doppler shows no acute obstructive thrombus Continue Lovenox twice daily Ambulate as tolerated No indication for KASANDRA hose or SCDs Please refer to Dr. Logan's addendum for further recommendations and corrections. History of Present Illness Primary Care Provider: Walter Roberts Attending: Dr. Logan Is a 54-year-old male with a history of squamous cell carcinoma diagnosed in 09/09/2019. It is nonstaged. Patient also has a history of tobacco abuse with cigarette smoking but quit several months ago. He continues to use smokeless tobacco. He has a past medical history including COPD, seasonal allergies, DVT of the left upper extremity on chronic anticoagulation with Lovenox twice daily, radiation pneumonitis, aspergillosis, chronic opiate use (30 Day Avg MME/day: The daily average of all morphine milligram equivalents for the last 30 days 169.60). Patient received chemotherapy yesterday. This morning he woke up in severe pain. He took 3 4 mg tablets of Dilaudid. He continues to be uncomfortable and around lunchtime reports he took his Narcan that he keeps at home. After today's Narcan he got nauseous and had some vomiting. He reported emergency department for further evaluation. He is alert and oriented. He is able to give me his whole story. He is able to corroborate history as given to the emergency room physician. He currently has no describable pain. He said he "does not feel well". He is nauseous but currently has no vomiting and has no diarrhea. He denies any fever, chills, sweats, rigors. He has no chest pain or tightness. He has no shortness of breath on room air. He has no abdominal pain. He denies any current back pain. He has no recent falls. He reports no loss of consciousness after taking the 12 mg of Dilaudid this morning. He has no headache. He has no change in vision. He has no diplopia or blurred vision. He has no other acute complaints. Patient states that he quit smoking last July. He continues to use smokeless tobacco daily He denies any ethanol use He is and lives at home with his and his 9-year-old daughter. He currently follows with Dr. Kulkarni with [facility] for his cancer. Allergies Allergy/AdvReac Type Severity Reaction Status Date / Time No Known Allergies Allergy Verified 06/24/20 16:10 Home Medications Medication Instructions Recorded Confirmed Type omeprazole 20 mg capsule,delayed 20 mg PO QAM 07/30/19 06/24/20 History release prochlorperazine maleate 10 mg PO Q6H PRN 11/06/20 04/02/21 History magnesium oxide 400 mg PO QAM #30 tab 02/03/20 06/24/20 Rx Narcan 1 spray INTRANASAL Q3M PRN 03/05/20 06/24/20 History ondansetron HCl 8 mg PO Q8H PRN 30 Days #30 tab 03/07/20 06/24/20 Rx albuterol sulfate 90 mcg/actuation 2 puff INH Q6H PRN #18 gm 03/08/20 06/24/20 Rx aerosol inhaler ipratropium 0.5 mg-albuterol 3 mg 3 ml INH Q8H PRN #180 ml 03/08/20 06/24/20 Rx (2.5 mg base)/3 mL nebulization soln acetaminophen 500 mg tablet 500 mg PO QID PRN 05/23/20 06/24/20 History dextromethorphan-guaifenesin 30 1 tab PO Q12H PRN #60 tab 06/01/20 06/24/20 Rx mg-600 mg tablet extended hr docusate sodium 100 mg PO BID PRN 06/24/20 06/24/20 History gabapentin 300 mg PO QID 06/24/20 06/24/20 History hydromorphone 4 mg PO Q4H PRN 06/24/20 06/24/20 History polyethylene glycol 3350 [Miralax] 17 g PO DAILY PRN 06/24/20 06/24/20 History sennosides [Senokot] 8.6 mg PO QAM PRN 06/24/20 06/24/20 History Past Med/Surg History Medical History Acute hyponatremia Anxiety Arthritis Aspergillus pneumonia s/p treatment, following closely with pulmonary Cavitary lung disease Chronic obstructive pulmonary disease COPD with emphysema Eye disease Best disease- genetic condition affecting vision GERD (gastroesophageal reflux disease) Gram-negative bacteremia Invasive aspergillosis Macular degeneration Moderate nausea and vomiting Opiate abuse, continuous Pneumonitis Restless leg syndrome Scoliosis Seasonal allergies SOB (shortness of breath) on exertion Squamous cell carcinoma lung Surgical History History of bronchoscopy History of colonoscopy History of esophagogastroduodenoscopy (EGD) History of tonsillectomy History of tooth extraction Hx of vasectomy Family History Mother Macular degeneration Lung disease Father , 60yo Myocardial infarction Pancreatitis Sister No problems noted. Sister No problems noted. Son No problems noted. Son No problems noted. Daughter No problems noted. 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 Appears cachectic EYES: No icterus, gaze conjugate. Pupils equal round and reactive to light NOSE: No evidence of epistaxis MOUTH: No lesions or candidiasis. No upper or lower teeth. Patient has no dentures with him. NECK: Supple LUNGS: Fine crackles at the bilateral bases. No rhonchi. No induced cough with deep inspiration. HEART: Regular, rate controlled. No murmurs or gallops or rubs appreciated ABDOMEN: Soft, NT, ND, BS Present EXTREMITIES: No LE edema, pedal pulses intact NEURO: A&OX3 Results & Data Results & Data ([facility]) Vital Signs (Past 12 Hours) Vital Signs Temp Pulse Resp BP Pulse Ox 06/24/20 15:31 65 30 H 06/24/20 15:20 64 22 06/24/20 15:10 65 26 H 06/24/20 15:00 65 22 153/87 H 06/24/20 14:50 85 30 H 06/24/20 14:40 63 19 06/24/20 14:31 68 22 06/24/20 14:30 68 161/90 H 06/24/20 14:20 65 24 06/24/20 14:13 96 06/24/20 14:10 64 93 06/24/20 14:01 64 16 06/24/20 14:00 64 132/71 06/24/20 13:50 67 24 97 06/24/20 13:40 63 14 97 06/24/20 13:39 36.6 C 62 14 137/70 96 06/24/20 13:34 80 20 137/70 97 Laboratory Results 06/24/20 13:45 06/24/20 13:45 Magnesium: 2.1 Diagnostic Findings US venous doppler UE LT HISTORY: 54 years-old Male DVT acute pain and swelling of the left upper extremity. History of prior thrombus the left subclavian, axillary and basilic veins. COMPARISON: Duplex venous Doppler study 02/01/2020 TECHNIQUE: Multiple real-time sonographic images of the left upper extremity deep venous structures were obtained assessing grayscale appearance, color and spectral flow FINDINGS: The internal jugular and subclavian veins are patent. Nonocclusive chronic appearing thrombus of the axillary and basilic veins, improved from comparison. No occlusive acute thrombi are identified. IMPRESSION: 1. No acute occlusive thrombi identified. 2. Chronic appearing nonocclusive thrombi of the axillary and basilic veins. ACT 112: Negative or not required by law. The above report was generated using voice recognition software. It may contain grammatical, syntax or spelling errors. Electronically signed by: Kentrell Ryan M.D. 06/22/2020 5:27 PM XR chest 1V portable CLINICAL HISTORY: Dyspnea. Squamous cell carcinoma of the lung COMPARISON STUDY: Chest CT April 15, 2020. Chest radiograph March 28, 2020. FINDINGS: Cavitary right upper lobe mass is again noted. Right suprahilar opacity has slightly increased. Upper lobe retraction is again noted. Left suprahilar opacity is unchanged. Left midlung opacity is increased. There is no pneumothorax or pleural effusion. There is no evidence for pulmonary edema. Cardiomediastinal silhouette is stable. IMPRESSION: 1. Increase in left midlung and right suprahilar opacities which favor pneumonia. Radiographic follow-up is recommended. 2. Redemonstration of the cavitary right upper lobe mass. ACT 112: Negative or not required by law. Electronically signed by: Macario Hannon M.D. 06/24/2020 2:33 PM Code Status & VTE Plan Code Status Level I: Full resuscitation VTE Prophylaxis Plan VTE Prophylaxis will be ordered: Yes Supervising Physician Co-Signing Physician Notes I personally saw and examined the patient. I verified all marsh points and agree with JANET White with the following exceptions and/or additions: 54-year-old male with squamous cell carcinoma presents to the ER after taking excessive amounts of Dilaudid. Concerned regarding overdose therefore took Narcan. Nauseous and vomiting after Narcan. O/ E patient is resting comfortably and in no respiratory distress. No pain at this time. A/P On review of prior imaging and negative procalcitonin I do not suspect pneumonia at this time. Recommend monitoring overnight to regulate pain medication appropriately and educate regarding future opiate use tomorrow. PG Care Time/CCT Total # of Minutes Spent Total Time Spent with Patient: Total time spent is greater than 50% in coordination of care (as documented) at patient's floor/unit and/or counseling patient: 55 minutes Coding Level of Care Code 92425 Initial Inpt Care Lvl 3 Diagnoses Pneumonia J18.9 Laterality: right Lung location: unspecified part of lung Pneumonia type: due to unspecified organism Nausea & vomiting R11.2 Vomiting Intractability: non-intractable Vomiting type: unspecified Squamous cell carcinoma of lung C34.90 Laterality: unspecified laterality Oral candidiasis B37.0 COPD with emphysema J43.9 Emphysema type: unspecified Deep vein thrombosis I82.409 DVT location: upper extremity Laterality: left Anemia D64.9 DVT prophylaxis Z29.9 Time Spent (min) 55 (1) Deep vein thrombosis DVT location: upper extremity Laterality: left (2) COPD with emphysema Emphysema type: unspecified Qualified Code(s): J43.9 - Emphysema, unspecified (3) Squamous cell carcinoma of lung Laterality: unspecified laterality Qualified Code(s): C34.90 - Malignant neoplasm of unspecified part of unspecified bronchus or lung (4) Nausea & vomiting Vomiting Intractability: non-intractable Vomiting type: unspecified Qualified Code(s): R11.2 - Nausea with vomiting, unspecified (5) Pneumonia Laterality: right Lung location: unspecified part of lung Pneumonia type: due to unspecified organism Qualified Code(s): J18.9 - Pneumonia, unspecified organism
[2020-06-24 16:17] LABS: Influenza A virus by PCR Negative (Neg); Influenza B virus by PCR Negative (Neg); RSV by PCR Negative (Neg); SARS CoV2 RNA(COVID-19) InHosp NEGATIVE (Negative)
--- NOTE | 2020-06-24 16:19 | Electrocardiogram Report ---
Test Reason : Blood Pressure : / mmHG Vent. Rate : 074 BPM Atrial Rate : 074 BPM P-R Int : 122 ms QRS Dur : 080 ms QT Int : 434 ms P-R-T Axes : 064 007 011 degrees QTc Int : 481 ms Normal sinus rhythm with sinus arrhythmia Prolonged QT Abnormal ECG When compared with ECG of 14-APR-2020 12:23, T wave inversion now evident in Inferior leads QT has lengthened Confirmed by Jaguar Narayanan ([id number]) on 06/24/2020 4:19:17 PM Referred By: REFERRED SELF Confirmed By:Jaguar Narayanan
[2020-06-24] MEDS ORDERED: PROMETHAZINE 12.5 MG/50.5 ML BAG IV STA (16:29)
[2020-06-24] MEDS ORDERED: ZOLPIDEM TARTRATE 5 MG TAB PO PRN (20:52)
[2020-06-24] MEDS ORDERED: PROCHLORPERAZINE MALEATE 10 MG TAB PO PRN (20:52)
[2020-06-24] MEDS ORDERED: ALBUT/IPRATROP 3MG/0.5MG NEB 3 ML VIAL INH PRN (21:00)
[2020-06-24] MEDS ORDERED: ONDANSETRON 8MG OD TAB PO PRN (21:00)
[2020-06-24] MEDS ORDERED: SERTRALINE HCL 50 MG TABLET PO SCH (21:00)
[2020-06-24] MEDS ORDERED: ALBUTEROL HFA 8 GM INHALER INH PRN (21:00)
[2020-06-24] MEDS ORDERED: ACETAMINOPHEN 500 MG TAB PO PRN (21:05)
[2020-06-24] MEDS: NSS + 20MEQ KCL 20 MEQ/1,000 ML BAG IV SCH (21:47)
[2020-06-24] MEDS: PIPERACILLIN/TAZOBACTAM 3.375 GM in DEXTROSE 5% 100 ML IV SCH (21:48)
[2020-06-24] MEDS: POTASSIUM CHLORIDE / WTR 10 MEQ/100 ML PLCT IV SCH ×2 (21:49→23:48)
[2020-06-24] MEDS: ENOXAPARIN INJ 60 MG/0.6 ML SYR SQ SCH (21:49)
[2020-06-24] MEDS: DOCUSATE SODIUM 100 MG CAP PO SCH (21:50)
[2020-06-25] MEDS: POTASSIUM CHLORIDE / WTR 10 MEQ/100 ML PLCT IV SCH (00:44)
[2020-06-25] MEDS: PIPERACILLIN/TAZOBACTAM 3.375 GM in DEXTROSE 5% 100 ML IV SCH ×2 (05:20→13:50)
[2020-06-25 07:02] LABS: Eosinophils # (auto) 0.01 K/uL (0-0.5); Eosinophils % (auto) 0.2 %; Hematocrit (blood only) 28.7 % (42-52); Hemoglobin 9.4 g/dL (14.0-18.0); Immature Granulocytes # (auto) 0.01 K/uL (0.00-0.02); Immature Granulocytes % (auto) 0.2 %; Lymphocytes # (auto) 0.24 K/uL (1.2-3.4); Lymphocytes % (auto) 3.9 %; Mean Corpuscular Hemoglobin 30.3 pg (25-34); Mean Corpuscular Hgb Conc 32.8 g/dL (32-36); Mean Corpuscular Volume 92.6 fL (80-100); Mean Platelet Volume 9.4 fL (7.4-10.4); Monocytes # (auto) 0.09 K/uL (0.11-0.59); Monocytes % (auto) 1.5 %; Neutrophils # (auto) 5.82 K/uL (1.4-6.5); Neutrophils % (auto) 94.2 %; Platelet Count 168 K/uL (130-400); RDW Coefficient of Variation 16.1 % (11.5-14.5); RDW Standard Deviation 54.4 fL (36.4-46.3); White Blood Count 6.17 K/uL (4.8-10.8)
[2020-06-25 07:32] LABS: BUN Creatinine Ratio 24.7 (10-20); Calcium 8.6 mg/dl (8.5-10.1); Creatinine Clr Calc Pharmacy 141.1 ml/min; Est GFR (African American) 148.4; Potassium 3.6 mmol/L (3.5-5.1)
[2020-06-25] MEDS: ENOXAPARIN INJ 60 MG/0.6 ML SYR SQ SCH (07:49)
[2020-06-25] MEDS: DOCUSATE SODIUM 100 MG CAP PO SCH (07:49)
[2020-06-25] MEDS ORDERED: SENNA 8.6 MG TAB PO SCH (09:00)
[2020-06-25] MEDS ORDERED: PANTOprazole 40 MG TAB PO SCH (09:00)
[2020-06-25] MEDS ORDERED: UMECLIDINIUM/VILANTEROL 62.5/25MCG 7 PUFFS/INHALER INH SCH (09:00)
[2020-06-25] MEDS ORDERED: MAGNESIUM OXIDE 400 MG TAB PO SCH (09:00)
[2020-06-25] MEDS ORDERED: POLYETHYLENE (MIRALAX) 17 GM PACK PO SCH (09:00)
[2020-06-25] MEDS ORDERED: HYDROmorphone HCL 2 MG TAB PO PRN (09:45)
[2020-06-25] MEDS: NSS + 20MEQ KCL 20 MEQ/1,000 ML BAG IV SCH (10:15)
[2020-06-25 11:17] VITALS: TEMP 97.9; O2SAT 97
[2020-06-25] MEDS ORDERED: HYDROmorphone INJ 2 MG/ML SYR/VIAL IV STA (13:58)
[2020-06-25] MEDS ORDERED: HYDROmorphone HCL 2 MG TAB PO STA (13:59)
[2020-06-25] MEDS ORDERED: Nursing to Pharmacy Communication SCH ×2 (14:00→14:45)
[2020-06-25] MEDS ORDERED: NICOTINE 14 MG/24 HR PATCH TD SCH (15:00)
[2020-06-25 15:18] VITALS: PULSE 65
[2020-06-25 15:36] VITALS: BP 155/85
--- NOTE | 2020-06-25 18:02 | Discharge Summary ---
Date of Service June 25, 2020 Admission HPI Per Admitting Provider Attending: Doreen Is a 54-year-old male with a history of squamous cell carcinoma diagnosed in 09/09/2019. It is nonstaged. Patient also has a history of tobacco abuse with cigarette smoking but quit several months ago. He continues to use smokeless tobacco. He has a past medical history including COPD, seasonal allergies, DVT of the left upper extremity on chronic anticoagulation with Lovenox twice daily, radiation pneumonitis, aspergillosis, chronic opiate use (30 Day Avg MME/day: The daily average of all morphine milligram equivalents for the last 30 days 169.60). Patient received chemotherapy yesterday. This morning he woke up in severe pain. He took 3 4 mg tablets of Dilaudid. He continues to be uncomfortable and around lunchtime reports he took his Narcan that he keeps at home. After today's Narcan he got nauseous and had some vomiting. He reported emergency department for further evaluation. He is alert and oriented. He is able to give me his whole story. He is able to corroborate history as given to the emergency room physician. He currently has no describable pain. He said he "does not feel well". He is nauseous but currently has no vomiting and has no diarrhea. He denies any fever, chills, sweats, rigors. He has no chest pain or tightness. He has no shortness of breath on room air. He has no abdominal pain. He denies any current back pain. He has no recent falls. He reports no loss of consciousness after taking the 12 mg of Dilaudid this morning. He has no headache. He has no change in vision. He has no diplopia or blurred vision. He has no other acute complaints. Patient states that he quit smoking last July. He continues to use smokeless tobacco daily He denies any ethanol use He is and lives at home with his and his 9-year-old daughter. He currently follows with Dr. Kulkarni with [facility] for his cancer. Principal Diagnosis Accidental opioid overdose vs. Narcan-related opioid withdrawal Discharge Exam Constitutional WD/WN, vitals as above Eyes EOM intact bilaterally; no conjunctival abnormality ENMT external ear and nose normal, oropharynx normal Neck trachea midline, no thyromegaly normal visual inspection Respiratory normal respiratory effort, lungs clear to auscultation no respiratory distress Cardiovascular RRR, no murmur, no edema Gastrointestinal (Abdomen) Inspection/Auscultation: abdomen normal to inspection; abdomen not distended Musculoskeletal no cyanosis or clubbing, extremities motor strength 5/5 Skin no rashes, warm and dry Neurologic moves all extremities and awake Psychiatric Orientation: alert, oriented to person and cooperative Discharge Data Allergies Allergy/AdvReac Type Severity Reaction Status Date / Time No Known Allergies Allergy Verified 06/24/20 16:10 Consultations 06/24/20 15:11 ED Decision to Admit Stat Hospital Course (1) Nausea & vomiting: Patient took somewhere between 12 mg - 24 mg of Dilaudid the morning of presentation, then was worried he overdosed and took Narcan. - Unclear whether this was opioid overdose vs. Narcan-related withdrawal. - Symptoms had entirely resolved by 06/25. - Prior to discharge, we discussed better management of opioids, including laying out his meds so he doesn't get confused if he has taken one & management by his . (2) Pneumonia: CXR showed likely pneumonitis without bacterial cause. Procalcitonin was only 0.18. No leukocytosis. No fever. No sputum production. No hemoptysis. - Most likely radiation pneumonitis versus sequela from known squamous cell carcinoma. - NO abx. (3) Squamous cell carcinoma of lung: Last chemotherapy received on 06/23/2020. Patient also received external beam radiation therapy. - Further management per Dr. Kulkarni (4) Oral candidiasis: This appears to be resolved on examination. No outpatient nystatin is ordered at this time. - Patient does typically have dentures but does not have them in now and will not be bringing them to the hospital (5) COPD with emphysema: Follows with Dr. Horne in the outpatient clinic. At this point patient is oxygenating well on room air. - Continue Anoro scheduled and albuterol as needed for shortness of breath or wheezes (6) Deep vein thrombosis: Patient currently receiving Lovenox twice daily for left upper extremity DVT secondary to PICC line. Review of the chart with most recent note from 04/28/2020 states that Lovenox should be continued for 3 months. At this point, patient says that he is not taking Lovenox. Pharmacy reviewed and patient had an order placed 06/06/2020. - Should clarify with outpatient oncologist. (7) Anemia: Patient with anemia of chronic disease. Currently patient's hemoglobin is 9.7. No acute blood loss. (8) DVT prophylaxis: Left upper extremity DVT secondary to PICC line. Most recent Doppler shows no acute obstructive thrombus. - As above Total Time Total Time Spent Total Time Spent (In Minutes): 35 Discharge Plan Discharge Items Patient Disposition: Home - Self-Care Reason For Visit: NAUSEA AND VOMITING Discharge Diagnosis: Possible overdose vs. Narcan-related opiate withdrawal Condition on Discharge: Good Activity: Resume your previous activity Non-emergency contact: Primary Care Provider and Pain Management Call non-emergency contact if: your symptoms worsen Follow-up/Referrals: Walter Roberts [Primary Care Provider] - Diet: Regular Addtl Attending Provider Instructions: Mr. Lam, You were admitted to the hospital after an episode of possible opiate overdose from your home Dilaudid. Please have your help administer your pain medication as opioid overdose can be fatal. I think it is a good idea to have your Dilaudid pills , but it may be even better to have your store them in a safe place and have her give them to you so that you cannot accidentally take more than you should. Please see your Pain Management doctor next week to help adjust the medication as you report the 4 mg tablets are not covering your pain. Pending Studies at Discharge: No Stand-Alone Forms: [facility], Smoking Cessation Medications and DC Order Prescriptions: Continued acetaminophen 500 mg tablet 500 mg PO QID PRN (Reason: Pain) RF: 0 Mucinex DM 30-600 mg tablet extended release 12 hr 1 tab PO Q12H PRN (Reason: cough) Qty: 60 RF: 2 omeprazole 20 mg capsule,delayed release(DR/EC) 20 mg PO QAM RF: 0 albuterol sulfate 90 mcg/actuation HFA aerosol inhaler 2 puff INH Q6H PRN (Reason: Shortness Of Breath Or Wheezing) Qty: 18 RF: 3 ipratropium-albuterol 0.5 mg-3 mg(2.5 mg base)/3 mL solution for nebulization 3 ml INH Q8H PRN (Reason: Shortness Of Breath Or Wheezing) Qty: 180 RF: 5 Narcan 4 mg/actuation spray,non-aerosol 1 spray intranasal Q3M PRN (Reason: Opioid Overdose) RF: 0 ondansetron HCl 8 mg tablet 8 mg PO Q8H PRN (Reason: Nausea) 30 Days Qty: 30 RF: 0 prochlorperazine maleate 10 mg tablet 10 mg PO Q6H PRN (Reason: Nausea) RF: 0 magnesium oxide 400 mg (241.3 mg magnesium) Tablet 400 mg PO QAM Qty: 30 RF: 0 gabapentin 300 mg capsule 300 mg PO QID RF: 0 hydromorphone 4 mg tablet 4 mg PO Q4H PRN (Reason: Pain) RF: 0 sennosides [Senokot] 8.6 mg tablet 8.6 mg PO QAM PRN (Reason: Constipation) RF: 0 docusate sodium 100 mg capsule 100 mg PO BID PRN (Reason: Constipation) RF: 0 polyethylene glycol 3350 [Miralax] 17 gram/dose powder 17 g PO DAILY PRN (Reason: Constipation) RF: 0 Discharge Orders: Discharge Order (Routine); Ordered 06/25/20 Ordered By: Chay Adam Admission Data Admit Date/Time: 06/24/20 15:56 Attending Provider: Chay Adam Admit Provider: Bonilla Logan Primary Care Provider: Walter Roberts Other Providers: Chay Adam Other Interventions: Discharge Summary Assessment (RN) Last Done: 06/25/20 15:35 Coding Level of Care Code 83410 OBS Care - Discharge Diagnoses Nausea & vomiting R11.2 Vomiting Intractability: non-intractable Vomiting type: unspecified Pneumonia J18.9 Laterality: right Lung location: unspecified part of lung Pneumonia type: due to unspecified organism Squamous cell carcinoma of lung C34.90 Laterality: unspecified laterality Oral candidiasis B37.0 COPD with emphysema J43.9 Emphysema type: unspecified Deep vein thrombosis I82.409 DVT location: upper extremity Laterality: left Anemia D64.9 DVT prophylaxis Z29.9
[2020-06-27 01:52] LABS: Codeine Urine NEGATIVE ng/mL (<50); Hydrocodone Urine NEGATIVE ng/mL (<50); Hydromor Urine 1530 ng/mL (<50); Marijuana Quant, GCMS Urine 499 ng/mL (<5); Morphine Urine NEGATIVE ng/mL (<50); Norhydrocodone Conf Ur NEGATIVE ng/mL (<50); Noroxycodone Urine NEGATIVE ng/mL (<50); Oxycodone Urine NEGATIVE ng/mL (<50); Oxymorph Urine NEGATIVE ng/mL (<50)
== END 2020-06-25 16:25 | disposition home or self-care (01) | DRG 918 ==
LOC: 2N 13:21 → ED 13:21 → SUATTDRO 15:56 → OBSVTOIN 15:56 → INTOOBSV 16:35 → 2N 20:14

== ENCOUNTER 2020-07-11 13:12 | Inpatient (IN) ==
[2020-07-11] MEDS ORDERED: ONDANSETRON INJ 2 MG/ML 2 ML VIAL IV STA (14:10)
[2020-07-11] MEDS ORDERED: SODIUM CHLORIDE 0.9% 1000ML 1,000 ML IV ONE (14:17)
[2020-07-11] MEDS: HYDROmorphone INJ 1 MG/ML SYRINGE IV PRN ×4 (14:19→22:33)
[2020-07-11 14:27] LABS: Alanine Aminotransferase 16 U/L (12-78); Albumin Level 1.6 gm/dl (3.4-5.0); Aspartate Aminotransferase 11 U/L (15-37); BUN Creatinine Ratio 32.3 (10-20); Blood Urea Nitrogen 12 mg/dl (7-18); Calcium 7.8 mg/dl (8.5-10.1); Carbon Dioxide 27 mmol/L (21-32); Chloride 104 mmol/L (98-107); Creatinine Clr Calc Pharmacy 199.4 ml/min; Est GFR (African American) > 150.0; Est GFR (Non-African American) 141.6; Glucose 93 mg/dl (70-99); Lipase 30 U/L (73-393); Potassium 3.9 mmol/L (3.5-5.1); Sodium 137 mmol/L (136-145)
[2020-07-11 14:33] LABS: Albumin Globulin Ratio 0.3 (0.9-2); Alkaline Phosphatase 124 U/L (45-117); Bilirubin,Total 0.2 mg/dl (0.2-1); Creatine Kinase 22 U/L (39-308); Creatine Kinase MB < 1.0 ng/ml (0.5-3.6); Globulin 5.1 gm/dl (2.5-4.0); Total Protein 6.7 gm/dl (6.4-8.2); Troponin I < 0.015 ng/ml (0-0.045)
--- NOTE | 2020-07-11 14:39 | XRay Report ---
SINGLE VIEW CHEST CLINICAL HISTORY: Atypical chest pain. FINDINGS: An AP, portable, upright chest radiograph is compared to study dated 06/24/2020 and correlate d with chest CT dated 04/15/2020. The examination is degraded by portable technique and apical lordoti c positioning. The cardiomediastinal silhouette is unremarkable. Fibrotic change with debris-containi ng cavitation is again seen at the right apex. Chronic fibrotic change is again noted in the left mid lung. Superimposed airspace consolidation is again seen in right upper lung and the left lower lung. No large pleural effusion is identified. No pneumothorax is seen. There are healed left-sided rib fra ctures. IMPRESSION: 1. Chronic fibrotic change throughout both lungs with cavitation and debris at the right apex is brian lar to recent prior examinations. 2. Foci of superimposed airspace consolidation in the right upper an left lower lung is unchanged fro m 06/24/2020 and suggests superimposed pneumonia. Clinical correlation will be required. ACT 112: Negative or not required by law. Electronically signed by: Ethan Larkin M.D. 07/11/2020 2:37 PM
[2020-07-11 14:40] LABS: Anisocytosis Present; Eosinophils # (auto) 0.02 K/uL (0-0.5); Eosinophils % (auto) 0.2 %; Hematocrit (blood only) 21.4 % (42-52); Hemoglobin 6.9 g/dL (14.0-18.0); Immature Granulocytes # (auto) 0.03 K/uL (0.00-0.02); Immature Granulocytes % (auto) 0.3 %; Lymphocytes # (auto) 0.29 K/uL (1.2-3.4); Lymphocytes % (auto) 3.3 %; Mean Corpuscular Hemoglobin 29.9 pg (25-34); Mean Corpuscular Hgb Conc 32.2 g/dL (32-36); Mean Corpuscular Volume 92.6 fL (80-100); Mean Platelet Volume 9.5 fL (7.4-10.4); Monocytes # (auto) 0.37 K/uL (0.11-0.59); Monocytes % (auto) 4.2 %; Neutrophils # (auto) 8.08 K/uL (1.4-6.5); Platelet Count 47 K/uL (130-400); Platelet Estimate Decreased (Normal); RDW Coefficient of Variation 17.1 % (11.5-14.5); RDW Standard Deviation 57.8 fL (36.4-46.3); Red Blood Count 2.31 M/uL (4.7-6.1); Toxic Granulation 1+; White Blood Count 8.79 K/uL (4.8-10.8)
[2020-07-11] MEDS ORDERED: SODIUM CHLORIDE 0.9% 250 ML IV PRN (14:52)
[2020-07-11] MEDS ORDERED: PANTOprazole 80 MG in DEXTROSE 5% 100 ML IV ONE (15:15)
[2020-07-11] MEDS ORDERED: OPTIRAY 350 500ml IV ONE (15:23)
[2020-07-11 15:37] LABS: Influenza A virus by PCR Negative (Neg); Influenza B virus by PCR Negative (Neg); RSV by PCR Negative (Neg); SARS CoV2 RNA(COVID-19) InHosp NEGATIVE (Negative)
--- NOTE | 2020-07-11 15:43 | CT Scan Report ---
CT ANGIOGRAM OF THE CHEST CLINICAL HISTORY: Shortness of breast. Metastatic lung carcinoma. Chest pain. Fatigue. Possible acute pulmonary embolism. COMPARISON STUDY: 04/15/2020 TECHNIQUE: Following the IV administration of 99 mL of Optiray, CT angiogram of the thorax was perfor med from the thoracic inlet to the lung bases utilizing the pulmonary embolus protocol. Images are re viewed in the axial, sagittal, and coronal planes. IV contrast was administered without complication. MIP imaging was performed. A dose lowering technique was utilized adhering to the principles of ALA RA. CT DOSE: 246.19 mGy.cm FINDINGS: There are persistent borderline enlarged mediastinal lymph nodes. There was no evidence of thoracic aortic dilatation. There were no pulmonary artery filling defects to indicate acute pulmonary embolism. There are trace bilateral pleural effusions There is severe pulmonary emphysema. There is right lower lobe bronchial wall thickening and mucous p lugging. There is a 6 cm right upper lobe cavitary lesion. There are multifocal areas of irregular pa renchymal consolidation. Multifocal pneumonia is favored although multifocal neoplasm could appear si milar. IMPRESSION: 1. No evidence of acute pulmonary embolism 2. Progressive right upper lobe volume loss and consolidation. Persistent right upper lobe cavitation . 3. Severe pulmonary emphysema. 4. Irregular multifocal airspace opacities, likely representing a multifocal pneumonia 5. Right lower lobe bronchial wall thickening and mucous plugging. ACT 112: Negative or not required by law. Electronically signed by: Leroy Faust M.D. 07/11/2020 3:42 PM
[2020-07-11] MEDS: PANTOprazole 40 MG in DEXTROSE 5% 100 ML IV SCH ×2 (15:45→19:56)
--- NOTE | 2020-07-11 17:05 | Emergency Department Note ---
Impression & Plan Anemia, SOB (shortness of breath), [facility] ED Provider Note NAME: KRISTIN URRUTIA AGE: 54 SEX: M : 1965 ARRIVES VIA: Ambulance INFORMANT: Patient, ED PROVIDER(S): Mandeep Alvarez MD CHIEF COMPLAINT: Shortness of breath HPI: This 54-year-old male who presents emergency department complaining of shortness of breath as well as generalized weakness. The patient reports he ran out of his pain medication and is requesting pain medicine for his chest pain. The patient reports he cannot take more than 4 or 5 steps without becoming extremely short of breath. He has been taking his albuterol inhaler at home with no relief of the shortness of breath. He reports movement makes the shortness of breath worse however rest makes it better. ROS: See above HPI for pertinent positives & negatives. A total of 10 systems reviewed and were otherwise negative. PAST MEDICAL HISTORY: See Below PAST SURGICAL HISTORY: See Below FAMILY HISTORY: See Below SOCIAL HISTORY: See Below HOME MEDICATIONS: See Below ALLERGIES: See Below VITALS: See Below PHYSICAL EXAMINATION: VITAL SIGNS - Vital signs and nursing notes were reviewed. GENERAL - 54-year-old male appearing stated age who is in no acute distress. Communicates well with provider and answers questions appropriately. SKIN - Without rashes. HEAD - NC/AT. EYES - PERRL with EOMI bilaterally. Sclera anicteric. Palpebral conjunctiva pink and moist with no injection noted. EARS - No deformities of external structures noted on gross examination bilaterally. NOSE - Midline and without cyanosis. No epistaxis or purulent drainage noted. Septum midline without deviation or septal hematoma noted. MOUTH/OROPHARYNX - Without perioral cyanosis. Buccal mucosa pink and moist and without leukoplakia. Tongue midline with equal elevation of palate bilaterally. No tonsillar hypertrophy, erythema, or exudates noted. dentition noted. NECK - Neck with FROM. Supple to palpation. lymphadenopathy noted. No nuchal rigidity. LUNGS - Chest wall symmetric without accessory muscle use, intercostals retractions, or central cyanosis. Normal vesicular breath sounds CTA B/L. No wheezes, rales, or rhonchi appreciated. CARDIAC - RRR with S1/S2. No murmur, rubs, or gallops appreciated. ABDOMEN - Abdominal contour without pulsations or visible masses. BS normoactive all four quadrants. No tenderness, palpable masses, hepatosplenomeg farheen, or ascites noted. RECTAL: Black tarry, heme +, external hemorrhoid noted, no mass palpated EXTREMITIES - No clubbing or peripheral cyanosis. No pretibial edema present. +3/5 radial, posterior tibial, and dorsalis pedis pulses palpated throughout. +5/5 strength noted in UE/LE bilaterally. NEUROLOGIC - Cranial nerves II through XII grossly intact. Sensory intact to light touch throughout. Patellar reflexes +2/4. PSYCH - A&Ox3 and cooperates fully with examiner. Pt is very pleasant and inte racts well with examiner. MEDICAL DECISION MAKING: Patient was seen and evaluated as above in room C11B. Review was performed of nursing notes and vital signs. I did review pertinent previous visits and patient history. After obtaining a thorough history and physical examination the above work up was performed. This 54-year-old male who presents emergency department complaining of shortness of breath. The patient's hemoglobin was noted to be 6. He is heme positive on my rectal examination. He was started on IV Protonix. Blood consent was signed and placed on the chart. He was typed and crossed for 2 units of packed red blood cells. I did discuss the case with the hospitalist service who did agree to meet the patient. An order was placed for continuous cardiac monitoring. The monitor shows a rate of 61 with Normal SInus rhythm. The patient was evaluated during a period of high volume and high acuity during the global COVID-19 pandemic, and that diagnosis was suspected/considered upon their initial presentation. Their evaluation, treatment and testing was consistent with current guidelines for patients who present with complaints or symptoms that may be related to COVID-19. Patient was seen while provider was wearing PPE. Triage Nursing notes reviewed. Prior medical records reviewed Vital Signs: reviewed and remarkable for no significant abnormalities Differential diagnosis: Infection, dehydration, metabolic abnormality, hypo/hyperglycemia, electrolyte disturbance, anemia, hypoxia, cardiac sources, intracerebral event, toxicologic, neurologic, as well as other pathologies. ER treatment provided: See below Laboratory studies: As stated above and show below. Imaging studies: See below Consultation(s): Internal Medicine Critical Care: I have personally spent greater than 90 minutes of critical care time in the direct management of this patient. This includes bedside care, interpretation of diagnostic studies, and testing, discussion with consultants, patient, and family members, and other required patient management activities. This 90 minutes is in excess of all separately billable procedures. Past Med/Surg History Medical History (Updated 07/12/20 @ 12:49 by Mandeep Alvarez MD) Acute blood loss anemia Acute hyponatremia Anxiety Arthritis Aspergillus pneumonia s/p treatment, following closely with pulmonary Cavitary lung disease Chronic obstructive pulmonary disease COPD with emphysema Eye disease Best disease- genetic condition affecting vision GERD (gastroesophageal reflux disease) Gram-negative bacteremia Invasive aspergillosis Macular degeneration Moderate nausea and vomiting Opiate abuse, continuous Pneumonitis Restless leg syndrome Scoliosis Seasonal allergies Severe protein-calorie malnutrition SOB (shortness of breath) on exertion Squamous cell carcinoma lung Upper GI bleed Surgical History History of bronchoscopy History of colonoscopy History of esophagogastroduodenoscopy (EGD) History of tonsillectomy History of tooth extraction Hx of vasectomy Family History Mother Macular degeneration Lung disease Father , 60yo Myocardial infarction Pancreatitis Sister No problems noted. Sister No problems noted. Son No problems noted. Son No problems noted. Daughter No problems noted. Other No significant family history Social History Smoking Status: Former smoker Tobacco Type: Smokeless Tobacco (Dip or Chew) Cigarettes Per Day: 30-40 cigarettes per day for 40 years; Second Hand Exposure: No; Do You Dip or Chew Tobacco: Yes (1 can daily); Tobacco Cessation Education Requested by Patient: No Hx Alcohol Use: No Hx Substance Use: Yes Last Used Substance: Hours (ago) Last Used Substance Ot her:: 5-6 times daily Substance Use Type Other:: oxycodone Preferred Language: Turkish Communication Ability: Effective Visual Impairment: No Limitations Hearing Ability: Normal Shift Foreman Required: No Beliefs That Will Affect Care: None marital status: Current Living Situation: Spouse current occupational status: employed 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 [employer] How many Children do You have: 1 Other Information That Helps Us Care for You: No Feels Safe at Home: Yes Safety Concerns: Feels Safe At This Time Diet Comment: Near keto diet caffeine: Yes (1 cup/day) during the past year weight has: decreased > 10 lbs Assistive Devices: Oxygen - Continuous Allergies Allergies Allergy/AdvReac Type Severity Reaction Status Date / Time No Known Allergies Allergy Verified 07/07/20 15:04 Home Meds Home Medications Medication Instructions Recorded Confirmed omeprazole 20 mg capsule,delayed 20 mg PO QAM 07/30/19 07/11/20 release prochlorperazine maleate 10 mg PO Q6H PRN 01/29/20 07/11/20 Narcan 1 spray INTRANASAL Q3M PRN 03/05/20 07/11/20 acetaminophen 500 mg tablet 500 mg PO QID PRN 05/23/20 07/11/20 docusate sodium 100 mg PO BID 06/24/20 07/11/20 gabapentin 300 mg PO QID 06/24/20 07/11/20 polyethylene glycol 3350 [Miralax] 17 g PO DAILY PRN 06/24/20 07/11/20 sennosides [Senokot] 8.6 mg PO QAM PRN 06/24/20 07/11/20 enoxaparin 60 mg SUBCUT UD 07/11/20 07/11/20 hydromorphone 4 mg PO Q4 PRN 07/11/20 07/11/20 sertraline 50 mg PO DAILY 07/11/20 07/11/20 Previous Rx's Medication Instructions Recorded magnesium oxide 400 mg PO QAM #30 tab 02/03/20 ondansetron HCl 8 mg PO Q8H PRN 30 Days #30 tab 03/07/20 albuterol sulfate 90 mcg/actuation 2 puff INH Q6H PRN #18 gm 07/04/20 aerosol inhaler dextromethorphan-guaifenesin 30 1 tab PO Q12H PRN #60 tab 07/04/20 mg-600 mg tablet extended [id number] hr ipratropium 0.5 mg-albuterol 3 mg 3 ml INH Q8H PRN #180 ml 07/04/20 (2.5 mg base)/3 mL nebulization soln umeclidinium 62.5 mcg-vilanterol 1 inh INHALATION DAILY #60 ea 07/04/20 25 mcg/actuation powdr for inhalation lidocaine 4 % topical patch 1 patch TOPICAL DAILY #30 ea 07/07/20 hydroxyzine HCl 25 mg tablet 25 mg PO TID PRN #30 tab 07/08/20 Results & Data (ED) Vital Signs Vital Signs - 24 hr 07/11/20 13:30 07/11/20 13:31 07/11/20 13:35 Temperature 36.6 C Temperature Source Oral Pulse Rate 67 67 Pulse Rate from SpO2 Sensor 67 Respiratory Rate 21 18 Respiratory Effort / Characteristics Non-Labored Spontaneous Respiratory Depth Normal Blood Pressure 100/64 97/67 L Blood Pressure Mean 76 77 Pulse Oximetry 98 98 Oxygen Delivery Method Room Air Room Air Sepsis Recent Fever Within 48 Hours No Sepsis New/Unexplained Change in Mental Status No Sepsis Action Taken by Nursing No Action Required 07/11/20 14:13 07/11/20 14:30 07/11/20 15:00 Temperature Temperature Source Pulse Rate 62 Pulse Rate from SpO2 Sensor 62 Respiratory Rate 18 Respiratory Effort / Characteristics Respiratory Depth Blood Pressure 91/53 L 85/61 L Blood Pressure Mean 65 69 Pulse Oximetry 98 97 Oxygen Delivery Method Room Air Sepsis Recent Fever Within 48 Hours Sepsis New/Unexplained Change in Mental Status Sepsis Action Taken by Nursing 07/11/20 15:31 Temperature Temperature Source Pulse Rate Pulse Rate from SpO2 Sensor 62 Respiratory Rate Respiratory Effort / Characteristics Respiratory Depth Blood Pressure 110/67 Blood Pressure Mean 81 Pulse Oximetry 97 Oxygen Delivery Method Sepsis Recent Fever Within 48 Hours Sepsis New/Unexplained Change in Mental Status Sepsis Action Taken by Nursing Laboratory Data Result diagrams: 07/12/20 06:31 07/12/20 06:31 Lab Results 07/11/20 07/11/20 07/11/20 Range/Units 13:30 13:30 14:25 WBC 8.79 (4.8-10.8) K/uL RBC 2.31 L (4.7-6.1) M/uL Hgb 6.9 L* (14.0-18.0) g/dL Hct 21.4 L (42-52) % MCV 92.6 (80-100) fL MCH 29.9 (25-34) pg MCHC 32.2 (32-36) g/dL RDW Std Deviation 57.8 H (36.4-46.3) fL RDW Coeff of [place] 17.1 H (11.5-14.5) % Plt Count 47 L (130-400) K/uL MPV 9.5 (7.4-10.4) fL Immature Gran % (Auto) 0.3 % Neut % (Auto) 92.0 % Lymph % (Auto) 3.3 % [place] % (Auto) 4.2 % Eos % (Auto) 0.2 % Baso % (Auto) 0.0 % Neut # (Auto) 8.08 H (1.4-6.5) K/uL Lymph # (Auto) 0.29 L (1.2-3.4) K/uL [place] # (Auto) 0.37 (0.11-0.59) K/uL Eos # (Auto) 0.02 (0-0.5) K/uL Baso # (Auto) 0.00 (0-0.2) K/uL Immature Gran # (Auto) 0.03 H (0.00-0.02) K/uL Toxic Granulation 1+ Platelet Estimate Decreased L (Normal) Anisocytosis Present Sodium 137 (136-145) mmol/L Potassium 3.9 (3.5-5.1) mmol/L Chloride 104 (98-107) mmol/L Carbon Dioxide 27 (21-32) mmol/L Anion Gap 6.0 (3-11) BUN 12 (7-18) mg/dl Creatinine 0.36 L (0.6-1.4) mg/dl Est Cr Clr Drug Dosing 199.4 ml/min Est GFR ( Amer) > 150.0 Est GFR (Non-Af Amer) 141.6 BUN/Creatinine Ratio 32.3 H (10-20) Glucose 93 (70-99) mg/dl Calcium 7.8 L (8.5-10.1) mg/dl Total Bilirubin 0.2 (0.2-1) mg/dl AST 11 L (15-37) U/L ALT 16 (12-78) U/L Alkaline Phosphatase 124 H (45-117) U/L Total Creatine Kinase 22 L (39-308) U/L CK-MB (CK-2) < 1.0 (0.5-3.6) ng/ml CK/CKMB % Calc TNP Troponin I < 0.015 (0-0.045) ng/ml Total Protein 6.7 (6.4-8.2) gm/dl Albumin 1.6 L (3.4-5.0) gm/dl Globulin 5.1 H (2.5-4.0) gm/dl Albumin/Globulin Ratio 0.3 L (0.9-2) Lipase 30 L (73-393) U/L COVID-19 Eval Order CovFluRsv at [facility] SARS-CoV-2 (PCR) (Negative) Influenza Type A (PCR) (Neg) Influenza Type B (PCR) (Neg) RSV (RT-PCR) (Neg) Blood Type Antibody Screen Crossmatch 07/11/20 07/11/20 Range/Units 14:25 15:05 WBC (4.8-10.8) K/uL RBC (4.7-6.1) M/uL Hgb (14.0-18.0) g/dL Hct (42-52) % MCV (80-100) fL MCH (25-34) pg MCHC (32-36) g/dL RDW Std Deviation (36.4-46.3) fL RDW Coeff of [place] (11.5-14.5) % Plt Count (130-400) K/uL MPV (7.4-10.4) fL Immature Gran % (Auto) % Neut % (Auto) % Lymph % (Auto) % [place] % (Auto) % Eos % (Auto) % Baso % (Auto) % Neut # (Auto) (1.4-6.5) K/uL Lymph # (Auto) (1.2-3.4) K/uL [place] # (Auto) (0.11-0.59) K/uL Eos # (Auto) (0-0.5) K/uL Baso # (Auto) (0-0.2) K/uL Immature Gran # (Auto) (0.00-0.02) K/uL Toxic Granulation Platelet Estimate (Normal) Anisocytosis Sodium (136-145) mmol/L Potassium (3.5-5.1) mmol/L Chloride (98-107) mmol/L Carbon Dioxide (21-32) mmol/L Anion Gap (3-11) BUN (7-18) mg/dl Creatinine (0.6-1.4) mg/dl Est Cr Clr Drug Dosing ml/min Est GFR ( Amer) Est GFR (Non-Af Amer) BUN/Creatinine Ratio (10-20) Glucose (70-99) mg/dl Calcium (8.5-10.1) mg/dl Total Bilirubin (0.2-1) mg/dl AST (15-37) U/L ALT (12-78) U/L Alkaline Phosphatase (45-117) U/L Total Creatine Kinase (39-308) U/L CK-MB (CK-2) (0.5-3.6) ng/ml CK/CKMB % Calc Troponin I (0-0.045) ng/ml Total Protein (6.4-8.2) gm/dl Albumin (3.4-5.0) gm/dl Globulin (2.5-4.0) gm/dl Albumin/Globulin Ratio (0.9-2) Lipase (73-393) U/L COVID-19 Eval Order SARS-CoV-2 (PCR) NEGATIVE (Negative) Influenza Type A (PCR) Negative (Neg) Influenza Type B (PCR) Negative (Neg) RSV (RT-PCR) Negative (Neg) Blood Type O Positive Antibody Screen NEGATIVE Crossmatch See Detail Administered Medications Gabapentin (Gabapentin 600 Mg Tab) 600 mg PO TID [facility] Stop: 08/11/20 13:59 Last Admin: 07/12/20 12:04 Dose: 600 mg Documented by: [id number] Hydromorphone HCl (Hydromorphone Hcl 2 Mg Tab) 4 mg PO Q4 PRN PRN Reason: Pain Stop: 07/26/20 09:21 Last Admin: 07/12/20 11:33 Dose: 4 mg Documented by: [id number] Doxycycline Hyclate 100 mg/ (Dextrose) 110 mls @ 50 mls/hr IV Q12H [facility] Stop: 07/17/20 10:59 Last Admin: 07/12/20 12:04 Dose: 50 mls/hr Documented by: [id number] Lidocaine (Lidocaine 5% 1 Patch) 1 patch TD DAILY [facility] Stop: 08/11/20 08:59 Last Admin: 07/12/20 08:33 Dose: 1 patch Documented by: [id number] Melatonin (Melatonin 3 Mg Tab) 3 mg PO HS PRN PRN Reason: Sleep Stop: 08/10/20 21:43 Last Admin: 07/11/20 22:09 Dose: 3 mg Documented by: [id number] Miscellaneous (Remove Lidoderm Patch) 1 ea N/A 2100 [facility] Stop: 08/10/20 20:59 Last Admin: 07/11/20 20:34 Dose: 1 ea Documented by: [id number] Sertraline HCl (Sertraline Hcl 50 Mg Tablet) 50 mg PO DAILY [facility] Stop: 08/11/20 09:14 Last Admin: 07/12/20 10:45 Dose: 50 mg Documented by: [id number] Discontinued Medications Hydromorphone HCl (Hydromorphone Inj 1 Mg/Ml Syringe) 1 mg IV Q15M PRN PRN Reason: Pain Stop: 07/25/20 14:09 Last Admin: 07/11/20 15:43 Dose: 1 mg Documented by: [id number] Admin: 07/11/20 14:19 Dose: 1 mg Documented by: [id number] Hydromorphone HCl (Hydromorphone Inj 1 Mg/Ml Syringe) 1 mg IV Q4H PRN PRN Reason: Pain Stop: 07/25/20 14:09 Last Admin: 07/12/20 06:42 Dose: 1 mg Documented by: [id number] Admin: 07/12/20 02:42 Dose: 1 mg Documented by: [id number] Admin: 07/11/20 22:33 Dose: 1 mg Documented by: [id number] Admin: 07/11/20 18:40 Dose: 1 mg Documented by: [id number] Sodium Chloride (Nss 1000ml) 1,000 mls @ 999 mls/hr IV .Q1H1M ONE Stop: 07/11/20 15:17 Last Infusion: 07/11/20 15:29 Dose: 0 mls/hr Documented by: [id number] Admin: 07/11/20 14:20 Dose: 999 mls/hr Documented by: [id number] Pantoprazole Sodium 80 mg/ (Dextrose) 120 mls @ 480 mls/hr IV NOW ONE Stop: 07/11/20 15:29 Last Infusion: 07/11/20 15:53 Dose: 0 mls/hr Documented by: [id number] Admin: 07/11/20 15:34 Dose: 480 mls/hr Documented by: [id number] Pantoprazole Sodium 40 mg/ (Dextrose) 100 mls @ 20 mls/hr IV Q5H [facility] Stop: 08/10/20 15:29 Last Infusion: 07/12/20 11:57 Dose: 0 mg/hr, 0 mls/hr Documented by: [id number] Admin: 07/12/20 10:44 Dose: 8 mg/hr, 20 mls/hr Documented by: [id number] Infusion: 07/12/20 10:44 Dose: 0 mg/hr, 0 mls/hr Documented by: [id number] Infusion: 07/12/20 08:38 Dose: 0 mg/hr, 0 mls/hr Documented by: [id number] Admin: 07/12/20 03:49 Dose: 8 mg/hr, 20 mls/hr Documented by: [id number] Infusion: 07/12/20 03:49 Dose: 8 mg/hr, 20 mls/hr Documented by: [id number] Admin: 07/12/20 00:45 Dose: 8 mg/hr, 20 mls/hr Documented by: [id number] Infusion: 07/12/20 00:45 Dose: 8 mg/hr, 20 mls/hr Documented by: [id number] Admin: 07/11/20 19:56 Dose: 8 mg/hr, 20 mls/hr Documented by: [id number] Infusion: 07/11/20 19:56 Dose: 8 mg/hr, 20 mls/hr Documented by: [id number] Admin: 07/11/20 15:45 Dose: 8 mg/hr, 20 mls/hr Documented by: [id number] Ioversol (Optiray 350 500ml) 99 ml IV ONCE ONE Stop: 07/11/20 15:24 Last Admin: 07/11/20 15:24 Dose: 99 ml Documented by: [id number] Lidocaine HCl (Lidocaine Hcl 2% 2 Ml Vial/Amp(20mg/Ml)) Confirm Administered Dose 4 ml INFIL .STK-MED ONE Stop: 07/12/20 09:07 Last Admin: 07/12/20 10:56 Dose: Not Given Documented by: [id number] Ondansetron HCl (Ondansetron Inj 2 Mg/Ml 2 Ml Vial) 4 mg IV NOW STA Stop: 07/11/20 14:11 Last Admin: 07/11/20 14:19 Dose: 4 mg Documented by: [id number] Propofol (Propofol Iv Emulsion 10 Mg/Ml 20 Ml Vial) Confirm Administered Dose 40 0 mg IV .STK-MED ONE Stop: 07/12/20 09:07 Last Admin: 07/12/20 10:56 Dose: Not Given Documented by: [id number] Imaging Data Radiologist's Impression: Chest CTA 07/11/20 14:10 CT ANGIOGRAM OF THE CHEST CLINICAL HISTORY: Shortness of breast. Metastatic lung carcinoma. Chest pain. Fatigue. Possible acute pulmonary embolism. COMPARISON STUDY: 04/15/2020 TECHNIQUE: Following the IV administration of 99 mL of Optiray, CT angiogram of the thorax was performed from the thoracic inlet to the lung bases utilizing the pulmonary embolus protocol. Images are reviewed in the axial, sagittal, and coronal planes. IV contrast was administered without complication. MIP imaging was performed. A dose lowering technique was utilized adhering to the principles of ALARA. CT DOSE: 246.19 mGy.cm FINDINGS: There are persistent borderline enlarged mediastinal lymph nodes. There was no evidence of thoracic aortic dilatation. There were no pulmonary artery filling defects to indicate acute pulmonary embolism. There are trace bilateral pleural effusions There is severe pulmonary emphysema. There is right lower lobe bronchial wall thickening and mucous plugging. There is a 6 cm right upper lobe cavitary lesion. There are multifocal areas of irregular parenchymal consolidation. Multifocal pneumonia is favored although multifocal neoplasm could appear similar. IMPRESSION: 1. No evidence of acute pulmonary embolism 2. Progressive right upper lobe volume loss and consolidation. Persistent right upper lobe cavitation. 3. Severe pulmonary emphysema. 4. Irregular multifocal airspace opacities, likely representing a multifocal pneumonia 5. Right lower lobe bronchial wall thickening and mucous plugging. ACT 112: Negative or not required by law. Electronically signed by: Leroy Faust M.D. 07/11/2020 3:42 PM Chest X-Ray 07/11/20 14:10 SINGLE VIEW CHEST CLINICAL HISTORY: Atypical chest pain. FINDINGS: An AP, portable, upright chest radiograph is compared to study dated 06/24/2020 and correlated with chest CT dated 04/15/2020. The examination is degraded by portable technique and apical lordotic positioning. The cardiomediastinal silhouette is unremarkable. Fibrotic change with debris- containing cavitation is again seen at the right apex. Chronic fibrotic change is again noted in the left midlung. Superimposed airspace consolidation is again seen in right upper lung and the left lower lung. No large pleural effusion is identified. No pneumothorax is seen. There are healed left-sided rib fractures. IMPRESSION: 1. Chronic fibrotic change throughout both lungs with cavitation and debris at the right apex is similar to recent prior examinations. 2. Foci of superimposed airspace consolidation in the right upper an left lower lung is unchanged from 06/24/2020 and suggests superimposed pneumonia. Clinical correlation will be required. ACT 112: Negative or not required by law. Electronically signed by: Ethan Larkin M.D. 07/11/2020 2:37 PM Discharge Plan Visit Data Chief Complaint: Chest Pain Stated Complaint: chest pain ED Provider: Mandeep Alvarez Discharge Problem: Anemia, SOB (shortness of breath), [facility] Patient Disposition: Admitted As Inpatient Discharge Instructions Interventions: ED Discharge Assessment Last Done: 07/11/20 17:32 Discharge Problem: Anemia Qualifiers: Anemia type: unspecified type Qualified Code(s): D64.9 - Anemia, unspecified
--- NOTE | 2020-07-11 17:41 | History & Physical Report ---
Date of Service July 11, 2020 Assessment & Plan (1) Acute blood loss anemia: Found to have hemoglobin of 6.9 Given recent history of NSAID use with Dark stools and anemia, likely has an upper GI bleed. Placed on protonix drip. will transfuse 2 PRBC after obtaining consent. D/W Dr Higgins who is taking patient for upper EGD tomorrow. will keep NPO. (2) Upper GI bleed: as stated above. (3) COPD with emphysema: Follows with Dr. Horne in the outpatient clinic At this point patient is oxygenating well on room air Supplemental oxygen as needed to maintain SaO2 between 88 and 92% Continue Anoro scheduled and albuterol as needed for shortness of breath or wheezes (8) DVT prophylaxis: Left upper extremity DVT secondary to PICC line Most recent Doppler shows no acute obstructive thrombus Continue Lovenox twice daily Ambulate as tolerated No indication for KASANDRA hose or SCDs (4) Deep vein thrombosis: appears to have completed anticoagulation treatment. (5) Squamous cell carcinoma of lung: seen by Dr. Kulkarni Receives chemotherapy and external beam radiation History of Present Illness Chief Complaint: Fatigue and SOB on exertion Primary Care Provider: Walter Roberts 54 yo male reportIs a 54-year-old male with a history of squamous cell carcinoma diagnosed in 09/09/2019. It is nonstaged. Patient also has a history of tobacco abuse with cigarette smoking but quit several months ago. He continues to use smokeless tobacco. He has a past medical history including COPD, seasonal allergies, DVT of the left upper extremity on chronic anticoagu lation with Lovenox twice daily, radiation pneumonitis, aspergillosis, chronic opiate use. It appears patient ran out of his opiates at home and for the past week, has required multiple doses of 600mg of Ibuprofen and tylenol a day. He reports that for the past 4-5 days he has been more short of breath which prompted him to come to the hospital. He reports dark stools, and in the ER found his stools to be guiac positive with a low hemoglobin. Patient is not having diarrhea. He denies any fever, chills, sweats, rigors. He has no chest pain or tightness. He has no shortness of breath at rest. He has no abdominal pain. He denies any current back pain. He has no recent falls. He has no headache. He has no change in vision. He has no diplopia or blurred vision. He has no other acute complaints. Patient states that he quit smoking last July. He continues to use smokeless tobacco daily He denies any ethanol use He is and lives at home with his and his 9-year-old daughter. He currently follows with Dr. Kulkarni with [facility] for his cancer. Allergies Allergy/AdvReac Type Severity Reaction Status Date / Time No Known Allergies Allergy Verified 07/07/20 15:04 Home Medications Medication Instructions Recorded Confirmed Type omeprazole 20 mg capsule,delayed 20 mg PO QAM 07/30/19 07/11/20 History release prochlorperazine maleate 10 mg PO Q6H PRN 01/29/20 07/11/20 History magnesium oxide 400 mg PO QAM #30 tab 02/03/20 07/11/20 Rx Narcan 1 spray INTRANASAL Q3M PRN 03/05/20 07/11/20 History ondansetron HCl 8 mg PO Q8H PRN 30 Days #30 tab 03/07/20 07/11/20 Rx acetaminophen 500 mg tablet 500 mg PO QID PRN 05/23/20 07/11/20 History docusate sodium 100 mg PO BID 06/24/20 07/11/20 History gabapentin 300 mg PO QID 06/24/20 07/11/20 History polyethylene glycol 3350 [Miralax] 17 g PO DAILY PRN 06/24/20 07/11/20 History sennosides [Senokot] 8.6 mg PO QAM PRN 06/24/20 07/11/20 History albuterol sulfate 90 mcg/actuation 2 puff INH Q6H PRN #18 gm 07/04/20 07/11/20 Rx aerosol inhaler dextromethorphan-guaifenesin 30 1 tab PO Q12H PRN #60 tab 07/04/20 07/11/20 Rx mg-600 mg tablet extended [id number] hr ipratropium 0.5 mg-albuterol 3 mg 3 ml INH Q8H PRN #180 ml 07/04/20 07/11/20 Rx (2.5 mg base)/3 mL nebulization soln umeclidinium 62.5 mcg-vilanterol 1 inh INHALATION DAILY #60 ea 07/04/20 07/11/20 Rx 25 mcg/actuation powdr for inhalation lidocaine 4 % topical patch 1 patch TOPICAL DAILY #30 ea 07/07/20 07/11/20 Rx hydroxyzine HCl 25 mg tablet 25 mg PO TID PRN #30 tab 07/08/20 07/11/20 Rx enoxaparin 60 mg SUBCUT UD 07/11/20 07/11/20 History hydromorphone 4 mg PO Q4 PRN 07/11/20 07/11/20 History sertraline 50 mg PO DAILY 07/11/20 07/11/20 History Past Med/Surg History Medical History Acute hyponatremia Anxiety Arthritis Aspergillus pneumonia s/p treatment, following closely with pulmonary Cavitary lung disease Chronic obstructive pulmonary disease COPD with emphysema Eye disease Best disease- genetic condition affecting vision GERD (gastroesophageal reflux disease) Gram-negative bacteremia Invasive aspergillosis Macular degeneration Moderate nausea and vomiting Opiate abuse, continuous Pneumonitis Restless leg syndrome Scoliosis Seasonal allergies SOB (shortness of breath) on exertion Squamous cell carcinoma lung Surgical History History of bronchoscopy History of colonoscopy History of esophagogastroduodenoscopy (EGD) History of tonsillectomy History of tooth extraction Hx of vasectomy Family History Mother Macular degeneration Lung disease Father , 60yo Myocardial infarction Pancreatitis Sister No problems noted. Sister No problems noted. Son No problems noted. Son No problems noted. Daughter No problems noted. Other No significant family history Social History Smoking Status: Former smoker Tobacco Type: Smokeless Tobacco (Dip or Chew) Cigarettes Per Day: 30-40 cigarettes per day for 40 years; Second Hand Exposure: No; Do You Dip or Chew Tobacco: Yes (1 can daily); Tobacco Cessation Education Requested by Patient: No Hx Alcohol Use: No Hx Substance Use: Yes Last Used Substance: Hours (ago) Last Used Substance Other:: 5-6 times daily Substance Use Type Other:: oxycodone Preferred Language: Kinyarwanda Communication Ability: Effective Visual Impairment: No Limitations Hearing Ability: Normal Nephrology Nurse Required: No Beliefs That Will Affect Care: None marital status: Current Living Situation: Spouse current occupational status: employed 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 [employer] How many Children do You have: 1 Other Information That Helps Us Care for You: No Feels Safe at Home: Yes Safety Concerns: Feels Safe At This Time Diet Comment: Near keto diet caffeine: Yes (1 cup/day) during the past year weight has: decreased > 10 lbs Assistive Devices: Denture - Upper, Denture - Lower and Glasses Review of Systems Constitutional: + fatigue and + malaise; no chills and no anorexia Eyes: no diplopia Ear, Nose, Mouth, Throat: no dizziness and no nasal congestion Respiratory: no cough and no change in sputum Cardiovascular: no chest pain Gastrointestinal: no abdominal pain Genitourinary: no dysuria Musculoskeletal: no back pain and no loss of height Neurologic: no gait abnormality Psychiatric: no behavioral changes Endocrine: + fatigue Hematologic / Lymphatic: no lymphadenopathy Allergy / Immunological: no lip swelling Physical Exam Physical Exam: GENERAL : No acute distress. Appears comfortable. Appears cachectic and pale. EYES: No icterus, gaze conjugate. Pupils equal round and reactive to light NOSE: No evidence of epistaxis MOUTH: No lesions or candidiasis. No upper or lower teeth. Patient has no dentures with him. NECK: Supple LUNGS: Fine crackles at the bilateral bases. No rhonchi. No induced cough with deep inspiration. HEART: Regular, rate controlled. No murmurs or gallops or rubs appreciated ABDOMEN: Soft, NT, ND, BS Present EXTREMITIES: No LE edema, pedal pulses intact NEURO: A&OX3 Results & Data Results & Data ([facility]) Vital Signs (Past 12 Hours) Vital Signs Temp Pulse Resp BP Pulse Ox 07/11/20 17:25 37 C 66 16 130/62 96 07/11/20 17:10 37 C 66 16 122/72 96 07/11/20 17:09 37 C 66 16 122/73 96 07/11/20 16:51 37.1 C 61 18 116/71 97 07/11/20 16:00 59 L 17 110/73 96 07/11/20 15:31 110/67 97 07/11/20 15:00 85/61 L 07/11/20 14:30 62 18 91/53 L 97 07/11/20 14:13 98 07/11/20 13:31 36.6 C 67 18 97/67 L 98 07/11/20 13:30 67 21 100/64 98 Code Status & VTE Plan VTE Prophylaxis Plan VTE Prophylaxis will be ordered: Yes PG Care Time/CCT Total # of Minutes Spent Total Time Spent with Patient: Total time spent is greater than 50% in coordination of care (as documented) at patient's floor/unit and/or counseling patient: Coding Level of Care Code 50738 Initial Inpt Care Lvl 3 Diagnoses Acute blood loss anemia D62 Upper GI bleed K92.2 COPD with emphysema J43.9 Emphysema type: unspecified Deep vein thrombosis I82.409 DVT location: upper extremity Laterality: left Squamous cell carcinoma of lung C34.90 Laterality: unspecified laterality Time Spent (min) 70 (1) COPD with emphysema Emphysema type: unspecified Qualified Code(s): J43.9 - Emphysema, unspecified (2) Deep vein thrombosis DVT location: upper extremity Laterality: left (3) Squamous cell carcinoma of lung Laterality: unspecified laterality Qualified Code(s): C34.90 - Malignant neoplasm of unspecified part of unspecified bronchus or lung
[2020-07-11] MEDS: MELATONIN 3 MG TAB PO PRN (22:09)
[2020-07-12] MEDS: PANTOprazole 40 MG in DEXTROSE 5% 100 ML IV SCH ×3 (00:45→10:44)
[2020-07-12] MEDS: HYDROmorphone INJ 1 MG/ML SYRINGE IV PRN ×2 (02:42→06:42)
[2020-07-12 06:56] LABS: Hematocrit (blood only) 29.3 % (42-52); Hemoglobin 9.8 g/dL (14.0-18.0); Mean Corpuscular Hemoglobin 29.9 pg (25-34); Mean Corpuscular Hgb Conc 33.4 g/dL (32-36); Mean Corpuscular Volume 89.3 fL (80-100); Mean Platelet Volume 10.3 fL (7.4-10.4); Platelet Count 45 K/uL (130-400); RDW Coefficient of Variation 16.5 % (11.5-14.5); RDW Standard Deviation 53.5 fL (36.4-46.3); Red Blood Count 3.28 M/uL (4.7-6.1); White Blood Count 8.72 K/uL (4.8-10.8)
[2020-07-12 07:06] LABS: Basophils # (auto) 0.02 K/uL (0-0.2); Basophils % (auto) 0.2 %; Eosinophils # (auto) 0.01 K/uL (0-0.5); Eosinophils % (auto) 0.1 %; Immature Granulocytes # (auto) 0.03 K/uL (0.00-0.02); Immature Granulocytes % (auto) 0.3 %; Lymphocytes # (auto) 0.75 K/uL (1.2-3.4); Lymphocytes % (auto) 8.6 %; Monocytes # (auto) 0.17 K/uL (0.11-0.59); Monocytes % (auto) 1.9 %; Neutrophils # (auto) 7.74 K/uL (1.4-6.5); Neutrophils % (auto) 88.9 %
[2020-07-12 07:20] LABS: BUN Creatinine Ratio 20.6 (10-20); Calcium 8.2 mg/dl (8.5-10.1); Creatinine Clr Calc Pharmacy 147.1 ml/min; Est GFR (African American) 147.1; Est GFR (Non-African American) 126.9
[2020-07-12] MEDS: LIDOCAINE 5% 1 PATCH TD SCH (08:33)
--- NOTE | 2020-07-12 08:47 | Anesthesiology Consultation ---
Date of Service July 12, 2020 Assessment & Plan (1) Encounter for pre-operative examination: Chart Review Chart Review: Acceptable Risk for Surgery and Patient NOT seen in Pre Admission Testing Consults Requested none History Surgery Operation Date: 07/12/20 16:00 Proposed Procedures p Esophagogastroduodenoscopy Dr Higgins - Dhruv Bueno Case, DO Height/Weight Height: 5 ft 10 in Weight: 57.2 kg Allergies Allergy/AdvReac Type Severity Reaction Status Date / Time No Known Allergies Allergy Verified 07/07/20 15:04 Medications Home Medications Medication Instructions Recorded Confirmed Last Taken omeprazole 20 mg capsule,delayed 20 mg PO QAM 07/30/19 07/11/20 06/24/20 release prochlorperazine maleate 10 mg PO Q6H PRN 01/29/20 07/11/20 06/24/20 magnesium oxide 400 mg PO QAM #30 tab 02/03/20 07/11/20 06/24/20 Narcan 1 spray INTRANASAL Q3M PRN 03/05/20 07/11/20 Unknown ondansetron HCl 8 mg PO Q8H PRN 30 Days #30 tab 03/07/20 07/11/20 06/24/20 acetaminophen 500 mg tablet 500 mg PO QID PRN 05/23/20 07/11/20 Unknown docusate sodium 100 mg PO BID 06/24/20 07/11/20 Unknown gabapentin 300 mg PO QID 06/24/20 07/11/20 06/24/20 polyethylene glycol 3350 [Miralax] 17 g PO DAILY PRN 06/24/20 07/11/20 Unknown sennosides [Senokot] 8.6 mg PO QAM PRN 06/24/20 07/11/20 Unknown albuterol sulfate 90 mcg/actuation 2 puff INH Q6H PRN #18 gm 07/04/20 07/11/20 Unknown aerosol inhaler dextromethorphan-guaifenesin 30 1 tab PO Q12H PRN #60 tab 07/04/20 07/11/20 Unknown mg-600 mg tablet extended hr ipratropium 0.5 mg-albuterol 3 mg 3 ml INH Q8H PRN #180 ml 07/04/20 07/11/20 Unknown (2.5 mg base)/3 mL nebulization soln umeclidinium 62.5 mcg-vilanterol 1 inh INHALATION DAILY #60 ea 07/04/20 07/11/20 Unknown 25 mcg/actuation powdr for inhalation lidocaine 4 % topical patch 1 patch TOPICAL DAILY #30 ea 07/07/20 07/11/20 Unknown hydroxyzine HCl 25 mg tablet 25 mg PO TID PRN #30 tab 07/08/20 07/11/20 Unknown enoxaparin 60 mg SUBCUT UD 07/11/20 07/11/20 Unknown hydromorphone 4 mg PO Q4 PRN 07/11/20 07/11/20 Unknown sertraline 50 mg PO DAILY 07/11/20 07/11/20 Unknown Active Medications Generic Name Dose Route Start Last Admin Trade Name Freq PRN Reason Stop Dose Admin Hydromorphone HCl 1 mg 07/11/20 16:14 07/12/20 06:42 Hydromorphone Inj 1 Mg/Ml Syringe IV 07/25/20 14:09 1 mg Q4H PRN Administration Pain Pantoprazole Sodium 40 mg/ 100 mls @ 20 mls/hr 07/11/20 15:30 07/12/20 08:38 Dextrose IV 08/10/20 15:29 0 mg/hr Q5H PAMELA 0 mls/hr Infusion 8 MG/HR Lidocaine 1 patch 07/12/20 09:00 07/12/20 08:33 Lidocaine 5% 1 Patch TD 08/11/20 08:59 1 patch DAILY PAMELA Administration Melatonin 3 mg 07/11/20 21:44 07/11/20 22:09 Melatonin 3 Mg Tab PO 08/10/20 21:43 3 mg HS PRN Administration Sleep Miscellaneous 1 ea 07/11/20 21:00 07/11/20 20:34 Remove Lidoderm Patch N/A 08/10/20 20:59 1 ea 2100 PAMELA Administration NPO Date Last Intake of Fluids: 07/12/20 Time Last Intake of Fluids: 06:00 Last Intake of Fluids Comment: sips water Date Last Intake of Solids: 07/11/20 Past Medical History Medical History (Updated 07/12/20 @ 08:47 by Trae Galvez MD) Acute blood loss anemia Acute hyponatremia Anxiety Arthritis Aspergillus pneumonia s/p treatment, following closely with pulmonary Cavitary lung disease Chronic obstructive pulmonary disease COPD with emphysema Eye disease Best disease- genetic condition affecting vision GERD (gastroesophageal reflux disease) Gram-negative bacteremia Invasive aspergillosis Macular degeneration Moderate nausea and vomiting Opiate abuse, continuous Pneumonitis Restless leg syndrome Scoliosis Seasonal allergies SOB (shortness of breath) on exertion Squamous cell carcinoma lung Upper GI bleed Exercise / Class Metabolic Activity III < 4 Walking/Shop/Light housework Past Family History Family History Mother Macular degeneration Lung disease Father , 60yo Myocardial infarction Pancreatitis Sister No problems noted. Sister No problems noted. Son No problems noted. Son No problems noted. Daughter No problems noted. Other No significant family history Past Surgical History Surgical History History of bronchoscopy History of colonoscopy History of esophagogastroduodenoscopy (EGD) History of tonsillectomy History of tooth extraction Hx of vasectomy Past Anesthesia History No Hx of Anesthesia Complications and No Family Hx of Anesthesia Complications History of PONV No Hx of PONV and No Hx of Motion Sickness Social History Smoking Status: Former smoker tobacco type: smokeless tobacco Smoking cigarettes per day: 30-40 cigarettes per day for 40 years Do You Dip or Chew Tobacco: Yes (1 can daily) Hx Alcohol Use: No Hx Substance Use: Yes substance use type: painkillers Substance Use Type Other:: oxycodone Last Used Substance: Hours (ago) Last Used Substance Other:: 5-6 times daily Physical Exam Vital Signs Last Vital Signs Temp 37.3 C 07/12/20 08:16 Pulse 67 07/12/20 08:16 Resp 19 07/12/20 08:16 BP 129/75 07/12/20 08:16 Pulse Ox 96 07/12/20 08:16 Testing Laboratory Results 07/12/20 06:31 07/12/20 06:31 Blood Type O Positive 07/11/20 15:05 Antibody Screen NEGATIVE 07/11/20 15:05 Electrocardiogram Date: 07/11/20 Findings: + NSR @ (69) Poor data quality, interpretation may be adversely affected Sinus rhythm with short SC Otherwise normal ECG When compared with ECG of 24-JUN-2020 13:39, No significant change was foun
[2020-07-12] MEDS ORDERED: LIDOCAINE HCL 2% 2 ML VIAL/AMP(20MG/ML) INFIL ONE (09:06)
[2020-07-12] MEDS ORDERED: PROPOFOL IV EMULSION 10 MG/ML 20 ML VIAL IV ONE (09:06)
[2020-07-12] MEDS ORDERED: POLYETHYLENE (MIRALAX) 17 GM PACK PO PRN (09:15)
[2020-07-12] MEDS ORDERED: ALBUT/IPRATROP 3MG/0.5MG NEB 3 ML VIAL INH PRN (09:15)
[2020-07-12] MEDS ORDERED: SENNA 8.6 MG TAB PO PRN (09:15)
--- NOTE | 2020-07-12 09:20 | Gastrointestinal Consultation ---
Date of Consultation July 12, 2020 Assessment & Plan (1) Anemia: (2) Melena: -Continue Protonix 40 mg IV BID for now -Keep NPO for EGD today -Continue to monitor H/H -Further recommendations pending results of EGD Supervising Physician Co-Signing Physician Notes Agree with ROMEO Leblanc as above Abd: Soft, NT, ND, +BS Continue current therapy Proceed with EGD now for further evaluation History of Present Illness Reason for Consultation: Anemia Attending Physician: Krysta Gonzalez MD History of Present Illness Patient is 54 yo male with PMH of SCC diagnosed in 2019. He presented to the ED with dyspnea on exertion and dark stools that had been ongoing x 4-5 days. In the ED, he was noted to be anemic. He had been using high doses of Ibuprofen at home. Stool was heme positive. H/H at present is 9.8/29.3. He denies alcohol ab use at present. Denies hematemesis. Reports a history of cigarette use for decades, but quit last year in 2019. He does use smokeless tobacco. He reports a history of acid reflux managed on Prilosec. He notes he has never had an EGD in the past. No abdominal surgeries. No pertinent family history of GI abnormalities. Allergies Allergy/AdvReac Type Severity Reaction Status Date / Time No Known Allergies Allergy Verified 07/07/20 15:04 Home Medications Medication Instructions Recorded Confirmed Type omeprazole 20 mg capsule,delayed 20 mg PO QAM 07/30/19 07/11/20 History release prochlorperazine maleate 10 mg PO Q6H PRN 01/29/20 07/11/20 History magnesium oxide 400 mg PO QAM #30 tab 02/03/20 07/11/20 Rx Narcan 1 spray INTRANASAL Q3M PRN 03/05/20 07/11/20 History ondansetron HCl 8 mg PO Q8H PRN 30 Days #30 tab 03/07/20 07/11/20 Rx acetaminophen 500 mg tablet 500 mg PO QID PRN 05/23/20 07/11/20 History docusate sodium 100 mg PO BID 06/24/20 07/11/20 History gabapentin 300 mg PO QID 06/24/20 07/11/20 History polyethylene glycol 3350 [Miralax] 17 g PO DAILY PRN 06/24/20 07/11/20 History sennosides [Senokot] 8.6 mg PO QAM PRN 06/24/20 07/11/20 History albuterol sulfate 90 mcg/actuation 2 puff INH Q6H PRN #18 gm 07/04/20 07/11/20 Rx aerosol inhaler dextromethorphan-guaifenesin 30 1 tab PO Q12H PRN #60 tab 07/04/20 07/11/20 Rx mg-600 mg tablet extended [id number] hr ipratropium 0.5 mg-albuterol 3 mg 3 ml INH Q8H PRN #180 ml 07/04/20 07/11/20 Rx (2.5 mg base)/3 mL nebulization soln umeclidinium 62.5 mcg-vilanterol 1 inh INHALATION DAILY #60 ea 07/04/20 07/11/20 Rx 25 mcg/actuation powdr for inhalation lidocaine 4 % topical patch 1 patch TOPICAL DAILY #30 ea 07/07/20 07/11/20 Rx hydroxyzine HCl 25 mg tablet 25 mg PO TID PRN #30 tab 07/08/20 07/11/20 Rx enoxaparin 60 mg SUBCUT UD 07/11/20 07/11/20 History hydromorphone 4 mg PO Q4 PRN 07/11/20 07/11/20 History sertraline 50 mg PO DAILY 07/11/20 07/11/20 History Patient History Medical History (Updated 07/12/20 @ 09:19 by Elle Méndez PA-C) Acute blood loss anemia Acute hyponatremia Anxiety Arthritis Aspergillus pneumonia s/p treatment, following closely with pulmonary Cavitary lung disease Chronic obstructive pulmonary disease COPD with emphysema Eye disease Best disease- genetic condition affecting vision GERD (gastroesophageal reflux disease) Gram-negative bacteremia Invasive aspergillosis Macular degeneration Moderate nausea and vomiting Opiate abuse, continuous Pneumonitis Restless leg syndrome Scoliosis Seasonal allergies SOB (shortness of breath) on exertion Squamous cell carcinoma lung Upper GI bleed Surgical History History of bronchoscopy History of colonoscopy History of esophagogastroduodenoscopy (EGD) History of tonsillectomy History of tooth extraction Hx of vasectomy Family History Mother Macular degeneration Lung disease Father , 60yo Myocardial infarction Pancreatitis Sister No problems noted. Sister No problems noted. Son No problems noted. Son No problems noted. Daughter No problems noted. Other No significant family history Social History Smoking Status: Former smoker Tobacco Type: Smokeless Tobacco (Dip or Chew) Cigarettes Per Day: 30-40 cigarettes per day for 40 years; Second Hand Exposure: No; Do You Dip or Chew Tobacco: Yes (1 can daily); Tobacco Cessation Education Requested by Patient: No Hx Alcohol Use: No Hx Substance Use: Yes Last Used Substance: Hours (ago) Last Used Substance Other:: 5-6 times daily Substance Use Type Other:: oxycodone Preferred Language: Palestinian Communication Ability: Effective Visual Impairment: No Limitations Hearing Ability: Normal Schedule Manager Required: No Beliefs That Will Affect Care: None marital status: Current Living Situation: Spouse current occupational status: employed 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 -[employer] How many Children do You have: 1 Other Information That Helps Us Care for You: No Feels Safe at Home: Yes Safety Concerns: Feels Safe At This Time Diet Comment: Near keto diet caffeine: Yes (1 cup/day) during the past year weight has: decreased > 10 lbs Assistive Devices: Denture - Upper, Denture - Lower and Glasses Review of Systems Constitutional: no fever and no chills Respiratory: + cough and + dyspnea Cardiovascular: no chest pain Gastrointestinal: + melena; no coffee ground emesis Psychiatric: no problem reported Physical Exam Constitutional: well developed Neck: normal visual inspection Respiratory: normal respiratory effort Cardiovascular: Extremities: no edema Gastrointestinal (Abdomen): Inspection/Auscultation: abdomen normal to inspection Musculoskeletal: Head/Neck/Chest: normocephalic Psychiatric: A+Ox3, euthymic affect Results & Data ([facility]) Vital Signs (Past 12 Hours) Vital Signs Temp Pulse Pulse Resp BP BP Pulse Ox 07/12/20 08:55 36.7 C 74 20 138/83 95 07/12/20 08:16 37.3 C 67 19 129/75 96 07/12/20 02:54 37.0 C 72 18 134/73 92 07/11/20 23:40 70 07/11/20 22:32 37.5 C 73 20 140/79 100 07/11/20 21:49 37.5 C 73 20 140/79 100 07/11/20 21:44 37.6 C H 72 20 134/81 100 PG Care Time/CCT Total # of Minutes Spent Total Time Spent with Patient: Total time spent is greater than 50% in coordination of care (as documented) at patient's floor/unit and/or counseling patient: Coding Level of Care Code 57622 Initial Inpt Care Lvl 3 Diagnoses Anemia D64.9 Melena K92.1
[2020-07-12] MEDS ORDERED: HYDROmorphone HCL 2 MG TAB PO PRN (09:22)
--- NOTE | 2020-07-12 09:45 | GI REPORT ---
Patient Name: Esdras Lam Procedure Date: 07/12/2020 9:15 AM Date of : 1965 Admit Type: Inpatient Age: 54 Gender: Male Attending MD: Dhruv Higgisn DO Procedure: Upper GI endoscopy Providers: Dhruv Higgins DO Referring MD: Krysta Gonzalez Md Indications: Acute post hemorrhagic anemia, Melena Medicines: Monitored Anesthesia Care Complications: No immediate complications. Estimated Blood Loss: Estimated blood loss: none. Procedure: Pre-Anesthesia Assessment: - Prior to the procedure, a History and Physical was performed, and patient medications and allergies were reviewed. The patient's tolerance of previous anesthesia was also reviewed. The risks and benefits of the procedure and the sedation options and risks were discussed with the patient. All questions were answered, and informed consent was obtained. Prior Anticoagulants: The patient has taken no previous anticoagulant or antiplatelet agents. ASA Grade Assessment: III - A patient with severe systemic disease. After reviewing the risks and benefits, the patient was deemed in satisfactory condition to undergo the procedure. After obtaining informed consent, the endoscope was passed under direct vision. Throughout the procedure, the patient's blood pressure, pulse, and oxygen saturations were monitored continuously. The Endoscope was introduced through the mouth, and advanced to the second part of duodenum. The scope was introduced through the mouth, and advanced to the second part of duodenum. The upper GI endoscopy was accomplished without difficulty. Findings: The esophagus was normal. A small hiatal hernia was present. Localized moderate inflammation characterized by erosions and erythema was found in the gastric antrum. Biopsies were taken with a cold forceps for histology. The examined duodenum was normal. Impression: - Normal esophagus. - Small hiatal hernia. - Gastritis. Biopsied. - Normal examined duodenum. Recommendation: - [facility]. - Perform a colonoscopy tomorrow. - Await pathology results. - Clear liquid diet. Dhruv Higgins DO 07/12/2020 9:45:30 AM This report has been signed electronically. Note Initiated On: 07/12/2020 9:15 AM Number of Addenda: 0 I attest to the content of the Intraoperative Record and orders documented therein, exceptions below {[id number]}
[2020-07-12] MEDS: SERTRALINE HCL 50 MG TABLET PO SCH (10:45)
--- NOTE | 2020-07-12 11:29 | Anesthesiology Progress Note ---
Date of Service July 12, 2020 Anesthesia Post Procedure Vital Signs Vital Signs: Temp Pulse Pulse Pulse Resp BP BP 07/12/20 10:23 72 18 121/69 07/12/20 10:09 64 18 103/58 L 07/12/20 09:54 70 16 98/50 L 07/12/20 08:55 36.7 C 74 20 138/83 07/12/20 08:16 37.3 C 67 19 129/75 07/12/20 02:54 37.0 C 72 18 134/73 07/11/20 23:40 70 07/11/20 22:32 37.5 C 73 20 140/79 07/11/20 21:49 37.5 C 73 20 140/79 07/11/20 21:44 37.6 C H 72 20 134/81 07/11/20 20:49 37.5 C 74 20 142/83 H 07/11/20 20:19 37.4 C 68 20 137/73 07/11/20 20:04 37.0 C 68 20 137/78 07/11/20 19:49 37.3 C 74 20 131/75 07/11/20 19:45 37.2 C 68 20 124/86 07/11/20 18:55 37.2 C 67 128/73 07/11/20 18:12 37.1 C 66 20 123/70 07/11/20 17:55 36.5 C 65 135/83 07/11/20 17:25 37 C 66 16 130/62 07/11/20 17:10 37 C 66 16 122/72 07/11/20 17:09 37 C 66 16 122/73 07/11/20 16:51 37.1 C 61 18 116/71 07/11/20 16:00 59 L 17 110/73 07/11/20 15:31 110/67 07/11/20 15:00 85/61 L 07/11/20 14:30 62 18 91/53 L 07/11/20 14:13 07/11/20 13:31 36.6 C 67 18 97/67 L 07/11/20 13:30 67 21 100/64 Pulse Ox 07/12/20 10:23 94 07/12/20 10:09 95 07/12/20 09:54 98 07/12/20 08:55 95 07/12/20 08:16 96 07/12/20 02:54 92 07/11/20 23:40 07/11/20 22:32 100 07/11/20 21:49 100 07/11/20 21:44 100 07/11/20 20:49 100 07/11/20 20:19 100 07/11/20 20:04 100 07/11/20 19:49 94 07/11/20 19:45 94 07/11/20 18:55 07/11/20 18:12 94 07/11/20 17:55 07/11/20 17:25 96 07/11/20 17:10 96 07/11/20 17:09 96 07/11/20 16:51 97 07/11/20 16:00 96 07/11/20 15:31 97 07/11/20 15:00 07/11/20 14:30 97 07/11/20 14:13 98 07/11/20 13:31 98 07/11/20 13:30 98 Pain Intensity Bilateral Chest: Pain Intensity: 8 Transfer of Care Handoff Completed per policy Notes Mental Status: alert / awake / arousable and participated in evaluation Patient Amnestic to Procedure: Yes Nausea / Vomiting: adequately controlled Pain: adequately controlled Airway Patency, RR, SpO2: stable & adequate BP & HR: stable & adequate Hydration State: stable & adequate Anesthetic Complications: no major complications apparent and Pt Satisfied with anesthetic care
[2020-07-12] MEDS: HYDROmorphone HCL 2 MG TAB PO PRN ×3 (11:33→19:54)
--- NOTE | 2020-07-12 11:45 | Hospitalist Progress Note ---
Date of Service July 12, 2020 Assessment & Plan (1) Acute blood loss anemia: Found to have hemoglobin of 6.9 on admission down from his baseline of 8-9 Is also on carboplatin for recent chemotherapy which is contributing to anemia in the setting of anemia of chronic disease Had melena on digital rectal exam that was heme positive by ER physician Given recent history of NSAID use at home for pain Placed on protonix drip initially and had EGD on 07/12 which showed mild gastritis but no PUD; biopsies were taken and plans for colonoscopy for 07/13 Now status post 2 units PRBCs transfused and hemoglobin up appropriately to 9.8 No coag studies were obtained here, and he previously had been on Lovenox but it is unclear if he is still taking it at this time Platelets are slightly less than 50,000, but hold off on platelet transfusion at this time as he is no longer actively bleeding -Consult oncology Follow CBC in the morning (2) Acute respiratory failure with hypoxia: Multifactorial, likely secondary to anemia plus worsening infiltrate in the bilateral lower lobes secondary to likely pneumonia Also with severe emphysema and lung cancer with right upper lobe cavitary lesion -Required 2 L on admission is now weaned to room air at rest We will do a two-step prior to discharge to see if needs oxygen with exertion Appreciate pulmonology consultation -Continue with Anoro -Continue guaifenesin -[id number] flutter valve and incentive spirometry -Started doxycycline and ceftriaxone for pneumonia as per pulmonology -No indication for bronchoscopy at this time as per pulmonology Bronchodilators as needed (3) Upper GI bleed: As above (4) COPD with emphysema: As above (5) Squamous cell carcinoma of lung: seen by Dr. Kulkarni of oncology and is also followed by pulmonology as above Receives chemotherapy currently with carboplatin and external beam radiation metastatic with bony disease (6) Gastritis: no significant bleeding source seen on EGD dc IV PPT gtt and change to po bid protonix (7) Thrombocytopenia: likely secondary to recent chemotherapy consult Oncology follow CBC No plt transfusion for now as GIB has stopped Discontinue home Lovenox (8) Pain in right axilla: Secondary to lung cancer, chronic pain Was previously fired by pain management clinic for abusing opioids that were prescribed Recently admitted here for an opioid overdose requiring Narcan administration He then ran out early on his opioids and has been taking ibuprofen and Tylenol and now presents with GI bleed as above -Now follows with palliative care, Dr. Samantha Martinez who is consulted -Increase gabapentin to 600 mg p.o. 3 times daily today to help with pain -Discontinue IV Dilaudid-this plan was discussed with the patient as he reports the Dilaudid does nothing for his pain anyway but he continues to ask for it -Continue home p.o. Dilaudid 4 mg every 4 hours as needed All outpatient narcotics to be prescribed by palliative care physician with whom he has a pain contract -Continue lidocaine patch (9) Hyponatremia: Mild at 134, chronic Likely secondary to pulmonary process/lung cancer (10) Pneumonia: seen on CT with some low grade fever here, met lung CA, procalcitonin elevated at 5 consult PULM to see if needs treatment-appreciate consultation -Started ceftriaxone and doxycycline -Pulmonary toilet and bronchodilators (11) Severe protein-calorie malnutrition: albumin severely low at 1.6 (12) SOB (shortness of breath): will get 2 step prior to discharge as has significant DELGADO (13) Deep vein thrombosis: appears to have completed anticoagulation treatment last US of left upper extremity with nonocclusive chronic thrombus seen in axillary and basilic veins improved from comparison with no acute thrombi identified with GI bleeding and thrombocytopenia and fact that was a PICC line induced DVT, ok to dc Lovenox consult Oncology for further opinion Disposition-continued stay on telemetry Palliative care consultation obtained Admission and Anticipated Discharge Date Admission Date: July 11, 2020 Subjective Patient complaining of significant burning stabbing pain on the right side of his chest into his right axilla which is where his chronic pain is located. He has been demanding IV Dilaudid earlier than his scheduled but then states that it barely helps his pain at all and that oral Dilaudid does nothing for him. He did not get his usual gabapentin last night or this morning as it was held while he was n.p.o. He had just returned from EGD when I saw him and we reviewed the results of his EGD with no source of bleeding. He is hungry and denies any abdominal pain. He reports no bowel movements since admission. He tolerated the blood transfusion well. He reports significant shortness of breath with exertion. I discussed his case with pulmonology, palliative care, and oncology. Telemetry with normal sinus rhythm with rates in the 60s 70s Review of Systems Review of Systems: All systems reviewed & are unremarkable except as noted in HPI & below Physical Exam Constitutional: + cachectic and cooperative; no acute distress Eyes: + anicteric sclerae Neck: trachea midline, no thyromegaly Respiratory: normal respiratory effort Auscultation: + crackles (At lower and middle lung kovacs bilaterally); no rhonchi and no wheezes Cardiovascular: RRR, no murmur, no edema Extremities: no calf tenderness Chest (Breasts): Chest: normal inspection of chest Gastrointestinal (Abdomen): normal bowel sounds, soft, nontender, no hepatosplenomegaly Musculoskeletal: Extremities: extremities normal to inspection; no cyanosis and no clubbing Skin: no rashes, warm and dry Neurologic: moves all extremities and awake; no focal motor deficits Psychiatric: A+Ox3, euthymic affect Lymphatic: no lymphedema Results & Data Results & Data ([facility]) Vital Signs (Past 12 Hours) Vital Signs Temp Pulse Pulse Resp BP Pulse Ox 07/12/20 10:23 72 18 121/69 94 07/12/20 10:09 64 18 103/58 L 95 07/12/20 09:54 70 16 98/50 L 98 07/12/20 08:55 36.7 C 74 20 138/83 95 07/12/20 08:16 37.3 C 67 19 129/75 96 07/12/20 02:54 37.0 C 72 18 134/73 92 Laboratory Results 07/12/20 07/12/20 07/12/20 Range/Units 11:59 06:31 06:31 WBC 8.72 (4.8-10.8) K/uL RBC 3.28 L (4.7-6.1) M/uL Hgb 9.8 L (14.0-18.0) g/dL Hct 29.3 L (42-52) % MCV 89.3 (80-100) fL MCH 29.9 (25-34) pg MCHC 33.4 (32-36) g/dL RDW Std Deviation 53.5 H (36.4-46.3) fL RDW Coeff of [place] 16.5 H (11.5-14.5) % Plt Count 45 L (130-400) K/uL MPV 10.3 (7.4-10.4) fL Immature Gran % (Auto) 0.3 % Neut % (Auto) 88.9 % Lymph % (Auto) 8.6 % [place] % (Auto) 1.9 % Eos % (Auto) 0.1 % Baso % (Auto) 0.2 % Neut # (Auto) 7.74 H (1.4-6.5) K/uL Lymph # (Auto) 0.75 L (1.2-3.4) K/uL [place] # (Auto) 0.17 (0.11-0.59) K/uL Eos # (Auto) 0.01 (0-0.5) K/uL Baso # (Auto) 0.02 (0-0.2) K/uL Immature Gran # (Auto) 0.03 H (0.00-0.02) K/uL Sodium 134 L (136-145) mmol/L Potassium 4.0 (3.5-5.1) mmol/L Chloride 102 (98-107) mmol/L Carbon Dioxide 27 (21-32) mmol/L Anion Gap 5.0 (3-11) BUN 10 (7-18) mg/dl Creatinine 0.47 L (0.6-1.4) mg/dl Est Cr Clr Drug Dosing 147.1 ml/min Est GFR ( Amer) 147.1 Est GFR (Non-Af Amer) 126.9 BUN/Creatinine Ratio 20.6 H (10-20) Glucose 79 (70-99) mg/dl Calcium 8.2 L (8.5-10.1) mg/dl Procalcitonin 5.01 H (0-0.5) ng/ml Blood Type Antibody Screen Crossmatch 07/11/20 Range/Units 15:05 WBC (4.8-10.8) K/uL RBC (4.7-6.1) M/uL Hgb (14.0-18.0) g/dL Hct (42-52) % MCV (80-100) fL MCH (25-34) pg MCHC (32-36) g/dL RDW Std Deviation (36.4-46.3) fL RDW Coeff of [place] (11.5-14.5) % Plt Count (130-400) K/uL MPV (7.4-10.4) fL Immature Gran % (Auto) % Neut % (Auto) % Lymph % (Auto) % [place] % (Auto) % Eos % (Auto) % Baso % (Auto) % Neut # (Auto) (1.4-6.5) K/uL Lymph # (Auto) (1.2-3.4) K/uL [place] # (Auto) (0.11-0.59) K/uL Eos # (Auto) (0-0.5) K/uL Baso # (Auto) (0-0.2) K/uL Immature Gran # (Auto) (0.00-0.02) K/uL Sodium (136-145) mmol/L Potassium (3.5-5.1) mmol/L Chloride (98-107) mmol/L Carbon Dioxide (21-32) mmol/L Anion Gap (3-11) BUN (7-18) mg/dl Creatinine (0.6-1.4) mg/dl Est Cr Clr Drug Dosing ml/min Est GFR ( Amer) Est GFR (Non-Af Amer) BUN/Creatinine Ratio (10-20) Glucose (70-99) mg/dl Calcium (8.5-10.1) mg/dl Procalcitonin (0-0.5) ng/ml Blood Type O Positive Antibody Screen NEGATIVE Crossmatch See Detail PG Care Time/CCT Total # of Minutes Spent Total Time Spent with Patient: Total time spent is greater than 50% in coordination of care (as documented) at patient's floor/unit and/or counseling patient: Coding Level of Care Code 25085 Subseq Hosp Care Lvl 3 Diagnoses Acute blood loss anemia D62 Acute respiratory failure with hypoxia J96.01 Upper GI bleed K92.2 COPD with emphysema J43.9 Emphysema type: unspecified Squamous cell carcinoma of lung C34.90 Laterality: unspecified laterality Gastritis K29.70 Thrombocytopenia D69.6 Pain in right axilla M79.621 Hyponatremia E87.1 Pneumonia J18.9 Laterality: right Lung location: unspecified part of lung Pneumonia type: due to unspecified organism Severe protein-calorie malnutrition E43 SOB (shortness of breath) R06.02 Deep vein thrombosis I82.409 DVT location: upper extremity Laterality: left (1) Deep vein thrombosis DVT location: upper extremity Laterality: left (2) COPD with emphysema Emphysema type: unspecified Qualified Code(s): J43.9 - Emphysema, unspecified (3) Squamous cell carcinoma of lung Laterality: unspecified laterality Qualified Code(s): C34.90 - Malignant neoplasm of unspecified part of unspecified bronchus or lung (4) Pneumonia Laterality: right Lung location: unspecified part of lung Pneumonia type: due to unspecified organism Qualified Code(s): J18.9 - Pneumonia, unspecified organism
--- NOTE | 2020-07-12 12:02 | Pulmonary Consultation ---
Date of Consultation July 12, 2020 Assessment & Plan (1) Squamous cell carcinoma of lung: CT chest 07/11/2020 personally reviewed: Right upper lobe cavitary lesion again appreciated, there is more dense collapse around the cavitary lesion. Centrilobular and paraseptal emphysema, bilateral peripheral infiltrates are again appreciated with mucous plugging and some tree-in-bud opacities Compared to previous CT scan there is more peripheral opacities in the lower lobes. This could represent mucous plugging/pneumonia --Acute respiratory failure with hypoxia Multifactorial Likely secondary to anemia with hemoglobin of 6.9 at presentation Patient does have worsening infiltrate bilateral lower lobes Pneumonia cannot be excluded. COVID-19 PCR negative, influenza A/B negative 07/11/2020 Patient did have bronchoscopy in the past when his CAT scan had similar findings on 04/19/2020 and it was negative for culture. --Squamous cell carcinoma stage IV Getting salvage chemotherapy and radiation to the spine Follows up with oncology --COPD with severe emphysema and chronic bronchitis Continue with Anoro --History of clot in left upper extremity Likely from the PICC line that he had at the time Not on any anticoagulation anymore --Ex smoker >[id number] smoking history, quit July 2019 Patient stats he has not smoked since last August 2019. Encouraged to continue abstinence from smoking. Does use smokeless tobacco Plan: Continue with guaifenesin [id number] along with flutter valve Incentive spirometry We will give doxycycline along with Ceftin for total of 5 days. Follow sputum culture No indication for bronchoscopy Please note the above document was generated using voice recognition software. It may contain grammatical, syntax or spelling errors.Any formal questions or concerns about the content, text or information contained within the body of this dictation should be directly addressed to the provider for clarification. Laterality: unspecified laterality Qualified Code(s): C34.90 - Malignant neoplasm of unspecified part of unspecified bronchus or lung (2) Cavitary lung disease: (3) COPD with emphysema: Emphysema type: unspecified Qualified Code(s): J43.9 - Emphysema, unspecified (4) Shortness of breath: History of Present Illness Attending Physician: Krysta Gonzalez MD History of Present Illness 54-year-old male known to me from the clinic significant past medical history of squamous cell cancer of the lung s/p chemotherapy PET/CT done in April unfortunately showed progressive disease Patient is now stage IV metastatic squamous cell cancer on salvage therapy. He also has right upper lobe cavitary lesion which is chronic nodular COPD with emphysema. He came to the hospital with worsening shortness of breath cough and lethargy. At the time of examination patient states that he is feeling better when it comes to his lethargy and breathing since presentation. He still complains of shortness of breath. He is bringing up phlegm but not as before. He has chronic pain on the right side which is better controlled after starting gabapentin recently. He has chronic night sweats. Occasional chills. Denies any fever. He had been having black stools since last couple of days. He says that he has had on and off black toes in the past as well. He has been taking pain medications on top of opioids for the pain that he has in the right hand and shoulder. No headache, no blurry vision. Allergies Allergy/AdvReac Type Severity Reaction Status Date / Time No Known Allergies Allergy Verified 07/07/20 15:04 Home Medications Medication Instructions Recorded Confirmed Type omeprazole 20 mg capsule,delayed 20 mg PO QAM 07/30/19 07/11/20 History release prochlorperazine maleate 10 mg PO Q6H PRN 01/29/20 07/11/20 History magnesium oxide 400 mg PO QAM #30 tab 02/03/20 07/11/20 Rx Narcan 1 spray INTRANASAL Q3M PRN 03/05/20 07/11/20 History ondansetron HCl 8 mg PO Q8H PRN 30 Days #30 tab 03/07/20 07/11/20 Rx acetaminophen 500 mg tablet 500 mg PO QID PRN 05/23/20 07/11/20 History docusate sodium 100 mg PO BID 06/24/20 07/11/20 History gabapentin 300 mg PO QID 06/24/20 07/11/20 History polyethylene glycol 3350 [Miralax] 17 g PO DAILY PRN 06/24/20 07/11/20 History sennosides [Senokot] 8.6 mg PO QAM PRN 06/24/20 07/11/20 History albuterol sulfate 90 mcg/actuation 2 puff INH Q6H PRN #18 gm 07/04/20 07/11/20 Rx aerosol inhaler dextromethorphan-guaifenesin 30 1 tab PO Q12H PRN #60 tab 07/04/20 07/11/20 Rx mg-600 mg tablet extended [id number] hr ipratropium 0.5 mg-albuterol 3 mg 3 ml INH Q8H PRN #180 ml 07/04/20 07/11/20 Rx (2.5 mg base)/3 mL nebulization soln umeclidinium 62.5 mcg-vilanterol 1 inh INHALATION DAILY #60 ea 07/04/20 07/11/20 Rx 25 mcg/actuation powdr for inhalation lidocaine 4 % topical patch 1 patch TOPICAL DAILY #30 ea 07/07/20 07/11/20 Rx hydroxyzine HCl 25 mg tablet 25 mg PO TID PRN #30 tab 07/08/20 07/11/20 Rx enoxaparin 60 mg SUBCUT UD 07/11/20 07/11/20 History hydromorphone 4 mg PO Q4 PRN 07/11/20 07/11/20 History sertraline 50 mg PO DAILY 07/11/20 07/11/20 History Patient History Medical History (Updated 07/12/20 @ 12:49 by Mandeep Alvarez MD) Acute blood loss anemia Acute hyponatremia Anxiety Arthritis Aspergillus pneumonia s/p treatment, following closely with pulmonary Cavitary lung disease Chronic obstructive pulmonary disease COPD with emphysema Eye disease Best disease- genetic condition affecting vision GERD (gastroesophageal reflux disease) Gram-negative bacteremia Invasive aspergillosis Macular degeneration Moderate nausea and vomiting Opiate abuse, continuous Pneumonitis Restless leg syndrome Scoliosis Seasonal allergies Severe protein-calorie malnutrition SOB (shortness of breath) on exertion Squamous cell carcinoma lung Upper GI bleed Surgical History History of bronchoscopy History of colonoscopy History of esophagogastroduodenoscopy (EGD) History of tonsillectomy History of tooth extraction Hx of vasectomy Family History Mother Macular degeneration Lung disease Father , 60yo Myocardial infarction Pancreatitis Sister No problems noted. Sister No problems noted. Son No problems noted. Son No problems noted. Daughter No problems noted. Other No significant family history Social History Smoking Status: Former smoker Tobacco Type: Smokeless Tobacco (Dip or Chew) Cigarettes Per Day: 30-40 cigarettes per day for 40 years; Second Hand Exposure: No; Do You Dip or Chew Tobacco: Yes (1 can daily); Tobacco Cessation Education Requested by Patient: No Hx Alcohol Use: No Hx Substance Use: Yes Last Used Substance: Hours (ago) Last Used Substance Other:: 5-6 times daily Substance Use Type Other:: oxycodone Preferred Language: Macedonian Communication Ability: Effective Visual Impairment: No Limitations Hearing Ability: Normal Cad Cam Programmer Required: No Beliefs That Will Affect Care: None marital status: Current Living Situation: Spouse current occupational status: employed 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 How many Children do You have: 1 Other Information That Helps Us Care for You: No Feels Safe at Home: Yes Safety Concerns: Feels Safe At This Time Diet Comment: Near keto diet caffeine: Yes (1 cup/day) during the past year weight has: decreased > 10 lbs Assistive Devices: Oxygen - Continuous Review of Systems Review of Systems: All systems reviewed & are unremarkable except as noted in HPI & below Physical Exam Physical Exam: Constitutional: No acute distress HEENT: EOMI, PERRLA Respiratory system: Decreased air entry bilaterally, no wheeze, minimal rhonchi, positive crackles bilaterally CVS: S1-S2 positive, no murmurs or gallops Abdomen: Soft, nontender, nondistended, positive bowel sounds x4 Extremities: +2 pulses bilaterally radialis/ dorsalis pedis, no cyanosis, no edema Neuro: Awake alert oriented x3 Psych: Normal mood and affect G/U: No Kaur Skin: no rashes, warm and dry Lymphatic: no cervical or axillary lymphadenopathy Results & Data Results & Data ([facility]) Vital Signs (Past 12 Hours) Vital Signs Temp Pulse Pulse Pulse Resp BP Pulse Ox 07/12/20 10:23 72 18 121/69 94 07/12/20 10:09 64 18 103/58 L 95 07/12/20 09:54 70 16 98/50 L 98 07/12/20 08:55 36.7 C 74 20 138/83 95 07/12/20 08:16 37.3 C 67 19 129/75 96 07/12/20 08:00 72 07/12/20 02:54 37.0 C 72 18 134/73 92 07/12/20 06:31 07/12/20 06:31 PG Care Time/CCT Total # of Minutes Spent Total Time Spent with Patient: Total time spent is greater than 50% in coordination of care (as documented) at patient's floor/unit and/or counseling patient: Coding Level of Care Code 41742 Initial Inpt Care Lvl 3 Diagnoses Squamous cell carcinoma of lung C34.90 Laterality: unspecified laterality Cavitary lung disease J98.4 COPD with emphysema J43.9 Emphysema type: unspecified Shortness of breath R06.02
[2020-07-12] MEDS: DOXYCYCLINE HYCLATE 100 MG in DEXTROSE 5% 100 ML IV SCH ×2 (12:04→22:33)
[2020-07-12] MEDS: GABAPENTIN 600 MG TAB PO SCH ×2 (12:04→21:16)
[2020-07-12] MEDS ORDERED: GABAPENTIN 300 MG CAP PO SCH (13:00)
[2020-07-12] MEDS ORDERED: COUGH DROP (SUGAR FREE) LOZ 24 LOZ/1 BOX BUCCAL ONE (13:02)
[2020-07-12] MEDS ORDERED: COUGH DROP (SUGAR FREE) LOZ 24 LOZ/1 BOX BUCCAL STA (13:05)
--- NOTE | 2020-07-12 14:03 | Electrocardiogram Report ---
Test Reason : Blood Pressure : / mmHG Vent. Rate : 069 BPM Atrial Rate : 069 BPM P-R Int : 100 ms QRS Dur : 082 ms QT Int : 410 ms P-R-T Axes : 032 002 025 degrees QTc Int : 439 ms Poor data quality, interpretation may be adversely affected Sinus rhythm When compared with ECG of 24-JUN-2020 13:39, No significant change was found Confirmed by Niraj Bernal ([id number]) on 07/12/2020 2:03:18 PM Referred By: REFERRED SELF Confirmed By:Andrea Bernal
[2020-07-12] MEDS: cefTRIAXone SODIUM 1,000 MG in DEXTROSE 5% 50 ML IV SCH (15:09)
[2020-07-12] MEDS: guaiFENesin/DEXTROM SYRUP 200MG/20MG 10ML UDC PO SCH ×2 (15:13→19:55)
--- NOTE | 2020-07-12 15:16 | Palliative Care Consultation ---
Date of Consultation July 12, 2020 Assessment & Plan (1) Pain in right axilla: There appears to be a clear neuropathic component to this. He has noticed some improvement with taking gabapentin regularly. Discussed with Dr. Gonzalez earlier today about increasing gabapentin and monitor. He also has a lidocaine patch. IV hydromorphone which helps somewhat, does not provide sustained relief. Recommend change to oral hydromorphone for longer half life. Monitor for constipation on opioids. He is currently prepping for colonoscopy tomorrow. He has been on sertraline for several years and a phone message from his indicates that he has been irritable at home. I called his to discuss but there was no answer. Will consider changing sertraline to duloxetine for added benefit of pain relief. I spoke with him again today emphasizing that it is crucial that he take medications as prescribed. He tells me that his has been controlling his medications prior to admission. He also uses medical marijuana as needed. (2) Palliative care encounter: (3) Anemia: Anemia type: unspecified type Qualified Code(s): D64.9 - Anemia, unspecified (4) Malignant neoplasm of right upper lobe of lung: (5) COPD with emphysema: Emphysema type: unspecified Qualified Code(s): J43.9 - Emphysema, unspecified History of Present Illness Reason for Consultation: pain management Requesting Physician: Dr. Gonzalez Attending Physician: Krysta Gonzalez MD History of Present Illness 54 yo gentleman with SCC of lung who has has had ongoing problems with pain in his right axilla and low back. He has known metastasis to L3 and has had radiation therapy though he was not able to complete the course due to pain. He has had two previous episodes of taking excessive doses of his pain medication. With the last episode, he required narcan and was seen in the ER. As a result, he has run out of his pain medication. He was seen by palliative care in the office last week. At that time a lidocaine patch was added for the pain in his axilla which he describes as stabbing with radiation to right upper arm. He is also on gabapentin. Pain is constant. He is also on adjuvant gabapentin at 900 mg/day. He has not been taking this regularly. Evidently, due to not being able to fill his opioid prescription, he has been taking tylenol and ibuprofen for the pain. He presented to ER with progressive shortness of breath and c/o dark stools. He was anemic with hemoglobin of 6.9 and had heme positive stool in ER. EGD today did not show potential source of bleeding. He continues to c/o pain in his axilla and low back, saying that the axillary pain is worse. Lumbar pain has improved after radiation. He had been receiving IV hydromorphone prn without sustained relief. Allergies Allergy/AdvReac Type Severity Reaction Status Date / Time No Known Allergies Allergy Verified 07/07/20 15:04 Home Medications Medication Instructions Recorded Confirmed Type omeprazole 20 mg capsule,delayed 20 mg PO QAM 07/30/19 07/11/20 History release prochlorperazine maleate 10 mg PO Q6H PRN 01/29/20 07/11/20 History magnesium oxide 400 mg PO QAM #30 tab 02/03/20 07/11/20 Rx Narcan 1 spray INTRANASAL Q3M PRN 03/05/20 07/11/20 History ondansetron HCl 8 mg PO Q8H PRN 30 Days #30 tab 03/07/20 07/11/20 Rx acetaminophen 500 mg tablet 500 mg PO QID PRN 05/23/20 07/11/20 History docusate sodium 100 mg PO BID 06/24/20 07/11/20 History gabapentin 300 mg PO QID 06/24/20 07/11/20 History polyethylene glycol 3350 [Miralax] 17 g PO DAILY PRN 06/24/20 07/11/20 History sennosides [Senokot] 8.6 mg PO QAM PRN 06/24/20 07/11/20 History albuterol sulfate 90 mcg/actuation 2 puff INH Q6H PRN #18 gm 07/04/20 07/11/20 Rx aerosol inhaler dextromethorphan-guaifenesin 30 1 tab PO Q12H PRN #60 tab 07/04/20 07/11/20 Rx mg-600 mg tablet extended [id number] hr ipratropium 0.5 mg-albuterol 3 mg 3 ml INH Q8H PRN #180 ml 07/04/20 07/11/20 Rx (2.5 mg base)/3 mL nebulization soln umeclidinium 62.5 mcg-vilanterol 1 inh INHALATION DAILY #60 ea 07/04/20 07/11/20 Rx 25 mcg/actuation powdr for inhalation lidocaine 4 % topical patch 1 patch TOPICAL DAILY #30 ea 07/07/20 07/11/20 Rx hydroxyzine HCl 25 mg tablet 25 mg PO TID PRN #30 tab 07/08/20 07/11/20 Rx enoxaparin 60 mg SUBCUT UD 07/11/20 07/11/20 History hydromorphone 4 mg PO Q4 PRN 07/11/20 07/11/20 History sertraline 50 mg PO DAILY 07/11/20 07/11/20 History Patient History Medical History Acute blood loss anemia Acute hyponatremia Anxiety Arthritis Aspergillus pneumonia s/p treatment, following closely with pulmonary Cavitary lung disease Chronic obstructive pulmonary disease COPD with emphysema Eye disease Best disease- genetic condition affecting vision GERD (gastroesophageal reflux disease) Gram-negative bacteremia Invasive aspergillosis Macular degeneration Moderate nausea and vomiting Opiate abuse, continuous Pneumonitis Restless leg syndrome Scoliosis Seasonal allergies Severe protein-calorie malnutrition SOB (shortness of breath) on exertion Squamous cell carcinoma lung Upper GI bleed Surgical History History of bronchoscopy History of colonoscopy History of esophagogastroduodenoscopy (EGD) History of tonsillectomy History of tooth extraction Hx of vasectomy Family History Mother Macular degeneration Lung disease Father , 60yo Myocardial infarction Pancreatitis Sister No problems noted. Sister No problems noted. Son No problems noted. Son No problems noted. Daughter No problems noted. Other No significant family history Social History Smoking Status: Former smoker Tobacco Type: Smokeless Tobacco (Dip or Chew) Cigarettes Per Day: 30-40 cigarettes per day for 40 years; Second Hand Exposure: No; Do You Dip or Chew Tobacco: Yes (1 can daily); Tobacco Cessation Education Requested by Patient: No Hx Alcohol Use: No Hx Substance Use: Yes Last Used Substance: Hours (ago) Last Used Substance Other:: 5-6 times daily Substance Use Type Other:: oxycodone Preferred Language: [place] Communication Ability: Effective Visual Impairment: No Limitations Hearing Ability: Normal Territory Representative Required: No Beliefs That Will Affect Care: None marital status: Current Living Situation: Spouse current occupational status: employed 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 How many Children do You have: 1 Other Information That Helps Us Care for You: No Feels Safe at Home: Yes Safety Concerns: Feels Safe At This Time Diet Comment: Near keto diet caffeine: Yes (1 cup/day) during the past year weight has: decreased > 10 lbs Assistive Devices: Oxygen - Continuous Review of Systems Review of Systems: [place] Symptom Assessment Scale Pain 2/3 Dyspnea 0/3 at rest Nausea 0/3 Fatigue 1/3 Anxiety 0/3 Drowsiness 0/3 Palliative Performance Score 50% Physical Exam Constitutional: + thin; no acute distress Respiratory: normal respiratory effort; no labored breathing Cardiovascular: Rate/Rhythm: regular rate and regular rhythm Gastrointestinal (Abdomen): Inspection/Auscultation: abdomen not distended Musculoskeletal: Extremities: + muscle atrophy Neurologic: awake; not confused Results & Data ([facility]) Vital Signs (Past 12 Hours) Vital Signs Temp Pulse Pulse Pulse Resp BP Pulse Ox 07/12/20 12:12 98.4 F 70 18 131/77 97 07/12/20 10:23 72 18 121/69 94 07/12/20 10:09 64 18 103/58 L 95 07/12/20 09:54 70 16 98/50 L 98 07/12/20 08:55 98.1 F 74 20 138/83 95 07/12/20 08:16 99.1 F 67 19 129/75 96 07/12/20 08:00 72 PG Care Time/CCT Total # of Minutes Spent Total Time Spent with Patient: Total time spent is greater than 50% in coordination of care (as documented) at patient's floor/unit and/or counseling patient: Total time spent 70 minutes with more than 50% of time spent on symptom management, coordination of care, discussing opioid safety Coding Level of Care Code 84457 Inpt Consult Level 4 Diagnoses Pain in right axilla M79.621 Palliative care encounter Z51.5 Anemia D64.9 Anemia type: unspecified type Malignant neoplasm of right upper lobe of lung C34.11 COPD with emphysema J43.9 Emphysema type: unspecified
[2020-07-12] MEDS: UMECLIDINIUM/VILANTEROL 62.5/25MCG 7 PUFFS/INHALER INH SCH (15:53)
[2020-07-12] MEDS: LAVAGE SOLUTION 4000ML PO SCH (19:54)
[2020-07-12] MEDS ORDERED: guaiFENesin 600 MG TABCR PO SCH (21:00)
[2020-07-12] MEDS: PANTOprazole 40 MG TAB PO SCH (21:16)
[2020-07-12] MEDS: MELATONIN 3 MG TAB PO PRN (22:33)
[2020-07-13] MEDS: HYDROmorphone HCL 2 MG TAB PO PRN ×5 (01:13→21:07)
[2020-07-13] MEDS: guaiFENesin/DEXTROM SYRUP 200MG/20MG 10ML UDC PO SCH ×4 (05:10→19:46)
[2020-07-13] MEDS: LAVAGE SOLUTION 4000ML PO SCH (06:57)
[2020-07-13] MEDS: PANTOprazole 40 MG TAB PO SCH ×2 (07:32→21:05)
[2020-07-13] MEDS: SERTRALINE HCL 50 MG TABLET PO SCH (07:32)
[2020-07-13] MEDS: UMECLIDINIUM/VILANTEROL 62.5/25MCG 7 PUFFS/INHALER INH SCH (07:32)
[2020-07-13] MEDS: GABAPENTIN 600 MG TAB PO SCH ×4 (07:33→21:05)
[2020-07-13] MEDS: LIDOCAINE 5% 1 PATCH TD SCH (07:33)
[2020-07-13 07:40] LABS: Basophils # (auto) 0.01 K/uL (0-0.2); Basophils % (auto) 0.1 %; Dohle Bodies 1+; Eosinophils # (auto) 0.01 K/uL (0-0.5); Eosinophils % (auto) 0.1 %; Hematocrit (blood only) 28.4 % (42-52); Hemoglobin 9.5 g/dL (14.0-18.0); Immature Granulocytes # (auto) 0.02 K/uL (0.00-0.02); Immature Granulocytes % (auto) 0.3 %; Lymphocytes # (auto) 0.34 K/uL (1.2-3.4); Mean Corpuscular Hemoglobin 29.9 pg (25-34); Mean Corpuscular Hgb Conc 33.5 g/dL (32-36); Mean Corpuscular Volume 89.3 fL (80-100); Mean Platelet Volume 12.2 fL (7.4-10.4); Monocytes # (auto) 0.49 K/uL (0.11-0.59); Monocytes % (auto) 7.3 %; Neutrophils # (auto) 5.87 K/uL (1.4-6.5); Neutrophils % (auto) 87.2 %; Platelet Count 42 K/uL (130-400); RDW Coefficient of Variation 16.3 % (11.5-14.5); RDW Standard Deviation 52.3 fL (36.4-46.3); Red Blood Count 3.18 M/uL (4.7-6.1); Toxic Granulation 1+; White Blood Count 6.74 K/uL (4.8-10.8)
[2020-07-13 07:43] LABS: Alanine Aminotransferase 13 U/L (12-78); Albumin Level 1.8 gm/dl (3.4-5.0); Aspartate Aminotransferase 10 U/L (15-37); Blood Urea Nitrogen 8 mg/dl (7-18); Calcium 8.7 mg/dl (8.5-10.1); Carbon Dioxide 26 mmol/L (21-32); Chloride 101 mmol/L (98-107); Creatinine Clr Calc Pharmacy 169.2 ml/min; Est GFR (African American) > 150.0; Est GFR (Non-African American) 134.2; Glucose 98 mg/dl (70-99); Potassium 3.6 mmol/L (3.5-5.1); Sodium 133 mmol/L (136-145)
[2020-07-13 07:46] LABS: Albumin Globulin Ratio 0.4 (0.9-2); Alkaline Phosphatase 115 U/L (45-117); Bilirubin,Total 0.5 mg/dl (0.2-1); Globulin 5.1 gm/dl (2.5-4.0); Total Protein 6.9 gm/dl (6.4-8.2)
--- NOTE | 2020-07-13 10:41 | Hospitalist Progress Note ---
Date of Service July 13, 2020 Assessment & Plan (1) Acute blood loss anemia: Found to have hemoglobin of 6.9 on admission down from his baseline of 8-9 Is also on carboplatin for recent chemotherapy which is contributing to anemia in the setting of anemia of chronic disease Had melena on digital rectal exam that was heme positive by ER physician Given recent history of NSAID use at home for pain Placed on protonix drip initially and had EGD on 07/12 which showed mild gastritis but no PUD; biopsies were taken and plans for colonoscopy for 07/13 Now status post 2 units PRBCs transfused and hemoglobin up appropriately to 9.8 and stable today at 9.5 No coag studies were obtained here, and he previously had been on Lovenox but no longer has been using Platelets are slightly less than 50,000, but hold off on platelet transfusion at this time as he is no longer actively bleeding -Consult oncology appreciated -No further bleeding noted -No melena -Patient has now declined to have colonoscopy Follow CBC in the morning (2) Acute respiratory failure with hypoxia: Multifactorial, likely secondary to anemia plus worsening infiltrate in the bilateral lower lobes secondary to likely pneumonia Also with severe emphysema and lung cancer with right upper lobe cavitary lesion -Required 2 L on admission is now weaned to room air at rest We will do a two-step prior to discharge to see if needs oxygen with exertion Appreciate pulmonology consultation -Continue with Anoro -Continue guaifenesin -[id number] flutter valve and incentive spirometry -Started doxycycline and ceftriaxone for pneumonia as per pulmonology -No indication for bronchoscopy at this time as per pulmonology Bronchodilators as needed (3) Upper GI bleed: As above (4) COPD with emphysema: As above (5) Squamous cell carcinoma of lung: seen by Dr. Kulkarni of oncology and is also followed by pulmonology as above Receives chemotherapy currently with carboplatin and external beam radiation metastatic with bony disease -Patient has now chosen to pursue hospice and discontinue all chemotherapy Appreciate palliative care consultation and oncology input (6) Gastritis: no significant bleeding source seen on EGD dc IV PPT gtt and change to po bid protonix (7) Thrombocytopenia: likely secondary to recent chemotherapy Platelets stable to slightly lower today at 42 consult Oncology follow CBC No plt transfusion for now as GIB has stopped Avoid anticoagulation (8) Pain in right axilla: Secondary to lung cancer, chronic pain Was previously fired by pain management clinic for abusing opioids that were prescribed Recently admitted here for an opioid overdose requiring Narcan administration He then ran out early on his opioids and has been taking ibuprofen and Tylenol and now presents with GI bleed as above -Now follows with palliative care, Dr. Samantha Martinez who is consulted Pain is improved today but still persistent in the right axilla and back. He is tolerating the increase in gabapentin so far -Increase gabapentin again to 600 mg p.o. 4 times daily -Discontinued IV Dilaudid-this plan was discussed with the patient as he reports the Dilaudid does nothing for his pain anyway but he continues to ask for it -Continue home p.o. Dilaudid 4 mg every 4 hours as needed All outpatient narcotics to be prescribed by palliative care physician with whom he has a pain contract -Continue lidocaine patch (9) Hyponatremia: Mild at 133, chronic Likely secondary to pulmonary process/lung cancer (10) Pneumonia: seen on CT with some low grade fever here, met lung CA, procalcitonin elevated at 5 and now trending down to 2 consult PULM to see if needs treatment-appreciate consultation -Continue ceftriaxone and doxycycline for total of 5 days -Pulmonary toilet and bronchodilators -Sputum culture with moderate normal mario (11) Severe protein-calorie malnutrition: albumin severely low at 1.6 (12) SOB (shortness of breath): will get 2 step prior to discharge as has significant DELGADO (13) Deep vein thrombosis: appears to have completed anticoagulation treatment last US of left upper extremity with nonocclusive chronic thrombus seen in axillary and basilic veins improved from comparison with no acute thrombi identified with GI bleeding and thrombocytopenia and fact that was a PICC line induced DVT, ok to dc Lovenox consult Oncology for further opinion-recommends discontinuing Lovenox permanently Disposition-continued stay but can downgrade to medical/surgical floor, likely discharged home tomorrow if continues to improve Palliative care consultation appreciated Plans for home with hospice upon discharge Admission and Anticipated Discharge Date Admission Date: July 11, 2020 Subjective Patient reports still having some pain in the right armpit but overall improved since increasing dose of gabapentin. He reports he knows it will work but since he missed few doses, he is behind on his pain control. He also decided that he does not want a colonoscopy as even if something is found, he is under no condition to have it fixed and he has decided to pursue hospice and stop all chemotherapy after discussion with oncology. Colonoscopy canceled for today. He is still short of breath with exertion. He is moving his bowels And there is no blood or black stool and ambulating to the bathroom independently. Telemetry with normal sinus rhythm and sinus tachycardia, rates 70s to 120s. Review of Systems Review of Systems: All systems reviewed & are unremarkable except as noted in HPI & below Physical Exam Constitutional: + cachectic and cooperative; no acute distress Eyes: + anicteric sclerae Neck: trachea midline, no thyromegaly Respiratory: normal respiratory effort Auscultation: + crackles (At lower and middle lung kovacs bilaterally) and + rhonchi; no wheezes Cardiovascular: RRR, no murmur, no edema Extremities: no calf tenderness Chest (Breasts): Chest: normal inspection of chest Gastrointestinal (Abdomen): normal bowel sounds, soft, nontender, no hepatosplenomegaly Musculoskeletal: Extremities: extremities normal to inspection; no cyanosis and no clubbing Skin: no rashes, warm and dry Neurologic: moves all extremities and awake; no focal motor deficits Psychiatric: A+Ox3, euthymic affect Lymphatic: no lymphedema Results & Data Results & Data ([facility]) Vital Signs (Past 12 Hours) Vital Signs Temp Pulse Pulse Resp BP Pulse Ox 07/13/20 08:00 91 H 07/13/20 07:24 37.0 C 80 20 120/66 91 07/13/20 03:11 36.8 C 69 20 129/76 98 07/13/20 00:50 79 07/12/20 22:59 36.8 C 69 22 137/81 95 Laboratory Results 07/13/20 07/13/20 07/13/20 Range/Units 06:49 06:49 06:49 WBC 6.74 (4.8-10.8) K/uL RBC 3.18 L (4.7-6.1) M/uL Hgb 9.5 L (14.0-18.0) g/dL Hct 28.4 L (42-52) % MCV 89.3 (80-100) fL MCH 29.9 (25-34) pg MCHC 33.5 (32-36) g/dL RDW Std Deviation 52.3 H (36.4-46.3) fL RDW Coeff of [place] 16.3 H (11.5-14.5) % Plt Count 42 L (130-400) K/uL MPV 12.2 H (7.4-10.4) fL Immature Gran % (Auto) 0.3 % Neut % (Auto) 87.2 % Lymph % (Auto) 5.0 % [place] % (Auto) 7.3 % Eos % (Auto) 0.1 % Baso % (Auto) 0.1 % Neut # (Auto) 5.87 (1.4-6.5) K/uL Lymph # (Auto) 0.34 L (1.2-3.4) K/uL [place] # (Auto) 0.49 (0.11-0.59) K/uL Eos # (Auto) 0.01 (0-0.5) K/uL Baso # (Auto) 0.01 (0-0.2) K/uL Immature Gran # (Auto) 0.02 (0.00-0.02) K/uL Toxic Granulation 1+ Dohle Bodies 1+ Sodium 133 L (136-145) mmol/L Potassium 3.6 (3.5-5.1) mmol/L Chloride 101 (98-107) mmol/L Carbon Dioxide 26 (21-32) mmol/L Anion Gap 6.0 (3-11) BUN 8 (7-18) mg/dl Creatinine 0.41 L (0.6-1.4) mg/dl Est Cr Clr Drug Dosing 169.2 ml/min Est GFR ( Amer) > 150.0 Est GFR (Non-Af Amer) 134.2 BUN/Creatinine Ratio 19.0 (10-20) Glucose 98 (70-99) mg/dl Calcium 8.7 (8.5-10.1) mg/dl Total Bilirubin 0.5 (0.2-1) mg/dl AST 10 L (15-37) U/L ALT 13 (12-78) U/L Alkaline Phosphatase 115 (45-117) U/L Total Protein 6.9 (6.4-8.2) gm/dl Albumin 1.8 L (3.4-5.0) gm/dl Globulin 5.1 H (2.5-4.0) gm/dl Albumin/Globulin Ratio 0.4 L (0.9-2) Procalcitonin 2.71 H (0-0.5) ng/ml PG Care Time/CCT Total # of Minutes Spent Total Time Spent with Patient: Total time spent is greater than 50% in coordination of care (as documented) at patient's floor/unit and/or counseling patient: Coding Level of Care Code 37151 Subseq Hosp Care Lvl 3 Diagnoses Acute blood loss anemia D62 Acute respiratory failure with hypoxia J96.01 Upper GI bleed K92.2 COPD with emphysema J43.9 Emphysema type: unspecified Squamous cell carcinoma of lung C34.90 Laterality: unspecified laterality Gastritis K29.70 Thrombocytopenia D69.6 Pain in right axilla M79.621 Hyponatremia E87.1 Pneumonia J18.9 Laterality: right Lung location: unspecified part of lung Pneumonia type: due to unspecified organism Severe protein-calorie malnutrition E43 SOB (shortness of breath) R06.02 Deep vein thrombosis I82.409 DVT location: upper extremity Laterality: left (1) Deep vein thrombosis DVT location: upper extremity Laterality: left (2) COPD with emphysema Emphysema type: unspecified Qualified Code(s): J43.9 - Emphysema, unspecified (3) Squamous cell carcinoma of lung Laterality: unspecified laterality Qualified Code(s): C34.90 - Malignant neoplasm of unspecified part of unspecified bronchus or lung (4) Pneumonia Laterality: right Lung location: unspecified part of lung Pneumonia type: due to unspecified organism Qualified Code(s): J18.9 - Pneumonia, unspecified organism
[2020-07-13] MEDS: DOXYCYCLINE HYCLATE 100 MG in DEXTROSE 5% 100 ML IV SCH ×2 (10:50→22:20)
--- NOTE | 2020-07-13 11:33 | Consultation Report ---
DATE OF CONSULTATION: 07/13/2020 MEDICAL ONCOLOGY CONSULTATION REASON FOR CONSULTATION: Metastatic nonsmall cell lung cancer, currently under our care at [facility]. HISTORY OF PRESENT ILLNESS: Mr. Lam is a pleasant 54-year-old gentleman who was diagnosed with originally locally advanced squamous cell carcinoma of the lung, status post chemoradiation and subsequently developed metastatic disease manifested by a new right supraclavicular lymph node and a 1.4 cm destructive FDG avid lesion of the L3 lamina. He recently started carboplatin, paclitaxel and pembrolizumab in late April. Mr. Lam has been a challenging case from the start. When he originally presented, had considerable pain necessitating incorporation of opioids. We tried to manage his pain originally at [facility], and because of noncompliance, shifted his care to pain management. Apparently, he nearly overdosed on oral Dilaudid and broke his contract with pain management. Hence, Dr. Samantha Martinez is now consulted to assist in his pain management moving forward. In regards to his lung cancer, this gentleman has not done tremendously well with virtually no response from initial chemoradiation. Again, he was recently placed on salvage carboplatin, paclitaxel and pembrolizumab, which has not been well tolerated. His course has also been complicated by an upper extremity DVT, attributable to his port. He was on anticoagulation for about 3 months and I had taken him off anticoagulation, and apparently, he was placed back on for reasons unclear. So, as part of his disjointed pain management and noncompliance, Esdras was relying on ibuprofen to control his pain because he ran out of opioids. This then resulted in what appears to be gastrointestinal bleeding. When he presented to the ER on 07/11, stools were confirmed positive for guaiac. I believe he also required transfusional support. I was contacted by Dr. Gonzalez advising me of Esdras's admission and I advised her to get palliative care involved as Mr. Lam really has not responded well to therapy and seems to be having more problems than positive effect. I came to the bedside to discuss long-term goals with Esdras, and on the surface, he seems to be amenable to discontinuing further chemotherapy in lieu of supportive care. I advised him that his survival is measured in months should he abandon chemotherapy. PAST MEDICAL HISTORY: Significant for anxiety, osteoarthritis, Aspergillus pneumonia, chronic obstructive pulmonary disease, COPD, metastatic nonsmall cell lung cancer, scoliosis, pneumonitis, opiate misuse disorder, macular degeneration. PAST SURGICAL HISTORY: Status post bronchoscopy, colonoscopy, EGD, tonsillectomy, tooth extraction and vasectomy. MEDICATIONS: Include omeprazole 20 mg p.o. daily, Compazine 10 mg p.o. q.6 hours, magnesium oxide 400 mg p.o. daily, Zofran 8 mg p.o. q.8 hours p.r.n., acetaminophen 500 mg p.o. q.i.d. p.r.n., docusate sodium 100 mg p.o. b.i.d., gabapentin 300 mg p.o. q.i.d., MiraLax 17 grams p.o. p.r.n. daily, albuterol sulfate 2 puffs inhaled q.6 hours, ipratropium/albuterol 3 mL inhaled q.8 hours p.r.n., lidocaine 4% topical patch, hydroxyzine 25 mg p.o. t.i.d. p.r.n., enoxaparin 60 mg subQ daily, hydromorphone 4 mg p.o. q.4 hours p.r.n., sertraline 50 mg p.o. daily. ALLERGIES: No known drug allergies. SOCIAL HISTORY: The patient resides with his . He has got a 9-year-old daughter. He is a reformed smoker, quitting at diagnosis, multi-pack year history, uses smokeless tobacco at this time. Negative for alcohol. Positive for misuse of opioid therapy. FAMILY HISTORY: Mother of lung disease. Father from heart attack. REVIEW OF SYSTEMS: CONSTITUTIONAL: Positive for cachexia. He claims to be not anorexic, has made dietary modifications, is now "juicing." No fevers, chills, or sweats. SKIN: No rashes or lesions. He is heavily tattooed. HEENT: Negative for headaches, lightheadedness or dizziness. He is legally blind attributable to macular degeneration. No hearing deficits. No sinus symptoms, sore throat or dysphagia. LYMPHATICS: No history of lymphoproliferative disease. CARDIAC: No history of coronary artery disease. PULMONARY: Positive for COPD. He is short of breath most likely attributable to chronic lung disease and anemia, positive for semiproductive cough. No current hemoptysis. GASTROINTESTINAL: Negative for abdominal pain. No current nausea or vomiting, no diarrhea or constipation. Positive for melena stools on admission. GENITOURINARY: No hematuria, dysuria, or urinary incontinence. MUSCULOSKELETAL: Chronic pain attributable to metastatic disease. ENDOCRINE: Negative for diabetes or thyroid disease. NEUROLOGIC: Negative for seizure, stroke, or migraine headache. HEMATOLOGIC: Positive for cytopenias attributable to chemotherapy. PHYSICAL EXAMINATION: GENERAL: Very cachectic-appearing 54-year-old gentleman, appears much older than his stated age, in no acute distress. VITAL SIGNS: Temperature 36.8, pulse 69, respiratory rate 20, blood pressure 129/76. SKIN: Warm, dry, noncyanotic. Turgor is fair. HEENT: Atraumatic, normocephalic. Eyes: PERRLA, EOMI. Sclerae nonicteric. Nares patent without rhinorrhea or discharge. Throat clear. Tongue midline. Mucous membranes are moist. NECK: Supple without JVD or thyromegaly. LYMPHATICS: No cervical or supraclavicular palpable nodes. HEART: Regular rate and rhythm. LUNGS: Diffuse rhonchi heard in all kovacs. ABDOMEN: Soft, nontender, nondistended. EXTREMITIES: No clubbing, cyanosis, or edema. NEUROLOGICAL: He is awake, alert and oriented x3. Cranial nerves are intact. RADIOGRAPHIC DATA: CTA of the chest: Progressive right upper lobe volume loss and consolidation, persistent right upper lobe cavitation, severe pulmonary emphysema. No evidence of acute pulmonary embolism. LABORATORY DATA: These were from 07/12/2020. WBC count 8720, hemoglobin 9.8, platelet count 45,000, absolute neutrophil count 7740. Sodium 134, potassium 4.0, chloride 102, carbon dioxide 27, creatinine 0.47, BUN 10, albumin 1.6. IMPRESSION: 1. Acute gastrointestinal bleeding. 2. Severe anemia. 3. Hypoalbuminemia. 4. Metastatic nonsmall cell lung cancer. 5. Opioid misuse disorder. PLAN: I have been asked to see Esdras at bedside. This gentleman I have known for nearly 6-8 months with a diagnosis of aggressive metastatic squamous cell carcinoma of the lung. The patient was given chemoradiation, which really did not do much to improve his disease status. He then recently started carboplatin, paclitaxel and pembrolizumab in mid April. He has struggled with side effects associated with chemotherapy and clearly his current cytopenias are attributable. His course was complicated with development of left upper extremity DVT, most likely from his port site. He was anticoagulated for reasons unclear. I had discontinued Lovenox and it subsequently was restarted. That said, his anticoagulation and overall declining health may have precipitated his bleeding event. He received 2 units of packed RBCs. Pain management has been a challenge with Esrdas. I originally tried to manage his pain, but he was clearly noncompliant with instructions on a safe opioid use. He was then referred to pain management and nearly overdosed on oral Dilaudid. I engaged in a lengthy discussion regarding long-term goals. Esdras understands he is not curable and the goal of any therapy moving forward is to extend his life and maintain quality. I asked Dr. Gonzalez to engage palliative care service. I think Esdras at this juncture is ready to abandon any further salvage therapy and will pursue the palliative route. I think enrolling in hospice early would be beneficial for Esdras. He clearly recognizes his life quality receiving chemotherapy has not been good. I estimate his survival between 6-9 months, perhaps longer if he remains active. I appreciate Dr. Martinez's input and assistance with Mr. Lam's pain management. I will reconvene with Esdras to verify his decision to abandon further salvage therapy. Thank you very much for allowing me to participate in his care. If you have any questions or concerns, please feel free to contact me.
--- NOTE | 2020-07-13 12:17 | Palliative Care Progress Note ---
Date of Service July 13, 2020 Assessment & Plan (1) Palliative care encounter: I talked with Esdras about how he feels about no further treatments and going home with hospice care. He tells me that he wasn't sure that he wanted to start last round of chemotherapy anyway. He reports having a very strong shahida and believes that the outcome is up to God. He would like to live longer to be with his nine year old daughter but is ready when it is his time to . He is comfortable with hospice care for support at home after discharge. I called his to discuss but was not able to reach her. (2) Shortness of breath: Improved with transfusion. Will also benefit from opioids. (3) Pain in right axilla: Gabapentin increased today by Dr. Gonzalez. Would continue hydromorphone every four hours as needed. He notes that if he takes it pretty regularly, pain is manageable. He talks about his history of alcohol and heroin abuse and says that initially he was reluctant to take medication for pain because "I knew what would happen". We talked about being able to monitor his pain and adjust medications. Use of adjuvant treatments is essential and he is using lidocaine patch and gabapentin. Regular pill counts and monitoring of his medication use is also essential and hospice will be able to provide more regular follow up for monitoring this. He has used marijuana in the past for relief of anxiety, though it has not been particularly helpful for pain. He admits today that he does not have his own card and has been getting this through a family member. He will contact his PCP who is also able to certify him for medical marijuana. (4) Malignant neoplasm of right upper lobe of lung: Admission and Anticipated Discharge Date Admission Date: July 11, 2020 Subjective Feels that pain is a little better controlled today. He is taking hydromorphone pretty much every four hours. He had a discussion with Dr. Kulkarni about hospice earlier today. Review of Systems Review of Systems: [place] Symptom Assessment Scale Pain 2/3 Dyspnea 1/3 Anxiety 1/3 Fatigue 1/3 Nausea 0/3 Drowsiness 0/3 Palliative Performance Score 60% Physical Exam Constitutional: no acute distress ENMT: Mouth: oral mucous membranes not dry Respiratory: normal respiratory effort; no labored breathing Cardiovascular: Rate/Rhythm: regular rhythm Gastrointestinal (Abdomen): Inspection/Auscultation: abdomen not distended Musculoskeletal: Extremities: + muscle atrophy Neurologic: awake; not confused Results & Data ([facility]) Vital Signs (Past 12 Hours) Vital Signs Temp Pulse Pulse Resp BP Pulse Ox 07/13/20 11:40 100.2 F H 80 17 112/64 92 07/13/20 08:00 91 H 07/13/20 07:24 98.6 F 80 20 120/66 91 07/13/20 03:11 98.2 F 69 20 129/76 98 07/13/20 00:50 79 PG Care Time/CCT Total # of Minutes Spent Total Time Spent with Patient: Total time spent is greater than 50% in coordination of care (as documented) at patient's floor/unit and/or counseling patient: Coding Level of Care Code 21071 Subseq Hosp Care Lvl 2 Diagnoses Palliative care encounter Z51.5 Shortness of breath R06.02 Pain in right axilla M79.621 Malignant neoplasm of right upper lobe of lung C34.11
[2020-07-13] MEDS: cefTRIAXone SODIUM 1,000 MG in DEXTROSE 5% 50 ML IV SCH (13:27)
--- NOTE | 2020-07-13 14:00 | Pulmonology Progress Note ---
Date of Service July 13, 2020 Assessment & Plan (1) Squamous cell carcinoma of lung: CT chest 07/11/2020 personally reviewed: Right upper lobe cavitary lesion again a ppreciated, there is more dense collapse around the cavitary lesion. Centrilobular and paraseptal emphysema, bilateral peripheral infiltrates are again appreciated with mucous plugging and some tree-in-bud opacities Compared to previous CT scan there is more peripheral opacities in the lower lobes. This could represent mucous plugging/pneumonia --Acute respiratory failure with hypoxia Multifactorial Likely secondary to anemia with hemoglobin of 6.9 at presentation Patient does have worsening infiltrate bilateral lower lobes Pneumonia cannot be excluded. Procalcitonin 5 COVID-19 PCR negative, influenza A/B negative 07/11/2020 Patient did have bronchoscopy in the past when his CAT scan had similar findings on 04/19/2020 and it was negative for culture. Patient used to snort the pain medication which he used to get which might also be playing a role in this feeding if it is that he is used to getting. He states that he has stopped doing it. Patient also chews tobacco which might be also causing aspiration and leading to this. Advised him to quit that. --Squamous cell carcinoma stage IV Getting salvage chemotherapy Follows up with oncology --COPD with severe emphysema and chronic bronchitis Continue with Anoro --History of clot in left upper extremity Likely from the PICC line that he had at the time Not on any anticoagulation anymore --Ex smoker >99-[id number] smoking history, quit July 2019 Patient stats he has not smoked since last August 2019. Encouraged to continue abstinence from smoking. Does use smokeless tobacco Plan: Continue with guaifenesin [id number] along with flutter valve Incentive spirometry Continue doxycycline along with Rocephin for total of 5 days. Follow sputum culture Patient is considering palliative/hospice does not want to continue with chemotherapy as it is making him more sick and leading to more hospitalization. He wants to spend more time with family rather than coming to the hospital again and again. I did explain to the patient that his cancer will progress with time. How fast it is going to progress nobody knows. Dr. Kulkarni already saw the patient today and give a timeline to him. Please note the above document was generated using voice recognition software. It may contain grammatical, syntax or spelling errors.Any formal questions or concerns about the content, text or information contained within the body of this dictation should be directly addressed to the provider for clarification. Laterality: unspecified laterality Qualified Code(s): C34.90 - Malignant neoplasm of unspecified part of unspecified bronchus or lung (2) Cavitary lung disease: (3) COPD with emphysema: Emphysema type: unspecified Qualified Code(s): J43.9 - Emphysema, unspecified (4) Shortness of breath: Admission and Anticipated Discharge Date Admission Date: July 11, 2020 Subjective Patient seen and examined at bedside. No acute distress, no adverse events overnight. He states that he is feeling better compared to at the time when he came to the ER. Still complains of cough and bringing up phlegm. Denies any chest pain, no abdominal pain. He refused colonoscopy today. Review of Systems Review of Systems: All systems reviewed & are unremarkable except as noted in Subjective Physical Exam Physical Exam: Constitutional: No acute distress HEENT: EOMI, PERRLA Respiratory system: Decreased air entry bilaterally, no wheeze, minimal rhonchi, positive crackles bilaterally CVS: S1-S2 positive, no murmurs or gallops Abdomen: Soft, nontender, nondistended, positive bowel sounds x4 Extremities: +2 pulses bilaterally radialis/ dorsalis pedis, no cyanosis, no edema Neuro: Awake alert oriented x3 Psych: Normal mood and affect G/U: No Kaur Skin: no rashes, warm and dry Lymphatic: no cervical or axillary lymphadenopathy Results & Data Results & Data ([facility]) Vital Signs (Past 12 Hours) Vital Signs Temp Pulse Pulse Resp BP Pulse Ox 07/13/20 13:36 37.2 C 80 18 102/61 93 07/13/20 11:40 37.9 C H 80 17 112/64 92 07/13/20 08:00 91 H 07/13/20 07:24 37.0 C 80 20 120/66 91 07/13/20 03:11 36.8 C 69 20 129/76 98 07/13/20 06:49 07/13/20 06:49 PG Care Time/CCT Total # of Minutes Spent Total Time Spent with Patient: Total time spent is greater than 50% in coordination of care (as documented) at patient's floor/unit and/or counseling patient: Coding Level of Care Code 87939 Subseq Hosp Care Lvl 3 Diagnoses Squamous cell carcinoma of lung C34.90 Laterality: unspecified laterality Cavitary lung disease J98.4 COPD with emphysema J43.9 Emphysema type: unspecified Shortness of breath R06.02
[2020-07-13] MEDS: ONDANSETRON INJ 2 MG/ML 2 ML VIAL IV PRN (14:02)
[2020-07-13] MEDS: ACETAMINOPHEN 500 MG TAB PO PRN (15:28)
[2020-07-13] MEDS ORDERED: HYDROmorphone HCL 2 MG TAB PO STA (16:32)
[2020-07-14] MEDS: guaiFENesin/DEXTROM SYRUP 200MG/20MG 10ML UDC PO SCH ×2 (03:43→07:58)
[2020-07-14] MEDS: HYDROmorphone HCL 2 MG TAB PO PRN ×2 (03:44→07:58)
[2020-07-14] MEDS: ONDANSETRON INJ 2 MG/ML 2 ML VIAL IV PRN (04:39)
[2020-07-14] MEDS: ACETAMINOPHEN 500 MG TAB PO PRN (06:12)
[2020-07-14 07:11] VITALS: BP 112/71; PULSE 71; TEMP 98.6; O2SAT 93
[2020-07-14] MEDS: SERTRALINE HCL 50 MG TABLET PO SCH (07:59)
[2020-07-14] MEDS: GABAPENTIN 600 MG TAB PO SCH (07:59)
[2020-07-14] MEDS: LIDOCAINE 5% 1 PATCH TD SCH (07:59)
[2020-07-14] MEDS: PANTOprazole 40 MG TAB PO SCH (07:59)
[2020-07-14] MEDS: UMECLIDINIUM/VILANTEROL 62.5/25MCG 7 PUFFS/INHALER INH SCH (08:00)
[2020-07-14 08:32] LABS: Hematocrit (blood only) 27.8 % (42-52); Hemoglobin 9.1 g/dL (14.0-18.0); Mean Corpuscular Hemoglobin 29.7 pg (25-34); Mean Corpuscular Hgb Conc 32.7 g/dL (32-36); Mean Corpuscular Volume 90.8 fL (80-100); RDW Coefficient of Variation 16.3 % (11.5-14.5); RDW Standard Deviation 53.5 fL (36.4-46.3); Red Blood Count 3.06 M/uL (4.7-6.1); White Blood Count 6.24 K/uL (4.8-10.8)
[2020-07-14] MEDS ORDERED: MAGNESIUM OXIDE 400 MG TAB PO SCH (09:00)
[2020-07-14 09:04] LABS: BUN Creatinine Ratio 18.4 (10-20); Blood Urea Nitrogen 8 mg/dl (7-18); Calcium 8.4 mg/dl (8.5-10.1); Carbon Dioxide 26 mmol/L (21-32); Chloride 99 mmol/L (98-107); Creatinine Clr Calc Pharmacy 165.1 ml/min; Est GFR (African American) > 150.0; Est GFR (Non-African American) 132.9; Glucose 92 mg/dl (70-99); Potassium 3.7 mmol/L (3.5-5.1); Sodium 131 mmol/L (136-145)
[2020-07-14 09:24] LABS: Basophils # (auto) 0.01 K/uL (0-0.2); Basophils % (auto) 0.2 %; Dohle Bodies 1+; Eosinophils # (auto) 0.04 K/uL (0-0.5); Eosinophils % (auto) 0.6 %; Immature Granulocytes # (auto) 0.01 K/uL (0.00-0.02); Immature Granulocytes % (auto) 0.2 %; Lymphocytes % (auto) 4.8 %; Mean Platelet Volume 10.7 fL (7.4-10.4); Monocytes # (auto) 0.53 K/uL (0.11-0.59); Monocytes % (auto) 8.5 %; Neutrophils # (auto) 5.35 K/uL (1.4-6.5); Neutrophils % (auto) 85.7 %; Platelet Count 35 K/uL (130-400); Platelet Estimate Decreased (Normal); Toxic Granulation 1+
[2020-07-14] MEDS ORDERED: HYDROmorphone HCL 2 MG TAB PO PRN (10:53)
--- NOTE | 2020-07-14 11:17 | Discharge Summary ---
Date of Service July 14, 2020 Admission HPI Per Admitting Provider 54 yo male reportIs a 54-year-old male with a history of squamous cell carcinoma diagnosed in 09/09/2019. It is nonstaged. Patient also has a history of tobacco abuse with cigarette smoking but quit several months ago. He continues to use smokeless tobacco. 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 It appears patient ran out of his opiates at home and for the past week, has required multiple doses of 600mg of Ibuprofen and tylenol a day. He reports that for the past 4-5 days he has been more short of breath which prompted him to come to the hospital. He reports dark stools, and in the ER found his stools to be guiac positive with a low hemoglobin. Patient is not having diarrhea. He denies any fever, chills, sweats, rigors. He has no chest pain or tightness. He has no shortness of breath at rest. He has no abdominal pain. He denies any current back pain. He has no recent falls. He has no headache. He has no change in vision. He has no diplopia or blurred vision. He has no other acute complaints. Patient states that he quit smoking last July. He continues to use smokeless tobacco daily He denies any ethanol use He is and lives at home with his and his 9-year-old daughter. He currently follows [facility]. Principal Diagnosis GI bleed, acute blood loss anemia, metastatic lung cancer, chronic pain secondary to metastatic lung cancer Discharge Exam Constitutional + cachectic and cooperative; no acute distress Eyes + anicteric sclerae Neck trachea midline, no thyromegaly Respiratory normal respiratory effort Auscultation: + crackles (At lower and middle lung kovacs bilaterally) and + rhonchi; no wheezes Cardiovascular RRR, no murmur, no edema Extremities: no calf tenderness Chest (Breasts) Chest: normal inspection of chest Gastrointestinal (Abdomen) normal bowel sounds, soft, nontender, no hepatosplenomegaly Musculoskeletal Extremities: extremities normal to inspection; no cyanosis and no clubbing Skin no rashes, warm and dry Neurologic moves all extremities and awake; no focal motor deficits Psychiatric A+Ox3, euthymic affect Lymphatic no lymphedema Discharge Data Allergies Allergy/AdvReac Type Severity Reaction Status Date / Time No Known Allergies Allergy Verified 07/07/20 15:04 Consultations 07/11/20 15:04 ED Decision to Admit Stat 07/11/20 15:33 Consult Gastroenterology Routine 07/12/20 09:03 Consult Oncology Routine Consult Pulmonology Routine 07/12/20 09:13 Consult Palliative Care Routine Procedures Performed Operation Date: 07/12/20 16:00 Actual Procedures p EGD Biopsy Cytology - Dhruv G. Case, DO Operation Date: 07/13/20 16:30 <No data on this case meets the specified criteria> Ordered Studies 07/11/20 14:10 CT angio chest PE protocol Stat Chest CTA 07/11/20 14:10 CT ANGIOGRAM OF THE CHEST CLINICAL HISTORY: Shortness of breast. Metastatic lung carcinoma. Chest pain. Fatigue. Possible acute pulmonary embolism. COMPARISON STUDY: 04/15/2020 TECHNIQUE: Following the IV administration of 99 mL of Optiray, CT angiogram of the thorax was performed from the thoracic inlet to the lung bases utilizing the pulmonary embolus protocol. Images are reviewed in the axial, sagittal, and coronal planes. IV contrast was administered without complication. MIP imaging was performed. A dose lowering technique was utilized adhering to the principles of ALARA. CT DOSE: 246.19 mGy.cm FINDINGS: There are persistent borderline enlarged mediastinal lymph nodes. There was no evidence of thoracic aortic dilatation. There were no pulmonary artery filling defects to indicate acute pulmonary embolism. There are trace bilateral pleural effusions There is severe pulmonary emphysema. There is right lower lobe bronchial wall thickening and mucous plugging. There is a 6 cm right upper lobe cavitary lesion. There are multifocal areas of irregular parenchymal consolidation. Multifocal pneumonia is favored although multifocal neoplasm could appear similar. IMPRESSION: 1. No evidence of acute pulmonary embolism 2. Progressive right upper lobe volume loss and consolidation. Persistent right upper lobe cavitation. 3. Severe pulmonary emphysema. 4. Irregular multifocal airspace opacities, likely representing a multifocal pneumonia 5. Right lower lobe bronchial wall thickening and mucous plugging. ACT 112: Negative or not required by law. Electronically signed by: Leroy Faust M.D. 07/11/2020 3:42 PM Chest X-Ray 07/11/20 14:10 SINGLE VIEW CHEST CLINICAL HISTORY: Atypical chest pain. FINDINGS: An AP, portable, upright chest radiograph is compared to study dated 06/24/2020 and correlated with chest CT dated 04/15/2020. The examination is degraded by portable technique and apical lordotic positioning. The cardiomediastinal silhouette is unremarkable. Fibrotic change with debris- containing cavitation is again seen at the right apex. Chronic fibrotic change is again noted in the left midlung. Superimposed airspace consolidation is again seen in right upper lung and the left lower lung. No large pleural effusion is identified. No pneumothorax is seen. There are healed left-sided rib fractures. IMPRESSION: 1. Chronic fibrotic change throughout both lungs with cavitation and debris at the right apex is similar to recent prior examinations. 2. Foci of superimposed airspace consolidation in the right upper an left lower lung is unchanged from 06/24/2020 and suggests superimposed pneumonia. Clinical correlation will be required. ACT 112: Negative or not required by law. Electronically signed by: Ethan Larkin M.D. 07/11/2020 2:37 PM Hospital Course (1) Acute blood loss anemia: Found to have hemoglobin of 6.9 on admission down from his baseline of 8-9 Is also on carboplatin for recent chemotherapy which is contributing to anemia in the setting of anemia of chronic disease Had melena on digital rectal exam that was heme positive by ER physician Given recent history of NSAID use at home for pain Placed on protonix drip initially and had EGD on 07/12 which showed mild gastritis but no PUD; biopsies were taken and plans were made for colonoscopy for 07/13 Now status post 2 units PRBCs transfused and hemoglobin up appropriately to 9.8 and stable today at 9.1 on the day of discharge No coag studies were obtained here, and he previously had been on Lovenox but no longer has been using Platelets are less than 50,000, but hold off on platelet transfusion at this time as he is no longer actively bleeding -Consult oncology appreciated -No further bleeding noted -No melena -Patient has now declined to have colonoscopy Going home with hospice, no need to check further CBC Advised to avoid aspirin, NSAIDs and all blood thinners (2) Acute respiratory failure with hypoxia: Multifactorial, likely secondary to anemia plus worsening infiltrate in the bilateral lower lobes secondary to likely pneumonia Also with severe emphysema and lung cancer with right upper lobe cavitary lesion -Required 2 L on admission is now weaned to room air at rest but will need oxygen with activity with home hospice at home Appreciate pulmonology consultation -Continue with Anoro -Continue guaifenesin -[id number] flutter valve and incentive spirometry was provided -Started doxycycline and ceftriaxone for pneumonia as per pulmonology-DC to home on p.o. doxycycline and cefdinir to complete a 7-day course -No indication for bronchoscopy at this time as per pulmonology Bronchodilators as needed (3) Upper GI bleed: As above (4) COPD with emphysema: As above (5) Squamous cell carcinoma of lung: seen by Dr. Kulkarni of oncology and is also followed by pulmonology as above Receives chemotherapy currently with carboplatin and external beam radiation metastatic with bony disease -Patient has now chosen to pursue hospice and discontinue all chemotherapy Appreciate palliative care consultation and oncology input (6) Gastritis: no significant bleeding source seen on EGD dc IV PPT gtt and change to po bid PPI on discharge (7) Thrombocytopenia: likely secondary to recent chemotherapy Platelets now down to 35 on the day of discharge which is likely his danish No evidence of further bleeding consult Oncology appreciated No plt transfusion for now as GIB has stopped Avoid anticoagulation, aspirin, NSAIDs No need to follow CBC at home (8) Pain in right axilla: Secondary to lung cancer, chronic pain Was previously fired by pain management clinic for abusing opioids that were prescribed Recently admitted here for an opioid overdose requiring Narcan administration He then ran out early on his opioids and has been taking ibuprofen and Tylenol and now presents with GI bleed as above -Now follows with palliative care, Dr. Samantha Martinez who is consulted Pain is improved here but still persistent in the right axilla and back. He is tolerating the increase in gabapentin so far -Increased gabapentin again to 600 mg p.o. 4 times daily-can further uptitrate as an outpatient if needed -Discontinued IV Dilaudid-this plan was discussed with the patient as he reports the Dilaudid does nothing for his pain anyway but he continues to ask for it -Continue home p.o. Dilaudid increased to 6 mg every 4 hours as needed All outpatient narcotics to be prescribed by hospice after discharge -Continue lidocaine patch on the right upper back which is helping (9) Hyponatremia: Mild at 133, chronic Likely secondary to pulmonary process/lung cancer (10) Pneumonia: seen on CT with some low grade fever here, met lung CA, procalcitonin elevated at 5 and now trending down to 2 consult PULM to see if needs treatment-appreciate consultation -Continue antibiotics as above for 7-day course -Pulmonary toilet and bronchodilators -Sputum culture with moderate normal mario (11) Severe protein-calorie malnutrition: albumin severely low at 1.6 (12) SOB (shortness of breath): Secondary to COPD, lung cancer, pneumonia Oxygen to be provided by hospice at home on discharge (13) Deep vein thrombosis: appears to have completed anticoagulation treatment last US of left upper extremity with nonocclusive chronic thrombus seen in axillary and basilic veins improved from comparison with no acute thrombi identified with GI bleeding and thrombocytopenia and fact that was a PICC line induced DVT, ok to dc Lovenox consult Oncology for further opinion-recommends discontinuing Lovenox permanently Disposition-stable for discharge to home with hospice today Palliative care consultation appreciated Plans for home with hospice upon discharge Total Time Total Time Spent Total Time Spent (In Minutes): 40 minutes Total Time Includes: Examination of the Patient, Discharge Planning, Medication Reconciliation and Communication With Other Providers (Palliative care, oncolo gy) Discharge Plan Discharge Items Patient Disposition: Hospice - Home Reason For Visit: GI BLEED Discharge Diagnosis: GI bleed, metastatic lung cancer, symptomatic anemia Condition on Discharge: Fair Activity: As commented below Bathing: No limitations Exercise/Sports: As tolerated Non-emergency contact: Primary Care Provider Call non-emergency contact if: you have any medication questions, your symptoms worsen, your pain is not controlled, your pain is worsening, your pain is unusual for you and your pain is concerning for you Follow-up/Referrals: Walter Roberts [Primary Care Provider] - (You do not have to follow-up with your primary care physician as you are enrolling in home hospice.) Diet: Regular Addtl Attending Provider Instructions: You were admitted with bleeding from your gut and severe anemia. You received 2 units of blood transfusion and the bleeding stopped. Because of your metastatic lung cancer, you have chosen to go home with hospice and stop all chemotherapy treatment. Hospice will help you focus on improving your quality of life and with pain management moving forward. Your gabapentin was increased to 600 mg 4 times a day, and your Dilaudid was increased to 6 mg by mouth every 4 hours as needed for pain. The hospice doctor can increase your pain medicine as needed in the future. Please do not take any blood thinners such as aspirin, NSAIDs (i.e. Motrin, ibuprofen, Advil, naproxen), or Lovenox injections any further. You will be provided with oxygen at home that you should use when you are up and walking around to help with your shortness of breath. Please make sure to take laxatives and stool softeners to keep your bowels moving as opioids can make you significantly constipated. You also diagnosed with pneumonia while you are here and started on antibiotics. Please finish out 4 more days of doxycycline and cefdinir twice daily. You do not need to follow-up with oncology any further. Pending Studies at Discharge: No Stand-Alone Forms: My [facility] Medications and DC Order Prescriptions: New gabapentin 600 mg Tablet 600 mg PO QID Qty: 120 RF: 0 hydromorphone 4 mg tablet 6 mg PO Q4H PRN (Reason: pain) Qty: 90 RF: 0 doxycycline hyclate 100 mg capsule 100 mg PO BID 4 Days Qty: 8 RF: 0 cefdinir 300 mg capsule 300 mg PO BID 4 Days Qty: 8 RF: 0 Continued acetaminophen 500 mg tablet 500 mg PO QID PRN (Reason: Pain) RF: 0 Mucinex DM 30-600 mg tablet extended release 12 hr 1 tab PO Q12H PRN (Reason: cough) Qty: 60 RF: 3 ipratropium-albuterol 0.5 mg-3 mg(2.5 mg base)/3 mL solution for nebulization 3 ml INH Q8H PRN (Reason: Shortness Of Breath Or Wheezing) Qty: 180 RF: 5 Anoro Ellipta 62.5-25 mcg/actuation blister with device 1 inh inhalation DAILY Qty: 60 RF: 5 albuterol sulfate 90 mcg/actuation HFA aerosol inhaler 2 puff INH Q6H PRN (Reason: Shortness Of Breath Or Wheezing) Qty: 18 RF: 3 hydroxyzine HCl 25 mg tablet 25 mg PO TID PRN (Reason: itching) Qty: 30 RF: 0 Narcan 4 mg/actuation spray,non-aerosol 1 spray intranasal Q3M PRN (Reason: Opioid Overdose) RF: 0 ondansetron HCl 8 mg tablet 8 mg PO Q8H PRN (Reason: Nausea) 30 Days Qty: 30 RF: 0 prochlorperazine maleate 10 mg tablet 10 mg PO Q6H PRN (Reason: Nausea) RF: 0 magnesium oxide 400 mg (241.3 mg magnesium) Tablet 400 mg PO QAM Qty: 30 RF: 0 sennosides [Senokot] 8.6 mg tablet 8.6 mg PO QAM PRN (Reason: Constipation) RF: 0 docusate sodium 100 mg capsule 100 mg PO BID RF: 0 polyethylene glycol 3350 [Miralax] 17 gram/dose powder 17 g PO DAILY PRN (Reason: Constipation) RF: 0 sertraline 50 mg tablet 50 mg PO DAILY RF: 0 lidocaine 4 % adhesive patch,medicated 1 patch topical DAILY Qty: 30 RF: 1 Changed omeprazole 20 mg capsule,delayed release(DR/EC) 20 mg PO BID Qty: 60 RF: 0 Discontinued gabapentin 300 mg capsule 300 mg PO QID RF: 0 hydromorphone 4 mg tablet 4 mg PO Q4 PRN (Reason: Pain) RF: 0 enoxaparin 60 mg/0.6 mL syringe 60 mg subcut UD RF: 0 Discharge Orders: Discharge Order (Routine); Ordered 07/14/20 Ordered By: Krysta Gonzalez Admission Data Admit Date/Time: 07/11/20 15:42 Attending Provider: Krysta Gonzalez Admit Provider: Alejo Peters Primary Care Provider: Walter Roberts Other Providers: Alejo Peters ; Dhruv Higgins ; Walter Kulkarni V. ; Leroy Horne ; Samantha Martinez ; [facility] Other Interventions: Discharge Summary Assessment (RN) Last Done: 07/12/20 09:54 Coding Level of Care Code D/C Day Management >30 mins Diagnoses Acute blood loss anemia D62 Acute respiratory failure with hypoxia J96.01 Upper GI bleed K92.2 COPD with emphysema J43.9 Emphysema type: unspecified Squamous cell carcinoma of lung C34.90 Laterality: unspecified laterality Gastritis K29.70 Thrombocytopenia D69.6 Pain in right axilla M79.621 Hyponatremia E87.1 Pneumonia J18.9 Laterality: right Lung location: unspecified part of lung Pneumonia type: due to unspecified organism Severe protein-calorie malnutrition E43 SOB (shortness of breath) R06.02 Deep vein thrombosis I82.409 DVT location: upper extremity Laterality: left
[2020-07-14] MEDS: DOXYCYCLINE HYCLATE 100 MG in DEXTROSE 5% 100 ML IV SCH (11:21)
--- NOTE | 2020-07-14 11:42 | Palliative Care Progress Note ---
Date of Service July 14, 2020 Assessment & Plan (1) Palliative care encounter: Plan for discharge home today with hospice. Discussed with Dr. Gonzalez. Hydromorphone increased to 6mg every four hours as needed. Continue adjuvants. We did address his code status. He has been a full code. We talked about shift of focus to comfort and quality of life. He is hopeful that he will have months, maybe years, with his daughter, but wants his to peaceful when it happens. He would not want full resuscitation. Code status changed to DNR. Admission and Anticipated Discharge Date Admission Date: July 11, 2020 Subjective Resting comfortably in bed. He is taking hydromorphone every four hours but doesn't feel that it lasts for four the whole four hours. He is using lidocaine and gabapentin. He denies nausea or dyspnea. Review of Systems Review of Systems: [place] Symptom Assessment Scale Pain 2/3 Anxiety 1/3 Dyspnea 0/3 Nausea 0/3 Drowsiness 0/3 Palliative Performance Score 60% LBM 07/14 Physical Exam Constitutional: + thin and + frail appearing ENMT: Mouth: oral mucous membranes not dry Respiratory: normal respiratory effort; no labored breathing Cardiovascular: Extremities: no edema Gastrointestinal (Abdomen): Inspection/Auscultation: abdomen not distended Musculoskeletal: Extremities: + muscle atrophy Neurologic: awake; not confused Results & Data ([facility]) Vital Signs (Past 12 Hours) Vital Signs Temp Pulse Resp BP Pulse Ox 07/14/20 07:10 98.6 F 71 16 112/71 93 PG Care Time/CCT Total # of Minutes Spent Total Time Spent with Patient: Total time spent is greater than 50% in coordination of care (as documented) at patient's floor/unit and/or counseling patient: Coding Level of Care Code 52962 Subseq Hosp Care Lvl 2 Diagnoses Palliative care encounter Z51.5
--- NOTE | 2020-07-14 13:39 | Pulmonology Progress Note ---
Date of Service July 14, 2020 Assessment & Plan (1) Squamous cell carcinoma of lung: CT chest 07/11/2020 personally reviewed: Right upper lobe cavitary lesion again a ppreciated, there is more dense collapse around the cavitary lesion. Centrilobular and paraseptal emphysema, bilateral peripheral infiltrates are again appreciated with mucous plugging and some tree-in-bud opacities Compared to previous CT scan there is more peripheral opacities in the lower lobes. This could represent mucous plugging/pneumonia --Acute respiratory failure with hypoxia Multifactorial Likely secondary to anemia with hemoglobin of 6.9 at presentation Patient does have worsening infiltrate bilateral lower lobes Pneumonia cannot be excluded. Procalcitonin 5 COVID-19 PCR negative, influenza A/B negative 07/11/2020 Patient did have bronchoscopy in the past when his CAT scan had similar findings on 04/19/2020 and it was negative for culture. Patient used to snort the pain medication which he used to get which might also be playing a role in this feeding if it is that he is used to getting. He states that he has stopped doing it. Patient also chews tobacco which might be also causing aspiration and leading to this. Advised him to quit that. --Squamous cell carcinoma stage IV Getting salvage chemotherapy Follows up with oncology --COPD with severe emphysema and chronic bronchitis Continue with Anoro --History of clot in left upper extremity Likely from the PICC line that he had at the time Not on any anticoagulation anymore --Ex smoker >[id number] smoking history, quit July 2019 Patient stats he has not smoked since last August 2019. Encouraged to continue abstinence from smoking. Does use smokeless tobacco Plan: Complete the course of antibiotics for 5 days. Continue with inhaler at home. Continue with Mucinex and flutter valve at home. Avoid chewing tobacco. Patient has decided to go hospice route. Patient can still follow-up with pulmonary preschool education director the office on an as-needed basis. Please note the above document was generated using voice recognition software. It may contain grammatical, syntax or spelling errors.Any formal questions or concerns about the content, text or information contained within the body of this dictation should be directly addressed to the provider for clarification. Laterality: unspecified laterality Qualified Code(s): C34.90 - Malignant neoplasm of unspecified part of unspecified bronchus or lung (2) Cavitary lung disease: (3) COPD with emphysema: Emphysema type: unspecified Qualified Code(s): J43.9 - Emphysema, unspecified (4) Shortness of breath: Admission and Anticipated Discharge Date Admission Date: July 11, 2020 Subjective Patient seen and examined at bedside. No acute distress, no adverse events overnight. Patient is feeling better when it comes to his breathing. Has been bringing up clear phlegm. Using incentive spirometry and flutter valve. Denies any significant chest pain. The shoulder pain is also better controlled. Fair appetite. Review of Systems Review of Systems: All systems reviewed & are unremarkable except as noted in Subjective Physical Exam Physical Exam: Constitutional: No acute distress HEENT: EOMI, PERRLA Respiratory system: Decreased air entry bilaterally, no wheeze, minimal rhonchi, positive crackles bilaterally CVS: S1-S2 positive, no murmurs or gallops Abdomen: Soft, nontender, nondistended, positive bowel sounds x4 Extremities: +2 pulses bilaterally radialis/ dorsalis pedis, no cyanosis, no edema Neuro: Awake alert oriented x3 Psych: Normal mood and affect G/U: No Kaur Skin: no rashes, warm and dry Lymphatic: no cervical or axillary lymphadenopathy Results & Data Results & Data ([facility]) Vital Signs (Past 12 Hours) Vital Signs Temp Pulse Resp BP Pulse Ox 07/14/20 12:16 37 C 71 16 112/71 93 07/14/20 07:10 37 C 71 16 112/71 93 07/14/20 08:17 07/14/20 08:17 PG Care Time/CCT Total # of Minutes Spent Total Time Spent with Patient: Total time spent is greater than 50% in coordination of care (as documented) at patient's floor/unit and/or counseling patient: Coding Level of Care Code 42344 Subseq Hosp Care Lvl 2 Diagnoses Squamous cell carcinoma of lung C34.90 Laterality: unspecified laterality Cavitary lung disease J98.4 COPD with emphysema J43.9 Emphysema type: unspecified Shortness of breath R06.02
--- NOTE | 2020-07-24 20:11 | Coding Query ---
CODING QUERY To promote full compliance with coding requirements relating to patient care, provider participation is requested in all cases of medical biller/coder uncertainty. Please assist us with the question(s) below: Coding Question(s): Patient admitted with melena and acute blood loss anemia. EGD revealed gastritis. Please document, if known or suspected, the etiology of the GI bleed. Thanks for your help! Fabian Justin [place] Physician's Response(s): Suspected small intestine GI bleed Principal Diagnosis: "that condition established after study, to be chiefly responsible for occasioning the admission of the patient to the hospital for care." Co-Existing Principal Diagnosis: "when two or more diagnoses equally meet the criteria for principal diagnosis as determined by the circumstances of admission, diagnostic work up, and/or therapy provided, and the Alphabetic Index, Tabular List, or another coding guideline does not provide sequencing direction, any one of the diagnoses may be sequenced first." "When the physician has documented what appears to be a current diagnosis in the body of the record, but has not included the diagnosis in the final diagnostic statement, the physician should be asked whether the diagnosis should be added." (Source Coding [facility] 2 QTR90. p3-4) ADRIENNED
== END 2020-07-14 13:36 | disposition hospice, home (50) | DRG 377 ==
LOC: ED 13:12 → 2S 15:42 → SUATTDRO 15:42 → 2S 17:32 → 3N 07-13 13:42